=== PATIENT | female | born 1955 | race Caucasian/White ===

== ENCOUNTER → 2019-04-22 | Outpatient (CLI) | payer MEDICARE, MEDICAID, SELFPAY | PROVIDERS: Visit Provider Specialist | DX: H93.8X1 Other specified disorders of right ear (principal) | CPT/HCPCS: 36415; 93005 ==

== ENCOUNTER 2019-05-11 06:51 | Day surgery (SDC) | payer MEDICARE, MEDICAID, SELFPAY ==
[2019-05-10 17:11] VITALS: BMI 29.9
[2019-05-11 07:14] VITALS: BP 140/75; PULSE 100; RESP 18; O2SAT 97
--- NOTE | 2019-05-11 07:54 | ANES.PREANES ---
Pre-Anesthetic Assessment Pre-Anesthetic Assessment: Height/Weight: Height 1.52 m Weight 69.4 kg Pulse Resp BP Pulse Ox 100 18 140/75 97 05/11/19 07:14 05/11/19 07:14 05/11/19 07:14 05/11/19 07:14 Proposed Procedure: Operation Date: 05/11/19 08:00 Proposed Procedures p Myringotomy and Tubes(Right) - Jose L Mcgee MD s Eustachian Tube Dilation(Right) - Jose L Mcgee MD Last intake: Intake Last Liquid Date 05/10/19 Last Liquid Time 21:00 Last Solid Date 05/10/19 Last Solid Time 21:00 Social: Social History: Tobacco and No alcohol Exam: Pre-Anes Outpt Exam: alert, oriented x 3, clear to auscultation bilaterally and regular rate & rhythm Airway: Submandibular: WNL Cervical ROM: WNL MP: 2 Dentition: Full History/ROS: No significant history except as noted and No significant complaints Pulmonary: Pulmonary: COPD CV/HEM: CV/HEM: HTN GI: GI: GERD Metabolic: Metabolic: Hyperlipidemia Musc/skel: Musc/skel: OA/DJD Anesthetic Plan: ASA status: III Anesthesia: Anesthesia Evaluation and General Risk of > 500 ml blood loss (7ml/kg in children): No PFSH Anesthesia PFSH: Medical History (Updated 05/11/19 @ 07:55 by Chace Harden MD) History of COPD (Acute) Hx of gastroesophageal reflux (GERD) (Acute) Hx of hypercholesterolemia (Acute) Hx of migraines (Acute) Hx of primary hypertension (Acute) Surgical History (Updated 05/11/19 @ 07:55 by Chace Harden MD) History of ankle surgery (Acute) History of bladder surgery (Acute) History of carpal tunnel release of both wrists (Acute) History of tonsillectomy and adenoidectomy (Acute) Data Anesthesia Cardiac Studies: No Data to Display
[2019-05-11] MEDS: sodium chloride 0.9% 1,000 ML 30 ML IV (09:00)
[2019-05-11] MEDS: ciprofloxacin-dexameth Otic Susp 7.5 mL Btl 4 DROP EAR-RIGHT (09:05)
[2019-05-11] MEDS: EPINEPHrine 1 mg/mL INJ XX ×2 (09:07→09:09)
[2019-05-11] MEDS: fluorescein 1 mg Strip XX (09:10)
[2019-05-11] MEDS: lidocaine 4% PF 5 mL INJ INJECTION (09:11)
[2019-05-11] MEDS: oxymetazoline 0.05% Nasal Spray 15 mL 2 SPRAY NOSTRIL-B (09:13)
[2019-05-11 09:33] VITALS: BP 135/54; PULSE 98; RESP 20; TEMP 36.4; O2SAT 98
[2019-05-11] MEDS: ipratropium 0.5 mg/2.5 mL Neb INHALATION (09:33)
--- NOTE | 2019-05-11 09:35 | PM.OP ---
Operative Report Post-Operative Note: Date of procedure: 05/11/19 Preop Diagnosis: Chronic eustachian tube dysfunction, Right ear Post-op diagnosis: same Post-op Findings: Otitis media with effusion, Right ear Procedure Done: Right ear myringotomy with tympanostomy tube placement; Balloon dilation, right eustachian tube Implants: None Specimens removed/disposition: None Surgeon: Jose L Mcgee Termite Control Representative: Tani Dumont Anesthesia: general Estimated blood loss (mL): 10 IV fluids (mL): 700 Urine output (mL): 0 Complications: None Findings: Otitis media with effusion, right ear Condition: stable Disposition: same day Operative Report: Brief History: 63 yo wf with a h/o chronic right ear eustachian tube dysfunction with otitis media with effusion requiring multiple tympanostomy tube placements. The patient desires surgical therapy. Procedure: My BMDDESCRIPTION OF OPERATION: The patient was identified in the Preoperative Holding Area. Patient was taken to the Operating Room where [he/she] was placed on the operating table in the supine position. Anesthesia was obtained with [general mask] anesthesia. The patient's head was turned to the left exposing the right ear to the operating surgeon. An aural speculum was placed in the patient's left external auditory canal. The operating microscope with 300 millimeter lens was brought into the field and was used to make a systematic inspection of the patient's left external auditory canal and tympanic membrane with findings noted above. A radial incision was made at the anterior-inferior quadrant of the patient's left tympanic membrane. The middle ear effusion was evacuated with suction and a tympanostomy tube was placed in the myringotomy site with a pair of alligator forceps. Once this was accomplished, the ear was filled with Ciprodex otic suspension followed by a cotton ball. At this point, , the patient was prepped and draped in the usual sterile fashion and the nose was sprayed with Afrin. Pledgets soaked in Afrin and lidocaine were then placed in the right nasal cavity. 10 minutes were allowed to pass and then the pledgets were removed the right nasal cavity. At this point the 0? Mireles yahir surgical telescope with the attached video camera system was used to inspect the right nasal cavity and nasopharynx. The entellus balloon dilation system was then inserted into the eustachian tube orifice and inflated for 2 minutes. At this point the balloon was deflated and removed and the nose was observed for bleeding which of which there was none. At this point at this point, the procedure was terminated, control of the patient was returned to Anesthesia. The patient underwent an uneventful reversal of anesthesia and was taken to the Recovery Room in stable condition. Coding Level of Care Code Acute Matlab Developer for Salomon Jones
[2019-05-11 09:40] VITALS: BP 120/50; PULSE 90; RESP 15; O2SAT 100
[2019-05-11 09:45] VITALS: BP 138/56; PULSE 92; RESP 17; TEMP 36.4; O2SAT 94
--- NOTE | 2019-05-11 09:45 | SUR.PHASEI ---
0933- RECEIVED PATIENT IN PACU FROM OR VIA [facility]. RESP ARE EVEN BUT LABORED. NEBULIZER TX ORDERED PER CORETTA KAUFMAN. PT IS AWAKE AND ALERT, DROWSY. NO S/S PAIN OR NAUSEA 0945- PATIENT SITTING UP, EATING ICE CHIPS, TOLERATING WELL. SAT 93% WITH ROOM AIR
--- NOTE | 2019-05-11 09:58 | SUR.PHASEI ---
0947- TRANSFERRED PATIENT FROM PACU TO OPS VIA [facility]. RESP ARE EVEN AND NONLABORED. SAT 93% WITH ROOM AIR. SHE IS AWAKE AND ALERT. DENIES PAIN OR NAUSEA. WOULD LIKE SOME COFFEE. TRANSITION OF CARE TO [facility]
[2019-05-11 11:10] VITALS: BP 146/68; PULSE 95; RESP 18; TEMP 36.6; O2SAT 92
[2019-05-11 11:28] VITALS: BP 129/90; PULSE 90; RESP 18
--- NOTE | 2019-05-11 13:42 | ANE.PACU ---
 Inpatient post-anesthesia follow up: Airway intact: Yes Vital signs: Temperature 97.8 F Pulse Rate [Radial ] 90 Respiratory Rate 18 Blood Pressure [Ri ght Arm] 129/90 Pulse Oximetry 92 Oxygen Delivery Me thod Room Air Oxygen Flow Rate 6 Fraction of Inspir ed Oxygen Hydration adequate: Yes Nausea and vomiting: No Mental status: Baseline
== END 2019-05-11 11:15 | disposition home or self-care (01) ==
PROVIDERS: PCP Nurse Practitioner Family; Visit Provider Specialist
PROC: (CPT 69420; principal; 2019-05-11 07:50)
PROC: (CPT 69436; 2019-05-11 07:50)
DX: H66.91 Otitis media, unspecified, right ear (principal); J44.9 Chronic obstructive pulmonary disease, unspecified; I10 Essential (primary) hypertension; E78.5 Hyperlipidemia, unspecified; M19.90 Unspecified osteoarthritis, unspecified site; K21.9 Gastro-esophageal reflux disease without esophagitis; E78.00 Pure hypercholesterolemia, unspecified
CPT/HCPCS: 69436; 99221; J0171; J0330; J1100; J2001; J2405; J2704; J3010; J3490; J7030; J7611; J7644

== ENCOUNTER 2019-05-31 12:24 | Outpatient (CLI) | payer MEDICARE, MEDICAID, SELFPAY ==
[2019-05-31 13:23] LABS: Basophils % 0.4 %; Eosinophils # 0.2 10^3/uL (0.0-0.8); Eosinophils % 2.9 %; Hematocrit 35.2 % (37.0-47.0); Hemoglobin 10.4 g/dL (11.5-15.3); Mean Corpuscular HGB Conc 29.5 g/dL (30.0-36.0); Mean Corpuscular Hemoglobin 21.5 pg (28.0-34.0); Mean Corpuscular Volume 72.9 fL (81-99); Mean Platelet Volume 9.4 fL (7.4-10.4); Monocytes # 0.7 10^3/uL (0.2-0.9); Monocytes % 12.8 %; Neutrophils # 3.3 10^3/uL (1.8-7.7); Neutrophils % 64.3 %; Nucleated Red Blood Cells % 0 %; Platelet Count 368 10^3/cmm (130-400); Red Blood Count 4.83 10^6/uL (4.1-5.3); Red Cell Distribution Width 27.7 % (12.1-15.1); White Blood Count 5.2 10^3/uL (4.0-10.0)
--- NOTE | 2019-05-31 14:57 | ONC CON_ITS ---
Dr. Vasquez New Patient Note Patient: Latonia Gar Unit #: [id number]: [id number] Dicatated By: Pedro Luis Vasquez M.D.Date of Visit: May 31, 2019 Onc MED New Patient/Consult Referring Physician: Ragini Moody History of Present Illness: Mrs. Latonia Jones, Is a 63-year-old female with a lifelong history of off and on mild anemia, never required any attention until recently when on 05/12/2019 per PMD checked on labs shows white blood count 12.9 hemoglobin 8.8 hematocrit 29.8 platelets 531,000 MCV 67.6 and iron studies shows TIBC 434, iron saturation for and iron 16 which was low, she was started on oral iron one tablets twice a day, tolerating reasonably well except with off and on constipation. Patient has EGD and colonoscopy done on 09/21/2018 which showed colonoscopy exam shows no abnormality whereas EGD showed reflux esophagitis a single deep ulcer was visualized but was not actively bleeding. Duodenal exam shows no abnormality. As per Patient, she was started on acid reduction therapy. She never required blood transfusion, as taking oral iron off and on when she was young. Denies any jaundice, denies any melena or hematochezia, denies any palpitation or shortness of breath but generalized weakness and fatigue. Denies any weight loss. Denies any abdominal pain denies any hematuria. Denies any hemoptysis or hematemesis. Denies any history of gastric surgery. Denies any peripheral neuropathy. Past Medical History: Ms. Gar's medical history consists of chronic obstructive pulmonary disease, chronic sinusitis, hyperlipidemia, hypertension, and osteoarthritis. Past Surgical History: Ms. Gar's surgical/procedural history consists of bilateral carpal tunnel release, bladder tuck, left ankle fracture repair, and tonsillectomy - with adenoidectomy. Medications: Acyclovir 1 Tablet (of 400 mg) Oral 5x/d for 7 days, amLODIPine Besylate 1 Tablet (of 5 mg) Oral daily, Biotin 1 Tablet (of 1000 mcg) Oral daily, Cetirizine HCl 1 Tablet (of 10 mg) Oral daily, Cyclobenzaprine HCl 1 Tablet (of 10 mg) Oral b.i.d. PRN, Diclofenac Sodium 1 Tablet (of 75 mg) Tablet, enteric coated Oral b.i.d., Ferrous Sulfate 1 Tablet (of 325 (65 fe) mg) Oral t.i.d., hydroCHLOROthiazide 1 Tablet (of 25 mg) Oral daily, Losartan Potassium 1 Tablet (of 100 mg) Oral daily, Pantoprazole Sodium 1 Tablet (of 20 mg) Tablet, enteric coated Oral daily, ProAir HFA 1 Puff(s) (of 108 (90 base) mcg/act) Aerosol, solution Inhalation daily, Simvastatin 1 Tablet (of 40 mg) Oral daily, Sudafed 1 Tablet (of 30 mg) Oral b.i.d., Symbicort 1 Puff(s) Aerosol Inhalation b.i.d., Tessalon Perles 1 - 2 Capsule (of 100 mg) Oral q PRN, Vitamin D3 1 Capsule (of 25 mcg) Oral daily Allergies: Strawberries Social History: Ms. Gar is and she is retired. She is a daily smoker who has smoked 1.0 pack/day for 53 years. She has no history of drinking. She has indicated exposure to the following products: cigarettes. Ms. Gar reports the following support systems: lives with spouse, significant other, family, or friends, lives in own house, supportive family/friends willing to assist with needs, and adequate transportation available for expected visits. Her diet consists of regular meals. She indicates her activity level as: regular exercise. Family History: Ms. Gar's mother at age 70: myocardial infarction. Ms. Gar's father is : alcoholism. Ms. Gar has 1 brother who is : lymphoma. She has 2 sisters: 2 . Ms. Gar's first sister's lung cancer. Another sister's lung cancer. Review Of Symptoms: Constitutional - Appetite is good and weight is stable. No fever, chills, hot flashes, or night sweats. Energy level is good today, ENMT - Positive for sinus congestion/drainage. No mouth sores. No sore throat or difficulty swallowing, Hematologic/Lymphatic - No abnormal bruising or bleeding, Respiratory - Positive for shortness of breath and cough. No pleuritic pain or hemoptysis, Cardiovascular - No angina pain. No palpitations, Gastrointestinal - No nausea or vomiting. No heartburn or acid reflux. No diarrhea. Positive for constipation. No blood in the stool or black stools, Genitourinary (F) - No dysuria or hematuria. No urinary frequency. No urgency. Positive for incontinence, Musculoskeletal - Positive for joint pain, Neurologic - No headache. Positive for occasional dizziness. No numbness/paresthesias or other focal neurologic symptoms, Psychiatric - No depression. No insomnia. Positive for anxiety. Vital Signs: Performed on May 31, 2019 13:55: 0, 29.57, 1.66 sq.m, 60.00 in, 96 %, 84 /min, 24 /min, 156/91 mm(hg) (HIGH), 98.4 F, and 151.4 lbs (HIGH). Performance Status: 0 - Fully active, able to carry on all predisease activities without restrictions. (ECOG) Physical Examination: ENMT - No oral exudates, ulcers, masses, thrush or mucositis. Oropharynx clear. Tongue normal, Respiratory - Lungs are clear to auscultation without rhonchi or wheezing, Cardiovascular - Regular rate and rhythm of heart, Abdomen - Non-tender, non-distended, Good bowel sounds. No guarding or rebound tenderness. No pulsatile masses, Extremities - no edema. Lab/Imaging: Most recent lab results are not available for this patient. Impression: Microcytic microscopic anemia due to iron deficiency etiology unclear could be iron malabsorption plus minus chronic GI blood loss probably from small bowel as EGD and colonoscopy showed no obvious source of bleeding except nonbleeding peptic ulcer. Colonoscopy done on 09/21/2018 showed normal exam, EGD done on same date shows reflux esophagitis, nonbleeding a single deep ulcer. Otherwise unremarkable On oral iron, tolerating reasonably well Plan: Discussed with patient regarding her labs white blood count 5.2 hemoglobin 10.4 crit 35.2 platelets 368,000 MCV 72.9 compared to hemoglobin 8.8, hematocrit 29.8 MCV 67.6 on 05/12/2019, patient is on oral iron since then Clinically, patient doing well, tolerating oral iron well but with expected side effects e.g. constipation. Her follow-up lab done today showed improvement in her hemoglobin from 8.8 g to 10.4 g today, MCV also has improved from 67.6- to 72.9 today.Overall feeling better, more energetic. At this point , we'll continue with oral iron supplement patient was advised to take oral iron once a day in the morning with orange juice for better absorption and then she will return to clinic in one month at that time we'll check a CBC and iron studies if 4 hemoglobin/iron stores continued to improve then will continue oral iron supplement for couple of months to ensure maintenance of iron stores and hemoglobin in in normal range. On the other hand if she has persistent anemia and iron deficiency in that case we will consider parenteral iron as she may have coexistent iron malabsorption and also consider capsule endoscopy to rule out small bowel source of blood loss e.g. AVMs or other pathology. Return to clinic in one month with CBC and iron studies and B12 level Signed By: Pedro Luis Vasquez M.D. <<Signature on File>>
== END 2019-05-31 12:25 | disposition home or self-care (01) ==
LOC: ONCMED 12:33
PROVIDERS: Family Provider Nurse Practitioner Family; PCP Nurse Practitioner Family; Referring Provider Nurse Practitioner Family; Visit Provider Internal Medicine Hematology & Oncology
DX: D50.9 Iron deficiency anemia, unspecified (principal); J44.9 Chronic obstructive pulmonary disease, unspecified; J32.9 Chronic sinusitis, unspecified; E78.5 Hyperlipidemia, unspecified; I10 Essential (primary) hypertension; M19.90 Unspecified osteoarthritis, unspecified site; F17.210 Nicotine dependence, cigarettes, uncomplicated
CPT/HCPCS: 85025; 99203

== ENCOUNTER 2019-07-07 10:55 | Outpatient (CLI) | payer MEDICARE, MEDICAID, SELFPAY ==
[2019-07-07 11:33] LABS: Basophils # 0.1 10^3/uL (0.0-0.1); Basophils % 0.7 %; Eosinophils # 0.2 10^3/uL (0.0-0.8); Eosinophils % 2.1 %; Hematocrit 45.9 % (37.0-47.0); Hemoglobin 14.4 g/dL (11.5-15.3); Lymphocytes # 1.4 10^3/uL (0.8-4.8); Lymphocytes % 19.2 %; Mean Corpuscular HGB Conc 31.4 g/dL (30.0-36.0); Mean Corpuscular Hemoglobin 25.5 pg (28.0-34.0); Mean Corpuscular Volume 81.2 fL (81-99); Mean Platelet Volume 9.9 fL (7.4-10.4); Monocytes # 0.4 10^3/uL (0.2-0.9); Monocytes % 6.2 %; Neutrophils % 71.4 %; Nucleated Red Blood Cells % 0 %; Platelet Count 326 10^3/cmm (130-400); Red Blood Count 5.65 10^6/uL (4.1-5.3); White Blood Count 7.1 10^3/uL (4.0-10.0)
[2019-07-07 11:45] LABS: Ferritin 11 ng/mL (15-150); Iron 165 ug/dL (37-145); Percent Saturation 51.4 % (20-50); Total Iron Binding Capacity 321 mcg/dl; Unsaturated Iron Binding 156 ug/dL (112-347)
[2019-07-07 12:01] LABS: Vitamin B12 202 pg/mL (232-1245)
[2019-07-07 12:13] LABS: Red Cell Distribution Width 13.6 % (12.1-15.1)
== END 2019-07-07 10:56 | disposition home or self-care (01) ==
LOC: ONCMED 10:56
PROVIDERS: Family Provider Nurse Practitioner Family; PCP Nurse Practitioner Family; Visit Provider Internal Medicine Hematology & Oncology
DX: D50.9 Iron deficiency anemia, unspecified (principal)
CPT/HCPCS: 82607; 82728; 83540; 83550; 85025

== ENCOUNTER 2019-07-13 15:27 | Outpatient (CLI) | payer MEDICARE, MEDICAID, SELFPAY ==
[2019-07-13] MEDS: cyanocobalamin 1,000 mcg/mL SDV 1000 MCG SUBCUT (16:05)
--- NOTE | 2019-07-13 16:07 | ONC FU_ITS ---
Dr. Vasquez follow up note Patient: Latonia Gar Unit #: [id number]: [id number] Dicatated By: Pedro Luis Vasquez M.D.Date of Visit:Jul 13, 2019 Onc Med Follow-up/Prog Note History of Present Illness: Mrs. Latonia Jones, Is a 63-year-old female with a lifelong history of off and on mild anemia, never required any attention until recently when on 05/12/2019 per PMD checked on labs shows white blood count 12.9 hemoglobin 8.8 hematocrit 29.8 platelets 531,000 MCV 67.6 and iron studies shows TIBC 434, iron saturation for and iron 16 which was low, she was started on oral iron one tablets twice a day, tolerating reasonably well except with off and on constipation. Patient has EGD and colonoscopy done on 09/21/2018 which showed colonoscopy exam shows no abnormality whereas EGD showed reflux esophagitis a single deep ulcer was visualized but was not actively bleeding. Duodenal exam shows no abnormality. As per Patient, she was started on acid reduction therapy. She never required blood transfusion, as taking oral iron off and on when she was young. Denies any jaundice, denies any melena or hematochezia, denies any palpitation or shortness of breath but generalized weakness and fatigue. Denies any weight loss. Denies any abdominal pain denies any hematuria. Denies any hemoptysis or hematemesis. Denies any history of gastric surgery. Denies any peripheral neuropathy. Came for follow-up, denies any specific complaints, more energetic, tolerating oral iron well except constipation. Otherwise no palpitation no shortness of breath Medications: Acyclovir 1 Tablet (of 400 mg) Oral 5x/d for 7 days, amLODIPine Besylate 1 Tablet (of 5 mg) Oral daily, Biotin 1 Tablet (of 1000 mcg) Oral daily, Cetirizine HCl 1 Tablet (of 10 mg) Oral daily, Cyclobenzaprine HCl 1 Tablet (of 10 mg) Oral b.i.d. PRN, Diclofenac Sodium 1 Tablet (of 75 mg) Tablet, enteric coated Oral b.i.d., Ferrous Sulfate 1 Tablet (of 325 (65 fe) mg) Oral daily, hydroCHLOROthiazide 1 Tablet (of 25 mg) Oral daily, Losartan Potassium 1 Tablet (of 100 mg) Oral daily, Pantoprazole Sodium 1 Tablet (of 20 mg) Tablet, enteric coated Oral daily, ProAir HFA 1 Puff(s) (of 108 (90 base) mcg/act) Aerosol, solution Inhalation daily, Simvastatin 1 Tablet (of 40 mg) Oral daily, Sudafed 1 Tablet (of 30 mg) Oral b.i.d., Symbicort 1 Puff(s) Aerosol Inhalation b.i.d., Tessalon Perles 1 - 2 Capsule (of 100 mg) Oral q PRN, Vitamin D3 1 Capsule (of 25 mcg) Oral daily Allergies: Strawberries Review of Systems: Constitutional - Appetite is good and weight is stable. No fever, chills, hot flashes, or night sweats. Energy level is good today, ENMT - Positive for sinus congestion/drainage. No mouth sores. No sore throat or difficulty swallowing, Hematologic/Lymphatic - No abnormal bruising or bleeding, Respiratory - Positive for shortness of breath and cough. No pleuritic pain or hemoptysis, Cardiovascular - No angina pain. No palpitations, Gastrointestinal - No nausea or vomiting. No heartburn or acid reflux. No diarrhea. Positive for constipation. No blood in the stool or black stools, Genitourinary (F) - No dysuria or hematuria. No urinary frequency. No urgency. Positive for incontinence, Musculoskeletal - Positive for joint pain, Neurologic - No headache. Positive for occasional dizziness. No numbness/paresthesias or other focal neurologic symptoms, Psychiatric - No depression. No insomnia. Positive for anxiety. Vital Signs: Performed on Jul 13, 2019 15:40 Height - 60.00 in Weight - 147.4 lbs (LOW) BSA - 1.64 sq.m BMI - 28.79 Temperature - 98.6 F Pulse - 99 /min Respiration - 26 /min BP - 144/67 mm(hg) (HIGH) O2 Sat - 95 % (LOW) Pain - 4 Performance Status: 0 - Fully active, able to carry on all predisease activities without restrictions. (ECOG) Physical Examination: ENMT - No oral exudates, ulcers, masses, thrush or mucositis. Oropharynx clear. Tongue normal, Respiratory - Lungs are clear to auscultation without rhonchi or wheezing, Cardiovascular - Regular rate and rhythm of heart, Abdomen - Non-tender, non-distended, no masses, Good bowel sounds. No guarding or rebound tenderness. No pulsatile masses, Extremities - no edema. Lab/Imaging: Test performed on Jul 07, 2019 11:05 Ferritin 11 ng/mL Iron 165 ug/dL Vitamin B12 202 pg/mL UIBC 156 ug/dL WBC 7.1 10 3/uL RBC 5.65 10 6/uL HGB 14.4 g/dL HCT 45.9 % MCV 81.2 fL MCH 25.5 pg MCHC 31.4 g/dL RDW 13.6 % Platelet Count 326 10 3/cmm MPV 9.9 fL Neutrophils 5.0 10 3/uL Lymphocytes 1.4 10 3/uL Monocytes 0.4 10 3/uL Eosinophils 0.2 10 3/uL Basophils 0.1 10 3/uL Neutrophil % 71.4 % Lymphocyte % 19.2 % Monocyte % 6.2 % Eosinophil % 2.1 % Basophils % 0.7 % Impression: Microcytic microscopic anemia due to iron deficiency etiology unclear could be iron malabsorption plus minus chronic GI blood loss probably from small bowel as EGD and colonoscopy showed no obvious source of bleeding except nonbleeding peptic ulcer. B12 deficiency Colonoscopy done on 09/21/2018 showed normal exam, EGD done on same date shows reflux esophagitis, nonbleeding a single deep ulcer. Otherwise unremarkable On oral iron, tolerating reasonably well Plan: Discussed with patient regarding her labs white blood count 7.1 hemoglobin 14.4 crit 45.9 platelets 326,000 MCV 81.2 ferritin 11, iron 165, B12 202 Clinically, patient doing well, tolerating daily oral iron well but with expected side effects e.g. constipation, her follow-up lab showed normalization of hemoglobin now 14.4 g compared to 10.4 g on 05/31/2019 but iron studies shows persistent iron deficiency ferritin is 11 and B12 level was checked it came back low also, which could be due to malabsorption. At this point we'll consider parenteral B12 thousand micrograms IM weekly ???4 as a loading dose and then monthly as maintenance. She will continue with daily oral iron supplement and now being started on weekly B12 ???4 as a loading dose. Patient will return to clinic in one month with CBC, ferritin and B12 level Signed By: Pedro Luis Vasquez M.D. <<Signature on File>>
== END 2019-07-13 15:28 | disposition home or self-care (01) ==
PROVIDERS: Family Provider Nurse Practitioner Family; PCP Nurse Practitioner Family; Visit Provider Internal Medicine Hematology & Oncology
DX: D50.9 Iron deficiency anemia, unspecified (principal); Z79.899 Other long term (current) drug therapy; E53.8 Deficiency of other specified B group vitamins
CPT/HCPCS: 96372; G0463; J3420

== ENCOUNTER 2019-08-03 06:43 | Outpatient (RCR) | payer MEDICARE, MEDICAID, SELFPAY ==
[2019-07-20] MEDS: cyanocobalamin 1,000 mcg/mL SDV 1000 MCG SUBCUT (14:00)
[2019-07-27] MEDS: cyanocobalamin 1,000 mcg/mL SDV 1000 MCG SUBCUT (13:50)
[2019-08-03] MEDS: cyanocobalamin 1,000 mcg/mL SDV 1000 MCG SUBCUT (14:00)
== END 2019-08-03 23:59 | disposition home or self-care (01) ==
LOC: ONCMED 06:43
PROVIDERS: Family Provider Nurse Practitioner Family; PCP Nurse Practitioner Family; Visit Provider Internal Medicine Hematology & Oncology
DX: D50.9 Iron deficiency anemia, unspecified (principal)
CPT/HCPCS: 96372; J3420

== ENCOUNTER 2019-08-20 08:20 | Outpatient (RCR) | payer MEDICARE, MEDICAID, SELFPAY ==
[2019-08-19 20:22] LABS: Basophils % 0.6 %; Eosinophils # 0.2 10^3/uL (0.0-0.8); Eosinophils % 2.1 %; Hematocrit 48.6 % (37.0-47.0); Hemoglobin 15.4 g/dL (11.5-15.3); Lymphocytes # 1.7 10^3/uL (0.8-4.8); Lymphocytes % 24.4 %; Mean Corpuscular HGB Conc 31.7 g/dL (30.0-36.0); Mean Corpuscular Hemoglobin 28.1 pg (28.0-34.0); Mean Corpuscular Volume 88.5 fL (81-99); Mean Platelet Volume 9.5 fL (7.4-10.4); Monocytes # 0.6 10^3/uL (0.2-0.9); Monocytes % 8.8 %; Neutrophils # 4.5 10^3/uL (1.8-7.7); Neutrophils % 63.7 %; Nucleated Red Blood Cells % 0 %; Platelet Count 334 10^3/cmm (130-400); Red Blood Count 5.49 10^6/uL (4.1-5.3); Red Cell Distribution Width 15.7 % (12.1-15.1); White Blood Count 7.1 10^3/uL (4.0-10.0)
[2019-08-19 21:56] LABS: Ferritin 42 ng/mL (15-150)
[2019-08-19 22:11] LABS: Vitamin B12 346 pg/mL (232-1245)
--- NOTE | 2019-08-20 12:04 | ONC FU_ITS ---
Dr. Vasquez follow up note Patient: Latonia Gar Unit #: [id number]: [id number] Dicatated By: Pedro Luis Vasquez M.D.Date of Visit:Aug 20, 2019 Onc Med Follow-up/Prog Note History of Present Illness: Mrs. Latonia Jones, Is a 64-year-old female with a lifelong history of off and on mild anemia, never required any attention until recently when on 05/12/2019 per PMD checked on labs shows white blood count 12.9 hemoglobin 8.8 hematocrit 29.8 platelets 531,000 MCV 67.6 and iron studies shows TIBC 434, iron saturation for and iron 16 which was low, she was started on oral iron one tablets twice a day, tolerating reasonably well except with off and on constipation.follow-up labs done on 07/07/2019 showed B12 level 202 , she was started on loading dose of weekly parenteral B12 supplement ???4 on 07/13/2019and on 08/19/2019 she was switched to monthly B12 maintenance. Patient has EGD and colonoscopy done on 09/21/2018 which showed colonoscopy exam shows no abnormality whereas EGD showed reflux esophagitis a single deep ulcer was visualized but was not actively bleeding. Duodenal exam shows no abnormality. As per Patient, she was started on acid reduction therapy. She never required blood transfusion, as taking oral iron off and on when she was young. Denies any jaundice, denies any melena or hematochezia, denies any palpitation or shortness of breath but generalized weakness and fatigue. Denies any weight loss. Denies any abdominal pain denies any hematuria. Denies any hemoptysis or hematemesis. Denies any history of gastric surgery. Denies any peripheral neuropathy. Came for follow-up, denies any specific complaint, more energetic, no nausea or vomiting, no fever or chills, no heartburn indigestion, no diarrhea but occasionally constipation due to oral iron otherwise tolerated well. denies melena or hematochezia, denies any jaundice, Also tolerated parenteral B12 supplement. Medications: Acyclovir 1 Tablet (of 400 mg) Oral 5x/d for 7 days, amLODIPine Besylate 1 Tablet (of 5 mg) Oral daily, Biotin 1 Tablet (of 1000 mcg) Oral daily, Cetirizine HCl 1 Tablet (of 10 mg) Oral daily, Cyclobenzaprine HCl 1 Tablet (of 10 mg) Oral b.i.d. PRN, Diclofenac Sodium 1 Tablet (of 75 mg) Tablet, enteric coated Oral b.i.d., Ferrous Sulfate 1 Tablet (of 325 (65 fe) mg) Oral daily, hydroCHLOROthiazide 1 Tablet (of 25 mg) Oral daily, Losartan Potassium 1 Tablet (of 100 mg) Oral daily, Pantoprazole Sodium 1 Tablet (of 20 mg) Tablet, enteric coated Oral daily, ProAir HFA 1 Puff(s) (of 108 (90 base) mcg/act) Aerosol, solution Inhalation daily, Simvastatin 1 Tablet (of 40 mg) Oral daily, Sudafed 1 Tablet (of 30 mg) Oral b.i.d., Symbicort 1 Puff(s) Aerosol Inhalation b.i.d., Tessalon Perles 1 - 2 Capsule (of 100 mg) Oral q PRN, Vitamin D3 1 Capsule (of 25 mcg) Oral daily Allergies: Strawberries Review of Systems: Constitutional - Appetite is good and weight is stable. No fever, chills, hot flashes, or night sweats. Energy level is good, ENMT - Positive for sinus congestion/drainage. No mouth sores. No sore throat or difficulty swallowing, Hematologic/Lymphatic - No abnormal bruising or bleeding, Respiratory - Positive for shortness of breath and cough. No pleuritic pain or hemoptysis, Cardiovascular - No angina pain. No palpitations, Gastrointestinal - No nausea or vomiting. No heartburn or acid reflux. No diarrhea. Positive for constipation. No blood in the stool or black stools, Genitourinary (F) - No dysuria or hematuria. No urinary frequency. No urgency. Positive for incontinence, Musculoskeletal - Positive for joint pain, Neurologic - No headache. Positive for occasional dizziness. No numbness/paresthesias or other focal neurologic symptoms, Psychiatric - No depression. No insomnia. Positive for anxiety. Vital Signs: Performed on Aug 20, 2019 11:23 Height - 60.00 in Weight - 147.0 lbs (LOW) BSA - 1.64 sq.m BMI - 28.71 Temperature - 97.7 F (LOW) Pulse - 100 /min Respiration - 16 /min BP - 142/72 mm(hg) (HIGH) O2 Sat - 97 % Pain - 0 Performance Status: 0 - Fully active, able to carry on all predisease activities without restrictions. (ECOG) Physical Examination: ENMT - denies mouth sores or thrush, Respiratory - lungs clear, no wheezing, Cardiovascular - Regular rate and rhythm, Abdomen - no abdominal pain, no distention, Extremities - no visible edema or rash. Lab/Imaging: Test performed on Aug 19, 2019 12:15 Ferritin 42 ng/mL Vitamin B12 346 pg/mL WBC 7.1 10 3/uL RBC 5.49 10 6/uL HGB 15.4 g/dL HCT 48.6 % MCV 88.5 fL MCH 28.1 pg MCHC 31.7 g/dL RDW 15.7 % Platelet Count 334 10 3/cmm MPV 9.5 fL Neutrophils 4.5 10 3/uL Lymphocytes 1.7 10 3/uL Monocytes 0.6 10 3/uL Eosinophils 0.2 10 3/uL Basophils 0.0 10 3/uL Neutrophil % 63.7 % Lymphocyte % 24.4 % Monocyte % 8.8 % Eosinophil % 2.1 % Basophils % 0.6 % Test performed on Jul 07, 2019 11:05 Iron 165 ug/dL UIBC 156 ug/dL Impression: h/o Microcytic microscopic anemia due to iron deficiency etiology unclear could be iron malabsorption plus minus chronic GI blood loss probably from small bowel as EGD and colonoscopy showed no obvious source of bleeding except nonbleeding peptic ulcer.resolved with oral iron supplement and B12 supplement B12 deficiency status post loading dose with parenteral weekly [id number] ???4 and now on monthly maintenance since 08/19/2019 Colonoscopy done on 09/21/2018 showed normal exam, EGD done on same date shows reflux esophagitis, nonbleeding a single deep ulcer. Otherwise unremarkable On oral iron, tolerating reasonably well Plan: Discussed with patient regarding her labs white blood count 7.1 hemoglobin 15.4 crit 48.6 platelets 344,000 ferritin 42 compared to 11 on 07/07/2019 and B12 346 compared to 202 on 07/07/2019, now on oral iron and recently finished loading dose of B12 supplement Clinically, patient is doing well, no new signs symptoms, and other more energetic, follow-up lab shows resolution of anemia now hemoglobin is 15.4 g and ferritin is also improving on oral iron, now 41 and tolerated loading dose of B12 supplement and B12 level has improved to 346 today compared to 202 on 07/07/2019. Overall patient feeling well more energetic so we'll continue monitor her blood counts and iron stores and B12 level. She will return to clinic in 3 months with CBC and iron studies and B12 level in the meantime she'll continue monthly maintenance dose of B12 supplement Signed By: Pedro Luis Vasquez M.D. <<Signature on File>>
== END 2019-09-02 23:59 | disposition home or self-care (01) ==
LOC: ONCMED 08:20
PROVIDERS: Family Provider Nurse Practitioner Family; PCP Nurse Practitioner Family; Visit Provider Internal Medicine Hematology & Oncology
DX: D50.9 Iron deficiency anemia, unspecified (principal); E53.8 Deficiency of other specified B group vitamins; K22.10 Ulcer of esophagus without bleeding
CPT/HCPCS: 82607; 82728; 85025; G0463

== ENCOUNTER 2019-09-16 07:29 | Outpatient (RCR) | payer MEDICARE, MEDICAID, SELFPAY ==
[2019-09-16] MEDS: cyanocobalamin 1,000 mcg/mL SDV 1000 MCG SUBCUT (13:20)
== END 2019-10-03 23:59 | disposition home or self-care (01) ==
LOC: ONCMED 07:29
PROVIDERS: PCP Nurse Practitioner Family; Visit Provider Internal Medicine Hematology & Oncology
DX: D50.9 Iron deficiency anemia, unspecified (principal); D51.9 Vitamin B12 deficiency anemia, unspecified
CPT/HCPCS: 96372; J3420

== ENCOUNTER 2019-10-14 07:16 | Outpatient (RCR) | payer MEDICARE, MEDICAID, SELFPAY ==
[2019-10-14] MEDS: cyanocobalamin 1,000 mcg/mL SDV 1000 MCG SUBCUT (13:40)
== END 2019-11-02 23:59 | disposition home or self-care (01) ==
LOC: ONCMED 07:16
PROVIDERS: PCP Nurse Practitioner Family; Visit Provider Internal Medicine Hematology & Oncology
DX: D51.9 Vitamin B12 deficiency anemia, unspecified (principal); D50.9 Iron deficiency anemia, unspecified; J44.9 Chronic obstructive pulmonary disease, unspecified; J32.9 Chronic sinusitis, unspecified; E78.5 Hyperlipidemia, unspecified; I10 Essential (primary) hypertension; M19.90 Unspecified osteoarthritis, unspecified site
CPT/HCPCS: 96372; J3420

== ENCOUNTER 2019-10-19 10:32 | Outpatient (CLI) | payer MEDICARE, MEDICAID, SELFPAY ==
--- NOTE | 2019-10-19 10:45 | XR_ITS ---
WS: [id number] XR forearm LT 2V [id number] REASON FOR EXAM: ARM RAFFAELE, LEFT FINDINGS: At the head of the radius there is a fractures seen. The shafts of the ulna and radius are normal with no additional fractures. XR/XR forearm LT 2V [id number] IMPRESSION: Radial head fracture
--- NOTE | 2019-10-19 10:46 | XR_ITS ---
WS: [id number] XR elbow LT 2V [id number] REASON FOR EXAM: ARM PAIN, LEFT FINDINGS: The intra-articular fracture of the radial head is noted with mild separation of the fractu re parts. The capitellum was normal. There is anterior posterior fat pad signs present. XR/XR elbow LT 2V [id number] IMPRESSION: Intra-articular fracture of the radial head.
== END 2019-10-19 10:33 | disposition home or self-care (01) ==
LOC: RAD 10:42
PROVIDERS: PCP Nurse Practitioner Family; Visit Provider Nurse Practitioner Family
DX: F17.200 Nicotine dependence, unspecified, uncomplicated (principal); J32.9 Chronic sinusitis, unspecified; S52.122A Displaced fracture of head of left radius, initial encounter for closed fracture; X58.XXXA Exposure to other specified factors, initial encounter
CPT/HCPCS: 73070; 73090

== ENCOUNTER 2019-11-18 06:43 | Outpatient (RCR) | payer MEDICARE, MEDICAID, SELFPAY ==
[2019-11-17 11:38] LABS: Basophils % 0.4 %; Eosinophils # 0.1 10^3/uL (0.0-0.8); Eosinophils % 1.9 %; Hematocrit 43.3 % (37.0-47.0); Hemoglobin 14.1 g/dL (11.5-15.3); Lymphocytes # 1.4 10^3/uL (0.8-4.8); Lymphocytes % 18.6 %; Mean Corpuscular HGB Conc 32.6 g/dL (30.0-36.0); Mean Corpuscular Hemoglobin 30.2 pg (28.0-34.0); Mean Corpuscular Volume 92.7 fL (81-99); Mean Platelet Volume 9.9 fL (7.4-10.4); Monocytes # 0.5 10^3/uL (0.2-0.9); Monocytes % 6.5 %; Neutrophils # 5.22 10^3/uL (1.8-7.7); Nucleated Red Blood Cells % 0 %; Platelet Count 304 10^3/cmm (130-400); Red Blood Count 4.67 10^6/uL (4.1-5.3); White Blood Count 7.3 10^3/uL (4.0-10.0)
[2019-11-17 12:17] LABS: Folate Level 17.6 ng/mL (4.8-37.3)
[2019-11-17 12:23] LABS: Ferritin 21 ng/mL (15-150); Iron 92 ug/dL (37-145); Percent Saturation 29.3 % (20-50); Total Iron Binding Capacity 313 mcg/dl; Unsaturated Iron Binding 221 ug/dL (112-347); Vitamin B12 364 pg/mL (232-1245)
--- NOTE | 2019-11-18 15:53 | ONC FU_ITS ---
Dr. Vasquez follow up note Patient: Latonia Gar Unit #: [id number]: [id number] Dicatated By: Pedro Luis Vasquez M.D.Date of Visit:Nov 18, 2019 Onc Med Follow-up/Prog Note History of Present Illness: Mrs. Latonia Jones, Is a 64-year-old female with a lifelong history of off and on mild anemia, never required any attention until recently when on 05/12/2019 per PMD checked on labs shows white blood count 12.9 hemoglobin 8.8 hematocrit 29.8 platelets 531,000 MCV 67.6 and iron studies shows TIBC 434, iron saturation for and iron 16 which was low, she was started on oral iron one tablets twice a day, tolerating reasonably well except with off and on constipation.follow-up labs done on 07/07/2019 showed B12 level 202 , she was started on loading dose of weekly parenteral B12 supplement ???4 on 07/13/2019and on 08/19/2019 she was switched to monthly B12 maintenance. Patient has EGD and colonoscopy done on 09/21/2018 which showed colonoscopy exam shows no abnormality whereas EGD showed reflux esophagitis a single deep ulcer was visualized but was not actively bleeding. Duodenal exam shows no abnormality. As per Patient, she was started on acid reduction therapy. She never required blood transfusion, as taking oral iron off and on when she was young. Denies any jaundice, denies any melena or hematochezia, denies any palpitation or shortness of breath but generalized weakness and fatigue. Denies any weight loss. Denies any abdominal pain denies any hematuria. Denies any hemoptysis or hematemesis. Denies any history of gastric surgery. Denies any peripheral neuropathy. Came for follow-up, denies any specific complaints, no fever chills, no nausea, no diarrhea constipation, tolerating oral iron well along with parenteral B12 supplements., No melena or hematochezia, no jaundice, no peripheral neuropathy, no shortness of breath Medications: Acyclovir 1 Tablet (of 400 mg) Oral 5x/d for 7 days, amLODIPine Besylate 1 Tablet (of 5 mg) Oral daily, Biotin 1 Tablet (of 1000 mcg) Oral daily, Cetirizine HCl 1 Tablet (of 10 mg) Oral daily, Cyclobenzaprine HCl 1 Tablet (of 10 mg) Oral b.i.d. PRN, Diclofenac Sodium 1 Tablet (of 75 mg) Tablet, enteric coated Oral b.i.d., Ferrous Sulfate 1 Tablet (of 325 (65 fe) mg) Oral daily, hydroCHLOROthiazide 1 Tablet (of 25 mg) Oral daily, Losartan Potassium 1 Tablet (of 100 mg) Oral daily, Pantoprazole Sodium 1 Tablet (of 20 mg) Tablet, enteric coated Oral daily, ProAir HFA 1 Puff(s) (of 108 (90 base) mcg/act) Aerosol, solution Inhalation daily, Simvastatin 1 Tablet (of 40 mg) Oral daily, Sudafed 1 Tablet (of 30 mg) Oral b.i.d., Symbicort 1 Puff(s) Aerosol Inhalation b.i.d., Tessalon Perles 1 - 2 Capsule (of 100 mg) Oral q PRN, Vitamin D3 1 Capsule (of 25 mcg) Oral daily Allergies: Strawberries Review of Systems: Constitutional - Appetite is good and weight is stable. No fever, chills, hot flashes, or night sweats. Energy level is good, ENMT - Positive for sinus congestion/drainage. No mouth sores. No sore throat or difficulty swallowing, Hematologic/Lymphatic - No abnormal bruising or bleeding, Respiratory - Positive for shortness of breath and cough. No pleuritic pain or hemoptysis, Cardiovascular - No angina pain. No palpitations, Gastrointestinal - No nausea or vomiting. No heartburn or acid reflux. No diarrhea. Positive for constipation. No blood in the stool or black stools, Genitourinary (F) - No dysuria or hematuria. No urinary frequency. No urgency. Positive for incontinence, Musculoskeletal - Positive for joint pain, Neurologic - No headache. Positive for occasional dizziness. No numbness/paresthesias or other focal neurologic symptoms, Psychiatric - No depression. No insomnia. Positive for anxiety. Vital Signs: Performed on Nov 18, 2019 14:56 Height - 60.00 in Weight - 146.2 lbs (LOW) BSA - 1.63 sq.m BMI - 28.55 Temperature - 98.0 F (LOW) Pulse - 86 /min Respiration - 20 /min BP - 154/75 mm(hg) (HIGH) O2 Sat - 95 % (LOW) Pain - 0 Performance Status: 0 - Fully active, able to carry on all predisease activities without restrictions. (ECOG) Physical Examination: ENMT - No mouth sores no thrush no jaundice, Respiratory - Lungs are clear, Cardiovascular - Regular rate and rhythm of heart, Abdomen - Soft, bowel sounds present, Extremities - No visible edema. Lab/Imaging: Test performed on Aug 19, 2019 12:15 Ferritin 42 ng/mL Vitamin B12 346 pg/mL WBC 7.1 10 3/uL RBC 5.49 10 6/uL HGB 15.4 g/dL HCT 48.6 % MCV 88.5 fL MCH 28.1 pg MCHC 31.7 g/dL RDW 15.7 % Platelet Count 334 10 3/cmm MPV 9.5 fL Neutrophils 4.5 10 3/uL Lymphocytes 1.7 10 3/uL Monocytes 0.6 10 3/uL Eosinophils 0.2 10 3/uL Basophils 0.0 10 3/uL Neutrophil % 63.7 % Lymphocyte % 24.4 % Monocyte % 8.8 % Eosinophil % 2.1 % Basophils % 0.6 % Test performed on Jul 07, 2019 11:05 Iron 165 ug/dL UIBC 156 ug/dL Impression: h/o Microcytic microscopic anemia due to iron deficiency etiology unclear could be iron malabsorption plus minus chronic GI blood loss probably from small bowel as EGD and colonoscopy showed no obvious source of bleeding except nonbleeding peptic ulcer.resolved with oral iron supplement and B12 supplement B12 deficiency status post loading dose with parenteral weekly [id number] ???4 and now on monthly maintenance since 08/19/2019 Colonoscopy done on 09/21/2018 showed normal exam, EGD done on same date shows reflux esophagitis, nonbleeding a single deep ulcer. Otherwise unremarkable On oral iron, tolerating reasonably well Plan: Discussed with patient regarding her labs white blood count 7.3 hemoglobin 14.1 crit 43.3 platelets 304,000 iron saturation 29.3 ferritin 21, iron 92, TIBC 313, B12 364 Clinically, patient is doing well with no new signs symptom follow-up labs shows hemoglobin still within normal range but further drop in her ferritin level, patient is on oral iron and B12 supplements, her B12 levels within normal range. At this point will continue with oral iron and discontinue B12 supplement Return to clinic in 2 months with CBC iron studies and B12 level, if iron continues to go down, will consider parenteral iron Signed By: Pedro Luis Vasquez M.D. <<Signature on File>>
== END 2019-12-03 23:59 | disposition home or self-care (01) ==
LOC: ONCMED 06:43
PROVIDERS: PCP Nurse Practitioner Family; Visit Provider Internal Medicine Hematology & Oncology
DX: D50.9 Iron deficiency anemia, unspecified (principal); D51.9 Vitamin B12 deficiency anemia, unspecified
CPT/HCPCS: 36415; 82607; 82728; 82746; 83540; 83550; 85025; G0463

== ENCOUNTER 2020-01-27 11:33 | Outpatient (CLI) | payer MEDICARE, MEDICAID, SELFPAY ==
[2020-01-27 11:22] LABS: Basophils % 0.1 %; Hematocrit 45.8 % (37.0-47.0); Hemoglobin 14.9 g/dL (11.5-15.3); Lymphocytes # 1.6 10^3/uL (0.8-4.8); Lymphocytes % 13.1 %; Mean Corpuscular HGB Conc 32.5 g/dL (30.0-36.0); Mean Corpuscular Hemoglobin 30.3 pg (28.0-34.0); Mean Corpuscular Volume 93.1 fL (81-99); Mean Platelet Volume 10.2 fL (7.4-10.4); Monocytes # 1.2 10^3/uL (0.2-0.9); Monocytes % 10.2 %; Neutrophils # 9.21 10^3/uL (1.8-7.7); Neutrophils % 76.1 %; Nucleated Red Blood Cells % 0 %; Platelet Count 340 10^3/cmm (130-400); Red Blood Count 4.92 10^6/uL (4.1-5.3); Red Cell Distribution Width 12.6 % (12.1-15.1); White Blood Count 12.1 10^3/uL (4.0-10.0)
[2020-01-27 11:50] LABS: Ferritin 23 ng/mL (15-150)
[2020-01-27 13:53] LABS: Iron 106 ug/dL (37-145); Percent Saturation 30.3 % (20-50); Total Iron Binding Capacity 349 mcg/dl; Unsaturated Iron Binding 243 ug/dL (112-347); Vitamin B12 336 pg/mL (232-1245)
== END 2020-01-27 11:34 | disposition home or self-care (01) ==
LOC: ONCMED 11:33
PROVIDERS: PCP Nurse Practitioner Family; Visit Provider Internal Medicine Hematology & Oncology
DX: D51.9 Vitamin B12 deficiency anemia, unspecified (principal)
CPT/HCPCS: 82607; 82728; 83540; 83550; 85025

== ENCOUNTER 2020-01-28 10:58 | Outpatient (CLI) | payer MEDICARE, MEDICAID, SELFPAY ==
--- NOTE | 2020-01-28 11:26 | ONC FU_ITS ---
Dr. Vasquez follow up note Patient: Latonia Gar Unit #: [id number]: 1955 Dicatated By: Pedro Luis Vasquez M.D.Date of Visit:Jan 28, 2020 Onc Med Follow-up/Prog Note History of Present Illness: Mrs. Latonia Jones, Is a 64-year-old female with a lifelong history of off and on mild anemia, never required any attention until recently when on 05/12/2019 per PMD checked on labs shows white blood count 12.9 hemoglobin 8.8 hematocrit 29.8 platelets 531,000 MCV 67.6 and iron studies shows TIBC 434, iron saturation for and iron 16 which was low, she was started on oral iron one tablets twice a day, tolerating reasonably well except with off and on constipation.follow-up labs done on 07/07/2019 showed B12 level 202 , she was started on loading dose of weekly parenteral B12 supplement ???4 on 07/13/2019and on 08/19/2019 she was switched to monthly B12 maintenance. Patient has EGD and colonoscopy done on 09/21/2018 which showed colonoscopy exam shows no abnormality whereas EGD showed reflux esophagitis a single deep ulcer was visualized but was not actively bleeding. Duodenal exam shows no abnormality. As per Patient, she was started on acid reduction therapy. She never required blood transfusion, as taking oral iron off and on when she was young. Denies any jaundice, denies any melena or hematochezia, denies any palpitation or shortness of breath but generalized weakness and fatigue. Denies any weight loss. Denies any abdominal pain denies any hematuria. Denies any hemoptysis or hematemesis. Denies any history of gastric surgery. Denies any peripheral neuropathy. Came for follow-up, denies any specific complaints, no shortness of breath no chest pain no palpitation, nausea or vomiting, no generalized weakness or fatigue, tolerating oral iron and multivitamin well. Medications: Acyclovir 1 Tablet (of 400 mg) Oral 5x/d for 7 days, amLODIPine Besylate 1 Tablet (of 5 mg) Oral daily, Biotin 1 Tablet (of 1000 mcg) Oral daily, Cetirizine HCl 1 Tablet (of 10 mg) Oral daily, Chantix 1 Tablet Oral daily, Cyclobenzaprine HCl 1 Tablet (of 10 mg) Oral b.i.d. PRN, Diclofenac Sodium 1 Tablet (of 75 mg) Tablet, enteric coated Oral b.i.d., Ferrous Sulfate 1 Tablet (of 325 (65 fe) mg) Oral daily, hydroCHLOROthiazide 1 Tablet (of 25 mg) Oral daily, Losartan Potassium 1 Tablet (of 100 mg) Oral daily, Pantoprazole Sodium 1 Tablet (of 20 mg) Tablet, enteric coated Oral daily, ProAir HFA 1 Puff(s) (of 108 (90 base) mcg/act) Aerosol, solution Inhalation daily, Simvastatin 1 Tablet (of 40 mg) Oral daily, Sudafed 1 Tablet (of 30 mg) Oral b.i.d., Symbicort 1 Puff(s) Aerosol Inhalation b.i.d., Tessalon Perles 1 - 2 Capsule (of 100 mg) Oral q PRN, Vitamin D3 1 Capsule (of 25 mcg) Oral daily Allergies: Strawberries Review of Systems: Review of Systems is not available for this patient. Vital Signs: Performed on Jan 28, 2020 11:04 Height - 60.00 in Weight - 150.0 lbs (HIGH) BSA - 1.65 sq.m BMI - 29.30 Temperature - 97.3 F (LOW) Pulse - 87 /min Respiration - 20 /min BP - 146/66 mm(hg) (HIGH) O2 Sat - 96 % Pain - 0 Performance Status: 0 - Fully active, able to carry on all predisease activities without restrictions. (ECOG) Physical Examination: ENMT - No mouth sores, no thrush, no jaundice, Respiratory - Lungs are clear to auscultation, Cardiovascular - Regular rate and rhythm of heart, Abdomen - Soft, bowel sounds, Extremities - No visible edema or rash. Lab/Imaging: Test performed on Nov 17, 2019 10:20 Ferritin 21 ng/mL Iron 92 mcg/dL Vitamin B12 364 pg/mL Iron Binding Capacity (TIBC) 313 mcg/dl % Iron Saturation 29.3 % UIBC 221 mcg/dL WBC 7.3 10 3/uL RBC 4.67 10 6/uL HGB 14.1 g/dL HCT 43.3 % MCV 92.7 fL MCH 30.2 pg MCHC 32.6 g/dL RDW 13.0 % Platelet Count 304 10 3/cmm MPV 9.9 fL Neutrophils 5.22 10 3/uL Lymphocytes 1.4 10 3/uL Monocytes 0.5 10 3/uL Eosinophils 0.1 10 3/uL Basophils 0.0 10 3/uL Neutrophil % 72.0 % Lymphocyte % 18.6 % Monocyte % 6.5 % Eosinophil % 1.9 % Basophils % 0.4 % NRBC % 0 % Impression: h/o Microcytic microscopic anemia due to iron deficiency etiology unclear could be iron malabsorption plus minus chronic GI blood loss probably from small bowel as EGD and colonoscopy showed no obvious source of bleeding except nonbleeding peptic ulcer.resolved with oral iron supplement and B12 supplement B12 deficiency status post loading dose with parenteral weekly [id number] ???4 and now on monthly maintenance since 08/19/2019 Colonoscopy done on 09/21/2018 showed normal exam, EGD done on same date shows reflux esophagitis, nonbleeding a single deep ulcer. Otherwise unremarkable On oral iron, tolerating reasonably well Plan: Discussed with patient regarding her labs white blood count 12.1 hemoglobin 14.9 hematocrit 45.8 platelets 340,000 ferritin 23 iron 106 iron saturation 30.3 TIBC 243 B12 336 Clinically, patient is doing well with no new signs symptoms or follow-up labs shows hemoglobin is within normal range. Her iron studies and B12 is also within normal range but on the lower side of normal, patient is taking oral iron and multivitamin, tolerating well, no further work-up from hematology point of view, patient will follow with primary care physician and we will see her on as needed basis Signed By: Pedro Luis Vasquez M.D. <<Signature on File>>
== END 2020-01-28 10:59 | disposition home or self-care (01) ==
LOC: ONCMED 11:00
PROVIDERS: PCP Nurse Practitioner Family; Visit Provider Internal Medicine Hematology & Oncology
DX: D50.9 Iron deficiency anemia, unspecified (principal); D51.9 Vitamin B12 deficiency anemia, unspecified
CPT/HCPCS: G0463

== ENCOUNTER 2020-04-20 10:54 | Outpatient (CLI) | payer MEDICARE, MEDICAID, SELFPAY ==
--- NOTE | 2020-04-20 11:06 | US_ITS ---
WS: [id number] RIGHT UPPER QUADRANT ULTRASOUND HISTORY: ABDOMINAL PAIN/BLOATING COMPARISON: None available. Liver: 15.9 cm in length. Liver is top normal size to slightly enlarged. No mass or bile duct dilatat ion. Gallbladder: Normally distended gallbladder with no stones or wall thickening. CBD: 0.5 cm Pancreas: Poorly visualized. Obscured by bowel gas. Right kidney: 9.6 cm in length. Normal size and echogenicity. No hydronephrosis or mass. Aorta and IVC: Unremarkable abdominal aorta and IVC. No ascites. US/US gall bladder [id number] IMPRESSION: 1. Negative gallbladder. 2. Mild hepatomegaly and hepatic steatosis.
== END 2020-04-20 10:55 | disposition home or self-care (01) ==
LOC: US 10:54
PROVIDERS: PCP Nurse Practitioner Family; Visit Provider Nurse Practitioner Family
DX: R10.9 Unspecified abdominal pain (principal); R14.0 Abdominal distension (gaseous); R16.0 Hepatomegaly, not elsewhere classified; K76.0 Fatty (change of) liver, not elsewhere classified
CPT/HCPCS: 76705

== ENCOUNTER 2020-05-08 10:48 | Emergency (ER) | payer MEDICARE, MEDICAID, SELFPAY ==
[2020-05-08 10:54] VITALS: BP 194/79; PULSE 80; RESP 20; TEMP 36.7; O2SAT 82; BMI 28.3
[2020-05-08 11:07] VITALS: PULSE 80
[2020-05-08 11:10] VITALS: BP 172/71; PULSE 71; RESP 18; O2SAT 96
--- NOTE | 2020-05-08 11:27 | ED_ITS ---
HPI - Extremity Problem General: Chief complaint: Extremity Injury, Upper Stated complaint: FALL Time Seen by Provider: 05/08/20 11:07 Source: patient Mode of arrival: EMS Limitations: no limitations History of Present Illness: HPI Narrative: Patient is a 61-year-old female patient with a history of COPD, hypertension, who presents to the emergency department following a fall. She tripped over her big dog and fell and her right forearm hit a cabinet. She has a laceration to the forearm as well as a deformity. EMS placed in a sling and brought her in for evaluation. She did not hit her head and did not lose consciousness. Complaint: extremity pain Onset (ago): hour(s) (1) Pain Consistency: constant Location: right and upper extremity Severity scale (1-10): 10 Quality: sharp Radiation: none Relieving factors: nothing Exacerbating factors: range of motion and weight bearing Associated symptoms: Deny arthralgias, chest pain, fever(s), myalgias, rash or short of breath Review of Systems General: Reports: 10 or more systems reviewed and unremarkable except in HPI and below Const: Denies: fever(s) Eyes: Denies: change in vision or blurry vision ENMT: Denies: throat pain, enlarged tonsils, odynophagia, hoarseness, mouth pain or swelling of lips/tongue Card: Denies: chest pain Resp: Denies: dyspnea, productive cough or non-productive cough GI: Denies: abdominal pain, nausea or vomiting : Denies: flank pain, difficulty voiding, dysuria, urinary frequency, urinary urgency or urinary hesitancy Musc: Denies: neck pain, back pain or extremity swelling Skin/Breast: Denies: rash Neuro: Denies: headache(s), numbness in extremities or weakness in extremities Endo: Denies: polyuria, polydipsia or tired all the time [facility] ED PFSH: Medical History (Updated 05/08/20 @ 12:30 by Zuly Salmeron MD, [facility] [place]) History of COPD Hx of gastroesophageal reflux (GERD) Hx of hypercholesterolemia Hx of migraines Hx of primary hypertension Surgical History History of ankle surgery History of bladder surgery History of carpal tunnel release of both wrists History of tonsillectomy and adenoidectomy Physical Exam Const: COMMON NORMALS: no acute distress, average body habitus, patient oriented x3, no limitations, healthy appearing, alert and well nourished HENMT: COMMON NORMALS: normocephalic, atraumatic and moist oral mucous membranes HEAD & SCALP: normocephalic and atraumatic Eye: COMMON NORMALS: Equal, round and reactive pupils present, EOMs intact bilaterally, conjunctivae normal and no scleral icterus CONJUNCTIVA: Yes conjunctivae normal PUPIL: Yes Equal, round and reactive pupils present Neck/C-Spine: COMMON NORMALS: full ROM, supple, no meningeal signs, no JVD and No carotid bruits Resp: COMMON NORMALS: normal respiratory effort, No retractions, No use of accessory muscles, clear to auscultation bilaterally and percussion normal AUSCULTATION: clear to auscultation bilaterally PERCUSSION: percussion normal Cardio: COMMON NORMALS: no JVD, regular rate, regular rhythm, S1 normal heart sound present, S2 normal heart sound present, No gallops present (Cardio), No clicks present (Cardio), No murmurs present (Cardio), No rub (Cardio) and Peripheral pulses 2+ throughout RATE: regular rate RHYTHM: regular rhythm HEART SOUNDS: S1 normal heart sound present and S2 normal heart sound present PERIPHERAL PULSES: Peripheral pulses 2+ throughout GI: COMMON NORMALS: Normal to inspection, nondistended, normoactive bowel sounds present, Soft to palpation, non-tender, No hepatosplenomegaly present, no masses and no bruits PALPATION: Yes Soft to palpation and Yes No hepatosplenomegaly present : COMMON NORMALS: Yes no CVA tenderness BLADDER/KIDNEY EXAM: Yes no CVA tenderness Back/Pelvis: COMMON NORMALS: no CVA tenderness Extremity: COMMON NORMALS: normal to inspection, full ROM, capillary refill normal, no calf tenderness and no pedal edema RIGHT UPPER EXTREMITY: Yes lower arm Right lower arm: Yes inspection (4 cm skin tear on the ulnar border of mid forearm. Swelling noted ), Yes palpation and Yes neurovascular exam (intact. Brisk cap refill and intact 2 point discrimination) Neuro: COMMON NORMALS: patient oriented x3 SENSORIUM/ORIENTATION: Yes alert MENINGEAL SIGNS: Yes no meningeal signs Skin: COMMON NORMALS: no rashes or lesions noted, no wounds, turgor normal, no jaundice, no petechiae and no mottling GENERAL SKIN EXAM: no rashes or lesions noted and turgor normal Procedures Laceration Laceration 1: Site: upper extremity Side (If applicable): right Size (cm): 4 Description: flap and clean Depth: simple, single layer Local Anesthetic: lidocaine 1% Pre-repair: wound explored, irrigated extensively and deep structures intact Skin layer closed with: other (steri strips) Course Reevaluation(s): Reevaluation #1: Discussed her imaging findings with her. Negative for fracture. Explained that if she has a tiny hairline fracture it may not show up on the initial x-ray but if she still symptomatic after about 10 days she will need a repeat x-ray. She voiced understanding. Her wounds were cleaned and the skin tear was closed using Steri-Strips. She will be discharged home and wound care instructions given to her. She voiced understanding and is in agreement with the plan. She does not know the last time she had a tetanus shot so we will give her a tetanus vaccine today before discharge. Time: 12:10 Vital Signs: Vital signs: Vital Signs Temperature 98.1 F 05/08/20 10:54 Pulse Rate 85 05/08/20 13:09 Respiratory Rate 14 05/08/20 13:09 Blood Pressure 174/67 05/08/20 13:09 Pulse Oximetry 96 05/08/20 13:09 MDM - Extremity (Nontraumatic) MDM Narrative: Medical decision making narrative: 64-year-old female patient who had a fall today when she tripped over her dog and sustained a skin tear to her right elbow. Imaging done was negative for fracture. Wound was cleaned thoroughly, skin tear closed using Steri-Strips. Wound care instructions given to her and she is discharged to follow-up with her primary care provider. Imaging Data^: Xray Ortho: Attestation: I personally reviewed and interpreted this imaging study as follows: Radiologist's impression: [address] [address] XRay Report Signed Patient: Latonia Gar #: [id number] : 4Acct#:[id number] Age/Sex: 64 / FADM Date: 05/08/20 Loc: ERRoom/Bed: Attending Dr: Ordering Provider/Ordering MD: Zuly Salmeron MD, [facility] [place] Date of Service: 05/08/20 Procedure(s): XR forearm RT 2V [id number] Accession Number(s): [id number] Report Number: [id number] PROCEDURE INFORMATION: Exam: XR Right Forearm Exam date and time: 05/08/2020 11:27 AM Age: 64 years old Clinical indication: Injury or trauma; Fall; Blunt trauma (contusions or hematomas); Arm, lower; Right; Additional info: Fall, deformity TECHNIQUE: Imaging protocol: XR Right forearm. Views: 2 views. COMPARISON: No relevant prior studies available. FINDINGS: Bones/joints: No acute bony injury or malalignment in the visualized right forearm. If injury involving the wrist or elbow is of clinical concern, dedicated radiographs would be recommended. Degenerative change. Soft tissues: Soft tissue swelling. No radiopaque foreign body. XR/XR forearm RT 2V [id number] IMPRESSION: No acute bony injury or malalignment in the visualized right forearm, see comments above. Dictated By:Jamar William MD Signed By:Jamar William MDSigned Date/Time:05/08/20 1153 DD/ 1152 Discharge Plan Discharge Patient Disposition: Home Clinical Impression: Fall Qualifiers: Encounter type: initial encounter Qualified Code(s): W19.XXXA - Unspecified fall, initial encounter Skin tear of right forearm without complication Qualifiers: Encounter type: initial encounter Qualified Code(s): S51.811A - Laceration without foreign body of right forearm, initial encounter Condition: Stable Prescriptions: Continued pantoprazole 40 mg tablet,delayed release (DR/EC) 40 mg PO BID Qty: 180 RF: 2 cetirizine [Zyrtec] 10 mg tablet 10 mg PO DAILY RF: 0 simvastatin 40 mg tablet 40 mg PO DAILY RF: 0 losartan-hydrochlorothiazide 100-25 mg tablet 1 tab PO DAILY RF: 0 amlodipine 10 mg tablet 10 mg PO DAILY RF: 0 diclofenac sodium 75 mg tablet,delayed release (DR/EC) 75 mg PO DAILY RF: 0 pseudoephedrine HCl 30 mg tablet 30 mg PO DAILY RF: 0 albuterol sulfate [ProAir HFA] 90 mcg/actuation HFA aerosol inhaler 2 puff INHALATION DAILY RF: 0 cholecalciferol (vitamin D3) [Vitamin D3] 1,000 unit capsule 1,000 unit PO DAILY RF: 0 Symbicort 160-4.5 mcg/actuation HFA aerosol inhaler 1 puff INHALATION DAILY RF: 0 Discharge Orders: Discharge ED (Routine); Ordered 05/08/20 Ordered By: Zuly Salmeron Referrals: Ragini Moody NP [Primary Care Provider] - 4-7 days Discharge Diet: Usual diet Discharge Activity: Resume usual activity Patient Instructions: Skin Tear (ED), Fall Prevention (ED) Activity Restrictions/Additional Instructions: Return for any new or worsening symptoms. Follow-up with your primary care provider within 1 week. Keep the wound clean and dry. The Steri-Strips will fall on their own in a few days. 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
[2020-05-08] MEDS: tetanus-dipt-pertussis 0.5 mL SDV IM (12:47)
[2020-05-08] MEDS: lidocaine 1% INJ 20 mL INTRADERMA (12:48)
[2020-05-08 13:09] VITALS: BP 174/67; PULSE 85; RESP 14; O2SAT 96
== END 2020-05-08 13:11 | disposition home or self-care (01) ==
PROVIDERS: Emergency Provider Family Medicine; PCP Nurse Practitioner Family
DX: S51.811A Laceration without foreign body of right forearm, initial encounter (principal); Z23 Encounter for immunization; W01.0XXA Fall on same level from slipping, tripping and stumbling without subsequent striking against object, initial encounter
CPT/HCPCS: 12345; 73090; 90471; 90715; 99282; 99283

== ENCOUNTER 2020-10-05 18:33 | Observation (INO) | payer MEDICARE, MEDICAID, SELFPAY ==
[2020-10-05] VITALS (9 sets, daily range): BP systolic 129–183; BP diastolic 48–75; PULSE 75–98; RESP 16–22; TEMP 36.7; O2SAT 84–96; BMI 22.8
--- NOTE | 2020-10-05 18:38 | XRR_ITS ---
PROCEDURE INFORMATION: Exam: XR Chest Exam date and time: 10/05/2020 8:25 PM Age: 65 years old Clinical indication: Chest wall pain; Patient HX: Chest pain x 1 month, smoker; Additional info: Cp TECHNIQUE: Imaging protocol: XR of the chest. Views: 1 view. COMPARISON: CR Chest 1 [place] [id number] 06/02/2018 9:05 PM FINDINGS: Lungs: Mild atelectasis or fibrosis at the right lung base. No consolidative pulmonary infiltrates are noted. Pleural spaces: Unremarkable. No pleural effusion. No pneumothorax. Heart/Mediastinum: No cardiomegaly. Bones/joints: Unremarkable. XR/XR chest 1V portable [id number] IMPRESSION: 1. No acute cardiopulmonary disease demonstrated. 2. There is no significant change from the prior examination.
--- NOTE | 2020-10-05 20:28 | ED_ITS ---
HPI - SOB/Dyspnea General: Chief Complaint: Shortness of Breath/Dyspnea Stated Complaint: Trouble Breathing/Chest Pains Time Seen by Provider: 10/05/20 20:13 Source: patient Mode of arrival: ambulatory Limitations: no limitations History of Present Illness: HPI Narrative: 55-year-old female who is a longtime smoker states she has had increasing shortness of breath over the last week. She states she has severe shortness of breath with any exertion and is having right-sided chest pain as well. Denies any recent surgery or trips. She does use Symbicort at home. She is not on home oxygen after walking the room she is tachypneic and 90% on room air. She denies any fevers. She has had a very slight cough. Associated symptoms: Reports chest pain; Deny abdominal pain, fever(s), nausea or vomiting Review of Systems Const: Denies: fever(s), chills, body aches or change in appetite Eyes: Denies: blurry vision or eye discomfort ENMT: Denies: throat pain or dental pain Card: Reports: chest pain Resp: Reports: dyspnea GI: Denies: abdominal pain, nausea, vomiting or diarrhea : Denies: dysuria Musc: Denies: neck pain or back pain Skin/Breast: Denies: rash Neuro: Denies: headache(s) Psych: Denies: depression Aden/Lymph: Denies: easy bruising All/Imm: Denies: urticaria PFSH ED PFSH: Medical History (Updated 10/05/20 @ 22:55 by Shashi Thomas MD) History of COPD Hx of gastroesophageal reflux (GERD) Hx of hypercholesterolemia Hx of migraines Hx of primary hypertension Surgical History History of ankle surgery History of bladder surgery History of carpal tunnel release of both wrists History of tonsillectomy and adenoidectomy Physical Exam Const: COMMON NORMALS: no acute distress, patient oriented x3 and healthy appearing HENMT: COMMON NORMALS: normocephalic and atraumatic HEAD & SCALP: normocephalic and atraumatic Eye: COMMON NORMALS: Equal, round and reactive pupils present and EOMs intact bilaterally PUPIL: Yes Equal, round and reactive pupils present Neck/C-Spine: COMMON NORMALS: full ROM and supple Chest: COMMONS NORMALS: normal inspection of the chest and normal palpation of entire chest wall Resp: COMMON NORMALS: No retractions and No use of accessory muscles EFFORT & INSPECTION: Yes respiratory distress AUSCULTATION: wheezes Cardio: COMMON NORMALS: regular rate, regular rhythm and No murmurs present (Cardio) RATE: regular rate RHYTHM: regular rhythm GI: COMMON NORMALS: Normal to inspection, nondistended, normoactive bowel sounds present, Soft to palpation, non-tender and no masses PALPATION: Yes Soft to palpation Extremity: COMMON NORMALS: normal to inspection and full ROM Neuro: COMMON NORMALS: patient oriented x3, moves all extremities and no focal motor deficits Psych: COMMON NORMALS: mental status grossly normal, Normal thought process present and cooperative THOUGHT PROCESS: Normal thought process present Skin: COMMON NORMALS: no rashes or lesions noted and no wounds GENERAL SKIN EXAM: no rashes or lesions noted Course Vital Signs: Vital signs: Vital Signs Temperature 98.0 F 10/05/20 19:03 Pulse Rate 88 10/06/20 00:00 Respiratory Rate 18 10/06/20 00:00 Blood Pressure 148/75 10/06/20 00:00 Pulse Oximetry 93 10/06/20 00:00 MDM - SOB/Dyspnea MDM Narrative: Medical decision making narrative: Patient presents here with shortness of breath likely COPD. CT chest here showed no signs of pulmonary embolism she has no signs of pneumonia. She continues to get quite dyspneic and hypoxic with any ambulation. I did have RT walk her after breathing treatments and she desaturated to 82%. I spoke to hospitalist will admit. Lab Data: Labs: Lab Results 10/05/20 10/05/20 10/05/20 Range/Units 20:34 20:34 20:34 WBC 8.2 (4.0-10.0) 10^3/ uL RBC 4.00 L (4.1-5.3) 10^6/u L Hgb 8.2 L (11.5-15.3) g/dL Hct 29.4 L (37.0-47.0) % MCV 73.5 L (81-99) fL MCH 20.5 L (28.0-34.0) pg MCHC 27.9 L (30.0-36.0) g/dL RDW 16.0 H (12.1-15.1) % Plt Count 351 (130-400) 10^3/c mm MPV 10.0 (7.4-10.4) fL Neut % (Auto) 65.6 % Lymph % (Auto) 21.7 % [place] % (Auto) 8.7 % Eos % (Auto) 2.9 % Baso % (Auto) 0.7 % Neut # (Auto) 5.36 (1.8-7.7) 10^3/u L Lymph # (Auto) 1.8 (0.8-4.8) 10^3/u L [place] # (Auto) 0.7 (0.2-0.9) 10^3/u L Eos # (Auto) 0.2 (0.0-0.8) 10^3/u L Baso # (Auto) 0.1 (0.0-0.1) 10^3/u L Nucleated RBC % (a uto) 0 % Nucleated RBCs # 0.0 /100WBC PT 13.10 (12.1-14.9) SECO NDS INR 0.97 (0.8-1.2) D-Dimer 0.62 H (0-0.59) ug/mIFE U Sodium 137 (136-145) mmol/L Potassium 3.6 (3.5-5.1) mmol/L Chloride 100 (98-107) mmol/L Carbon Dioxide 25 (22-29) mmol/L Anion Gap 15.6 (5-19) BUN 16 (8-23) mg/dL Creatinine 0.9 (0.5-0.9) mg/dL GFR Calculation 62.5 L (90-130) mL/min Glucose 87 (65-115) mg/dL Calculated Osmolal ity 285 (285-295) mOsm/k g Calcium 9.1 (8.5-10.5) mg/dL Total Bilirubin 0.2 (0.15-1.2) mg/dL AST 19 (0-32) U/L ALT 21 (0-33) U/L Alkaline Phosphata se 59 (35-105) IU/L Troponin T Baselin e (0-10) ng/L Troponin T 120 Min stef (0-10) ng/L Delta Troponin T (0-10) ABS# Total Protein 6.7 (6.6-8.7) g/dL Albumin 4.8 (3.5-5.2) g/dL Globulin 1.9 (1.3-4.6) g/dL 10/05/20 10/05/20 Range/Units 20:34 22:41 WBC (4.0-10.0) 10^3/ uL RBC (4.1-5.3) 10^6/u L Hgb (11.5-15.3) g/dL Hct (37.0-47.0) % MCV (81-99) fL MCH (28.0-34.0) pg MCHC (30.0-36.0) g/dL RDW (12.1-15.1) % Plt Count (130-400) 10^3/c mm MPV (7.4-10.4) fL Neut % (Auto) % Lymph % (Auto) % [place] % (Auto) % Eos % (Auto) % Baso % (Auto) % Neut # (Auto) (1.8-7.7) 10^3/u L Lymph # (Auto) (0.8-4.8) 10^3/u L [place] # (Auto) (0.2-0.9) 10^3/u L Eos # (Auto) (0.0-0.8) 10^3/u L Baso # (Auto) (0.0-0.1) 10^3/u L Nucleated RBC % (a uto) % Nucleated RBCs # /100WBC PT (12.1-14.9) SECO NDS INR (0.8-1.2) D-Dimer (0-0.59) ug/mIFE U Sodium (136-145) mmol/L Potassium (3.5-5.1) mmol/L Chloride (98-107) mmol/L Carbon Dioxide (22-29) mmol/L Anion Gap (5-19) BUN (8-23) mg/dL Creatinine (0.5-0.9) mg/dL GFR Calculation (90-130) mL/min Glucose (65-115) mg/dL Calculated Osmolal ity (285-295) mOsm/k g Calcium (8.5-10.5) mg/dL Total Bilirubin (0.15-1.2) mg/dL AST (0-32) U/L ALT (0-33) U/L Alkaline Phosphata se (35-105) IU/L Troponin T Baselin e 11 H (0-10) ng/L Troponin T 120 Min stef 8.78 (0-10) ng/L Delta Troponin T -2.22 L (0-10) ABS# Total Protein (6.6-8.7) g/dL Albumin (3.5-5.2) g/dL Globulin (1.3-4.6) g/dL Imaging Data^: CT Chest: Attestation: I personally reviewed and interpreted this imaging study as follows: Radiologist's impression: [employer] [address] XRay Report Signed Patient: Latonia Gar Unit #: [id number] : 1955 Age/Sex: 65 / F ADM Date: 10/05/20 Loc: ER Room/Bed: Attending Dr: Ordering Provider/Ordering MD: Shashi Thomas MD Date of Service: 10/05/20 Procedure(s): XR chest 1V portable [id number] Accession Number(s): [id number] Report Number: [id number] PROCEDURE INFORMATION: Exam: XR Chest Exam date and time: 10/05/2020 8:25 PM Age: 65 years old Clinical indication: Chest wall pain; Patient HX: Chest pain x 1 month, smoker; Additional info: Cp TECHNIQUE: Imaging protocol: XR of the chest. Views: 1 view. COMPARISON: CR Chest 1 [place] [id number] 06/02/2018 9:05 PM FINDINGS: Lungs: Mild atelectasis or fibrosis at the right lung base. No consolidative pulmonary infiltrates are noted. Pleural spaces: Unremarkable. No pleural effusion. No pneumothorax. Heart/Mediastinum: No cardiomegaly. Bones/joints: Unremarkable. XR/XR chest 1V portable [id number] IMPRESSION: 1. No acute cardiopulmonary disease demonstrated. 2. There is no significant change from the prior examination. EKG Data^: EKG 1: Attestation: I personally reviewed and interpreted this EKG as follows: EKG Interpretation Date: 10/05/20 EKG interpretation time: 19:13 Interpretation: nsr hr [address] or t wave abnormalities qrs 83 qtc 415 EKG 2: Attestation: I personally reviewed and interpreted this EKG as follows: EKG Interpretation Date: 10/05/20 EKG interpretation time: 21:25 Interpretation: nsr hr [address] or t wave abnormalities qrs 83 qtc 448 Discharge Plan Discharge Patient Disposition: Admitted As Inpatient Clinical Impression: Asthma with exacerbation Qualifiers: Asthma severity: mild Asthma persistence: unspecified Qualified Code(s): J45.901 - Unspecified asthma with (acute) exacerbation Condition: Stable Discharge Diet: Advance as tolerated Discharge Activity: Resume usual activity Coding Level of Care Code ED Esthetic Dermatologist for Chg Fwd Exam Comprehensive
--- NOTE | 2020-10-05 20:39 | ECG_ITS ---
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
[2020-10-05] MEDS: ipratropium-albuterol 3 mL Neb INHALATION (20:42)
[2020-10-05 20:47] LABS: Basophils # 0.1 10^3/uL (0.0-0.1); Basophils % 0.7 %; Eosinophils # 0.2 10^3/uL (0.0-0.8); Eosinophils % 2.9 %; Hematocrit 29.4 % (37.0-47.0); Hemoglobin 8.2 g/dL (11.5-15.3); Lymphocytes # 1.8 10^3/uL (0.8-4.8); Lymphocytes % 21.7 %; Mean Corpuscular HGB Conc 27.9 g/dL (30.0-36.0); Mean Corpuscular Hemoglobin 20.5 pg (28.0-34.0); Mean Corpuscular Volume 73.5 fL (81-99); Monocytes # 0.7 10^3/uL (0.2-0.9); Monocytes % 8.7 %; Neutrophils # 5.36 10^3/uL (1.8-7.7); Neutrophils % 65.6 %; Nucleated Red Blood Cells % 0 %; Platelet Count 351 10^3/cmm (130-400); White Blood Count 8.2 10^3/uL (4.0-10.0)
[2020-10-05 21:04] LABS: Troponin(5th) Baseline 11 ng/L (0-10)
[2020-10-05 21:06] LABS: Alanine Aminotransferase 21 U/L (0-33); Albumin Level 4.8 g/dL (3.5-5.2); Alkaline Phosphatase 59 IU/L (35-105); Anion Gap 15.6 (5-19); Aspartate Amino Transferase 19 U/L (0-32); Blood Urea Nitrogen 16 mg/dL (8-23); Calcium 9.1 mg/dL (8.5-10.5); Carbon Dioxide 25 mmol/L (22-29); Chloride 100 mmol/L (98-107); Globulin 1.9 g/dL (1.3-4.6); Glomerular Filtration Rate 62.5 mL/min (90-130); Glucose 87 mg/dL (65-115); Osmolality Calculated 285 mOsm/kg (285-295); Potassium 3.6 mmol/L (3.5-5.1); Sodium 137 mmol/L (136-145); Total Bilirubin 0.2 mg/dL (0.15-1.2); Total Protein 6.7 g/dL (6.6-8.7)
[2020-10-05 21:14] LABS: INR 0.97 (0.8-1.2)
[2020-10-05 21:17] LABS: D Dimer 0.62 ug/mIFEU (0-0.59)
--- NOTE | 2020-10-05 21:44 | CTR_ITS ---
PROCEDURE INFORMATION: Exam: CTA Chest With Contrast Exam date and time: 10/05/2020 9:45 PM Age: 65 years old Clinical indication: Shortness of breath; Additional info: SOB TECHNIQUE: Imaging protocol: Computed tomographic angiography of the chest with contrast. 3D rendering (Not supervised by radiologist): MIP and/or 3D reconstructed images were created by the technologist. Radiation optimization: All CT scans at this facility use at least one of these dose optimization techniques: automated exposure control; mA and/or kV adjustment per patient size (includes targeted exams where dose is matched to clinical indication); or iterative reconstruction. Contrast material: OMNI 350; Contrast volume: 59 ml; Contrast route: INTRAVENOUS (IV); COMPARISON: CR (CHEST, ) 10/05/2020 8:16 PM RADIATION DOSE METRICS: Total DLP (mGy-cm): 530.7 FINDINGS: Pulmonary arteries: Pulmonary arteries are well opacified. Pulmonary arteries are normal in caliber. No filling defects are demonstrated. No evidence of pulmonary embolism. Aorta: Atherosclerosis of the thoracic aorta. No aneurysm or dissection. Lungs: Changes of centrilobular emphysema demonstrated. Mild dependent atelectasis in the lower lobes. Mild fibrosis in the inferior right middle lobe and inferior lingula. No consolidative pulmonary infiltrate noted. Multiple calcified pulmonary granulomas, measuring up to 8 mm. Pleural spaces: Unremarkable. No pneumothorax. No pleural effusion. Heart: No cardiomegaly. No pericardial effusion. Lymph nodes: Unremarkable. No enlarged lymph nodes. Bones/joints: Degenerative spine changes are noted. No fracture or other acute osseous abnormality. Soft tissues: Unremarkable. CT/CT angio chest PE protcl [id number] IMPRESSION: 1. Pulmonary arteries appear unremarkable. No evidence of pulmonary embolism. 2. No evidence of thoracic aortic aneurysm or dissection. 3. Mild dependent atelectasis in the lower lobes. Mild fibrosis in the inferior right middle lobe and inferior lingula. No consolidative pulmonary infiltrate noted. 4. Findings of old granulomatous disease are identified. Radiation Dose CTDIVOL = (mGy): DLP = 530.7 (mGy-cm)
[2020-10-05] MEDS: iohexol 350 mg/mL 100 mL Btl IV (22:08)
[2020-10-05 23:02] LABS: Troponin 5 2HR 8.78 ng/L (0-10)
[2020-10-05 23:07] LABS: Troponin 5 2HR Delta -2.22 ABS# (0-10)
--- NOTE | 2020-10-05 23:50 | P.HP_ITS ---
Providers/Chief Complaint Primary Care Provider: Ragini Moody NP Chief Complaint: Trouble Breathing/Chest Pains History of Present Illness Latonia Gar is a 65 year old female who is an active smoker presented today with chief complaint of chest pain and shortness of breath. Patient is stating that for last 1 month she has been experiencing shortness of breath on exertion, she is also describing seasonal allergies no recent fever, sinusitis runny nose or runny eyes. She is describing her symptoms mainly on exertion. Lately she has started noticing chest discomfort as well which she describing as burning sensation all over her precordium radiating to her right shoulder and arms bilaterally, no nausea, vomiting or diaphoresis. She is smoking 1 to 2 cigarettes a day. Does not drink alcohol. No use of oxygen. Has never been diagnosed with COPD. No recent productive cough, excessive sputum production. Denies sedentary lifestyle. Diagnosis in the ER revealed acute hypoxia requiring 3 L of oxygen on ambulation otherwise at rest she saturating well Anemia noticed, last hemoglobin 14 current hemoglobin 8.2, patient is denying hematochezia, hematemesis, dark stools. Iron studies requested IMPRESSION: 1. Pulmonary arteries appear unremarkable. No evidence of pulmonary embolism. 2. No evidence of thoracic aortic aneurysm or dissection. 3. Mild dependent atelectasis in the lower lobes. Mild fibrosis in the inferior right middle lobe and inferior lingula. No consolidative pulmonary infiltrate noted. 4. Findings of old granulomatous disease are identified. Review of Systems Eyes: Denies: change in vision ENMT: Denies: throat pain Card: Reports: chest pain and dyspnea on exertion Resp: Reports: dyspnea and pain on inspiration GI: Denies: abdominal pain : Denies: flank pain Musc: Denies: neck pain Skin/Breast: Denies: rash Neuro: Denies: headache(s) Psych: Denies: anxiety Endo: Denies: polyuria Aden/Lymph: Denies: easy bruising All/Imm: Denies: urticaria Medications/Allergies Home Medications Medication Instructions Recorded Confirmed Last Taken Type albuterol sulfate [ProAir HFA] 2 puff INHALATION DAILY 05/10/19 10/05/20 05/11/19 History budesonide-formoterol [Symbicort] 1 puff INHALATION DAILY 05/10/19 10/05/20 10/05/20 History cetirizine [Zyrtec] 10 mg PO DAILY 05/10/19 10/05/20 10/05/20 History cholecalciferol (vitamin D3) 1,000 unit PO DAILY 05/10/19 10/05/20 10/05/20 History [Vitamin D3] diclofenac sodium 75 mg PO DAILY 05/10/19 10/05/20 10/05/20 History losartan-hydrochlorothiazide 1 tab PO DAILY 05/10/19 10/05/20 10/05/20 History pseudoephedrine HCl 30 mg PO DAILY 05/10/19 10/05/20 10/05/20 History simvastatin 40 mg PO DAILY@2100 05/10/19 10/05/20 10/04/20 History pantoprazole 40 mg tablet,delayed 40 mg PO BID #180 tab 03/14/20 10/05/20 10/05/20 Rx release amlodipine 5 mg PO DAILY 10/05/20 10/05/20 10/05/20 History biotin 1 tab PO DAILY 10/05/20 10/05/20 10/05/20 History furosemide 20 mg PO DAILY 10/05/20 10/05/20 10/05/20 History hydroxyzine pamoate 25 mg PO TID PRN 10/05/20 10/05/20 10/04/20 History prednisone 50 mg PO DAILY #5 tab 10/05/20 Unknown Rx vitamin B complex [Super B Complex] 1 tab PO DAILY 10/05/20 10/05/20 10/05/20 History Allergies Allergy/AdvReac Type Severity Reaction Status Date / Time No Known Allergies Allergy Verified 09/16/19 13:42 PFSH Acute PFSH: Medical History Asthma with exacerbation History of COPD Hx of chest pain Hx of gastroesophageal reflux (GERD) Hx of hypercholesterolemia Hx of migraines Hx of primary hypertension PUD (peptic ulcer disease) Smoker Surgical History History of ankle surgery History of bladder surgery History of carpal tunnel release of both wrists History of tonsillectomy and adenoidectomy Family History (Updated 10/06/20 @ 01:57 by Vic Wayne MD) Other Family history non-contributory Social History (Updated 10/06/20 @ 01:58 by Vic Wayne MD) Smoking and tobacco status: current some day smoker Alcohol intake: never Substance/Drug Use: never Housing: House Vitals/I&O/Wt Last Vital Signs Temp 98.0 F 10/05/20 19:03 Pulse 95 10/05/20 23:22 Resp 22 H 10/05/20 23:22 BP 172/75 10/05/20 23:22 Pulse Ox 95 10/05/20 23:22 Weight last 48 hrs Weight 68.039 kg Physical Exam Narrative: EXAM NARRATIVE: Pleasant female, appears stated age, was resting comfortably when I entered the room, was saturating well on 2 L nasal cannula, no active chest pain or shortness of breath at rest, Bilateral breath sounds no active wheezing noticed S1, S2 sinus rhythm no murmur appreciated Abdomen soft nontender bowel sound present Lower extremity no edema gangrene ulcer EOMI, PERRLA No neurological deficit Appropriate mood and affect No joint swelling no cellulitis or skin color changes Data : 10/05/20 20:34 10/05/20 20:34 A&P Assessment and plan (1) Acute anemia: Status: Acute (2) Acute respiratory failure with hypoxia: Status: Acute (3) Tobacco abuse counseling: Status: Acute Additional A&P Information Acute hypoxic respiratory failure Patient most likely has undiagnosed COPD will need outpatient pulmonology follow-up, no signs of pneumonia or PE, she requires oxygen on ambulation currently saturating well on 2 L nasal cannula will request home O2 evaluation, I would avoid antibiotics for now No sign of heart failure, CTA chest rule out PE Acute microcytic anemia Patient is denying hematochezia episodes of bleeding however endorses history of peptic ulcer disease Start Protonix 40 IV twice daily Hemodynamically stable will need outpatient endoscopy, Requested iron studies and B12 Will transfuse if hemoglobin less than 7 Hypertension: Continue antihypertensive regimen for now Full code DVT prophylaxis SCDs Cardiac diet Attestations Medical Necessity Statement*: Anticipating discharge within 48 hours overnight monitoring needed because of acute hypoxic respiratory failure requires home O2 evaluation Time Spent in Patient Care: 30mins Coding Level of Care Code Acute Cpr Instructor for Salomon Jones Diagnoses Acute anemia D64.9 Acute respiratory failure with hypoxia J96.01 Tobacco abuse counseling Z71.6
[2020-10-06] VITALS (14 sets, daily range): BP systolic 120–174; BP diastolic 55–75; PULSE 68–107; RESP 16–24; TEMP 36.5–36.8; O2SAT 93–99
[2020-10-06 00:30] LABS: Ferritin 5 ng/mL (15-150); Iron 10 ug/dL (37-145); Percent Saturation 2.2 % (20-50); Total Iron Binding Capacity 448 mcg/dl; Unsaturated Iron Binding 438 ug/dL (112-347)
--- NOTE | 2020-10-06 00:39 | ECG_ITS ---
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
[2020-10-06 00:46] LABS: Vitamin B12 354 pg/mL (232-1245)
[2020-10-06] MEDS: iron sucrose 200 MG in sodium chloride 0.9% (100 ml) 100 ML 220 MG IV (03:31)
--- NOTE | 2020-10-06 03:39 | PC.NURSE ---
Patient received from ED via wheelchair. Report received from Ely SHAVER. patient is A & O. Has no C/O of pain or other needs at this time.
[2020-10-06] MEDS: ipratropium-albuterol 3 mL Neb INHALATION ×2 (03:46→09:13)
[2020-10-06 05:34] LABS: Basophils % 0.3 %; Eosinophils % 0.2 %; Hematocrit 29.5 % (37.0-47.0); Hemoglobin 8.1 g/dL (11.5-15.3); Lymphocytes # 0.4 10^3/uL (0.8-4.8); Lymphocytes % 6.9 %; Mean Corpuscular HGB Conc 27.5 g/dL (30.0-36.0); Mean Corpuscular Hemoglobin 20.5 pg (28.0-34.0); Mean Corpuscular Volume 74.5 fL (81-99); Mean Platelet Volume 10.7 fL (7.4-10.4); Monocytes % 0.7 %; Neutrophils % 91.4 %; Nucleated Red Blood Cells % 0 %; Platelet Count 355 10^3/cmm (130-400); Red Blood Count 3.96 10^6/uL (4.1-5.3); White Blood Count 5.9 10^3/uL (4.0-10.0)
[2020-10-06] MEDS: losartan 50 mg Tablet 100 MG PO (10:33)
[2020-10-06] MEDS: FUROsemide 20 mg Tablet PO (10:34)
[2020-10-06] MEDS: hydroCHLOROthiazide 25 mg Tablet PO (10:34)
[2020-10-06] MEDS: pantoprazole DR 40 mg Tablet PO (10:34)
[2020-10-06] MEDS: amlodipine 5 mg Tablet PO (10:35)
[2020-10-06] MEDS: acetaminophen 325 mg Tablet 650 MG PO (14:39)
--- NOTE | 2020-10-06 15:07 | PC.RESP ---
Smoking Cessation and Pulmonary Rehab information sent to patient.
--- NOTE | 2020-10-06 15:25 | PC.SOCIAL ---
Discharge and oxygen orders received, patient not triggered for CM. Spoke with patient and choice sheet obtained and placed in chart. Orders and precert faxed to HOME. Pre-Cert number assigned: [id number]
--- NOTE | 2020-10-06 22:29 | PM.DCS ---
Discharge Providers Date of Admission: 10/06/20 02:47 Date of Discharge: October 06, 2020 Attending Provider at Admission: Vic Wayne MD Attending Provider at Discharge: Adrianna Davis MD Primary Care Provider: Ragini Moody NP Diagnoses at Discharge Discharge Diagnosis (1) Acute respiratory failure with hypoxia: Status: Acute (2) Tobacco abuse counseling: Status: Acute (3) Anemia: Status: Acute Qualifiers: Anemia type: iron deficiency Iron deficiency anemia type: unspecified iron deficiency Qualified Code(s): D50.9 - Iron deficiency anemia, unspecified (4) COPD (chronic obstructive pulmonary disease): Status: Acute Qualifiers: COPD type: unspecified COPD Qualified Code(s): J44.9 - Chronic obstructive pulmonary disease, unspecified Reason for Visit Reason for Visit: Trouble Breathing/Chest Pains Hospital Course Hospital Course Latonia Gar is a 65 year old female who is an active smoker presented today with chief complaint of chest pain and shortness of breath for the last 2 months. Has never been diagnosed with COPD, however has had a smoker's cough for years and uses inhalers and nebulizers consistently. No recent productive cough, excessive sputum production. Diagnostics in the ER revealed acute hypoxia requiring 3 L of oxygen on ambulation, Anemia noticed, last hemoglobin 14 current hemoglobin 8.2, patient is denying hematochezia, hematemesis, dark stools. Iron studies returned consistent with iron deficiency anemia, patient states she follows with Dr. Vasquez for the same and has previously received venofer infusions and po iron supplements. CTA chest negative for PE. EKG and troponin series not concerning for MD. Symptoms and evaluation appear most consistent with COPD exacerbation. FOBT unable to be obtained as patient did not have BM. She may have a slow chronic GI bleed, She has a h/o peptic ulcer disease, She will follow up as outpatient for endoscopy, she is already established with Dr. Duran for the same. Eager to return home today. Qualified for 3lpm home 02 at discharge. Physical Exam Narrative: EXAM NARRATIVE: GEN: Awake, alert and oriented, no acute distress CVS: S1S2N RS: CTA B/L Abd: Soft, nt/nd , bs+ ESTIMATOR PAPERBOARD BOXES: no focal neuro deficits Discharge Data Data Completed and Pending: Completed Studies During Hospitalization Category Date Time Status CT angio chest PE protcl [id number] Urge nt Cat Scan 06/03/21 21:44 Completed XR chest 1V shubham ble [id number] Stat Exams 10/05/20 18:38 Completed Labs from last 24 hours 10/06/20 10/06/20 10/05/20 04:00 00:28 22:41 WBC 5.9 RBC 3.96 L Hgb 8.1 L Hct 29.5 L MCV 74.5 L MCH 20.5 L MCHC 27.5 L RDW 16.0 H Plt Count 355 MPV 10.7 H Neut % (Auto) 91.4 Lymph % (Auto) 6.9 Roberts % (Auto) 0.7 Eos % (Auto) 0.2 Baso % (Auto) 0.3 Neut # (Auto) 5.40 Lymph # (Auto) 0.4 L Roberts # (Auto) 0.0 L Eos # (Auto) 0.0 Baso # (Auto) 0.0 Nucleated RBC % (a uto) 0 Nucleated RBCs # 0.0 Iron 10 L TIBC 448 % Saturation 2.2 L Unsat Iron Binding 438 H Ferritin 5 L Troponin T 120 Min [place] Delta Troponin T Troponin T Hi Sens 6Hr 9.20 Troponin T Hi Sens 6Hr Delta -1.80 L Vitamin B12 354 10/05/20 22:41 WBC RBC Hgb Hct MCV MCH MCHC RDW Plt Count MPV Neut % (Auto) Lymph % (Auto) Roberts % (Auto) Eos % (Auto) Baso % (Auto) Neut # (Auto) Lymph # (Auto) Roberts # (Auto) Eos # (Auto) Baso # (Auto) Nucleated RBC % (a uto) Nucleated RBCs # Iron TIBC % Saturation Unsat Iron Binding Ferritin Troponin T 120 Min [place] 8.78 Delta Troponin T -2.22 L Troponin T Hi Sens 6Hr Troponin T Hi Sens 6Hr Delta Vitamin B12 Vitals: Last Vital Signs Temp 97.8 F 10/06/20 15:38 Pulse 68 10/06/20 15:38 Resp 22 H 10/06/20 15:38 BP 165/70 10/06/20 15:38 Pulse Ox 99 10/06/20 15:38 Discharge Plan Discharge Patient Disposition: Home Condition: Stable Prescriptions: New ferrous sulfate 325 mg (65 mg iron) tablet 325 mg PO DAILY Qty: 30 RF: 0 Continued pantoprazole 40 mg tablet,delayed release (DR/EC) 40 mg PO BID Qty: 180 RF: 2 cetirizine [Zyrtec] 10 mg tablet 10 mg PO DAILY RF: 0 simvastatin 40 mg tablet 40 mg PO DAILY@2100 RF: 0 losartan-hydrochlorothiazide 100-25 mg tablet 1 tab PO DAILY RF: 0 pseudoephedrine HCl 30 mg tablet 30 mg PO DAILY RF: 0 albuterol sulfate [ProAir HFA] 90 mcg/actuation HFA aerosol inhaler 2 puff INHALATION DAILY RF: 0 cholecalciferol (vitamin D3) [Vitamin D3] 1,000 unit capsule 1,000 unit PO DAILY RF: 0 budesonide-formoterol [Symbicort] 160-4.5 mcg/actuation HFA aerosol inhaler 1 puff INHALATION DAILY RF: 0 amlodipine 5 mg tablet 5 mg PO DAILY RF: 0 vitamin B complex Tablet 1 tab PO DAILY RF: 0 furosemide 20 mg tablet 20 mg PO DAILY RF: 0 hydroxyzine pamoate 25 mg capsule 25 mg PO TID PRN (Reason: Anxiety) RF: 0 biotin 1 tab PO DAILY RF: 0 Discontinued diclofenac sodium 75 mg tablet,delayed release (DR/EC) 75 mg PO DAILY RF: 0 Discharge Orders: Discharge Order (Routine); Ordered 10/06/20 Ordered By: Adrianna Davis Other Ambulatory Orders: DME: Oxygen (Order) Location: None Selected Ordered By: Adrianna Davis Referrals: Ragini Moody, FIX[employer]ING [employer]FT FLIGHT ENGINEER [Primary Care Provider] - 1-3 days (You have a follow up appointment with Fr[facility]isco on FridayOctober 09 at 130. If you have a question or need to reschedule please call [phone].) Discharge Diet: Advance as tolerated Discharge Activity: Resume usual activity Patient Instructions: Asthma (ED), Opioid Safety Discharge Attestations Time Spent in Discharge Care*: greater than 30 min Quality Metrics Clinical Quality Measures During this hospital stay, did patient experience: None Coding Level of Care Code Acute [facility] note Diagnoses Acute respiratory failure with hypoxia J96.01 Tobacco abuse counseling Z71.6 Anemia D50.9 Anemia type: iron deficiency Iron deficiency anemia type: unspecified iron deficiency COPD (chronic obstructive pulmonary disease) J44.9 COPD type: unspecified COPD
== END 2020-10-06 17:53 | disposition home or self-care (01) ==
LOC: ER 22:58 → CSU 10-06 07:09
PROVIDERS: Admitting Provider Internal Medicine; Emergency Provider Emergency Medicine; PCP Nurse Practitioner Family; Visit Provider Student in an Organized Health Care Education/Training Program
DX: J96.01 Acute respiratory failure with hypoxia (principal); Z71.6 Tobacco abuse counseling; D50.9 Iron deficiency anemia, unspecified; J44.9 Chronic obstructive pulmonary disease, unspecified; Z87.11 Personal history of peptic ulcer disease; F17.210 Nicotine dependence, cigarettes, uncomplicated; I10 Essential (primary) hypertension
CPT/HCPCS: 36415; 71045; 71275; 80053; 82607; 82728; 83540; 83550; 84484; 85025; 85378; 85610; 93005; 94640; 96365; 96375; 99285; G0378; J1756; J2930; J7611; Q9967

== ENCOUNTER 2020-12-26 07:56 | Outpatient (CLI) | payer MEDICARE, MEDICAID, SELFPAY ==
--- NOTE | 2020-12-26 08:45 | USCV_ITS ---
Latonia Gar Age: 65 Gender: F : 1955 Exam Date: 12/26/2020 08:56 Ordering Phys: Vic Cote MD ([email or web address]) Technologist: Exam Location: [facility] Indication: CP BP: 125 / 71 HR: 74 Rhythm: Sinus Technical Quality: , Adequate MEASUREMENTS (Male / Female) Normal Values 2D ECHO LV Diastolic Diameter PLAX 2.8 cm 4.2 - 5.9 / 3.9 - 5.3 cm LV Systolic Diameter PLAX 1.8 cm IVS Diastolic Thickness 0.8 cm 0.6 - 1.0 / 0.6 - 0.9 cm IVS Systolic Thickness 1.4 cm LVPW Diastolic Thickness 1.4 cm 0.6 - 1.0 / 0.6 - 0.9 cm LVPW Systolic Thickness 1.3 cm LVOT Diameter 2.0 cm LV Ejection Fraction 2D Teich 67.8 % LV Ejection Fraction MOD 2C 59.4 % LV Ejection Fraction 2C AL 61.1 % LA Diameter 3.2 cm LA Width 3.3 cm LA Height 4.1 cm RA Width 3.8 cm RA Height 4.1 cm DOPPLER AV Peak Velocity 116.7 cm/s LVOT Peak Velocity 86.0 cm/s AV Area Cont Eq vti 2.6 cm squared AV Area Cont Eq pk 2.3 cm squared MV Area PHT 5.0 cm squared Mitral E to A Ratio 0.6 MV E' Velocity 39.5 cm/s Mitral E to MV E' Ratio 9.5 Mitral E to LV E' Lateral Ratio 8.1 Mitral E to LV E' Septal Ratio 11.5 TR Peak Velocity 146.0 cm/s TR Peak Gradient 8.5 mmHg TV Peak E Velocity 114.0 cm/s Right Atrial Pressure 3.0 mmHg Pulmonary Artery Systolic Pressu 11.5 mmHg FINDINGS Left Ventricle Normal left ventricular cavity size. Normal left ventricular systolic function. No regional wall motion abnormalities. Left ventricular ejection fraction is estimated at 60 %. Grade I/IV diastolic dysfunction (abnormal relaxation filling pattern), normal to mildly elevated filling pressures. Right Ventricle The right ventricle is normal in size and function. Right Atrium The right atrium is normal in size. Left Atrium The left atrium is normal in size. Mitral Valve Mildly thickened mitral valve. No mitral valve stenosis. Trace mitral valve regurgitation. Aortic Valve Structurally normal aortic valve without significant sclerosis or stenosis. There is no aortic regurgitation. Tricuspid Valve Structurally normal tricuspid valve without significant stenosis or regurgitation. Pulmonary artery systolic pressure is normal. Pulmonic Valve Structurally normal pulmonic valve without significant stenosis. There is no pulmonic regurgitation. Pericardium Normal pericardium without effusion. Aorta Normal ascending aorta dimension. CONCLUSIONS 1-Normal left ventricular cavity size. Normal left ventricular systolic function. No regional wall motion abnormalities. Left ventricular ejection fraction is estimated at 60 %. Grade I/IV diastolic dysfunction (abnormal relaxation filling pattern), normal to mildly elevated filling pressures. 2-No significant valve abnormalities. 3-There is no pericardial effusion. 4-Pulmonary artery systolic pressure is within normal limits. 5-Right atrial pressure is around 5 mm of mercury. 6-There are no prior echocardiogram studies to compare. Vic Cote MD (Electronically Signed) Final Date: 26 December 2020 10:02 S
[2020-12-26 08:47] VITALS: BMI 29.2
--- NOTE | 2020-12-26 08:48 | ECG_ITS ---
[facility] Test Date: 2020-12-26 Pat Name: Latonia Gar Department: Room: Gender: Female Cook Night: Angelica Kati : 1955 Requested By: Aries Cote Order Number: [id number] Reading MD: ARIES COTE Interpretive Statements NAME OF STUDY: LEXISCAN SESTAMIBI STRESS TEST INDICATION: Chest Pain, NOTE: Please note that this is the electrocardiogram portion of the Lexiscan/Sestamibi stress test. The perfusion scan will be documented separately. DATA: Baseline heart rate was 89 beats per minute. Baseline blood pressure was 173/87 millimeters of mercury. Target heart rate was 153. Maximum heart rate achieved was 101. which was 66 % of the predicted target heart rate. Maximum blood pressure was 192/87 millimeters of mercury. The reason for ending the test was completion of the protocol. The patient did not experience any symptoms. ELECTROCARDIOGRAM: BASELINE: Sinus rhythm. Normal axis. Old anterior wall myocardial infarction, otherwise, no ST-T changes suggestive of ischemia noted. No arrhythmia noted. EXERCISE: After Lexiscan injection, no ST-T changes suggestive of ischemic noted. No arrhythmia noted. CONCLUSION: Please note due to baseline abnormality of the EKG specificity and sensitivity of the EKG portion of LexiScan MIBI stress test will be low 1. EKG not suggestive of ischemia 2. Lexiscan injection unremarkable. 3. Perfusion scan will be documented separately. Electronically Signed On 12-27-2020 21:18:33 CDT by ARIES COTE [id number]
--- NOTE | 2020-12-26 08:48 | NMCV_ITS ---
NM val perf SPECT r/s* [id number] Latonia Gar Age: 65 Gender: F : 1955 Exam Date: 12/26/2020 09:34 Ordering Phys: Vic Cote MD ([email or web address]) Technologist: PAN Jackson Exam Location: [facility] Indications: SHORTNESS OF BREATH STRESS TEST Please see separate stress test report in [facility] for full findings IMAGE PROTOCOL Rest/Stress 1 Lexiscan Day Radiopharmaceutical Dose (mCi) Administration Site Administered by Rest: Tc-99m 10.8 IV PAN Rojas Sestamibi Stress:Tc-99m 32.6 IV PAN Rojas Sestamibi Rest: 26-Dec-2020 60 Discovery 630 Stress: 26-Dec-2020 30 Discovery 630 0.4mg Lexiscan. Images obtained in supine and prone position. SPECT RESULTS Technical Quality: Excellent Raw Data Analysis: Normal Image Corrections: No attenuation or motion correction applied Summed Stress Score: 0 Summed Rest Score: 2 Summed Difference Score: 0 PERFUSION FINDINGS FUNCTIONAL RESULTS (calculated via Gated SPECT) Stress Image LV EF (%): 82 Stress EDV (mL):73 TID: 0.98 Stress ESV (mL):13 Rest Image LV EF (%): 82 FUNCTIONAL FINDINGS: There is normal left ventricular systolic function. IMPRESSIONS Myocardial perfusion imaging is normal and low probability for obstructive coronary artery disease. EKG segment will be documented separately. Vic Cote MD (Electronically Signed) Final Date: 26 December 2020 14:40 S
[2020-12-26 10:24] VITALS: BP 158/73; PULSE 85
[2020-12-26] MEDS: regadenoson 0.4 Mg/5 ml Syringe IVP (10:24)
== END 2020-12-26 07:57 | disposition home or self-care (01) ==
LOC: CDL 07:58
PROVIDERS: PCP Nurse Practitioner Family; Visit Provider Internal Medicine Cardiovascular Disease
DX: R07.9 Chest pain, unspecified (principal); R06.02 Shortness of breath
CPT/HCPCS: 78452; 93017; 93306; A9500; J2785

== ENCOUNTER → 2021-02-02 15:28 | Outpatient (BNVA) | payer MEDICARE, MEDICAID, SELFPAY | PROVIDERS: PCP Nurse Practitioner Family; Visit Provider Nurse Practitioner Family | DX: R21 Rash and other nonspecific skin eruption (principal); J44.1 Chronic obstructive pulmonary disease with (acute) exacerbation; R30.0 Dysuria; R39.9 Unspecified symptoms and signs involving the genitourinary system | CPT/HCPCS: 81000 ==

== ENCOUNTER 2021-04-11 05:46 | Inpatient (IN) | payer MEDICARE, MEDICAID, SELFPAY ==
[2021-04-11] VITALS (58 sets, daily range): BP systolic 81–183; BP diastolic 45–99; PULSE 70–105; RESP 13–32; TEMP 36.4–37.1; O2SAT 92–99; BMI 29.2
--- NOTE | 2021-04-11 05:51 | ECG_ITS ---
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 Measurements Intervals [place] Rate: 102 P: 66 [place]: 227 QRS: -22 QRSD: 92 T: -51 QT: 354 QTc: 462 Interpretive Statements SINUS TACHYCARDIA WITH FIRST DEGREE AV BLOCK WITH OCCASIONAL VENTRICULAR PREMATURE COMPLEXES INFERIOR MYOCARDIAL INFARCTION , PROBABLY RECENT [40+ ms Q WAVE AND/OR ST/T ABNORMALITY IN II/aVF] ACUTE NM Compared to ECG 10/06/2020 00:31:59 First degree AV block now present Myocardial infarct finding now present Sinus rhythm no longer present T-wave abnormality no longer present Electronically Signed On 04-11-2021 16:40:12 PHYSICIAN NON INVASIVE CARDIOLOGIST by Sabi Bernard M.D. [id number] f
[2021-04-11] MEDS: ondansetron 2 mg/ML SDV 2 mL 4 MG IVP (05:59)
[2021-04-11] MEDS: famotidine 20 mg/2 mL INJ 40 MG IVP (05:59)
[2021-04-11] MEDS: sodium chloride 0.9% 1,000 ML 999 ML IV (05:59)
--- NOTE | 2021-04-11 06:00 | XRR_ITS ---
PROCEDURE INFORMATION: Exam: XR Chest Exam date and time: 04/11/2021 6:00 AM Age: 65 years old Clinical indication: Chest pressure; Patient HX: Worsening chest pain over last few days. St elevation on ekg. TECHNIQUE: Imaging protocol: XR of the chest. Views: 1 view. Total images: 1 COMPARISON: CR XR chest 1V portable [id number] 10/05/2020 8:16 PM FINDINGS: Lungs: Benign granulomatous disease of the lung is noted. Trace scar noted in the right lung base. Pleural spaces: Unremarkable. No pleural effusion. No pneumothorax. Heart/Mediastinum: Unremarkable. No cardiomegaly. Vasculature: Atherosclerosis is evident. Bones/joints: Osseous structures are unchanged from the prior exam. XR/XR chest 1V portable [id number] IMPRESSION: 1. Trace scar noted in the right lung base. 2. No acute cardiopulmonary process.
--- NOTE | 2021-04-11 06:01 | W.ED.CHESTPA ---
HPI - Chest Pain General: Chief Complaint: Chest Pain Stated Complaint: abdomen pain Time Seen by Provider: 04/11/21 05:50 History of Present Illness: HPI narrative: 65-year-old female presents emergency room complaining of epigastric and chest discomfort radiating to her back associated with shortness of breath and a few episodes of diaphoresis. States is been waxing and waning for the last 5 days. This began worsening this morning while she was a rest she has been associating with reflux. She has no known coronary artery disease. She has previously an EGD was told she had an ulcer about a year ago. She denies any medic easy melena hematemesis or coffee-ground emesis she is continue to take the pantoprazole. She did take a sublingual nitro this morning with chest discomfort and had transient relief of pain, she had a similar experience yesterday. She reports she had a stress test earlier this year that was reported to her as normal reviewing the chart she had test December 26, 2020 that was read as low probability of coronary artery disease. MD complaint: chest pain Associated symptoms: Reports dyspnea; Deny abdominal pain, fever(s), nausea or vomiting Review of Systems Const: Denies: fever(s), chills, body aches, change in appetite, fatigue or malaise ENMT: Denies: throat pain, ear or mastoid pain, nasal discharge or nasal congestion Card: Reports: chest pain and dyspnea on exertion; Denies: edema or orthopnea Resp: Reports: dyspnea; Denies: productive cough or non-productive cough GI: Denies: abdominal pain, nausea, vomiting, hematemesis, coffee ground emesis, diarrhea, constipation, bloating, hematochezia or melena : Denies: flank pain, difficulty voiding, dysuria, urinary frequency or urinary urgency Skin/Breast: Denies: rash or pruritus PFSH ED PFSH: Medical History Asthma with exacerbation History of COPD Hx of chest pain Hx of gastroesophageal reflux (GERD) Hx of hypercholesterolemia Hx of migraines Hx of primary hypertension PUD (peptic ulcer disease) Smoker Surgical History History of ankle surgery History of bladder surgery History of carpal tunnel release of both wrists History of tonsillectomy and adenoidectomy Family History Sister Cancer Myocardial infarct Mother Myocardial infarct Grandmother Myocardial infarct Other Hypertension Stroke Social History Alcohol intake: never Housing: House Physical Exam Const: COMMON NORMALS: no acute distress GENERAL APPEARANCE: cooperative and comfortable ORIENTATION/CONSCIOUSNESS: Yes awake, Yes oriented to person, Yes oriented to place and Yes oriented to time HENMT: COMMON NORMALS: normocephalic, atraumatic and hearing grossly normal bilaterally HEAD & SCALP: normocephalic and atraumatic Neck/C-Spine: COMMON NORMALS: no JVD Resp: COMMON NORMALS: normal respiratory effort, No retractions, No use of accessory muscles and clear to auscultation bilaterally AUSCULTATION: clear to auscultation bilaterally Cardio: COMMON NORMALS: no JVD, regular rate, regular rhythm and No murmurs present (Cardio) RATE: regular rate RHYTHM: regular rhythm GI: COMMON NORMALS: Soft to palpation and No hepatosplenomegaly present AUSCULTATION: Yes normoactive bowel sounds PALPATION: Yes Soft to palpation, No Tenderness to palpation present (GI), No Guarding due to palpation present (GI) and Yes No hepatosplenomegaly present Extremity: COMMON NORMALS: normal to inspection, capillary refill normal, no clubbing, cyanosis or edema, no calf tenderness and no pedal edema Neuro: SENSORIUM/ORIENTATION: Yes oriented to person, Yes oriented to place and Yes oriented to time Skin: COMMON NORMALS: no rashes or lesions noted GENERAL SKIN EXAM: no rashes or lesions noted Course Vital Signs: Vital signs: Vital Signs Temperature 97.6 F 04/11/21 05:48 Pulse Rate 104 H 04/11/21 05:48 Respiratory Rate 16 04/11/21 05:48 Blood Pressure 177/99 04/11/21 05:48 Pulse Oximetry 94 04/11/21 05:48 MDM - Chest Pain MDM Narrative: Medical decision making narrative: On arrival patient planes of epigastric pain, reviewed history and her initial EKG became apparent it was more cardiac in nature. first EKG showed a lot of artifact but did have what appeared inferior ST elevation with some lateral depression did a posterior and still appears she is having an acute event compared to old EKG. Emergently sent to the cardiology on-call, they agreed we had already activated STEMI alert. By the patient's history this is been waxing and waning for several days but is actively worsening now she is actively having chest pain grasping at her chest and is having transient episodes of it diaphoresis. Discharge Plan Discharge Patient Disposition: Admitted As Inpatient Clinical Impression: ST elevation myocardial infarction (STEMI), COPD (chronic obstructive pulmonary disease), Hx of primary hypertension, PUD (peptic ulcer disease) Condition: Stable Coding Level of Care Code ED Nitro Worker for Salomon Fwd Exam Comprehensive
--- NOTE | 2021-04-11 06:12 | XACV_ITS ---
Ht: 152 cm Wt: 68 kg BSA: 1.72 m2 Gender: Female : 1955 Any Known Allergies: No known allergies Exam Priority: Routine Indication(s): - Inferior wall UT Procedure(s): Procedure Description: Diagnostic procedure Procedure Description: PCI procedure Procedure Description: Left Heart Catheterization Procedure Description: Drug Eluting Coronary Stent Procedure Description: PTCA Procedure Description: Miscellaneous Procedure Description: ACT Diagnostic Cath Status: Emergency Diagnostic Findings * INDICATION: Patient presented with ST elevation UT. On and off chest pain for 4-5 days with worsening pain today. * Left Main has no disease. * Circumflex has no disease. * Mid Left Anterior Descending: moderate 50% stenosis, CELINA: 3 flow. * Proximal Right Coronary Artery: total occlusion, CELINA: 0 flow. * Coronary angiography shows right dominance. PCI Status: Emergency PCI Indication: STEMI - Immediate PCI for STEMI Interventional Findings * Procedure detail: We engaged the RCA with a JR4 guide catheter. RCA had anterior takeoff and engaged with AL 0.75 guide catheter. 0.014 run-through guidewire was used to cross the totally occluded proximal RCA segment. We predilated the stenosis with a 2.5 x 12 mm semicompliant balloon. This was followed by placement of 3.5 x 18 mm resolute Chacha drug-eluting stent. It was postdilated with 3.75 x 6 mm NC balloon. At this time final angiogram was obtained that showed excellent stent expansion, no residual stenosis and CELINA-3 flow. Guidewire and guide catheter were removed. 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 * Proximal Right Coronary Artery: 100% stenosis treated with a AB TREK 2.50X12 RX BALLOON, MDT R CHACHA 3.5X18 LUÍS, and MDT ANDREIA EUPHORA RX 3.27Q15TY BALLOON. 0% residual stenosis, CELINA: 3 flow. Conclusions 1. Total thrombotic occlusion of 2. proximal to mid RCA 3. this post revascularization with LUÍS x1.. 4. Moderate disease of mid LAD. 5. Proximal Right Coronary Artery was treated with a Balloon, Drug Eluting Stent, and Balloon. Recommendations * Transfer to ICU. * Aspirin and Plavix for at least 1 year. * High intensity statin therapy. * Beta-jennifer therapy. * Will need outpatient stress test to rule out ischemia in LAD territory. Interventional RX Recommendation: PCI w/o planned CABG Diagnostic RX Recommendation: PCI w/o planned CABG Anticoagulation: Heparin Clinical Evaluation EBL: 5mL-10mL Procedural Details Pre-Procedure Time Out. Identified patient by full name and date of as verbalized by the patient/guarantor. Does the consent match the physician's order: Yes. Accurate & Complete Informed Consent: Yes. Inpatient/Outpatient History & Physical on Chart: Yes. If H&P is completed, is and addenduem needed: No; If yes, is the addendum complete: N/A. Visualize and Verify Site with Patient/Guarantor: N/A. Relevant Radiology Images available: N/A. The risks, benefits, and alternatives of sedation and/or procedure were discussed by physician. The patient agrees to continue. Procedure started. [facility] Clinical Fraility Score: 4: Vulnerable. Oil Well Perforator Operator Indications: Stemi. Chest Pain Symptom Assessment: Typical Angina Symptoms. Cardiovascular Instability: No. Stable. Correct patient, site and procedure confirmed by cath team. Current diagnosis: STEMI. PERRLA. Strong, equal hand controlled area checker bilaterally. Lungs clear x 5 lobes. IV Site on Arrival: 20 gauge in the right hand. IV Site on Arrival: 20 gauge in the left anticubital. IV Fluids: 0.9% NaCl at KVO. 0 mL infused prior to clinical laboratory technologist. Pre Procedural Pulses: bilateral radial was 3+. Pre Procedural Pulses: bilateral posterior tibial was 2+. Pre Procedural Pulses: bilateral dorsalis pedis was 2+. Oxygen started at 3liters/min via nasal canula. right groin was prepped with chloroprep then draped in the usual sterile fashion. right radial was prepped with chloroprep then draped in the usual sterile fashion. Baseline sample Acquired. HR: 104 BPM. Physician notified. Patient's family unavailable. Equipment: 6F - Radial. Cardiac Cath Pack. ACIST Manifold Kit Model BT 2000. Heparinized Saline (2 units/mL), 1000 mL bag. Equipment: 5F - Femoral. Equipment: 6F - Femoral. Physician arrived. Physician scrubbed in. Immediate Pre-Procedure Time Out. Correct Patient: Yes; Correct Procedure: Yes; Correct Site: Yes; Correct Patient Position: Yes; Correct Supplies: Yes; Dried Flammable Prep: Yes; Blood Products Available: N/A;. Lidocaine 1% infiltrated to the right radial. Arterial access obtained. A 5 faroese TIG catheter in over wire. Multiple views taken of left coronary artery. Catheter redirected to the RCA. Multiple views taken of right coronary artery. TIG out over the wire. PCI Indication: STEMI. 6 faroese JR 4 guide catheter was inserted over the wire. Inventory is TR 180cm Runthrough NS extra floppy 0.014 wire. Inventory is CRD 6FR JR 4 GUIDE 100cm. Critical Troponin I at 1719. Relayed to . No new orders. Unable to seat the guide. Removed over the wire. Patient on nitro gtt from ER at 10 mcg/min. Turned off at arrival to clinical laboratory technologist. Patient received 600 mg plavix PO and Aspirin 324 mg PO in ER prior to arrival. 6 faroese AL I guide catheter was inserted over the wire. Guide seated. Angiography performed. Runthrough guidewire was advanced through the guide catheter to lesion in the prox RCA. Inflation number : 1 A AB TREK 2.50X12 RX BALLOON was prepped and advanced across the Prox RCA , then inflated to 8 RONI for 0:09 seconds. Inflation number: 2 The AB TREK 2.50X12 RX BALLOON was reinflated across the Prox RCA, to 8 RONI for 0:19 seconds. Inflation number: 3 The AB TREK 2.50X12 RX BALLOON was reinflated across the Prox RCA, to 8 RONI for 0:11 seconds. Inflation number: 4 The AB TREK 2.50X12 RX BALLOON was reinflated across the Prox RCA, to 12 RONI for 0:24 seconds. Angiography performed. Balloon out. Inflation Number : 5 A MDT R CHACHA 3.5X18 LUÍS -Lot Number#[id number] was prepped and advanced across the Prox RCA. The stent was deployed at 14 RONI for 0:27 seconds. Stent balloon out over wire. Results checked. Inflation number : 6 A MDT NC EUPHORA RX [id number] BALLOON was prepped and advanced across the Prox RCA , then inflated to 14 RONI for 0:22 seconds. Inflation number: 7 The MDT NC EUPHORA RX [id number] BALLOON was reinflated across the Prox RCA, to 12 RONI for 0:13 seconds. Balloon out. Wire out. Results checked. Guide catheter out. A TR Band was successful obtaining hemostatsis at the Right Radial artery insertion site. TR band placed. Hemostasis obtained. Post Procedure: Pulses reassessed and unchanged. PERRLA. Strong, equal hand controlled area checker bilaterally. No VTE prophylaxis required. ACT drawn. Results 201 seconds. Therapeutic limits - pre-heparin administration 90-150 seconds and monitoring heparin during a vascular procedure >250 seconds. Fluoro: 9:06. Contrast type used: Visipaque 320 mgI/mL, 500 mL bottle. [id number]. PCI Indication: STEMI. Complications: none. Estimated blood loss: 5mL-10mL. Responsiveness - Normal response to verbal stimuli; alert and oriented, PERRLA. Airway - Unaffected, no intervention required; spontaneous ventilation. Circulation: W/N/L, pulses unchanged. Nausea/Vomiting: No. Procedure completed. Patient transferred by bed to ICU. Medication's Wasted: Lidocaine 1% = 18 mL. Medication's Wasted: Heparin = 1000 units. Medication's Wasted: Nitro = 49.8 mg. Medication's Wasted: Fentanyl = 50 mcg. Total IV fluids: 75 mL. Current Diagnosis : STEMI. Admit Source: Emergency department. Vital chart was stopped. Access Site Site: Right Radial artery Sheath Size: 6 Fr Hemostasis Method: TR Band Hemostasis Success: Successful Procedure Medications Start: 6:36 AM Stop: 6:36 AM Medication: Versed Amount: 1 mg Route: I.V. Start: 6:37 AM Stop: 6:37 AM Medication: Nitrogylcerin Amount: 200 mcg Route: I.A. Start: 6:38 AM Stop: 6:38 AM Medication: Heparin Amount: 5000 units Route: I.V. Start: 6:39 AM Stop: 6:39 AM Medication: Heparin Amount: 3000 units Route: I.V. Start: 6:52 AM Stop: 6:52 AM Medication: Versed Amount: 0.5 mg Route: I.V. Start: 7:00 AM Stop: 7:00 AM Medication: Nitrogylcerin Amount: 200 mcg Route: I.C. Start: 7:07 AM Stop: 7:07 AM Medication: Heparin Amount: 2000 units Route: I.V. I, the attending physician, have reviewed and verified all procedure medications. Yes, all medications given per verbal order History/Risk Factors Tobacco Use: Current/Recent(w/in 1 year) Report Signatures Finalized by Tay Torres MD on 04/25/2021 03:05 PM
[2021-04-11] MEDS: aspirin 81 mg Chew Tablet 324 MG PO (06:16)
[2021-04-11] MEDS: morphine 4 mg/mL SDV 1 mL IVP (06:16)
[2021-04-11] MEDS: nitroglycerin drip 50 MG/250 ML PREMIX (06:17)
[2021-04-11] MEDS: clopidogrel 300 mg Tablet 600 MG PO (06:17)
[2021-04-11 06:24] LABS: Basophils # 0.1 10^3/uL (0.0-0.1); Basophils % 0.3 %; Eosinophils % 0.1 %; Hematocrit 48.9 % (37.0-47.0); Hemoglobin 15.9 g/dL (11.5-15.3); Lymphocytes # 1.3 10^3/uL (0.8-4.8); Lymphocytes % 8.3 %; Mean Corpuscular HGB Conc 32.5 g/dL (30.0-36.0); Mean Corpuscular Hemoglobin 30.2 pg (28.0-34.0); Mean Platelet Volume 10.5 fL (7.4-10.4); Monocytes # 1.2 10^3/uL (0.2-0.9); Monocytes % 7.5 %; Neutrophils # 13.34 10^3/uL (1.8-7.7); Neutrophils % 83.5 %; Nucleated Red Blood Cells % 0 %; Platelet Count 277 10^3/cmm (130-400); Red Blood Count 5.26 10^6/uL (4.1-5.3); Red Cell Distribution Width 14.3 % (12.1-15.1)
[2021-04-11 06:40] LABS: Alanine Aminotransferase 54 U/L (0-33); Albumin Level 4.4 g/dL (3.5-5.2); Alkaline Phosphatase 60 IU/L (35-105); Anion Gap 19.6 (5-19); Aspartate Amino Transferase 203 U/L (0-32); Blood Urea Nitrogen 16 mg/dL (8-23); Calcium 10.9 mg/dL (8.5-10.5); Carbon Dioxide 28 mmol/L (22-29); Chloride 99 mmol/L (98-107); Globulin 2.4 g/dL (1.3-4.6); Glomerular Filtration Rate 62.5 mL/min (90-130); Glucose 120 mg/dL (65-115); Lipase 11 U/L (13-60); Osmolality Calculated 298 mOsm/kg (285-295); Potassium 3.6 mmol/L (3.5-5.1); Sodium 143 mmol/L (136-145); Total Bilirubin 0.5 mg/dL (0.15-1.2); Total Protein 6.8 g/dL (6.6-8.7); Troponin(5th) Baseline 1719 ng/L (0-10)
[2021-04-11 06:41] LABS: Lactic Sepsis W/Reflex 1.4 mmol/L (0.5-2.2)
--- NOTE | 2021-04-11 07:40 | P.HP_ITS ---
Providers/Chief Complaint Admitting Physician: Tay Torres MD Primary Care Provider: Ragini Moody NP Chief Complaint: Chest pain History of Present Illness Latonia Gar is a 65 year old female With past medical history of COPD, smoking, hypertension has presented with on and off chest pain for last 4 to 5 days. She initially thought that this was secondary to her acid reflux. However since last night it had been progressively worsening. She came to the hospital and EKG showed ST elevations in inferior leads. Her proximal to mid RCA had total thrombotic occlusion. She underwent successful revascularization with LUÍS X 1. She left the labor economist in a stable condition. She had recent stress test that did not show ischemia Review of Systems Narrative: CONSTITUTIONAL: No fever chills weight loss or gain or night sweats. CONSTITUTIONAL: No fever chills weight loss or gain or night sweats. [] HEENT: Normocephalic, atraumatic.[] RESPIRATORY: No cough, sputum, hemoptysis or wheezing.[] CARDIOVASCULAR: No shortness of breath, chest pain, PND, orthopnea, lower extrem ity edema, presyncope or syncope. [] GI: no nausea vomiting diarrhea. [] FILLER SHREDDING MACHINE LOADER: No numbness, tingling, weakness or loss of function in any part of the body. [] MUSCULOSKELETAL: No knee or joint pain or rashes. [] Medications/Allergies Home Medications Medication Instructions Recorded Confirmed Last Taken Type albuterol sulfate [ProAir HFA] 2 puff INHALATION Q4H PRN 05/10/19 04/11/21 05/11/19 History cetirizine [Zyrtec] 10 mg PO QAM 05/10/19 04/11/21 10/05/20 History simvastatin 40 mg PO DAILY@2100 05/10/19 04/11/21 10/04/20 History amlodipine 5 mg PO DAILY 10/05/20 04/11/21 10/05/20 History furosemide 20 mg PO QAM 10/05/20 04/11/21 10/05/20 History buspirone 10 mg tablet 10 mg PO TID PRN 11/13/20 04/11/21 Unknown History isosorbide mononitrate 30 mg 30 mg PO DAILY #90 tab 11/13/20 04/11/21 Unknown Rx tablet,extended release 24 hr pantoprazole 40 mg tablet,delayed 40 mg PO BID #180 tab 01/01/21 04/11/21 Unknown Rx release budesonide-formoterol HFA 160 2 puff INHALATION BID g 03/12/21 04/11/21 Unknown History mcg-4.5 mcg/actuation aerosol inhaler diclofenac sodium 75 mg 75 mg PO BID 03/12/21 04/11/21 Unknown History tablet,delayed release metoprolol succinate 25 mg 25 mg PO EVERY OTHER DAY tab 03/12/21 04/11/21 Unknown History tablet,extended release 24 hr sucralfate 1 gram tablet 1 g PO TID #20 tab 04/10/21 04/11/21 Unknown Rx Magic Mouthwash See Rx Instructions .ROUTE .COMPLEX 04/11/21 04/11/21 04/10/21 History albuterol sulfate 2.5 mg INHALATION Q6H PRN 04/11/21 04/11/21 Unknown History biotin 5,000 mcg SUBLINGUAL DAILY 04/11/21 04/11/21 Unknown History cholecalciferol (vitamin D3) 125 mcg PO QAM 04/11/21 04/11/21 Unknown History [Vitamin D3] ferrous sulfate 27 mg PO BID 04/11/21 04/11/21 Unknown History guaifenesin [Mucinex] 600 mg PO Q12H PRN 04/11/21 04/11/21 Unknown History ipratropium bromide 2 spray INTRANASAL QID PRN 04/11/21 04/11/21 Unknown History losartan See Rx Instructions .ROUTE .COMPLEX 04/11/21 04/11/21 Unknown History phenylephrine HCl 10 mg PO Q6H PRN 04/11/21 04/11/21 Unknown History vitamin B complex [Super B Complex] 1 tab PO DAILY 04/11/21 04/11/21 Unknown History Allergies Allergy/AdvReac Type Severity Reaction Status Date / Time No Known Allergies Allergy Verified 04/11/21 10:16 PFSH Acute PFSH: Medical History Asthma with exacerbation History of COPD Hx of chest pain Hx of gastroesophageal reflux (GERD) Hx of hypercholesterolemia Hx of migraines Hx of primary hypertension PUD (peptic ulcer disease) Smoker Surgical History History of ankle surgery History of bladder surgery History of carpal tunnel release of both wrists History of tonsillectomy and adenoidectomy Family History Sister Cancer Myocardial infarct Mother Myocardial infarct Grandmother Myocardial infarct Other Hypertension Stroke Social History Alcohol intake: never Housing: House Vitals/I&O/Wt Last Vital Signs Temp 98.8 F 04/11/21 07:30 Pulse 102 H 04/11/21 07:30 Resp 17 04/11/21 07:30 BP 143/69 04/11/21 07:30 Pulse Ox 95 04/11/21 07:30 Weight last 48 hrs Weight 150 lb Physical Exam Narrative: EXAM NARRATIVE: GENERAL: Patient is alert, awake and oriented x3. [] NECK: No jugular vein distension. [] HEENT: No cyanosis. No icterus. No pallor. [] HEART: Regular S1 and S2. No murmur, rub or gallop. [] LUNGS: Clear to auscultate bilaterally. [] ABDOMEN: Soft, nontender and nondistended. Positive bowel sounds. No guarding, rebound or tenderness. [] CENTRAL NERVOUS SYSTEM: Grossly nonfocal. [] EXTREMITIES: Lower extremities with 1+ edema bilaterally. Pulses palpable in the lower extremities, both dorsalis pedis and posterior tibial. [] Data : 04/11/21 06:11 04/11/21 06:11 A&P Assessment and plan (1) ST elevation myocardial infarction (STEMI): Status: Acute (2) Hx of primary hypertension: Status: Acute (3) Anemia: Status: Acute Qualifiers: Anemia type: iron deficiency Iron deficiency anemia type: unspecified iron deficiency Qualified Code(s): D50.9 - Iron deficiency anemia, unspecified (4) COPD (chronic obstructive pulmonary disease): Status: Acute (5) Smoker: Status: Acute (6) Hypertension: Status: Acute Patient has presented with acute ST elevation HI. She underwent successful revascularization of RCA with LUÍS x1. Aspirin Plavix for at least 1 year. High intensity statin therapy. Transfer to ICU Metoprolol and losartan Attestations Medical Necessity Statement*: Care expected to cross 2 midnights. 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
--- NOTE | 2021-04-11 07:47 | PC.NURSE ---
0718 Pt arrived from supervisor labor gang in . AAOx4, connected to ICU monitor. VSS. O2 sat in 80's, pt states that hse wears O2 at home. Nc applied and 3L O2 started. Denies any needs, c/o slight MAURER 07/12. TR band in place to R radial. 16ml air. IVF infusing per orders to LAC PIV. Will monitor.
--- NOTE | 2021-04-11 08:14 | ECG_ITS ---
[facility] Test Date: 2021-04-11 Pat Name: Latonia Gar Department: Room: 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 Measurements Intervals [place] Rate: 100 P: 79 ID: [id number] QRS: -37 QRSD: 91 T: -54 QT: 347 QTc: 449 Interpretive Statements SINUS TACHYCARDIA WITH FIRST DEGREE AV BLOCK INFERIOR MYOCARDIAL INFARCTION , PROBABLY RECENT ACUTE TX Compared to ECG 04/11/2021 05:53:40 Myocardial infarct finding no longer present Electronically Signed On 04-11-2021 16:43:42 COMPOSING MACHINE OPERATOR/TENDER by Sabi Bernard M.D. [email or web address], a division of Googlebatson children's hospitalPathology Holdingscincinnati [facility].[employer]/store/[id number]
[2021-04-11 08:34] LABS: H. Pylori IgG Antibody Negative (Negative)
[2021-04-11] MEDS: losartan 50 mg Tablet 150 MG PO (08:42)
[2021-04-11] MEDS: metoprolol succinate ER (24 HR) 25 mg Tablet PO (08:42)
[2021-04-11] MEDS: amlodipine 5 mg Tablet PO (08:42)
[2021-04-11] MEDS: pantoprazole DR 40 mg Tablet PO ×2 (08:42→17:16)
[2021-04-11] MEDS: sodium chloride 0.9% 1,000 ML 100 ML IV ×2 (08:42→20:36)
--- NOTE | 2021-04-11 09:00 | PC.NURSE ---
0900 2ml air removed from TR band
[2021-04-11 09:53] LABS: Troponin 5 2HR > 10000 ng/L (0-10)
--- NOTE | 2021-04-11 10:15 | PC.PHAR ---
pt states she takes care of her own medications-pt brought in most of her medication bottles-notes are made in the pharmacy comments
--- NOTE | 2021-04-11 10:39 | PC.CHAP ---
Pastoral Care Encounter/Spiritual Assessment Type of Contact [] Declined senior center manager visit [] Patient/Family/Request visit [] Outpatient visit [] Follow-up visit [] Physician referral [] Code/Alert [x] Routine visit [] Staff referral [] Actively dying [] Patient sleeping [] Family support [] [] Out of room [] Palliative care [] [x] Receiving care in room [] Pre-surgical visit [] Trauma [] Long length of stay [x] ICU visit [] Other: Relational/Emotional Strength [] Patient feels connected with others/family/visitors/staff [] Distress [] Loneliness/isolation [] Abandonment Spirituality of Patient [] Person of Raiza [] Attends Scientologist of their Raiza [] Believes in Prayer [] Reads Bible or Worship materials [] There are Spiritual issues to be addressed Claims Representative Interventions [x] Prayer [] Active listening [] Non-anxious presence [] Spiritual/emotional support [] Crisis/trauma care [] Spiritual counseling [] Bereavement support [] Provided bereavement packet [] Provided Bible/devotional materials [] Provided toy/stuffed animal, coloring book to patient or family member [] Provided Communion [] Anointing/[place] [] Salvation [x] Completed spiritual assessment [] Other: Impact on Illness or Injury [] Angry [] Fearful [] Anxious [] Often cries [] Exhaustion [] Unable to work [] Unable to attend religious [] Unable to walk/stand [] Unable to read [] Unable to drive [] Unable to eat/drink [] Unable to sleep [] Unable to be with family [] Patient intubated [] Other: Summary Time spent with patient
--- NOTE | 2021-04-11 11:04 | PC.NURSE ---
All air removed from TR band at 1045, band removed at 1100. No s/s of bleeding noted, no hematoma. Tegaderm and gauze applied to site. Pt educated to not put pressure on R wrist and to call nursing staff if any bleeding noted. Will monitor.
--- NOTE | 2021-04-11 12:14 | ECG_ITS ---
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 Measurements Intervals [place] Rate: 87 P: 48 IA: 240 QRS: -40 QRSD: 88 T: -55 QT: 392 QTc: 473 Interpretive Statements SINUS RHYTHM WITH FIRST DEGREE AV BLOCK Inferior MO, probably recent ACUTE MO Compared to ECG 04/11/2021 07:39:05 Sinus tachycardia no longer present Electronically Signed On 04-11-2021 16:42:27 SKILLED NURSING CASE MANAGER by Sabi Bernard M.D. [email or web address] general [email or web address].Ship Mate/store/OM/[id number]
[2021-04-11 13:51] LABS: Troponin 5 6HR 6676 ng/L (0-10); Troponin 5 6HR Delta 4957 ng/L (0-12)
[2021-04-11 15:12] LABS: Add Urine Microscopic? YES; Bilirubin Urine Neg (Negative); Blood Urine 2+ (Negative); Glucose Urine UA Norm (Normal); Ketones Urine Negative (Negative); Leukocyte Esterase Urine Negative (Negative); Nitrate Urine Negative (Negative); Protein Urine Trace (Negative); Urine Appearance Clear (CLEAR); Urine Color Yellow (Yellow); Urobilinogen Urine Norm (Negative); pH Urine 7 (5-7)
[2021-04-11 15:13] LABS: Add Urine Culture? No; RBC Urine 0-4 /hpf (0-2); Squamous Epithelial Cell Urine 0-4 /hpf (0-5)
--- NOTE | 2021-04-11 18:02 | PC.NURSE ---
Shift Note Frequent safety and comfort rounds continue. Orders and/or nursing care completed as indicated. Patient monitored for response to intervention and treatment(s). Education provided includes treatment plan, medications, oxygen and ambulation safety, and dc plan. Pt verbalizes understanding. VSS. Denies any needs. Will continue to monitor.
[2021-04-11] MEDS: atorvastatin 40 mg Tablet PO (20:36)
[2021-04-11] MEDS: docusate sodium 100 mg Capsule PO (20:36)
[2021-04-12] VITALS (50 sets, daily range): BP systolic 77–135; BP diastolic 38–67; PULSE 78–102; RESP 16–26; TEMP 36.7–36.9; O2SAT 86–100
[2021-04-12] MEDS: sodium chloride 0.9% 1,000 ML 100 ML IV ×2 (03:57→18:19)
--- NOTE | 2021-04-12 06:17 | USCV_ITS ---
Cong Latonia Age: 65 Gender: F : 1955 Exam Date: 04/12/2021 07:37 Ordering Phys: aTy Torres M.D ([email or web address]) Technologist: Pema Thayer Exam Location: [facility] [place] Indication: POST STEMI BP: 82 / 50 HR: 83 Rhythm: Sinus Technical Quality: MEASUREMENTS (Male / Female) Normal Values 2D ECHO LV Diastolic Diameter PLAX 3.8 cm 4.2 - 5.9 / 3.9 - 5.3 cm LV Systolic Diameter PLAX 2.7 cm IVS Diastolic Thickness 1.6 cm 0.6 - 1.0 / 0.6 - 0.9 cm IVS Systolic Thickness 2.0 cm LVPW Diastolic Thickness 2.0 cm 0.6 - 1.0 / 0.6 - 0.9 cm LVPW Systolic Thickness 2.4 cm LVOT Diameter 2.0 cm LV Ejection Fraction 2D Teich 58.0 % LV Ejection Fraction MOD 2C 56.4 % LV Ejection Fraction 2C AL 62.7 % LA Diameter 2.9 cm LA Width 2.3 cm LA Height 4.9 cm RA Width 2.7 cm RA Height 4.2 cm Aorta at Sinotubular Diameter 2.0 cm M-MODE Aortic Annulus Diameter 2.3 cm LA Ao Ratio MM 1.1 MV E Point Septal Separation 0.5 cm DOPPLER AV Peak Velocity 136.0 cm/s LVOT Peak Velocity 86.0 cm/s AV Area Cont Eq vti 2.0 cm squared AV Area Cont Eq pk 2.0 cm squared MV Area PHT 4.9 cm squared Mitral E to A Ratio 0.7 MV E' Velocity 42.0 cm/s Mitral E to MV E' Ratio 10.1 Mitral E to LV E' Lateral Ratio 8.2 Mitral E to LV E' Septal Ratio 13.2 TR Peak Velocity 217.9 cm/s TR Peak Gradient 19.0 mmHg TR Mean Velocity 182.2 cm/s TR Mean Gradient 13.7 mmHg TR Velocity Time Integral 65.3 cm TV Peak E Velocity 39.0 cm/s Right Atrial Pressure 3.0 mmHg Pulmonary Artery Systolic Pressu 22.0 mmHg PV Peak Velocity 85.0 cm/s RV Acceleration Time 0.1 s RV Ejection Time 0.3 s RV AcT/ET 0.3 FINDINGS Left Ventricle Normal left ventricular size. LV systolic function is normal with EF of 55-60%. Mild hypokinesis of the basal to mid inferolateral wall. Grade 1 diastolic dysfunction Right Ventricle The right ventricle is normal in size and function. Right Atrium The right atrium is normal in size. Left Atrium The left atrium is normal in size. Mitral Valve Structurally normal mitral valve without significant stenosis or prolapse. There is mild mitral regurgitation. Aortic Valve Grossly normal without significant stenosis. There is no aortic regurgitation. Tricuspid Valve Structurally normal tricuspid valve without significant stenosis. Mild tricuspid regurgitation. Pulmonary artery systolic pressure is normal. Pulmonic Valve Not well visualized Pericardium Normal pericardium without effusion. Aorta Normal ascending aorta dimension. CONCLUSIONS LV systolic function is normal with EF of 55-60%. Mild hypokinesis of the basal to mid inferolateral wall Grade 1 diastolic dysfunction Mild mitral regurgitation Mild tricuspid regurgitation Tay Torres MD (Electronically Signed) Final Date: 12 April 2021 17:18 S
--- NOTE | 2021-04-12 07:18 | PC.NURSE ---
Report received, assessment completed. Pt lying in bed. AAOx3. Inquired about location but was able to tell this nurse where she was. PIV's x2 pulled out accidentally overnight. 20g PIV to R hand established per this nurse, tolerated well. Pt denies any pain at this time. VSS. Able to make all needs known. Uses BSC. Will monitor.
[2021-04-12 07:43] LABS: Basophils % 0.2 %; Eosinophils % 0.2 %; Hematocrit 38.9 % (37.0-47.0); Hemoglobin 12.2 g/dL (11.5-15.3); Lymphocytes % 7.9 %; Mean Corpuscular HGB Conc 31.4 g/dL (30.0-36.0); Mean Corpuscular Hemoglobin 30.5 pg (28.0-34.0); Mean Corpuscular Volume 97.3 fl (81-99); Mean Platelet Volume 10.8 fL (7.4-10.4); Monocytes % 7.7 %; Neutrophils # 10.54 10^3/uL (1.8-7.7); Neutrophils % 83.6 %; Nucleated Red Blood Cells % 0 %; Platelet Count 191 10^3/cmm (130-400); Red Cell Distribution Width 14.8 % (12.1-15.1); White Blood Count 12.6 10^3/uL (4.0-10.0)
[2021-04-12 08:03] LABS: Anion Gap 10.6 (5-19); Blood Urea Nitrogen 22 mg/dL (8-23); Calcium 8.8 mg/dL (8.5-10.5); Carbon Dioxide 28 mmol/L (22-29); Chloride 107 mmol/L (98-107); Glomerular Filtration Rate 62.5 mL/min (90-130); Glucose 110 mg/dL (65-115); Magnesium 1.7 mg/dL (1.7-2.3); Osmolality Calculated 298 mOsm/kg (285-295); Potassium 3.6 mmol/L (3.5-5.1); Sodium 142 mmol/L (136-145)
--- NOTE | 2021-04-12 08:05 | PC.NURSE ---
Pt was a very pleasant 65 y/o female. alert and oriented. Afebrile. Denies MAURER. Pt complained of inability to have a stool at the beginning of shift, to which colace was ordered. Patient's first 3 BMs were dark, very hard and firm. BM just before change of shift was half hard, and half loose, soft, and mixed brown, red, and pink-tinged. In the beginning of shift, pt inadvertently removed IV catheter from her L AC. Approx. 06:00, pt inadvertently removed her IV in her right hand and proceeded to bleed a moderate volume of venous blood on the bedside commode, chair, bed, floor, and on herself. CBC, BMP, and magnesium ordered for routine labwork post heart cath.
[2021-04-12] MEDS: aspirin 81 mg EC Tablet PO (08:13)
[2021-04-12] MEDS: amlodipine 5 mg Tablet PO (08:13)
[2021-04-12] MEDS: losartan 50 mg Tablet 150 MG PO (08:13)
[2021-04-12] MEDS: pantoprazole DR 40 mg Tablet PO ×2 (08:15→16:57)
[2021-04-12] MEDS: clopidogrel 75 mg Tablet PO (08:15)
--- NOTE | 2021-04-12 17:32 | PC.NURSE ---
Shift Note Frequent safety and comfort rounds continue. Orders and/or nursing care completed as indicated. Patient monitored for response to intervention and treatment(s). Education provided includes treatment plan, medications and continued hospitalization. Pt verbalizes understanding. Will continue to monitor. Denies any pain or SOB. Makes all needs known. VSS. Will monitor
--- NOTE | 2021-04-12 18:59 | P.PN_ITS ---
Subjective Subjective: Interval history: Patient is doing well. No chest pain. Echo shows preserved LV systolic function. Vitals/I&O/Wt Last Vital Signs Temp 98.0 F 04/12/21 15:00 Pulse 99 04/12/21 15:00 Resp 20 H 04/12/21 07:30 BP 104/53 04/12/21 15:00 Pulse Ox 90 04/12/21 15:00 04/12/21 04/12/21 04/12/21 06:59 14:59 22:59 Intake Total 1220 / 4185.1 720 / 720 1235 / 1955 Output Total 300 / 300 200 / 500 Balance 1220 / 2985.1 420 / 420 1035 / 1455 Weight last 48 hrs Weight 150 lb Weight 150 lb Physical Exam Narrative: EXAM NARRATIVE: GENERAL: Patient is alert, awake and oriented x3. [] NECK: No jugular vein distension. [] HEENT: No cyanosis. No icterus. No pallor. [] HEART: Regular S1 and S2. No murmur, rub or gallop. [] LUNGS: Clear to auscultate bilaterally. [] ABDOMEN: Soft, nontender and nondistended. Positive bowel sounds. No guarding, rebound or tenderness. [] CENTRAL NERVOUS SYSTEM: Grossly nonfocal. [] EXTREMITIES: Lower extremities with 1+ edema bilaterally. Pulses palpable in the lower extremities, both dorsalis pedis and posterior tibial. [] Data : 04/13/21 04:42 04/13/21 04:42 A&P Assessment and plan (1) ST elevation myocardial infarction (STEMI): Status: Acute (2) Hx of primary hypertension: Status: Acute (3) Anemia: Status: Acute Qualifiers: Anemia type: iron deficiency Iron deficiency anemia type: unspecified iron deficiency Qualified Code(s): D50.9 - Iron deficiency anemia, unspecified (4) COPD (chronic obstructive pulmonary disease): Status: Acute (5) Smoker: Status: Acute (6) Hypertension: Status: Acute Patient has presented with acute ST elevation [place]. She underwent successful revascularization of RCA with LUÍS x1. Echo shows preserved LV systolic function Aspirin Plavix for at least 1 year. High intensity statin therapy. Patient stable to be transferred out ICU If patient stays stable by tomorrow, plan for discharge Attestations Medical Necessity Statement*: Care expected to cross 2 midnights. Patient had presented with acute ST elevation IN and underwent successful revascularization with LUÍS x 1. Coding Level of Care Code Acute Emissions Repair Technician for Chg Fwd Diagnoses ST elevation myocardial infarction (STEMI) I21.3 Hx of primary hypertension Z86.79 Anemia D50.9 Anemia type: iron deficiency Iron deficiency anemia type: unspecified iron deficiency COPD (chronic obstructive pulmonary disease) J44.9 Smoker F17.200 Hypertension I10
[2021-04-12] MEDS: temazepam 15 mg Capsule PO (20:40)
[2021-04-12] MEDS: atorvastatin 40 mg Tablet PO (20:40)
[2021-04-13] VITALS (33 sets, daily range): BP systolic 85–133; BP diastolic 38–88; PULSE 68–83; RESP 17–27; TEMP 37.1–37.2; O2SAT 89–98
[2021-04-13 05:24] LABS: Basophils % 0.2 %; Eosinophils # 0.1 10^3/uL (0.0-0.8); Eosinophils % 0.6 %; Hematocrit 36.4 % (37.0-47.0); Hemoglobin 11.3 g/dL (11.5-15.3); Lymphocytes # 0.9 10^3/uL (0.8-4.8); Lymphocytes % 9.4 %; Mean Corpuscular Hemoglobin 30.4 pg (28.0-34.0); Mean Corpuscular Volume 97.8 fl (81-99); Monocytes # 0.8 10^3/uL (0.2-0.9); Monocytes % 8.3 %; Neutrophils # 7.66 10^3/uL (1.8-7.7); Nucleated Red Blood Cells % 0 %; Platelet Count 164 10^3/cmm (130-400); Red Blood Count 3.72 10^6/uL (4.1-5.3); Red Cell Distribution Width 14.6 % (12.1-15.1); White Blood Count 9.5 10^3/uL (4.0-10.0)
[2021-04-13 05:48] LABS: Anion Gap 9.9 (5-19); Blood Urea Nitrogen 29 mg/dL (8-23); Calcium 8.2 mg/dL (8.5-10.5); Carbon Dioxide 24 mmol/L (22-29); Chloride 108 mmol/L (98-107); Glomerular Filtration Rate 34.6 mL/min (90-130); Glucose 100 mg/dL (65-115); Osmolality Calculated 292 mOsm/kg (285-295); Potassium 3.9 mmol/L (3.5-5.1); Sodium 138 mmol/L (136-145)
--- NOTE | 2021-04-13 07:02 | PC.NURSE ---
Bedside report given to Faith SHAVER and Sherin SHAVER
[2021-04-13] MEDS: amlodipine 5 mg Tablet PO (08:34)
[2021-04-13] MEDS: pantoprazole DR 40 mg Tablet PO ×2 (08:34→17:01)
[2021-04-13] MEDS: clopidogrel 75 mg Tablet PO (08:34)
[2021-04-13] MEDS: metoprolol succinate ER (24 HR) 25 mg Tablet PO (08:35)
[2021-04-13] MEDS: aspirin 81 mg EC Tablet PO (08:36)
[2021-04-13] MEDS: losartan 50 mg Tablet 150 MG PO (08:37)
--- NOTE | 2021-04-13 09:20 | XR_ITS ---
WS: [id number] Exam: XR chest 1V portable [id number] Date/Time of Exam: 04/13/2021 9:20 AM Reason For Exam: Cough Comparison 04/11/2021 The lungs are fully expanded. No consolidating infiltrates or pleural effusions. Normal cardiomediast inal silhouette. Regional bony elements are intact. Monitoring leads superimpose the chest. XR/XR chest 1V portable [id number] IMPRESSION: 1. No acute cardiopulmonary finding.
[2021-04-13 09:56] LABS: Anion Gap 9.1 (5-19); Blood Urea Nitrogen 27 mg/dL (8-23); Calcium 8.1 mg/dL (8.5-10.5); Carbon Dioxide 26 mmol/L (22-29); Chloride 106 mmol/L (98-107); Glomerular Filtration Rate 37.5 mL/min (90-130); Glucose 132 mg/dL (65-115); Osmolality Calculated 291 mOsm/kg (285-295); Potassium 4.1 mmol/L (3.5-5.1); Sodium 137 mmol/L (136-145)
--- NOTE | 2021-04-13 14:59 | PC.NURSE ---
Reported to Dr. Torres that patient is having increasing blood in stool, at approximately 1456.
--- NOTE | 2021-04-13 15:22 | PM.PN ---
Subjective Subjective: Interval history: Patient is feeling well. Her renal function worsened today and creatinine was 1.4 today. Also has noted streaks of blood in the stool Vitals/I&O/Wt Last Vital Signs Temp 98.8 F 04/13/21 07:00 Pulse 71 04/13/21 15:00 Resp 18 04/13/21 15:00 BP 107/49 04/13/21 15:00 Pulse Ox 98 04/13/21 15:00 04/13/21 04/13/21 04/13/21 06:59 14:59 22:59 Intake Total 1040 / 1040 Output Total 400 / 400 Balance 640 / 640 Physical Exam Narrative: EXAM NARRATIVE: GENERAL: Patient is alert, awake and oriented x3. [] NECK: No jugular vein distension. [] HEENT: No cyanosis. No icterus. No pallor. [] HEART: Regular S1 and S2. No murmur, rub or gallop. [] LUNGS: Clear to auscultate bilaterally. [] ABDOMEN: Soft, nontender and nondistended. Positive bowel sounds. No guarding, rebound or tenderness. [] CENTRAL NERVOUS SYSTEM: Grossly nonfocal. [] EXTREMITIES: Lower extremities with 1+ edema bilaterally. Pulses palpable in the lower extremities, both dorsalis pedis and posterior tibial. [] Data : 04/13/21 15:56 04/13/21 09:26 A&P Assessment and plan (1) ST elevation myocardial infarction (STEMI): Status: Acute (2) Hx of primary hypertension: Status: Acute (3) Anemia: Status: Acute Qualifiers: Anemia type: iron deficiency Iron deficiency anemia type: unspecified iron deficiency Qualified Code(s): D50.9 - Iron deficiency anemia, unspecified (4) COPD (chronic obstructive pulmonary disease): Status: Acute (5) Smoker: Status: Acute (6) Hypertension: Status: Acute (7) KATJA (acute kidney injury): Status: Acute Patient has presented with acute ST elevation SC. She underwent successful revascularization of RCA with LUÍS x1. Echo shows preserved LV systolic function Aspirin Plavix for at least 1 year. High intensity statin therapy. Patient has developed KATJA. IV fluids 100cc/hour. Order CXR. Repeat BMP in the PM Has noted blood streaks on the stools. Monitor Hgb Attestations Medical Necessity Statement*: Care expected to cross 2 midnights. Patient had presented with acute STEMI and underwent successful revascularization. Patient has now developed KATJA and blood in the stools. Coding Level of Care Code Acute Heat And Frost Insulator for Chg Fwd Diagnoses ST elevation myocardial infarction (STEMI) I21.3 Hx of primary hypertension Z86.79 Anemia D50.9 Anemia type: iron deficiency Iron deficiency anemia type: unspecified iron deficiency COPD (chronic obstructive pulmonary disease) J44.9 Smoker F17.200 Hypertension I10 KATJA (acute kidney injury) N17.9
[2021-04-13 16:06] LABS: Basophils % 0.2 %; Eosinophils # 0.1 10^3/uL (0.0-0.8); Eosinophils % 1.3 %; Hematocrit 35.9 % (37.0-47.0); Hemoglobin 11.5 g/dL (11.5-15.3); Lymphocytes # 1.1 10^3/uL (0.8-4.8); Lymphocytes % 13.1 %; Mean Corpuscular Hemoglobin 30.8 pg (28.0-34.0); Mean Corpuscular Volume 96.2 fl (81-99); Mean Platelet Volume 11.2 fL (7.4-10.4); Monocytes # 0.6 10^3/uL (0.2-0.9); Neutrophils # 6.47 10^3/uL (1.8-7.7); Neutrophils % 77.9 %; Nucleated Red Blood Cells % 0 %; Platelet Count 169 10^3/cmm (130-400); Red Blood Count 3.73 10^6/uL (4.1-5.3); Red Cell Distribution Width 14.5 % (12.1-15.1); White Blood Count 8.3 10^3/uL (4.0-10.0)
[2021-04-13] MEDS: sodium chloride 0.9% 1,000 ML 100 ML IV (17:02)
--- NOTE | 2021-04-13 18:18 | PC.NURSE ---
Shift Note Frequent safety and comfort rounds continue. Orders and/or nursing care completed as indicated. Patient monitored for response to intervention and treatment(s). Education provided includes oxygen safety, medication education upon administration, current plan of care, results of tests and any changes in providers orders throughout shift. Patient verbalizes understanding of teachings. Uneventful shift. Primary complaint is of stomach discomfort and frequent bowel movements with blood in stool, provider notified. Patient refuses PRN medications for pain at this time.
[2021-04-13] MEDS: atorvastatin 40 mg Tablet PO (20:13)
--- NOTE | 2021-04-13 20:54 | PC.NURSE ---
Hygiene Patient able to perform self bath with only minimal assistance. Patient's hair washed, dentures brushed, linens changed, gown changed, and self bath completed. All vital signs stable. Patient tolerated activity well. Patient states no further needs at this time.
[2021-04-13] MEDS: temazepam 15 mg Capsule PO (21:09)
[2021-04-14] VITALS (14 sets, daily range): BP systolic 105–168; BP diastolic 53–74; PULSE 66–97; RESP 16–24; TEMP 36.8–39.4; O2SAT 92–96
[2021-04-14] MEDS: sodium chloride 0.9% 1,000 ML 100 ML IV (03:35)
[2021-04-14 04:24] LABS: Basophils % 0.3 %; Eosinophils # 0.1 10^3/uL (0.0-0.8); Eosinophils % 1.9 %; Hematocrit 36.6 % (37.0-47.0); Hemoglobin 11.5 g/dL (11.5-15.3); Lymphocytes # 1.1 10^3/uL (0.8-4.8); Lymphocytes % 14.7 %; Mean Corpuscular HGB Conc 31.4 g/dL (30.0-36.0); Mean Corpuscular Hemoglobin 30.8 pg (28.0-34.0); Mean Corpuscular Volume 98.1 fl (81-99); Mean Platelet Volume 11.6 fL (7.4-10.4); Monocytes # 0.6 10^3/uL (0.2-0.9); Monocytes % 8.1 %; Neutrophils # 5.53 10^3/uL (1.8-7.7); Neutrophils % 74.5 %; Nucleated Red Blood Cells % 0 %; Platelet Count 177 10^3/cmm (130-400); Red Blood Count 3.73 10^6/uL (4.1-5.3); Red Cell Distribution Width 14.6 % (12.1-15.1); White Blood Count 7.4 10^3/uL (4.0-10.0)
[2021-04-14 04:51] LABS: Anion Gap 11.1 (5-19); Blood Urea Nitrogen 24 mg/dL (8-23); Carbon Dioxide 25 mmol/L (22-29); Chloride 108 mmol/L (98-107); Glomerular Filtration Rate 40.9 mL/min (90-130); Glucose 106 mg/dL (65-115); Osmolality Calculated 294 mOsm/kg (285-295); Potassium 4.1 mmol/L (3.5-5.1); Sodium 140 mmol/L (136-145)
--- NOTE | 2021-04-14 05:08 | PC.NURSE ---
Transfer Patient report given to CHHAYA Dominguez in the unit. Patient transferred to [facility] room 105 with all patient belongings, including her phone, dentures, purses, and clothing. Patient states there were no other belongings to take with her.
--- NOTE | 2021-04-14 06:38 | PC.NURSE ---
Patient received as transfer from ICU. Patient will possibly be discharged today.
[2021-04-14] MEDS: amlodipine 5 mg Tablet PO (09:23)
[2021-04-14] MEDS: aspirin 81 mg EC Tablet PO (09:24)
[2021-04-14] MEDS: losartan 50 mg Tablet 150 MG PO (09:24)
[2021-04-14] MEDS: pantoprazole DR 40 mg Tablet PO ×2 (09:26→17:59)
[2021-04-14] MEDS: clopidogrel 75 mg Tablet PO (09:26)
--- NOTE | 2021-04-14 10:42 | PC.SOCIAL ---
IMM Update Discussed Medicare rights with patient, verbalized understanding. Provided patient with a copy and placed initialed, timed, dated copy in patient's chart.
[2021-04-14] MEDS: ipratropium 0.5 mg/2.5 mL Neb INHALATION (11:03)
--- NOTE | 2021-04-14 12:23 | P.DS_ITS ---
Discharge Providers Date of Admission: 04/11/21 07:29 Date of Discharge: April 14, 2021 Attending Provider at Admission: Tay Torres M.D Attending Provider at Discharge: Tay Torres M.D Primary Care Provider: Ragini Moody NP Diagnoses at Discharge Discharge Diagnosis (1) ST elevation myocardial infarction (STEMI): Status: Acute Permanent problem details: This patient presents with the features of ST elevation myocardial infarction. 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 She underwent PCI of this lesion. Currently she seems to be stable. Qualifiers: Involved coronary artery: right coronary artery Qualified Code(s): I21.11 - ST elevation (STEMI) myocardial infarction involving right coronary artery (2) Hx of primary hypertension: Status: Acute Permanent problem details: Only the blood pressure is in the normal range. We'll continue on the current medications. (3) Anemia: Status: Acute Qualifiers: Anemia type: iron deficiency Iron deficiency anemia type: unspecified iron deficiency Qualified Code(s): D50.9 - Iron deficiency anemia, unspecified (4) COPD (chronic obstructive pulmonary disease): Status: Acute Permanent problem details: Is Keli has some normal expiratory wheezing. Nebulizer treatment today. Qualifiers: COPD type: unspecified COPD Qualified Code(s): J44.9 - Chronic obstructive pulmonary disease, unspecified (5) Smoker: Status: Acute Permanent problem details: Patient is strongly advised to quit smoking. (6) KATJA (acute kidney injury): Status: Acute Permanent problem details: Patient's initial creatinine was 0.9. It went up to 1.4 following the coronary angiogram. After hydration, the latest creatinine was found to be 1.3. Patient seems to be doing okay with no specific symptoms. Other Information Additional DC diagnoses/information: The other problems are as outlined before. Reason for Visit Reason for Visit: Chest pain Physical Exam Narrative: EXAM NARRATIVE: GENERAL: The patient is alert and oriented times three. Not in any acute distress. HEENT: No significant pallor, icterus or lymphadenopathy.Oral cavity: There are no mucous membrane lesions. NECK: Trachea appears to be central. No masses noted. No JVD or thyromegaly appreciated. RESPIRATORY: Chest is symmetrical. No intercostals muscle retraction or any accessory muscle activation. There is no chest wall tenderness. Breath sounds are heard bilaterally. No rales or rhonchi heard. No evidence of any consolidation. BREASTS: Deferred. HEART: The heart sounds are normal. No S3 or S4. No significant murmurs. No pericardial rub ABDOMEN: No vessel pulsations or distention. No tenderness. No organomegaly appreciated. Bowel sounds are normally heard. : Deferred. RECTAL: Deferred. LYMPHATIC: No lymphadenopathy noted in the neck or groin. EXTREMITIES: No edema or cyanosis. No clubbing. Right radial pulse is palpable with good volume and amplitude MUSCULOSKELETAL: No acute joint deformities or swelling SKIN: There are no significant rashes or ecchymosis NEUROPSYCHIATRIC: The patient is alert and oriented x3. Appears to be in a good mood. No tremors or rigidity noted. Discharge Data Data Completed and Pending: Completed Studies During Hospitalization Category Date Time Status XR chest 1V shubham ble [id number] Routine Exams 04/13/21 09:20 Completed XR chest 1V shubham ble [id number] Stat Exams 04/11/21 06:00 Completed CV. 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0 0.0 Sodium 140 Potassium 4.1 Chloride 108 H Carbon Dioxide 25 Anion Gap 11.1 BUN 24 H Creatinine 1.3 H GFR Calculation 40.9 L Glucose 106 Calculated Osmolal ity 294 Calcium 8.0 L Vitals: Last Vital Signs Temp 98.3 F 04/14/21 04:00 Pulse 66 04/14/21 11:06 Resp 16 04/14/21 11:06 BP 125/58 04/14/21 09:24 Pulse Ox 94 04/14/21 11:06 Discharge Plan Discharge Patient Disposition: Home Condition: Stable Prescriptions: New clopidogrel 75 mg Tablet 75 mg PO DAILY 30 Days Qty: 30 RF: 5 Continued buspirone 10 mg tablet 10 mg PO TID PRN (Reason: Anxiety) RF: 0 isosorbide mononitrate 30 mg tablet extended release 24 hr 30 mg PO DAILY Qty: 90 RF: 3 diclofenac sodium 75 mg tablet,delayed release (DR/EC) 75 mg PO BID RF: 0 pantoprazole 40 mg tablet,delayed release (DR/EC) 40 mg PO BID Qty: 180 RF: 3 sucralfate [Carafate] 1 gram tablet 1 g PO TID Qty: 20 RF: 0 metoprolol succinate 25 mg tablet extended release 24 hr 25 mg PO EVERY OTHER DAY RF: 0 cetirizine [Zyrtec] 10 mg tablet 10 mg PO QAM RF: 0 simvastatin 40 mg tablet 40 mg PO DAILY@2100 RF: 0 albuterol sulfate [ProAir HFA] 90 mcg/actuation HFA aerosol inhaler 2 puff INHALATION Q4H PRN (Reason: Shortness Of Breath) RF: 0 budesonide-formoterol [Symbicort] 160-4.5 mcg/actuation HFA aerosol inhaler 2 puff INHALATION BID RF: 0 amlodipine 5 mg tablet 5 mg PO DAILY RF: 0 furosemide 20 mg tablet 20 mg PO QAM RF: 0 albuterol sulfate 2.5 mg /3 mL (0.083 %) solution for nebulization 2.5 mg inhalation Q6H PRN (Reason: Wheezing) RF: 0 Super B Complex Tablet 1 tab PO DAILY RF: 0 ipratropium bromide 42 mcg (0.06 %) spray,non-aerosol 2 spray INTRANASAL QID PRN (Reason: unknown) RF: 0 losartan 100 mg tablet See Rx Instructions .ROUTE .COMPLEX RF: 0 phenylephrine HCl 10 mg Tablet 10 mg PO Q6H PRN (Reason: Congestion) RF: 0 ferrous sulfate 27 mg iron Tablet 27 mg PO BID RF: 0 Vitamin D3 125 mcg (5,000 unit) Tablet 125 mcg PO QAM RF: 0 Mucinex 600 mg tablet extended release 12hr 600 mg PO Q12H PRN (Reason: Congestion) RF: 0 biotin 5,000 mcg Tablet, Sublingual 5,000 mcg SUBLINGUAL DAILY RF: 0 Magic Mouthwash See Rx Instructions .ROUTE .COMPLEX RF: 0 Discharge Orders: Discharge Order (Routine); Ordered 04/14/21 Ordered By: Bari Cruz Referrals: Ragini Moody NP [Primary Care Provider] - Discharge Diet: Advance as tolerated Discharge Activity: Resume usual activity Patient Instructions: Opioid Safety Activity Restrictions/Additional Instructions: Appointment at the [facility] to be seen by nurse practitioner next week. Repeat BMP in the office next week. Appointment with Dr. Torres in a month. Patient is advised to continue the medications as mentioned above. The importance of compliance to diet, medications and exercise were discussed. In the event of the patient developing chest pain ,unusual palpitations or any new symptoms, is advised to contact me or come to the hospital. Discharge Attestations Time Spent in Discharge Care*: greater than 30 min (35) Specific Discharge Activities: Other discharge activites (optional): Avoid any weight lifting with the right hand for more than 5 pounds for the next 2 days Status at Discharge: Cognitive status at discharge: cognitively intact , Behavioral status at discharge: cooperative , Functional status at discharge: independent ambulation Overall status at discharge: patient is back to baseline Quality Metrics Clinical Quality Measures During this hospital stay, did patient experience: AMI Clinical Trial Participant: No Contraindication to aspirin (AMI): Aspirin given Contraindication to statin: Statin prescribed Coding Level of Care Code Acute [facility] note Diagnoses ST elevation myocardial infarction (STEMI) I21.11 Involved coronary artery: right coronary artery Hx of primary hypertension Z86.79 Anemia D50.9 Anemia type: iron deficiency Iron deficiency anemia type: unspecified iron deficiency COPD (chronic obstructive pulmonary disease) J44.9 COPD type: unspecified COPD Smoker F17.200 KATJA (acute kidney injury) N17.9
--- NOTE | 2021-04-14 12:51 | ECG_ITS ---
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 Measurements Intervals [place] Rate: 68 P: 40 AL: 211 QRS: -20 QRSD: 86 T: -58 QT: 376 QTc: 401 Interpretive Statements SINUS RHYTHM WITH FIRST DEGREE AV BLOCK LOW QRS VOLTAGE IN PRECORDIAL LEADS [QRS DEFLECTION < 1.0 mV IN CHEST LEADS] INFERIOR MYOCARDIAL INFARCTION , OF INDETERMINATE AGE [40+ ms Q WAVE AND/OR ST/T ABNORMALITY IN II/aVF] Nonspecific ST-T changes. Compared to ECG 04/11/2021 12:43:15 Low QRS voltage now present Myocardial infarct finding still present Electronically Signed On 04-14-2021 16:44:12 MATERIALS MANAGEMENT CLERK by Bari Cruz M.D. [id number]
[2021-04-14] MEDS: alum-mag-hydroxide-sime 30 mL UDC PO (13:03)
[2021-04-14] MEDS: nitroglycerin 0.4 mg sublingual Tablet SUBLINGUAL (15:34)
--- NOTE | 2021-04-14 15:47 | CTR_ITS ---
PROCEDURE INFORMATION: Exam: CT Chest With Contrast; Diagnostic Exam date and time: 04/14/2021 3:47 PM Age: 65 years old Clinical indication: Abdominal pain; Generalized; Other: SOB; Additional info: Abd pain, per Dr broussard TECHNIQUE: Imaging protocol: Diagnostic computed tomography of the chest with contrast. Radiation optimization: All CT scans at this facility use at least one of these dose optimization techniques: automated exposure control; mA and/or kV adjustment per patient size (includes targeted exams where dose is matched to clinical indication); or iterative reconstruction. Contrast material: VISI 320; Contrast volume: 95 ml; Contrast route: INTRAVENOUS (IV); COMPARISON: CT angio chest PE protcl [id number] 10/05/2020 10:04 PM RADIATION DOSE METRICS: Total DLP (mGy-cm): 1415.97 FINDINGS: Lungs: There are centrilobular emphysematous changes in the bilateral lungs. Streaky densities at the lung bases are most consistent with scarring and/or atelectasis. There are pulmonary parenchymal calcifications consistent with remote granulomatous organism exposure. Pleural spaces: Unremarkable. No pneumothorax. No pleural effusion. Heart: Multivessel atherosclerotic disease which involves the coronary arteries. Pulmonary arteries: No visualized pulmonary embolus. Aorta: Unremarkable. No aortic aneurysm. Lymph nodes: Unremarkable. No enlarged lymph nodes. Bones/joints: Unremarkable. No acute fracture. Soft tissues: Unremarkable. PROCEDURE INFORMATION: Exam: CT Abdomen And Pelvis With Contrast Exam date and time: 04/14/2021 3:47 PM Age: 65 years old Clinical indication: Abdominal pain; Generalized; Other: SOB; Additional info: Abd pain, per Dr broussard TECHNIQUE: Imaging protocol: Computed tomography of the abdomen and pelvis with contrast. Radiation optimization: All CT scans at this facility use at least one of these dose optimization techniques: automated exposure control; mA and/or kV adjustment per patient size (includes targeted exams where dose is matched to clinical indication); or iterative reconstruction. Contrast material: VISI 320; Contrast volume: 95 ml; Contrast route: INTRAVENOUS (IV); COMPARISON: CT angio chest PE protcl [id number] 10/05/2020 10:04 PM RADIATION DOSE METRICS: Total DLP (mGy-cm): 1415.97 FINDINGS: Liver: Regional decreased attenuation of the left hepatic lobe at the ligamentum teres suggestive of focal fatty infiltration. Gallbladder and bile ducts: Gallbladder wall is thickened and edematous. There is pericholecystic edema. No calcified gallstones are seen. Pancreas: Normal. No ductal dilation. Spleen: Normal. No splenomegaly. Adrenal glands: Normal. No mass. Kidneys and ureters: Normal. No hydronephrosis. Stomach and bowel: Unremarkable. No obstruction. No mucosal thickening. Appendix: No evidence of appendicitis. Intraperitoneal space: There is a small amount of free intraperitoneal fluid in the abdomen and pelvis. Vasculature: Unremarkable. No abdominal aortic aneurysm. Lymph nodes: Unremarkable. No enlarged lymph nodes. Urinary bladder: Unremarkable as visualized. Reproductive: Unremarkable as visualized. Bones/joints: Unremarkable. No acute fracture. Soft tissues: There is edema in the soft tissues surrounding the lower abdomen and pelvis. CT/CT chest abd pel w con* IMPRESSION: 1. There are centrilobular emphysematous changes in the bilateral lungs. 2. Multivessel atherosclerotic disease which involves the coronary arteries. IMPRESSION: Findings as stated above are consistent with acute cholecystitis. No calcified gallstones are seen.
--- NOTE | 2021-04-14 16:19 | ECG_ITS ---
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 Measurements Intervals [place] Rate: 96 P: 45 NM: 187 QRS: -22 QRSD: 86 T: -29 QT: 318 QTc: 402 Interpretive Statements SINUS RHYTHM INFERIOR MYOCARDIAL INFARCTION , PROBABLY RECENT [40+ ms Q WAVE AND/OR ST/T ABNORMALITY IN II/aVF] ACUTE AL INTERPRETATION BASED ON A DEFAULT AGE OF 40 YEARS Compared to ECG 04/14/2021 12:55:01 First degree AV block no longer present Myocardial infarct finding still present Electronically Signed On 04-14-2021 16:52:22 [employer]ES by Bari Cruz M.D. [id number]
[2021-04-14] MEDS: morphine 4 mg/mL SDV 1 mL 2 MG IVP (16:31)
[2021-04-14] MEDS: iodixanol 320 mg/mL 100mL Btl IV (16:43)
--- NOTE | 2021-04-14 17:19 | P.CONIM_ITS ---
Providers/Reason For Consult Consulting Physician/Specialty*: Richard Gamboa MD Reason for Consult*: Acute cholecystitis Requesting Physician: Dr. Cruz Attending Physician: Tay Torres M.D Primary Care Provider: Ragini Moody NP History of Present Illness History of Present Illness Chief Complaint: My belly hurts History of present illness: Ms Latonia Gar is a pleaent 65 year old female recently diagnosed with ST elevation AL and undergone a PCI of thrombotic occlusion of the right coronary artery.she was supposed to be discharged home today, yet she started to experience acute onset of epigastric abdominal pain nothing seems to make it better or worse except for the morphine IV but the GI cocktail did not seem to help much. Subsequently patient undergone a CT scan of the abdomen and pelvis CT scan of the abdomen pelvis; FINDINGS: Liver: Regional decreased attenuation of the left hepatic lobe at the ligamentum teres suggestive of focal fatty infiltration. Gallbladder and bile ducts: Gallbladder wall is thickened and edematous. There is pericholecystic edema. No calcified gallstones are seen. Pancreas: Normal. No ductal dilation. Spleen: Normal. No splenomegaly. Adrenal glands: Normal. No mass. Kidneys and ureters: Normal. No hydronephrosis. Stomach and bowel: Unremarkable. No obstruction. No mucosal thickening. Appendix: No evidence of appendicitis. Intraperitoneal space: There is a small amount of free intraperitoneal fluid in the abdomen and pelvis. Vasculature: Unremarkable. No abdominal aortic aneurysm. Lymph nodes: Unremarkable. No enlarged lymph nodes. Urinary bladder: Unremarkable as visualized. Reproductive: Unremarkable as visualized. Bones/joints: Unremarkable. No acute fracture. Soft tissues: There is edema in the soft tissues surrounding the lower abdomen and pelvis. IMPRESSION: 1. There are centrilobular emphysematous changes in the bilateral lungs. 2. Multivessel atherosclerotic disease which involves the coronary arteries. Patient reports that she tries to avoid greasy food when possible as it cause her to have discomfort. Currently she is in bed and she is hurting so not much history is obtained from her. General surgery was consulted for further evaluation and management. Review of Systems General: Reports: 10 or more systems reviewed and unremarkable except in HPI and below Meds/Allergies Home Medications and Allergies Home Medications Medication Instructions Recorded Confirmed Last Taken Type albuterol sulfate [ProAir HFA] 2 puff INHALATION Q4H PRN 05/10/19 04/11/21 05/11/19 History cetirizine [Zyrtec] 10 mg PO QAM 05/10/19 04/11/21 10/05/20 History simvastatin 40 mg PO DAILY@2100 05/10/19 04/11/21 10/04/20 History amlodipine 5 mg PO DAILY 10/05/20 04/11/21 10/05/20 History furosemide 20 mg PO QAM 10/05/20 04/11/21 10/05/20 History buspirone 10 mg tablet 10 mg PO TID PRN 11/13/20 04/11/21 Unknown History isosorbide mononitrate 30 mg 30 mg PO DAILY #90 tab 11/13/20 04/11/21 Unknown Rx tablet,extended release 24 hr pantoprazole 40 mg tablet,delayed 40 mg PO BID #180 tab 01/01/21 04/11/21 Unknown Rx release budesonide-formoterol HFA 160 2 puff INHALATION BID g 03/12/21 04/11/21 Unknown History mcg-4.5 mcg/actuation aerosol inhaler diclofenac sodium 75 mg 75 mg PO BID 03/12/21 04/11/21 Unknown History tablet,delayed release metoprolol succinate 25 mg 25 mg PO EVERY OTHER DAY tab 03/12/21 04/11/21 Unknown History tablet,extended release 24 hr sucralfate 1 gram tablet 1 g PO TID #20 tab 04/10/21 04/11/21 Unknown Rx Magic Mouthwash See Rx Instructions .ROUTE .COMPLEX 04/11/21 04/11/21 04/10/21 History albuterol sulfate 2.5 mg INHALATION Q6H PRN 04/11/21 04/11/21 Unknown History biotin 5,000 mcg SUBLINGUAL DAILY 04/11/21 04/11/21 Unknown History cholecalciferol (vitamin D3) 125 mcg PO QAM 04/11/21 04/11/21 Unknown History [Vitamin D3] ferrous sulfate 27 mg PO BID 04/11/21 04/11/21 Unknown History guaifenesin [Mucinex] 600 mg PO Q12H PRN 04/11/21 04/11/21 Unknown History ipratropium bromide 2 spray INTRANASAL QID PRN 04/11/21 04/11/21 Unknown History losartan See Rx Instructions .ROUTE .COMPLEX 04/11/21 04/11/21 Unknown History phenylephrine HCl 10 mg PO Q6H PRN 04/11/21 04/11/21 Unknown History vitamin B complex [Super B Complex] 1 tab PO DAILY 04/11/21 04/11/21 Unknown History Allergies Allergy/AdvReac Type Severity Reaction Status Date / Time No Known Allergies Allergy Verified 04/14/21 17:30 Current Medications Current Medications Generic Name Dose Route Start Last Admin Trade Name Ryanq PRN Reason Stop Dose Admin Al Hydrox/Mg Hydrox/Simethicone 30 ml 04/11/21 07:54 04/14/21 13:03 Hgyh-[id number]-Zjpvuxksd-Yahir 30 Ml Udc PO 30 ml Q15M PRN Administration INDIGESTION Amlodipine Besylate 5 mg 04/11/21 09:00 04/14/21 09:23 Amlodipine 5 Mg Tablet PO 5 mg DAILY GOYO Administration Aspirin 81 mg 04/12/21 09:00 04/14/21 09:24 Aspirin 81 Mg Ec Tablet PO 81 mg DAILY GOYO Administration Atorvastatin Calcium 40 mg 04/11/21 21:00 04/13/21 20:13 Atorvastatin 40 Mg Tablet PO 40 mg BEDTIME GOYO Administration Clopidogrel Bisulfate 75 mg 04/12/21 09:00 04/14/21 09:26 Clopidogrel 75 Mg Tablet PO 75 mg DAILY GOYO Administration Docusate Sodium 100 mg 04/11/21 19:51 04/11/21 20:36 Docusate Sodium 100 Mg Capsule PO 100 mg DAILY PRN Administration CONSTIPATION Sodium Chloride 1,000 mls @ 100 mls/hr 04/11/21 08:00 04/14/21 03:35 Sodium Chloride 0.9% IV 100 mls/hr .Q10H GOYO Administration Losartan Potassium 150 mg 04/11/21 09:00 04/14/21 09:24 Losartan 50 Mg Tablet PO 150 mg DAILY GOYO Administration Metoprolol Succinate 25 mg 04/11/21 09:00 04/13/21 08:35 Metoprolol Succinate Er (24 Hr) 25 Mg Tablet PO 25 mg EVERY OTHER DAY GOYO Administration Morphine Sulfate 2 mg 04/14/21 16:24 04/14/21 16:31 Morphine 4 Mg/Ml Sdv 1 Ml IVP 2 mg Q4H PRN Administration SEVERE PAIN Nitroglycerin 0.4 mg 04/11/21 07:54 04/14/21 15:34 Nitroglycerin 0.4 Mg Sublingual Tablet SUBLINGUAL 0.4 mg Q5M PRN Administration CHEST PAIN Pantoprazole Sodium 40 mg 04/11/21 09:00 04/14/21 09:[address] 40 Mg Tablet PO 40 mg BID GOYO Administration Temazepam 15 mg 04/11/21 07:54 04/13/21 21:09 Temazepam 15 Mg Capsule PO 15 mg BEDTIME PRN Administration INSOMNIA PFSH Acute PFSH: Medical History Asthma with exacerbation History of COPD Hx of chest pain Hx of gastroesophageal reflux (GERD) Hx of hypercholesterolemia Hx of migraines Hx of primary hypertension Only the blood pressure is in the normal range. We'll continue on the current medications. PUD (peptic ulcer disease) Smoker Patient is strongly advised to quit smoking. Surgical History History of ankle surgery History of bladder surgery History of carpal tunnel release of both wrists History of tonsillectomy and adenoidectomy Family History Sister Cancer Myocardial infarct Mother Myocardial infarct Grandmother Myocardial infarct Other Hypertension Stroke Social History Alcohol intake: never Housing: House Vitals/I&O/Wt Last Vital Signs Temp 98.3 F 04/14/21 04:00 Pulse 66 04/14/21 11:06 Resp 20 H 04/14/21 16:31 BP 125/58 04/14/21 09:24 Pulse Ox 95 04/14/21 16:31 04/14/21 04/14/21 04/14/21 06:59 14:59 22:59 Intake Total 1000 / 2520 Output Total 600 / 1200 Balance 400 / 1320 Weight last 48 hrs Weight 150 lb Physical Exam Const: COMMON NORMALS: no acute distress and patient oriented x3 GENERAL APPEARANCE: cooperative ORIENTATION/CONSCIOUSNESS: Yes awake, Yes oriented to person, Yes oriented to place and Yes oriented to time HENMT: COMMON NORMALS: normocephalic HEAD & SCALP: normocephalic Eye: COMMON NORMALS: Equal, round and reactive pupils present and no scleral icterus PUPIL: Yes Equal, round and reactive pupils present Lymph: LYMPHATIC: no lymphadenopathy noted Chest: COMMONS NORMALS: normal inspection of the chest Resp: COMMON NORMALS: normal respiratory effort and clear to auscultation bilaterally AUSCULTATION: clear to auscultation bilaterally Cardio: COMMON NORMALS: S1 normal heart sound present and S2 normal heart sound present; negative for No murmurs present (Cardio) HEART SOUNDS: S1 normal heart sound present and S2 normal heart sound present GI: COMMON NORMALS: Soft to palpation; negative for No hepatosplenomegaly present INSPECTION: Yes normal to inspection PALPATION: Yes Soft to palpation, No Firmness to palpation present (GI), No Tenderness to palpation present (GI), No Guarding due to palpation present (GI), No Rigid due to palpation and No No hepatosplenomegaly present PERCUSSION: Other (Negative Campos sign) Neuro: COMMON NORMALS: patient oriented x3 SENSORIUM/ORIENTATION: Yes oriented to person, Yes oriented to place and Yes oriented to time Psych: COMMON NORMALS: mental status grossly normal Skin: COMMON NORMALS: no rashes or lesions noted GENERAL SKIN EXAM: no rashes or lesions noted A&P Assessment and plan (1) Epigastric pain: After history taking physical examination and reviewing the chart and images of the CT scan of the abdomen and pelvis with my personal interpretation, certainly there is pericholecystic fluid and thickness of the gallbladder that could be well coinciding with acute cholecystitis, there is some shadowing which is hardly appreciated on the CT scan and subsequently a dedicated ultrasound of the liver and gallbladder would be very much helpful. Given the fact that the patient had recent AL and undergone PCI and currently on Plavix therapy, she would not be an appropriate candidate for laparoscopic cholecystectomy. I would highly recommend to place the patient on broad- spectrum antimicrobial therapy and Zosyn every 8 hours(consult pharmacy for renal dose adjustment) and will follow on her clinical progress as well as the ultrasound of the gallbladder. labs in the morning including CBC and CMP Ice chips for now If patient continues to show symptoms and not responding to conservative management likely a cholecystostomy tube under image guided would be helpful for her. Thank you for consulting general surgery to participate taking care Ms. Gar Status: Acute Consult Attestations Medical Necessity Statement: Per admitting service Time Spent in Patient Care: (>than 50% of time spent in counselling and/or direct pt care on unit) . 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
[2021-04-14] MEDS: piperacillin-tazobactam 3.375 GM in sodium chloride 0.9% (plus) 50 ML IV (17:59)
[2021-04-14 18:29] LABS: Alanine Aminotransferase 207 U/L (0-33); Albumin Level 3.5 g/dL (3.5-5.2); Alkaline Phosphatase 254 IU/L (35-105); Amylase 22 U/L (28-100); Blood Urea Nitrogen 20 mg/dL (8-23); Calcium 8.9 mg/dL (8.5-10.5); Carbon Dioxide 23 mmol/L (22-29); Chloride 107 mmol/L (98-107); Cholesterol 145 mg/dL (0-200); Globulin 3.2 g/dL (1.3-4.6); Glomerular Filtration Rate 44.8 mL/min (90-130); Glucose 113 mg/dL (65-115); HDL Cholesterol 50 mg/dL (60-100); LDL Cholesterol Calculated 70 mg/dL (50-129); Lipase 14 U/L (13-60); Osmolality Calculated 295 mOsm/kg (285-295); Sodium 141 mmol/L (136-145); Total Bilirubin 0.5 mg/dL (0.15-1.2); Total Protein 6.7 g/dL (6.6-8.7); Triglycerides 124 mg/dL (0-150)
--- NOTE | 2021-04-14 18:38 | PC.NURSE ---
pt was ready for discharge this afternoon ..and began c/o of indigestion ... epigastric area.ekg obtained.maalox given and discomfort relieved.pt walked in mena and tolerated that well.just prior to discharge,pt began c/o severe epigastric discomfort.ekg obtained.dr broussard notified..and he ordered a gi cocktail.this did not relieve discomfort.pt rating pain 10/10.pt then stated that pain was referred to bilat jaw areas.morphine ordered and given iv..and pt taken to ct scan for chest and abd ct with contrast.
[2021-04-14 18:46] LABS: Anion Gap 15.5 (5-19); Aspartate Amino Transferase 132 U/L (0-32); Potassium 4.5 mmol/L (3.5-5.1)
[2021-04-14] MEDS: acetaminophen 325 mg Tablet 650 MG PO (19:43)
--- NOTE | 2021-04-14 19:43 | PC.NURSE ---
had dialysis today.tolerated well.pt is not eating meals.discussed with pt's .he does not think pt will drink nepro type beverages.
[2021-04-15] VITALS (14 sets, daily range): BP systolic 110–141; BP diastolic 44–83; PULSE 67–86; RESP 16–25; TEMP 36.3–37.3; O2SAT 92–97
[2021-04-15] MEDS: atorvastatin 40 mg Tablet PO ×2 (02:16→21:49)
[2021-04-15] MEDS: piperacillin-tazobactam 3.375 GM in sodium chloride 0.9% (plus) 50 ML IV ×3 (03:20→17:28)
--- NOTE | 2021-04-15 06:00 | USR_ITS ---
PROCEDURE INFORMATION: Exam: US Abdomen, Limited; Right Upper Quadrant Exam date and time: 04/15/2021 6:00 AM Age: 65 years old Clinical indication: Abdominal pain; Epigastric; Additional info: Cbd assesment and acute cholecystitis TECHNIQUE: Imaging protocol: US abdomen. Real time ultrasound with image documentation. Limited exam focused on the right upper quadrant. Total images: 70 COMPARISON: US gall bladder [id number] 04/20/2020 11:19 AM FINDINGS: Liver: 15.1 cm Liver length. The liver is normal in echogenicity and configuration. No masses are detected. There is no intrahepatic biliary dilatation. Gallbladder: The gallbladder has a normal appearance with normal wall thickness and no pericholecystic fluid nor inflammatory changes. No gallstones are seen. No sludge is detected. Common bile duct: Common bile duct diameter is 6 mm. Pancreas: The pancreas is poorly-visualized due to overlying bowel gas. Right kidney: 10.5 cm length of right kidney. Right kidney with normal echogenicity and no hydronephrosis, calculi, solid masses, nor perinephric fluid collection. Portal venous: Spectral sonography demonstrates patent portal vein with hepatopedal blood flow. Normal respiratory phasicity on spectral waveform, indicating preserved compliance of the liver. No portal venous abnormality identified. Intraperitoneal space: Minimal free fluid noted adjacent to the liver edge and in pelvis. Other findings: Study limited due to bowel gas. US/US abdomen limited [id number] IMPRESSION: 1. Minimal free fluid noted adjacent to the liver edge and in pelvis. 2. No acute process identified.
[2021-04-15] MEDS: sodium chloride 0.9% 1,000 ML 100 ML IV ×2 (06:10→17:27)
[2021-04-15 06:11] LABS: Basophils % 0.2 %; Eosinophils % 0.2 %; Hematocrit 33.7 % (37.0-47.0); Hemoglobin 10.5 g/dL (11.5-15.3); Lymphocytes % 10.3 %; Mean Corpuscular HGB Conc 31.2 g/dL (30.0-36.0); Mean Corpuscular Hemoglobin 29.9 pg (28.0-34.0); Mean Platelet Volume 11.9 fL (7.4-10.4); Monocytes % 10.4 %; Neutrophils # 7.36 10^3/uL (1.8-7.7); Neutrophils % 78.5 %; Nucleated Red Blood Cells % 0 %; Platelet Count 208 10^3/cmm (130-400); Red Blood Count 3.51 10^6/uL (4.1-5.3); Red Cell Distribution Width 14.6 % (12.1-15.1); White Blood Count 9.4 10^3/uL (4.0-10.0)
[2021-04-15 06:32] LABS: Alanine Aminotransferase 145 U/L (0-33); Albumin Level 3.2 g/dL (3.5-5.2); Alkaline Phosphatase 192 IU/L (35-105); Anion Gap 13.1 (5-19); Aspartate Amino Transferase 66 U/L (0-32); Blood Urea Nitrogen 18 mg/dL (8-23); Calcium 8.4 mg/dL (8.5-10.5); Carbon Dioxide 24 mmol/L (22-29); Chloride 109 mmol/L (98-107); Globulin 2.7 g/dL (1.3-4.6); Glomerular Filtration Rate 55.3 mL/min (90-130); Glucose 102 mg/dL (65-115); Osmolality Calculated 296 mOsm/kg (285-295); Potassium 4.1 mmol/L (3.5-5.1); Sodium 142 mmol/L (136-145); Total Bilirubin 0.6 mg/dL (0.15-1.2); Total Protein 5.9 g/dL (6.6-8.7)
--- NOTE | 2021-04-15 07:05 | P.CONIM_ITS ---
Providers/Reason For Consult Consulting Physician/Specialty*: Dr. Cruz, cardiology Reason for Consult*: Epigastric discomfort Attending Physician: Tay Torres M.D Primary Care Provider: Ragini Moody NP History of Present Illness History of Present Illness female recently diagnosed with ST elevation ND and undergone a PCI of thrombotic occlusion of the right coronary artery.she was supposed to be discharged home today, yet she started to experience acute onset of epigastric abdominal pain radiating to neck , responding to morphine. She denied any nausea vomiting, diarrhea. Patient underwent CTA chest abdomen and pelvis: As there was significant blood pressure difference between both arms, and she described the pain as tearing chest, epigastric, pain. CTA chest abdomen and pelvis: Failed to show any PE or dissection. Gallbladder and bile ducts: Gallbladder wall is thickened and edematous. There is pericholecystic edema. No calcified gallstones are seen. Liver function test: AST 132 ALT 207, alk phos 254, total bilirubin 0.5. Amylase 22 lipase 40. Review of Systems Const: Denies: body aches, change in appetite or diaphoresis Card: Denies: palpitations, edema, swelling of feet/ankles, dyspnea on exertion, orthopnea or leg pain with exertion Resp: Denies: dyspnea, productive cough, wheezing or pain on inspiration : Denies: flank pain Musc: Denies: back pain, extremity pain or extremity swelling Neuro: Denies: headache(s), difficulty walking or confusion Meds/Allergies Home Medications and Allergies Home Medications Medication Instructions Recorded Confirmed Last Taken Type albuterol sulfate [ProAir HFA] 2 puff INHALATION Q4H PRN 05/10/19 04/11/21 05/11/19 History cetirizine [Zyrtec] 10 mg PO QAM 05/10/19 04/11/21 10/05/20 History simvastatin 40 mg PO DAILY@2100 05/10/19 04/11/21 10/04/20 History amlodipine 5 mg PO DAILY 10/05/20 04/11/21 10/05/20 History furosemide 20 mg PO QAM 10/05/20 04/11/21 10/05/20 History buspirone 10 mg tablet 10 mg PO TID PRN 11/13/20 04/11/21 Unknown History isosorbide mononitrate 30 mg 30 mg PO DAILY #90 tab 11/13/20 04/11/21 Unknown Rx tablet,extended release 24 hr pantoprazole 40 mg tablet,delayed 40 mg PO BID #180 tab 01/01/21 04/11/21 Unknown Rx release budesonide-formoterol HFA 160 2 puff INHALATION BID g 03/12/21 04/11/21 Unknown History mcg-4.5 mcg/actuation aerosol inhaler diclofenac sodium 75 mg 75 mg PO BID 03/12/21 04/11/21 Unknown History tablet,delayed release metoprolol succinate 25 mg 25 mg PO EVERY OTHER DAY tab 03/12/21 04/11/21 Unknown History tablet,extended release 24 hr sucralfate 1 gram tablet 1 g PO TID #20 tab 04/10/21 04/11/21 Unknown Rx Magic Mouthwash See Rx Instructions .ROUTE .COMPLEX 04/11/21 04/11/21 04/10/21 History albuterol sulfate 2.5 mg INHALATION Q6H PRN 04/11/21 04/11/21 Unknown History biotin 5,000 mcg SUBLINGUAL DAILY 04/11/21 04/11/21 Unknown History cholecalciferol (vitamin D3) 125 mcg PO QAM 04/11/21 04/11/21 Unknown History [Vitamin D3] ferrous sulfate 27 mg PO BID 04/11/21 04/11/21 Unknown History guaifenesin [Mucinex] 600 mg PO Q12H PRN 04/11/21 04/11/21 Unknown History ipratropium bromide 2 spray INTRANASAL QID PRN 04/11/21 04/11/21 Unknown History losartan See Rx Instructions .ROUTE .COMPLEX 04/11/21 04/11/21 Unknown History phenylephrine HCl 10 mg PO Q6H PRN 04/11/21 04/11/21 Unknown History vitamin B complex [Super B Complex] 1 tab PO DAILY 04/11/21 04/11/21 Unknown History Allergies Allergy/AdvReac Type Severity Reaction Status Date / Time No Known Allergies Allergy Verified 04/14/21 17:30 Current Medications Current Medications Generic Name Dose Route Start Last Admin Trade Name Freq PRN Reason Stop Dose Admin Acetaminophen 650 mg 04/11/21 07:54 04/14/21 19:43 Acetaminophen 325 Mg Tablet PO 650 mg Q6H PRN Administration MILD PAIN Al Hydrox/Mg Hydrox/Simethicone 30 ml 04/11/21 07:54 04/14/21 13:03 [id number]-Fbx-Dvbanxipu-Yahir 30 Ml Udc PO 30 ml Q15M PRN Administration INDIGESTION Amlodipine Besylate 5 mg 04/11/21 09:00 04/14/21 09:23 Amlodipine 5 Mg Tablet PO 5 mg DAILY GOYO Administration Aspirin 81 mg 04/12/21 09:00 04/14/21 09:24 Aspirin 81 Mg Ec Tablet PO 81 mg DAILY GOYO Administration Atorvastatin Calcium 40 mg 04/11/21 21:00 04/15/21 02:16 Atorvastatin 40 Mg Tablet PO 40 mg BEDTIME GOYO Administration Clopidogrel Bisulfate 75 mg 04/12/21 09:00 04/14/21 09:26 Clopidogrel 75 Mg Tablet PO 75 mg DAILY GOYO Administration Docusate Sodium 100 mg 04/11/21 19:51 04/11/21 20:36 Docusate Sodium 100 Mg Capsule PO 100 mg DAILY PRN Administration CONSTIPATION Sodium Chloride 1,000 mls @ 100 mls/hr 04/11/21 08:00 04/15/21 05:20 Sodium Chloride 0.9% IV Not Given .Q10H GOYO Piperacillin Sod/Tazobactam 50 mls @ 12.5 mls/hr 04/14/21 17:30 04/15/21 03:20 Sod 3.375 gm/ Sodium Chloride IV 12.5 mls/hr Q8H GOYO Administration Protocol Sodium Chloride 1,000 mls @ 100 mls/hr 04/14/21 17:30 04/15/21 06:10 Sodium Chloride 0.9% IV 100 mls/hr .Q10H GOYO Administration Losartan Potassium 150 mg 04/11/21 09:00 04/14/21 09:24 Losartan 50 Mg Tablet PO 150 mg DAILY GOYO Administration Metoprolol Succinate 25 mg 04/11/21 09:00 04/13/21 08:35 Metoprolol Succinate Er (24 Hr) 25 Mg Tablet PO 25 mg EVERY OTHER DAY GOYO Administration Morphine Sulfate 2 mg 04/14/21 16:24 04/14/21 16:31 Morphine 4 Mg/Ml Sdv 1 Ml IVP 2 mg Q4H PRN Administration SEVERE PAIN Nitroglycerin 0.4 mg 04/11/21 07:54 04/14/21 15:34 Nitroglycerin 0.4 Mg Sublingual Tablet SUBLINGUAL 0.4 mg Q5M PRN Administration CHEST PAIN Pantoprazole Sodium 40 mg 04/11/21 09:00 04/14/21 17:[address] 40 Mg Tablet PO 40 mg BID GOYO Administration Temazepam 15 mg 04/11/21 07:54 04/13/21 21:09 Temazepam 15 Mg Capsule PO 15 mg BEDTIME PRN Administration INSOMNIA PFSH Acute PFSH: Medical History Asthma with exacerbation History of COPD Hx of chest pain Hx of gastroesophageal reflux (GERD) Hx of hypercholesterolemia Hx of migraines Hx of primary hypertension Only the blood pressure is in the normal range. We'll continue on the current medications. PUD (peptic ulcer disease) Smoker Patient is strongly advised to quit smoking. Surgical History History of ankle surgery History of bladder surgery History of carpal tunnel release of both wrists History of tonsillectomy and adenoidectomy Family History Sister Cancer Myocardial infarct Mother Myocardial infarct Grandmother Myocardial infarct Other Hypertension Stroke Social History Alcohol intake: never Housing: House Vitals/I&O/Wt Last Vital Signs Temp 99.1 F 04/15/21 03:29 Pulse 72 04/15/21 04:48 Resp 16 04/15/21 03:29 BP 121/53 04/15/21 03:29 Pulse Ox 94 04/15/21 03:29 04/14/21 04/15/21 04/15/21 22:59 06:59 14:59 Intake Total 1050 / 1050 Balance 1050 / 1050 Weight last 48 hrs Weight 83.007 kg Weight 68.039 kg Physical Exam Const: COMMON NORMALS: patient oriented x3 HENMT: COMMON NORMALS: normocephalic and atraumatic HEAD & SCALP: normocephalic and atraumatic Resp: COMMON NORMALS: clear to auscultation bilaterally EFFORT & INSPECTION: Yes symmetric chest movement AUSCULTATION: clear to auscultation bilaterally Cardio: COMMON NORMALS: regular rate, regular rhythm, S1 normal heart sound present, S2 normal heart sound present, No gallops present (Cardio), No murmurs present (Cardio), No rub (Cardio) and Peripheral pulses 2+ throughout RATE: regular rate RHYTHM: regular rhythm HEART SOUNDS: S1 normal heart sound present and S2 normal heart sound present PERIPHERAL PULSES: Peripheral pulses 2+ throughout GI: AUSCULTATION: Yes normoactive bowel sounds RECTAL EXAM: deferred OTHER: Epigastric abdominal tenderness, moreau sign negative, no rebound tenderness, Extremity: COMMON NORMALS: no clubbing, cyanosis or edema and no pedal edema Neuro: COMMON NORMALS: patient oriented x3 A&P Assessment and plan (1) Epigastric pain: Epigastric abdominal pain: Possible acute cholecystitis, Ultrasound abdomen Monitor LFT NPO Follow blood culture Empirically on Zosyn Given her recent ND S/P PCI and currently on Plavix therapy, she would not be an appropriate candidate for laparoscopic cholecystectomy. 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
[2021-04-15] MEDS: losartan 50 mg Tablet 150 MG PO (10:46)
[2021-04-15] MEDS: clopidogrel 75 mg Tablet PO (10:49)
[2021-04-15] MEDS: pantoprazole DR 40 mg Tablet PO ×2 (10:49→17:27)
[2021-04-15] MEDS: aspirin 81 mg EC Tablet PO (10:49)
[2021-04-15] MEDS: metoprolol succinate ER (24 HR) 25 mg Tablet PO (10:49)
[2021-04-15] MEDS: amlodipine 5 mg Tablet PO (10:49)
--- NOTE | 2021-04-15 13:14 | PC.CHAP ---
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 [] Patient/Family/Request visit [] Outpatient visit [XX] Follow-up visit [] Physician referral [] Code/Alert [] Routine visit [] Staff referral [] Actively dying [XX] Patient sleeping [] Family support [] [] Out of room [] Palliative care [] [] Receiving care in room [] Pre-surgical visit [] Trauma [] Long length of stay [] ICU visit [] Other: Relational/Emotional Strength [] Patient feels connected with others/family/visitors/staff [] Distress [] Loneliness/isolation [] Abandonment Spirituality of Patient [] Person of Raiza [] Attends Jew of their Raiza [] Believes in Prayer [] Reads Bible or Baptism materials [] There are Spiritual issues to be addressed Drug Counselor Interventions [] Prayer [] Active listening [] Non-anxious presence [] Spiritual/emotional support [] Crisis/trauma care [] Spiritual counseling [] Bereavement support [] Provided bereavement packet [] Provided Bible/devotional materials [] Provided toy/stuffed animal, coloring book to patient or family member [] Provided Communion [] Anointing/[place] [] Salvation [] Completed spiritual assessment [] Other: Impact on Illness or Injury [] Angry [] Fearful [] Anxious [] Often cries [] Exhaustion [] Unable to work [] Unable to attend orthodoxy [] Unable to walk/stand [] Unable to read [] Unable to drive [] Unable to eat/drink [] Unable to sleep [] Unable to be with family [] Patient intubated [] Other: Summary Time spent with patient
--- NOTE | 2021-04-15 17:01 | PM.PN ---
Subjective Subjective: Interval history: Patient is feeling better today, overnight T-max:103. Denies any nausea ,vomiting, epigastric pain has improved Medications: Reviewed: Yes Vitals/I&O/Wt Last Vital Signs Temp 97.4 F L 04/15/21 07:48 Pulse 71 04/15/21 13:44 Resp 16 04/15/21 13:44 BP 110/57 04/15/21 13:44 Pulse Ox 94 04/15/21 13:44 04/15/21 04/15/21 04/15/21 06:59 14:59 22:59 Intake Total 650 / 650 Balance 650 / 650 Weight last 48 hrs Weight 83.007 kg Weight 68.039 kg Physical Exam Const: COMMON NORMALS: patient oriented x3 HENMT: COMMON NORMALS: normocephalic and atraumatic HEAD & SCALP: normocephalic and atraumatic Resp: COMMON NORMALS: No retractions and clear to auscultation bilaterally EFFORT & INSPECTION: Yes symmetric chest movement AUSCULTATION: clear to auscultation bilaterally Cardio: COMMON NORMALS: regular rate, regular rhythm, S1 normal heart sound present, S2 normal heart sound present, No gallops present (Cardio), No murmurs present (Cardio), No rub (Cardio) and Peripheral pulses 2+ throughout RATE: regular rate RHYTHM: regular rhythm HEART SOUNDS: S1 normal heart sound present and S2 normal heart sound present PERIPHERAL PULSES: Peripheral pulses 2+ throughout GI: COMMON NORMALS: Normal to inspection, nondistended, normoactive bowel sounds present, Soft to palpation, non-tender, No hepatosplenomegaly present and no masses AUSCULTATION: Yes normoactive bowel sounds PALPATION: Yes Soft to palpation and Yes No hepatosplenomegaly present RECTAL EXAM: deferred Extremity: COMMON NORMALS: no clubbing, cyanosis or edema and no pedal edema Neuro: COMMON NORMALS: patient oriented x3 Data : 04/15/21 05:30 04/15/21 05:30 Micro: Microbiology 04/15/21 11:06 Blood Culture - Preliminary Blood SPECIMEN COLLECTED 04/15/21 11:02 Blood Culture - Preliminary Blood SPECIMEN COLLECTED A&P Assessment and plan (1) Epigastric pain: Epigastric abdominal pain: Possible acute cholecystitis, Ultrasound abdomen: The gallbladder has a normal appearance with normal wall thickness and no pericholecystic fluid nor inflammatory changes. No gallstones are seen. No sludge is detected.Common bile duct diameter is 6 mm. Minimal free fluid noted adjacent to the liver edge and in pelvis Continue to monitor LFT Initially NPO: Currently on clear liquid diet Follow blood culture Empirically on Zosyn Given her recent MA S/P PCI and currently on Plavix therapy, she would not be an appropriate candidate for laparoscopic cholecystectomy. 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
--- NOTE | 2021-04-15 17:49 | P.PN_ITS ---
Subjective Subjective: Interval history: Patient overall feels a bit better but still have epigastric discomfort. Ultrasound was done today and showed; 1. Minimal free fluid noted adjacent to the liver edge and in pelvis. 2. No acute process identified. Medications: Reviewed: Yes Vitals/I&O/Wt Last Vital Signs Temp 97.4 F L 04/15/21 07:48 Pulse 71 04/15/21 13:44 Resp 16 04/15/21 13:44 BP 110/57 04/15/21 13:44 Pulse Ox 94 04/15/21 13:44 04/15/21 04/15/21 04/15/21 06:59 14:59 22:59 Intake Total 700 / 700 1000 / 1700 Balance 700 / 700 1000 / 1700 Weight last 48 hrs Weight 183 lb Weight 150 lb Physical Exam Narrative: EXAM NARRATIVE: Patient is conscious alert oriented X3 BMI 36 Head and neck examination PERRLA no masses no cervical lymphadenopathy no jau ndice Abdomen not much tenderness nondistended soft no organomegaly guarding or rigidity/no signs of peritonitis Data : 04/15/21 05:30 04/15/21 05:30 Micro: Microbiology 04/15/21 11:06 Blood Culture - Preliminary Blood SPECIMEN COLLECTED 04/15/21 11:02 Blood Culture - Preliminary Blood SPECIMEN COLLECTED A&P Assessment and plan (1) Epigastric pain: In the light of the negative ultrasound in the light of the negative ultrasound findings of the gallbladder and if the patient continues to have symptoms I would recommend to obtain a HIDA scan Can have clear liquid Thank you for consulting general surgery to participate taking care Ms. Gar Status: Acute Attestations Medical Necessity Statement*: Per Admitting service Time Spent in Patient Care: (>than 50% of time spent in counselling and/or direct pt care on unit) . 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
[2021-04-15] MEDS: FUROsemide 10 mg/mL SDV 2mL 20 MG IVP (18:13)
--- NOTE | 2021-04-15 19:43 | PC.NURSE ---
no c/o severe epigastric pain today...though did have some tenderness in mid epigastric area with palpation.advanced to clear liquid diet and tolerated well.toward end of shift..pt c/o johnson while walking to bathroom..o2 sat dropped to mid to high 80's and expiratory wheezes noted through-out. dr broussard notified..and 20 mg lasix given iv push as ordered.report given to oncoming shift.
--- NOTE | 2021-04-15 21:01 | PM.PN ---
Subjective Subjective: Interval history: We will plan to discharge her home yesterday. Then she developed a severe epigastric/lower substernal chest pain yesterday. Subsequently she had a CT of the chest and abdomen which revealed features of acute cholecystitis. No evidence of dissection or PE hospital service and general surgery was consulted. She is currently on IV antibiotics. She had a T-max of 103 yesterday. The temperature is coming down. Her epigastric pain is improving. Medications: Reviewed: Yes Medication Review Details: Current Medications Acetaminophen (Acetaminophen 325 Mg Tablet) 650 mg PO Q6H PRN PRN Reason: MILD PAIN Last Admin: 04/14/21 19:43 Dose: 650 mg Documented by: Al Hydrox/Mg Hydrox/Simethicone (Gfwr-Kyy-Rsujribuf-Yahir 30 Ml Udc) 30 ml PO Q15M PRN PRN Reason: INDIGESTION Last Admin: 04/14/21 13:03 Dose: 30 ml Documented by: Albuterol Sulfate (Albuterol 8 Gm Mdi) 2 puff INHALATION Q6H.RESPIRATORY PRN PRN Reason: SOB/WHEEZING Amlodipine Besylate (Amlodipine 5 Mg Tablet) 5 mg PO DAILY [facility] Last Admin: 04/15/21 10:49 Dose: 5 mg Documented by: Aspirin (Aspirin 81 Mg Ec Tablet) 81 mg PO DAILY [facility] Last Admin: 04/15/21 10:49 Dose: 81 mg Documented by: Atorvastatin Calcium (Atorvastatin 40 Mg Tablet) 40 mg PO BEDTIME [facility] Last Admin: 04/15/21 02:16 Dose: 40 mg Documented by: Atropine Sulfate (Atropine 1 Mg/Ml Sdv 1 Ml) 0.5 mg IVP PRN PRN PRN Reason: Symptomatic bradycardia Bisacodyl (Bisacodyl 5 Mg Tablet) 5 mg PO DAILY PRN PRN Reason: CONSTIPATION Clopidogrel Bisulfate (Clopidogrel 75 Mg Tablet) 75 mg PO DAILY [facility] Last Admin: 04/15/21 10:49 Dose: 75 mg Documented by: Docusate Sodium (Docusate Sodium 100 Mg Capsule) 100 mg PO DAILY PRN PRN Reason: CONSTIPATION Last Admin: 04/11/21 20:36 Dose: 100 mg Documented by: Sodium Chloride (Sodium Chloride 0.9%) 1,000 mls @ 100 mls/hr IV .Q10H [facility] Last Admin: 04/15/21 18:12 Dose: Not Given Documented by: Piperacillin Sod/Tazobactam (Sod 3.375 gm/ Sodium Chloride) 50 mls @ 12.5 mls/hr IV Q8H [facility]; Protocol Last Admin: 04/15/21 17:28 Dose: 12.5 mls/hr Documented by: Sodium Chloride (Sodium Chloride 0.9%) 1,000 mls @ 50 mls/hr IV .Q20H [facility] Last Admin: 04/15/21 17:27 Dose: 100 mls/hr Documented by: Losartan Potassium (Losartan 50 Mg Tablet) 150 mg PO DAILY [facility] Last Admin: 04/15/21 10:46 Dose: 150 mg Documented by: Magnesium Hydroxide (Magnesium Hydroxide 30 Ml Udc) 30 ml PO DAILY PRN PRN Reason: CONSTIPATION Metoprolol Succinate (Metoprolol Succinate Er (24 Hr) 25 Mg Tablet) 25 mg PO EVERY OTHER DAY [facility] Last Admin: 04/15/21 10:49 Dose: 25 mg Documented by: Morphine Sulfate (Morphine 4 Mg/Ml Sdv 1 Ml) 2 mg IVP Q4H PRN PRN Reason: SEVERE PAIN Last Admin: 04/14/21 16:31 Dose: 2 mg Documented by: Naloxone HCl (Naloxone 0.4 Mg/Ml Sdv) 0.1 mg IVP Q2M PRN PRN Reason: RESPIRATORY RATE < 8/MIN Nitroglycerin (Nitroglycerin 0.4 Mg Sublingual Tablet) 0.4 mg SUBLINGUAL Q5M PRN PRN Reason: CHEST PAIN Last Admin: 04/14/21 15:34 Dose: 0.4 mg Documented by: Pantoprazole Sodium (Pantoprazole Dr 40 Mg Tablet) 40 mg PO BID [facility] Last Admin: 04/15/21 17:27 Dose: 40 mg Documented by: Fluticasone/Salmeterol (Fluticasone-Salmeterol 250-50 Diskus) 1 puff INHALATION BID.RESPIRATORY PRN PRN Reason: COPD/ASTHMA Vitals/I&O/Wt Last Vital Signs Temp 98.0 F 04/15/21 19:47 Pulse 72 04/15/21 19:47 Resp 20 H 04/15/21 19:47 BP 127/83 04/15/21 19:47 Pulse Ox 97 04/15/21 19:47 04/15/21 04/15/21 04/15/21 06:59 14:59 22:59 Intake Total 700 / 700 1360 / 2060 Balance 700 / 700 1360 / 2060 Weight last 48 hrs Weight 183 lb Weight 150 lb Physical Exam Narrative: EXAM NARRATIVE: GENERAL: The patient is alert and oriented times three. Not in any acute distress. HEENT: No significant pallor, icterus or lymphadenopathy.Oral cavity: There are no mucous membrane lesions. NECK: Trachea appears to be central. No masses noted. No JVD or thyromegaly appreciated. RESPIRATORY: Chest is symmetrical. No intercostals muscle retraction or any accessory muscle activation. There is no chest wall tenderness. Breath sounds are heard bilaterally. No rales or rhonchi heard. No evidence of any consolidation. BREASTS: Deferred. HEART: The heart sounds are normal. No S3 or S4. No significant murmurs. No pericardial rub ABDOMEN: Minimal epigastric tenderness. No organomegaly appreciated. Bowel sounds are normally heard. : Deferred. RECTAL: Deferred. LYMPHATIC: No lymphadenopathy noted in the neck or groin. EXTREMITIES: No edema or cyanosis. No clubbing. Right radial pulse is palpable with good volume and amplitude MUSCULOSKELETAL: No acute joint deformities or swelling SKIN: There are no significant rashes or ecchymosis NEUROPSYCHIATRIC: The patient is alert and oriented x3. Appears to be in a good mood. No tremors or rigidity noted. Data : 04/15/21 05:30 04/15/21 05:30 Other Labs: Laboratory Last Values WBC 9.4 10^3/uL (4.0-10.0) 04/15/21 05:30 RBC 3.51 10^6/uL (4.1-5.3) L 04/15/21 05:30 Hgb 10.5 g/dL (11.5-15.3) L 04/15/21 05:30 Hct 33.7 % (37.0-47.0) L 04/15/21 05:30 MCV 96.0 fl (81-99) 04/15/21 05:30 MCH 29.9 pg (28.0-34.0) 04/15/21 05:30 MCHC 31.2 g/dL (30.0-36.0) 04/15/21 05:30 RDW 14.6 % (12.1-15.1) 04/15/21 05:30 Plt Count 208 10^3/cmm (130-400) 04/15/21 05:30 MPV 11.9 fL (7.4-10.4) H 04/15/21 05:30 Neut % (Auto) 78.5 % 04/15/21 05:30 Lymph % (Auto) 10.3 % 04/15/21 05:30 [place] % (Auto) 10.4 % 04/15/21 05:30 Eos % (Auto) 0.2 % 04/15/21 05:30 Baso % (Auto) 0.2 % 04/15/21 05:30 Neut # (Auto) 7.36 10^3/uL (1.8-7.7) 04/15/21 05:30 Lymph # (Auto) 1.0 10^3/uL (0.8-4.8) 04/15/21 05:30 [place] # (Auto) 1.0 10^3/uL (0.2-0.9) H 04/15/21 05:30 Eos # (Auto) 0.0 10^3/uL (0.0-0.8) 04/15/21 05:30 Baso # (Auto) 0.0 10^3/uL (0.0-0.1) 04/15/21 05:30 Nucleated RBC % (auto) 0 % 04/15/21 05:30 Nucleated RBCs # 0.0 /100WBC 04/15/21 05:30 Sodium 142 mmol/L (136-145) 04/15/21 05:30 Potassium 4.1 mmol/L (3.5-5.1) 04/15/21 05:30 Chloride 109 mmol/L (98-107) H 04/15/21 05:30 Carbon Dioxide 24 mmol/L (22-29) 04/15/21 05:30 Anion Gap 13.1 (5-19) 04/15/21 05:30 BUN 18 mg/dL (8-23) 04/15/21 05:30 Creatinine 1.0 mg/dL (0.5-0.9) H 04/15/21 05:30 GFR Calculation 55.3 mL/min (90-130) L 04/15/21 05:30 Glucose 102 mg/dL (65-115) 04/15/21 05:30 Calculated Osmolality 296 mOsm/kg (285-295) H 04/15/21 05:30 Lactic Acid 1.4 mmol/L (0.5-2.2) 04/11/21 06:11 Calcium 8.4 mg/dL (8.5-10.5) L 04/15/21 05:30 Magnesium 1.7 mg/dL (1.7-2.3) 04/12/21 07:27 Total Bilirubin 0.6 mg/dL (0.15-1.2) 04/15/21 05:30 AST 66 U/L (0-32) H 04/15/21 05:30 ALT 145 U/L (0-33) H 04/15/21 05:30 Alkaline Phosphatase 192 IU/L (35-105) H 04/15/21 05:30 Troponin T Baseline 1719 ng/L (0-10) H* 04/11/21 06:11 Troponin T 120 Minute > 49383 ng/L (0-10) H 04/11/21 08:48 Delta Troponin T [id number] ABS# (0-10) H* 04/11/21 08:48 Troponin T Hi Sens 6Hr 6676 ng/L (0-10) H 04/11/21 13:17 Troponin T Hi Sens 6Hr Delta 4957 ng/L (0-12) H* 04/11/21 13:17 Total Protein 5.9 g/dL (6.6-8.7) L 04/15/21 05:30 Albumin 3.2 g/dL (3.5-5.2) L 04/15/21 05:30 Globulin 2.7 g/dL (1.3-4.6) 04/15/21 05:30 Triglycerides 124 mg/dL (0-150) 04/14/21 18:02 Cholesterol 145 mg/dL (0-200) 04/14/21 18:02 LDL Cholesterol, Calc 70 mg/dL (50-129) 04/14/21 18:02 HDL Cholesterol 50 mg/dL (60-100) L 04/14/21 18:02 LDL/HDL Ratio 1.40 RATIO (0.00-3.22) 04/14/21 18:02 Cholesterol/HDL Ratio 2.90 mg/dL (0.0-4.40) 04/14/21 18:02 Amylase 22 U/L (28-100) L 04/14/21 18:02 Lipase 14 U/L (13-60) 04/14/21 18:02 Urine Color Yellow (Yellow) 04/11/21 14:38 Urine Appearance Clear (CLEAR) 04/11/21 14:38 Urine pH 7 (5-7) 04/11/21 14:38 Ur Specific [place] 1.000 (1.005-1.030) L 04/11/21 14:38 Urine Protein Trace (Negative) 04/11/21 14:38 Urine Glucose (UA) Norm (Normal) 04/11/21 14:38 Urine Ketones Negative (Negative) 04/11/21 14:38 Urine Blood 2+ (Negative) H 04/11/21 14:38 Urine Nitrate Negative (Negative) 04/11/21 14:38 Urine Bilirubin Neg (Negative) 04/11/21 14:38 Urine Urobilinogen Norm mg/dL (Negative) 04/11/21 14:38 Ur Leukocyte Esterase Negative (Negative) 04/11/21 14:38 Urine RBC 0-4 /hpf (0-2) H 04/11/21 14:38 Urine WBC None /hpf (0-5) 04/11/21 14:38 Ur Squamous Epith Cells 0-4 /hpf (0-5) H 04/11/21 14:38 Amorphous Sediment Not Reportable 04/11/21 14:38 Urine Bacteria None /hpf (NONE) 04/11/21 14:38 H. pylori IgG Antibody Negative (Negative) 04/11/21 06:11 Micro: Microbiology 04/15/21 11:06 Blood Culture - Preliminary Blood SPECIMEN COLLECTED 04/15/21 11:02 Blood Culture - Preliminary Blood SPECIMEN COLLECTED A&P Assessment and plan (1) Acute cholecystitis: Status: Acute (2) ST elevation myocardial infarction (STEMI): Status: Acute Qualifiers: Involved coronary artery: right coronary artery Qualified Code(s): I21.11 - ST elevation (STEMI) myocardial infarction involving right coronary artery (3) Hx of primary hypertension: Status: Acute (4) Anemia: Status: Acute Qualifiers: Anemia type: iron deficiency Iron deficiency anemia type: unspecified iron deficiency Qualified Code(s): D50.9 - Iron deficiency anemia, unspecified (5) COPD (chronic obstructive pulmonary disease): Status: Acute Qualifiers: COPD type: unspecified COPD Qualified Code(s): J44.9 - Chronic obstructive pulmonary disease, unspecified (6) Smoker: Status: Acute (7) KATJA (acute kidney injury): Status: Acute Patient has presented with acute ST elevation [place]. She underwent successful revascularization of RCA with LUÍS x1. Echo shows preserved LV systolic function Aspirin Plavix for at least 1 year. High intensity statin therapy. Patient has developed KATJA. IV fluids 100cc/hour. Order CXR. Repeat BMP in the PM Has noted blood streaks on the stools. Monitor Hgb Additional A&P Information Patient requires continued hospital stay for close monitoring and further management. Will discuss with the surgery and the hospitalist service regarding her disposition Attestations Medical Necessity Statement*: Patient requires continued hospital stay for close monitoring and further management Coding Level of Care Code Acute Domestic Technician for g Fwd Diagnoses Acute cholecystitis K81.0 ST elevation myocardial infarction (STEMI) I21.11 Involved coronary artery: right coronary artery Hx of primary hypertension Z86.79 Anemia D50.9 Anemia type: iron deficiency Iron deficiency anemia type: unspecified iron deficiency COPD (chronic obstructive pulmonary disease) J44.9 COPD type: unspecified COPD Smoker F17.200 KATJA (acute kidney injury) N17.9
[2021-04-15] MEDS: sodium chloride 0.9% 1,000 ML 50 ML IV (21:50)
[2021-04-16] VITALS (10 sets, daily range): BP systolic 125–159; BP diastolic 50–71; PULSE 66–130; RESP 18–24; TEMP 36.8–37.1; O2SAT 89–98
[2021-04-16] MEDS: piperacillin-tazobactam 3.375 GM in sodium chloride 0.9% (plus) 50 ML IV ×3 (01:25→18:26)
[2021-04-16 03:40] LABS: Alanine Aminotransferase 109 U/L (0-33); Alkaline Phosphatase 166 IU/L (35-105); Anion Gap 10.8 (5-19); Aspartate Amino Transferase 35 U/L (0-32); Blood Urea Nitrogen 14 mg/dL (8-23); Calcium 8.6 mg/dL (8.5-10.5); Carbon Dioxide 27 mmol/L (22-29); Chloride 108 mmol/L (98-107); Creatinine Clr Calc Pharmacy 57.9352; Globulin 2.9 g/dL (1.3-4.6); Glomerular Filtration Rate 62.5 mL/min (90-130); Glucose 114 mg/dL (65-115); Osmolality Calculated 295 mOsm/kg (285-295); Potassium 3.8 mmol/L (3.5-5.1); Sodium 142 mmol/L (136-145); Total Bilirubin 0.3 mg/dL (0.15-1.2); Total Protein 5.9 g/dL (6.6-8.7)
--- NOTE | 2021-04-16 06:13 | PC.NURSE ---
Frequent safety and comfort rounds continue. Orders and/or nursing care completed as indicated. Patient monitored for response to intervention and treatment(s). Education provided includes oxygen safety. Patient and/or surgical sales representative verbalized understanding. Will continue to monitor.
[2021-04-16] MEDS: clopidogrel 75 mg Tablet PO (08:53)
[2021-04-16] MEDS: losartan 50 mg Tablet 150 MG PO (08:53)
[2021-04-16] MEDS: aspirin 81 mg EC Tablet PO (08:53)
[2021-04-16] MEDS: pantoprazole DR 40 mg Tablet PO ×2 (08:54→18:26)
[2021-04-16] MEDS: amlodipine 5 mg Tablet PO (08:54)
--- NOTE | 2021-04-16 09:31 | PM.PN ---
Subjective Subjective: Interval history: The patient is feeling okay. Her epigastric discomfort is getting better. She has not had any fever since last night. Vital signs are stable Medications: Reviewed: Yes Medication Review Details: Current Medications Acetaminophen (Acetaminophen 325 Mg Tablet) 650 mg PO Q6H PRN PRN Reason: MILD PAIN Last Admin: 04/14/21 19:43 Dose: 650 mg Documented by: Al Hydrox/Mg Hydrox/Simethicone (Meqx-Oum-Yqboleoqd-Yahir 30 Ml Udc) 30 ml PO Q15M PRN PRN Reason: INDIGESTION Last Admin: 04/14/21 13:03 Dose: 30 ml Documented by: Albuterol Sulfate (Albuterol 8 Gm Mdi) 2 puff INHALATION Q6H.RESPIRATORY PRN PRN Reason: SOB/WHEEZING Amlodipine Besylate (Amlodipine 5 Mg Tablet) 5 mg PO DAILY REPLACED BY [facility] Last Admin: 04/16/21 08:54 Dose: 5 mg Documented by: Aspirin (Aspirin 81 Mg Ec Tablet) 81 mg PO DAILY REPLACED BY [facility] Last Admin: 04/16/21 08:53 Dose: 81 mg Documented by: Atorvastatin Calcium (Atorvastatin 40 Mg Tablet) 40 mg PO BEDTIME REPLACED BY [facility] Last Admin: 04/15/21 21:49 Dose: 40 mg Documented by: Atropine Sulfate (Atropine 1 Mg/Ml Sdv 1 Ml) 0.5 mg IVP PRN PRN PRN Reason: Symptomatic bradycardia Bisacodyl (Bisacodyl 5 Mg Tablet) 5 mg PO DAILY PRN PRN Reason: CONSTIPATION Clopidogrel Bisulfate (Clopidogrel 75 Mg Tablet) 75 mg PO DAILY [facility]PL[facility] BY [facility] Last Admin: 04/16/21 08:53 Dose: 75 mg Documented by: Docusate Sodium (Docusate Sodium 100 Mg Capsule) 100 mg PO DAILY PRN PRN Reason: CONSTIPATION Last Admin: 04/11/21 20:36 Dose: 100 mg Documented by: Sodium Chloride (Sodium Chloride 0.9%) 1,000 mls @ 100 mls/hr IV .Q10H [facility] Last Admin: 04/15/21 21:50 Dose: 50 mls/hr Documented by: Piperacillin Sod/Tazobactam (Sod 3.375 gm/ Sodium Chloride) 50 mls @ 12.5 mls/hr IV Q8H REPLACED BY [facility]; Protocol Last Admin: 04/16/21 08:54 Dose: 12.5 mls/hr Documented by: Sodium Chloride (Sodium Chloride 0.9%) 1,000 mls @ 50 mls/hr IV .Q20H REPLACED BY [facility] Last Admin: 04/16/21 09:14 Dose: Not Given Documented by: Losartan Potassium (Losartan 50 Mg Tablet) 150 mg PO DAILY [facility]PLACED BY [facility] Last Admin: 04/16/21 08:53 Dose: 150 mg Documented by: Magnesium Hydroxide (Magnesium Hydroxide 30 Ml Udc) 30 ml PO DAILY PRN PRN Reason: CONSTIPATION Metoprolol Succinate (Metoprolol Succinate Er (24 Hr) 25 Mg Tablet) 25 mg PO EVERY OTHER DAY REPLACED BY [facility] Last Admin: 04/15/21 10:49 Dose: 25 mg Documented by: Morphine Sulfate (Morphine 4 Mg/Ml Sdv 1 Ml) 2 mg IVP Q4H PRN PRN Reason: SEVERE PAIN Last Admin: 04/14/21 16:31 Dose: 2 mg Documented by: Naloxone HCl (Naloxone 0.4 Mg/Ml Sdv) 0.1 mg IVP Q2M PRN PRN Reason: RESPIRATORY RATE < 8/MIN Nitroglycerin (Nitroglycerin 0.4 Mg Sublingual Tablet) 0.4 mg SUBLINGUAL Q5M PRN PRN Reason: CHEST PAIN Last Admin: 04/14/21 15:34 Dose: 0.4 mg Documented by: Pantoprazole Sodium (Pantoprazole Dr 40 Mg Tablet) 40 mg PO BID REPLACED BY [facility] Last Admin: 04/16/21 08:54 Dose: 40 mg Documented by: Fluticasone/Salmeterol (Fluticasone-Salmeterol 250-50 Diskus) 1 puff INHALATION BID.RESPIRATORY PRN PRN Reason: COPD/ASTHMA Vitals/I&O/Wt Last Vital Signs Temp 98.0 F 04/15/21 19:47 Pulse 130 H 04/16/21 09:01 Resp 18 04/16/21 09:01 BP 138/61 04/16/21 08:53 Pulse Ox 94 04/16/21 09:01 04/15/21 04/16/21 04/16/21 22:59 06:59 14:59 Intake Total 1480 / 2180 1100 / 3280 Output Total 400 / 400 400 / 800 Balance 1080 / 1780 700 / 2480 Weight last 48 hrs Weight 182 lb 5 oz Weight 183 lb Physical Exam Narrative: EXAM NARRATIVE: GENERAL: The patient is alert and oriented times three. Not in any acute distress. HEENT: No significant pallor, icterus or lymphadenopathy.Oral cavity: There are no mucous membrane lesions. NECK: Trachea appears to be central. No masses noted. No JVD or thyromegaly appreciated. RESPIRATORY: Chest is symmetrical. No intercostals muscle retraction or any accessory muscle activation. There is no chest wall tenderness. Breath sounds are heard bilaterally. No rales or rhonchi heard. No evidence of any consolidation. BREASTS: Deferred. HEART: The heart sounds are normal. No S3 or S4. No significant murmurs. No pericardial rub ABDOMEN: Minimal epigastric tenderness. No organomegaly appreciated. Bowel sounds are normally heard. : Deferred. RECTAL: Deferred. LYMPHATIC: No lymphadenopathy noted in the neck or groin. EXTREMITIES: No edema or cyanosis. No clubbing. Right radial pulse is palpable with good volume and amplitude MUSCULOSKELETAL: No acute joint deformities or swelling SKIN: There are no significant rashes or ecchymosis NEUROPSYCHIATRIC: The patient is alert and oriented x3. Appears to be in a good mood. No tremors or rigidity noted. Data : 04/15/21 05:30 04/16/21 02:28 Other Labs: Laboratory Last Values WBC 9.4 10^3/uL (4.0-10.0) 04/15/21 05:30 RBC 3.51 10^6/uL (4.1-5.3) L 04/15/21 05:30 Hgb 10.5 g/dL (11.5-15.3) L 04/15/21 05:30 Hct 33.7 % (37.0-47.0) L 04/15/21 05:30 MCV 96.0 fl (81-99) 04/15/21 05:30 MCH 29.9 pg (28.0-34.0) 04/15/21 05:30 MCHC 31.2 g/dL (30.0-36.0) 04/15/21 05:30 RDW 14.6 % (12.1-15.1) 04/15/21 05:30 Plt Count 208 10^3/cmm (130-400) 04/15/21 05:30 MPV 11.9 fL (7.4-10.4) H 04/15/21 05:30 Neut % (Auto) 78.5 % 04/15/21 05:30 Lymph % (Auto) 10.3 % 04/15/21 05:30 [place] % (Auto) 10.4 % 04/15/21 05:30 Eos % (Auto) 0.2 % 04/15/21 05:30 Baso % (Auto) 0.2 % 04/15/21 05:30 Neut # (Auto) 7.36 10^3/uL (1.8-7.7) 04/15/21 05:30 Lymph # (Auto) 1.0 10^3/uL (0.8-4.8) 04/15/21 05:30 [place] # (Auto) 1.0 10^3/uL (0.2-0.9) H 04/15/21 05:30 Eos # (Auto) 0.0 10^3/uL (0.0-0.8) 04/15/21 05:30 Baso # (Auto) 0.0 10^3/uL (0.0-0.1) 04/15/21 05:30 Nucleated RBC % (auto) 0 % 04/15/21 05:30 Nucleated RBCs # 0.0 /100WBC 04/15/21 05:30 Sodium 142 mmol/L (136-145) 04/16/21 02:28 Potassium 3.8 mmol/L (3.5-5.1) 04/16/21 02:28 Chloride 108 mmol/L (98-107) H 04/16/21 02:28 Carbon Dioxide 27 mmol/L (22-29) 04/16/21 02:28 Anion Gap 10.8 (5-19) 04/16/21 02:28 BUN 14 mg/dL (8-23) 04/16/21 02:28 Creatinine 0.9 mg/dL (0.5-0.9) 04/16/21 02:28 GFR Calculation 62.5 mL/min (90-130) L 04/16/21 02:28 Glucose 114 mg/dL (65-115) 04/16/21 02:28 Calculated Osmolality 295 mOsm/kg (285-295) 04/16/21 02:28 Lactic Acid 1.4 mmol/L (0.5-2.2) 04/11/21 06:11 Calcium 8.6 mg/dL (8.5-10.5) 04/16/21 02:28 Magnesium 1.7 mg/dL (1.7-2.3) 04/12/21 07:27 Total Bilirubin 0.3 mg/dL (0.15-1.2) 04/16/21 02:28 AST 35 U/L (0-32) H 04/16/21 02:28 ALT 109 U/L (0-33) H 04/16/21 02:28 Alkaline Phosphatase 166 IU/L (35-105) H 04/16/21 02:28 Troponin T Baseline 1719 ng/L (0-10) H* 04/11/21 06:11 Troponin T 120 Minute > 24618 ng/L (0-10) H 04/11/21 08:48 Delta Troponin T [id number] ABS# (0-10) H* 04/11/21 08:48 Troponin T Hi Sens 6Hr 6676 ng/L (0-10) H 04/11/21 13:17 Troponin T Hi Sens 6Hr Delta 4957 ng/L (0-12) H* 04/11/21 13:17 Total Protein 5.9 g/dL (6.6-8.7) L 04/16/21 02:28 Albumin 3.0 g/dL (3.5-5.2) L 04/16/21 02:28 Globulin 2.9 g/dL (1.3-4.6) 04/16/21 02:28 Triglycerides 124 mg/dL (0-150) 04/14/21 18:02 Cholesterol 145 mg/dL (0-200) 04/14/21 18:02 LDL Cholesterol, Calc 70 mg/dL (50-129) 04/14/21 18:02 HDL Cholesterol 50 mg/dL (60-100) L 04/14/21 18:02 LDL/HDL Ratio 1.40 RATIO (0.00-3.22) 04/14/21 18:02 Cholesterol/HDL Ratio 2.90 mg/dL (0.0-4.40) 04/14/21 18:02 Amylase 22 U/L (28-100) L 04/14/21 18:02 Lipase 14 U/L (13-60) 04/14/21 18:02 Urine Color Yellow (Yellow) 04/11/21 14:38 Urine Appearance Clear (CLEAR) 04/11/21 14:38 Urine pH 7 (5-7) 04/11/21 14:38 Ur Specific [place] 1.000 (1.005-1.030) L 04/11/21 14:38 Urine Protein Trace (Negative) 04/11/21 14:38 Urine Glucose (UA) Norm (Normal) 04/11/21 14:38 Urine Ketones Negative (Negative) 04/11/21 14:38 Urine Blood 2+ (Negative) H 04/11/21 14:38 Urine Nitrate Negative (Negative) 04/11/21 14:38 Urine Bilirubin Neg (Negative) 04/11/21 14:38 Urine Urobilinogen Norm mg/dL (Negative) 04/11/21 14:38 Ur Leukocyte Esterase Negative (Negative) 04/11/21 14:38 Urine RBC 0-4 /hpf (0-2) H 04/11/21 14:38 Urine WBC None /hpf (0-5) 04/11/21 14:38 Ur Squamous Epith Cells 0-4 /hpf (0-5) H 04/11/21 14:38 Amorphous Sediment Not Reportable 04/11/21 14:38 Urine Bacteria None /hpf (NONE) 04/11/21 14:38 H. pylori IgG Antibody Negative (Negative) 04/11/21 06:11 Micro: Microbiology 04/15/21 11:06 Blood Culture - Preliminary Blood SPECIMEN COLLECTED 04/15/21 11:02 Blood Culture - Preliminary Blood SPECIMEN COLLECTED A&P Assessment and plan (1) Acute cholecystitis: Status: Acute (2) ST elevation myocardial infarction (STEMI): Status: Acute Qualifiers: Involved coronary artery: right coronary artery Qualified Code(s): I21.11 - ST elevation (STEMI) myocardial infarction involving right coronary artery (3) Hx of primary hypertension: Status: Acute (4) Anemia: Status: Acute Qualifiers: Anemia type: iron deficiency Iron deficiency anemia type: unspecified iron deficiency Qualified Code(s): D50.9 - Iron deficiency anemia, unspecified (5) COPD (chronic obstructive pulmonary disease): Status: Acute Qualifiers: COPD type: unspecified COPD Qualified Code(s): J44.9 - Chronic obstructive pulmonary disease, unspecified (6) Smoker: Status: Acute (7) KATJA (acute kidney injury): Status: Acute Patient has presented with acute ST elevation [place]. She underwent successful revascularization of RCA with LUÍS x1. Echo shows preserved LV systolic function Aspirin Plavix for at least 1 year. High intensity statin therapy. Patient has developed KATJA. IV fluids 100cc/hour. Order CXR. Repeat BMP in the PM Has noted blood streaks on the stools. Monitor Hgb Additional A&P Information . After the HIDA scan tomorrow we will decide on the disposition Attestations Medical Necessity Statement*: Patient requires continued hospital stay for close monitoring and further management Coding Level of Care Code Acute Copy Reader for [facility] Fwd Diagnoses Acute cholecystitis K81.0 ST elevation myocardial infarction (STEMI) I21.11 Involved coronary artery: right coronary artery Hx of primary hypertension Z86.79 Anemia D50.9 Anemia type: iron deficiency Iron deficiency anemia type: unspecified iron deficiency COPD (chronic obstructive pulmonary disease) J44.9 COPD type: unspecified COPD Smoker F17.200 KATJA (acute kidney injury) N17.9
--- NOTE | 2021-04-16 10:20 | PC.CHAP ---
Pastoral Care Encounter/Spiritual Assessment Type of Contact [] Declined casting technician visit [] Patient/Family/Request visit [] Outpatient visit [] Follow-up visit [] Physician referral [] Code/Alert [x] Routine visit [] Staff referral [] Actively dying [x] Patient sleeping [] Family support [] [] Out of room [] Palliative care [] [] Receiving care in room [] Pre-surgical visit [] Trauma [] Long length of stay [] ICU visit [] Other: Relational/Emotional Strength [] Patient feels connected with others/family/visitors/staff [] Distress [] Loneliness/isolation [] Abandonment Spirituality of Patient [] Person of Raiza [] Attends Jew of their Raiza [] Believes in Prayer [] Reads Bible or Faith materials [] There are Spiritual issues to be addressed Airline Stewardess Interventions [x] Prayer [] Active listening [] Non-anxious presence [] Spiritual/emotional support [] Crisis/trauma care [] Spiritual counseling [] Bereavement support [] Provided bereavement packet [] Provided Bible/devotional materials [] Provided toy/stuffed animal, coloring book to patient or family member [] Provided Communion [] Anointing/[place] [] Salvation [x] Completed spiritual assessment [] Other: Impact on Illness or Injury [] Angry [] Fearful [] Anxious [] Often cries [] Exhaustion [] Unable to work [] Unable to attend islam [] Unable to walk/stand [] Unable to read [] Unable to drive [] Unable to eat/drink [] Unable to sleep [] Unable to be with family [] Patient intubated [] Other: Summary Time spent with patient
--- NOTE | 2021-04-16 15:16 | P.PN_ITS ---
Subjective Subjective: Interval history: Patient was seen this morning, she tells me that she continues to have some right upper quadrant epigastric pain, but significantly improved, no lightheadedness, no dizziness, she has not had a bowel movement, no fevers overnight Vitals/I&O/Wt Last Vital Signs Temp 98.7 F 04/16/21 10:28 Pulse 68 04/16/21 10:28 Resp 20 H 04/16/21 10:28 BP 138/61 04/16/21 10:28 Pulse Ox 89 L 04/16/21 10:28 04/16/21 04/16/21 04/16/21 06:59 14:59 22:59 Intake Total 1100 / 3280 286 / 286 Output Total 400 / 800 Balance 700 / 2480 286 / 286 Weight last 48 hrs Weight 82.696 kg Weight 83.007 kg Physical Exam Const: COMMON NORMALS: no acute distress and patient oriented x3 Resp: COMMON NORMALS: normal respiratory effort, No retractions, No use of accessory muscles and clear to auscultation bilaterally AUSCULTATION: clear to auscultation bilaterally Cardio: COMMON NORMALS: regular rate, regular rhythm, S1 normal heart sound present and S2 normal heart sound present RATE: regular rate RHYTHM: regular rhythm HEART SOUNDS: S1 normal heart sound present and S2 normal heart sound present GI: COMMON NORMALS: Normal to inspection, nondistended, normoactive bowel sounds present and non-tender PALPATION: Yes Tenderness to palpation present (GI) Details: RUQ Extremity: COMMON NORMALS: no pedal edema Neuro: COMMON NORMALS: patient oriented x3 Psych: COMMON NORMALS: mental status grossly normal Data : 04/15/21 05:30 04/16/21 02:28 Micro: Microbiology 04/15/21 11:06 Blood Culture - Preliminary Blood NEGATIVE TO DATE 04/15/21 11:02 Blood Culture - Preliminary Blood NEGATIVE TO DATE A&P Assessment and plan (1) Epigastric pain: Epigastric abdominal pain: Possible acute cholecystitis, Ultrasound abdomen: The gallbladder has a normal appearance with normal wall thickness and no pericholecystic fluid nor inflammatory changes. No gallstones are seen. No sludge is detected.Common bile duct diameter is 6 mm. Minimal free fluid noted adjacent to the liver edge and in pelvis Continue to monitor LFT Initially NPO: Currently on clear liquid diet Follow blood culture Empirically on Zosyn Given her recent TN S/P PCI and currently on Plavix therapy, she would not be an appropriate candidate for laparoscopic cholecystectomy. As she continues to have complaints of abdominal pain, although LFTs are trending downwards, alk phos trending downwards, will proceed with HIDA scan tomorrow morning Surgery on board Status: Acute (2) KATJA (acute kidney injury): Status: Acute (3) Anemia: Status: Acute Qualifiers: Anemia type: iron deficiency Iron deficiency anemia type: unspecified iron deficiency Qualified Code(s): D50.9 - Iron deficiency anemia, unspecified (4) COPD (chronic obstructive pulmonary disease): Status: Acute Qualifiers: COPD type: unspecified COPD Qualified Code(s): J44.9 - Chronic ob structive pulmonary disease, unspecified (5) Hypertension: Status: Acute Attestations Medical Necessity Statement*: Patient requires hospitalization, for concerns for acute cholecystitis Coding Level of Care Code Acute Maintenance Service Technician for [facility] Diagnoses Epigastric pain R10.13 KATJA (acute kidney injury) N17.9 Anemia D50.9 Anemia type: iron deficiency Iron deficiency anemia type: unspecified iron deficiency COPD (chronic obstructive pulmonary disease) J44.9 COPD type: unspecified COPD Hypertension I10
--- NOTE | 2021-04-16 17:13 | PC.SOCIAL ---
IMM UPDATED IMM dated and initialed and copy given to patient
[2021-04-16] MEDS: acetaminophen 325 mg Tablet 650 MG PO (21:21)
[2021-04-16] MEDS: atorvastatin 40 mg Tablet PO (21:22)
[2021-04-16] MEDS: albuterol 8 gm MDI 2 PUFF INHALATION (21:51)
[2021-04-17] VITALS (10 sets, daily range): BP systolic 128–160; BP diastolic 63–78; PULSE 67–88; RESP 18–26; TEMP 36.8–37.1; O2SAT 90–98
[2021-04-17] MEDS: piperacillin-tazobactam 3.375 GM in sodium chloride 0.9% (plus) 50 ML IV ×2 (00:57→09:40)
--- NOTE | 2021-04-17 01:34 | PC.NURSE ---
Patient sleeping on rounding. Bed low, locked. Callbell in reach. Respirations equal. Will monitor.
[2021-04-17] MEDS: albuterol 8 gm MDI 2 PUFF INHALATION ×3 (03:29→14:39)
[2021-04-17 03:46] LABS: Basophils % 0.4 %; Eosinophils # 0.2 10^3/uL (0.0-0.8); Hematocrit 33.6 % (37.0-47.0); Hemoglobin 10.7 g/dL (11.5-15.3); Lymphocytes # 1.1 10^3/uL (0.8-4.8); Lymphocytes % 21.3 %; Mean Corpuscular HGB Conc 31.8 g/dL (30.0-36.0); Mean Corpuscular Volume 97.4 fl (81-99); Mean Platelet Volume 11.4 fL (7.4-10.4); Monocytes # 0.4 10^3/uL (0.2-0.9); Monocytes % 8.5 %; Neutrophils # 3.35 10^3/uL (1.8-7.7); Neutrophils % 66.6 %; Nucleated Red Blood Cells % 0 %; Platelet Count 213 10^3/cmm (130-400); Red Blood Count 3.45 10^6/uL (4.1-5.3); Red Cell Distribution Width 14.2 % (12.1-15.1)
[2021-04-17 04:13] LABS: C Reactive Protein 54.2 mg/L (0.0-4.9); Magnesium 1.6 mg/dL (1.7-2.3)
[2021-04-17 04:17] LABS: Alanine Aminotransferase 79 U/L (0-33); Albumin Level 3.1 g/dL (3.5-5.2); Alkaline Phosphatase 136 IU/L (35-105); Anion Gap 14.3 (5-19); Aspartate Amino Transferase 22 U/L (0-32); Blood Urea Nitrogen 7 mg/dL (8-23); Calcium 8.7 mg/dL (8.5-10.5); Carbon Dioxide 25 mmol/L (22-29); Chloride 109 mmol/L (98-107); Creatinine Clr Calc Pharmacy 65.0431; Globulin 2.6 g/dL (1.3-4.6); Glomerular Filtration Rate 83.5 mL/min (90-130); Glucose 91 mg/dL (65-115); Osmolality Calculated 298 mOsm/kg (285-295); Potassium 3.3 mmol/L (3.5-5.1); Sodium 145 mmol/L (136-145); Total Bilirubin 0.3 mg/dL (0.15-1.2); Total Protein 5.7 g/dL (6.6-8.7)
[2021-04-17] MEDS: potassium chloride ER 20 mEq Tablet 40 MEQ PO (08:44)
[2021-04-17] MEDS: losartan 50 mg Tablet 150 MG PO (08:44)
[2021-04-17] MEDS: magnesium sulfate premix 2 GM/50 ML PIGGYBACK IV (08:44)
[2021-04-17] MEDS: metoprolol succinate ER (24 HR) 25 mg Tablet PO (08:46)
[2021-04-17] MEDS: clopidogrel 75 mg Tablet PO (08:46)
[2021-04-17] MEDS: aspirin 81 mg EC Tablet PO (08:46)
[2021-04-17] MEDS: pantoprazole DR 40 mg Tablet PO (08:46)
[2021-04-17] MEDS: amlodipine 5 mg Tablet PO (08:47)
--- NOTE | 2021-04-17 09:57 | NM_ITS ---
WS: [id number] NUCLEAR MEDICINE HIDA SCAN CLINICAL INFORMATION: abdominal pain TECHNIQUE: Following intravenous administration of 8.2 mCi of technetium 99m mebrofenin, images of th e abdomen were obtained over the course of 60 minutes. Next, gallbladder ejection fraction was determ ined by obtaining preprandial and one-hour postprandial images of the gallbladder following oral ramone stion of Ensure. COMPARISON: Ultrasound April 15, 2021 FINDINGS: Normal hepatic uptake at 5 minutes. Hepatomegaly. Gallbladder is visualized by 15 minutes. No evidenc e of acute cholecystitis. Normal common bile duct and small bowel activity. Gallbladder ejection fraction 49% within normal limits. No evidence of chronic cholecystitis. NM/NM hepatobiliary w phar* [id number] IMPRESSION: 1. No evidence of acute or chronic cholecystitis. 2. Gallbladder ejection fraction 49% within normal limits.
--- NOTE | 2021-04-17 10:43 | PM.DCS ---
Discharge Providers Date of Admission: 04/11/21 07:29 Date of Discharge: April 17, 2021 Attending Provider at Admission: Tay Torres M.D Attending Provider at Discharge: Tay Torres M.D Primary Care Provider: Ragini Moody NP Diagnoses at Discharge Discharge Diagnosis (1) Acute cholecystitis: Status: Acute Permanent problem details: Patient had features of acute cholecystitis based on chest/abdominal CT. However the echocardiogram was unremarkable. It was recommended for a HIDA scan. This will be done in the morning (2) ST elevation myocardial infarction (STEMI): Status: Acute Permanent problem details: This patient presents with the features of ST elevation myocardial infarction. 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 She underwent PCI of this lesion. Currently she seems to be stable. Qualifiers: Involved coronary artery: right coronary artery Qualified Code(s): I21.11 - ST elevation (STEMI) myocardial infarction involving right coronary artery (3) Hx of primary hypertension: Status: Acute Permanent problem details: Only the blood pressure is in the normal range. We'll continue on the current medications. (4) Anemia: Status: Acute Permanent problem details: Chronic and stable Qualifiers: Anemia type: iron deficiency Iron deficiency anemia type: unspecified iron deficiency Qualified Code(s): D50.9 - Iron deficiency anemia, unspecified (5) COPD (chronic obstructive pulmonary disease): Status: Acute Permanent problem details: Still has occasional wheezing, seems to be stable Qualifiers: COPD type: unspecified COPD Qualified Code(s): J44.9 - Chronic obstructive pulmonary disease, unspecified (6) Smoker: Status: Acute Permanent problem details: Patient is strongly advised to quit smoking. (7) KATJA (acute kidney injury): Status: Acute Permanent problem details: The creatinine is back to normal Reason for Visit Reason for Visit: Chest pain Hospital Course Hospital Course This is a 65-year-old female recently diagnosed with a ST elevation CA undergone a PCI of thrombotic occlusion of right coronary artery, who was supposed to be discharged home after procedure, when she started to develop abdominal pain. Hospitalist team was consulted due to epigastric abdominal pain, concerns for possible acute cholecystitis Ultrasound abdomen: The gallbladder has a normal appearance with normal wall thickness and no pericholecystic fluid nor inflammatory changes. No gallstones are seen. No sludge is detected.Common bile duct diameter is 6 mm. Minimal free fluid noted adjacent to the liver edge and in pelvis CT abdomen and pelvis Liver: Regional decreased attenuation of the left hepatic lobe at the ligamentum teres suggestive of focal fatty infiltration. Gallbladder and bile ducts: Gallbladder wall is thickened and edematous. There is pericholecystic edema. No calcified gallstones are seen. Pancreas: Normal. No ductal dilation. Patient was noted to have elevated LFTs and alk phos General surgery was consulted Initially NPO, then transition to clear liquid diet Empirically on Zosyn She continued to have complaints of abdominal pain, HIDA scan performed showed no evidence of acute or chronic cholecystitis Patient's abdominal pain resolved, tolerating GI soft diet, discharge with Cipro and Flagyl for 7 remaining days, follow-up with general surgery as outpatient, avoid fatty foods and GI soft diet Physical Exam Const: COMMON NORMALS: no acute distress and patient oriented x3 Resp: COMMON NORMALS: normal respiratory effort, No retractions, No use of accessory muscles and clear to auscultation bilaterally AUSCULTATION: clear to auscultation bilaterally Cardio: COMMON NORMALS: regular rate, regular rhythm, S1 normal heart sound present and S2 normal heart sound present RATE: regular rate RHYTHM: regular rhythm HEART SOUNDS: S1 normal heart sound present and S2 normal heart sound present GI: COMMON NORMALS: Normal to inspection, nondistended, normoactive bowel sounds present, Soft to palpation and non-tender PALPATION: Yes Soft to palpation Extremity: COMMON NORMALS: no pedal edema Neuro: COMMON NORMALS: patient oriented x3 Psych: COMMON NORMALS: mental status grossly normal Discharge Data Data Completed and Pending: Completed Studies During Hospitalization Category Date Time Status CT chest abd pel w con* Routine Cat Scan 04/14/21 15:47 Completed XR chest 1V shubham ble [id number] Routine Exams 04/13/21 09:20 Completed XR chest 1V shubham ble [id number] Stat Exams 04/11/21 06:00 Completed NM hepatobiliary w phar* [id number] Rout ine Nuc Med 04/17/21 09:57 Completed CV. 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 Stat Exams 04/11/21 06:12 Taken Blood Culture Sta t Lab 04/15/21 11:06 Results C Reactive Protei n AM LABS Lab 04/18/21 04:00 Ordered C Reactive Protei n AM LABS Lab 04/19/21 04:00 Ordered Complete Blood Co unt w/Auto AM LABS Lab 04/18/21 04:00 Ordered Complete Blood Co unt w/Auto AM LABS Lab 04/19/21 04:00 Ordered Magnesium AM LABS Lab 04/18/21 04:00 Ordered Magnesium AM LABS Lab 04/19/21 04:00 Ordered Labs from last 24 hours 04/17/21 04/17/21 04/17/21 03:03 03:03 03:03 WBC 5.0 RBC 3.45 L Hgb 10.7 L Hct 33.6 L MCV 97.4 MCH 31.0 MCHC 31.8 RDW 14.2 Plt Count 213 MPV 11.4 H Neut % (Auto) 66.6 Lymph % (Auto) 21.3 [place] % (Auto) 8.5 Eos % (Auto) 3.0 Baso % (Auto) 0.4 Neut # (Auto) 3.35 Lymph # (Auto) 1.1 [place] # (Auto) 0.4 Eos # (Auto) 0.2 Baso # (Auto) 0.0 Nucleated RBC % (a uto) 0 Nucleated RBCs # 0.0 Sodium 145 Potassium 3.3 L Chloride 109 H Carbon Dioxide 25 Anion Gap 14.3 BUN 7 L Creatinine 0.7 GFR Calculation 83.5 L Glucose 91 Calculated Osmolal ity 298 H Calcium 8.7 Magnesium 1.6 L Total Bilirubin 0.3 AST 22 ALT 79 H Alkaline Phosphata se 136 H C-Reactive Protein 54.2 H Total Protein 5.7 L Albumin 3.1 L Globulin 2.6 Vitals: Last Vital Signs Temp 98.2 F 04/17/21 05:17 Pulse 71 04/17/21 05:17 Resp 18 04/17/21 05:17 BP 159/63 04/17/21 08:44 Pulse Ox 98 04/17/21 05:17 Discharge Plan Discharge Patient Disposition: Home Condition: Stable Prescriptions: New losartan 50 mg Tablet 150 mg PO DAILY 30 Days Qty: 30 RF: 0 clopidogrel 75 mg Tablet 75 mg PO DAILY 30 Days Qty: 30 RF: 5 ciprofloxacin HCl [Cipro] 500 mg tablet 500 mg PO BID 7 Days Qty: 14 RF: 0 atorvastatin 40 mg Tablet 40 mg PO BEDTIME 30 Days Qty: 30 RF: 0 nitroglycerin 0.4 mg Tablet, Sublingual 0.4 mg sublingual Q5M PRN (Reason: Chest Pain) 30 Days Qty: 30 RF: 0 aspirin 81 mg Tablet,Delayed Release (Dr/Ec) 81 mg PO DAILY 30 Days Qty: 30 RF: 0 metronidazole 500 mg tablet 500 mg PO Q8H 7 Days Qty: 21 RF: 0 Continued buspirone 10 mg tablet 10 mg PO TID PRN (Reason: Anxiety) RF: 0 isosorbide mononitrate 30 mg tablet extended release 24 hr 30 mg PO DAILY Qty: 90 RF: 3 pantoprazole 40 mg tablet,delayed release (DR/EC) 40 mg PO BID Qty: 180 RF: 3 sucralfate [Carafate] 1 gram tablet 1 g PO TID Qty: 20 RF: 0 metoprolol succinate 25 mg tablet extended release 24 hr 25 mg PO EVERY OTHER DAY RF: 0 cetirizine [Zyrtec] 10 mg tablet 10 mg PO QAM RF: 0 albuterol sulfate [ProAir HFA] 90 mcg/actuation HFA aerosol inhaler 2 puff INHALATION Q4H PRN (Reason: Shortness Of Breath) RF: 0 budesonide-formoterol [Symbicort] 160-4.5 mcg/actuation HFA aerosol inhaler 2 puff INHALATION BID RF: 0 amlodipine 5 mg tablet 5 mg PO DAILY RF: 0 furosemide 20 mg tablet 20 mg PO QAM RF: 0 albuterol sulfate 2.5 mg /3 mL (0.083 %) solution for nebulization 2.5 mg inhalation Q6H PRN (Reason: Wheezing) RF: 0 Super B Complex Tablet 1 tab PO DAILY RF: 0 ipratropium bromide 42 mcg (0.06 %) spray,non-aerosol 2 spray INTRANASAL QID PRN (Reason: unknown) RF: 0 phenylephrine HCl 10 mg Tablet 10 mg PO Q6H PRN (Reason: Congestion) RF: 0 ferrous sulfate 27 mg iron Tablet 27 mg PO BID RF: 0 Vitamin D3 125 mcg (5,000 unit) Tablet 125 mcg PO QAM RF: 0 Mucinex 600 mg tablet extended release 12hr 600 mg PO Q12H PRN (Reason: Congestion) RF: 0 biotin 5,000 mcg Tablet, Sublingual 5,000 mcg SUBLINGUAL DAILY RF: 0 Magic Mouthwash See Rx Instructions .ROUTE .COMPLEX RF: 0 Discontinued diclofenac sodium 75 mg tablet,delayed release (DR/EC) 75 mg PO BID RF: 0 simvastatin 40 mg tablet 40 mg PO DAILY@2100 RF: 0 losartan 100 mg tablet See Rx Instructions .ROUTE .COMPLEX RF: 0 Discharge Orders: Discharge Order (Routine); Ordered 04/14/21 Ordered By: Bari Cruz Referrals: Ragini Moody NP [Primary Care Provider] - ([facility] will contact you to schedule an follow-up appointment in 4 to 7 days. If you haven't heard from them by Friday. Please call ) Rihcard Gamboa MD [Physician] - 1 month Tay Torres M.D [Physician] - ([facility] will contact you to schedule an follow-up appointment in 1 month. If you haven't heard from them by Friday. Please call ) Monik Andrews FNP [Nurse Practitioner] - ([facility] will contact you to schedule an follow-up appointment in 1 week. If you haven't heard from them by Friday. Please call ) Discharge Diet: Advance as tolerated Discharge Activity: Resume usual activity Patient Instructions: Clopidogrel (By mouth) (Plavix), Coronary Angioplasty (DC), Hypertension (DC), Opioid Safety, Post Angiogram Home Care Instructions Activity Restrictions/Additional Instructions: Appointment at the [facility] to be seen by nurse practitioner next week. Repeat BMP in the office next week. Appointment with Dr. Torres in a month. Patient is advised to continue the medications as mentioned above. The importance of compliance to diet, medications and exercise were discussed. In the event of the patient developing chest pain ,unusual palpitations or any new symptoms, is advised to contact me or come to the hospital. -Take antibiotics as prescribed -Please take aspirin, statin, Plavix as prescribed -Follow-up with primary care provider in 1 week -Follow-up with cardiology in 1 week -Continue on GI soft diet, avoid fatty foods Discharge Attestations Time Spent in Discharge Care*: less than 30 min Status at Discharge: Cognitive status at discharge: cognitively intact, Behavioral status at discharge: cooperative, Functional status at discharge: independent ambulation Overall status at discharge: patient is back to baseline Quality Metrics Clinical Quality Measures During this hospital stay, did patient experience: None Coding Level of Care Code Acute Chg FW DC note Diagnoses Acute cholecystitis K81.0 ST elevation myocardial infarction (STEMI) I21.11 Involved coronary artery: right coronary artery Hx of primary hypertension Z86.79 Anemia D50.9 Anemia type: iron deficiency Iron deficiency anemia type: unspecified iron deficiency COPD (chronic obstructive pulmonary disease) J44.9 COPD type: unspecified COPD Smoker F17.200 KATJA (acute kidney injury) N17.9
--- NOTE | 2021-04-17 11:04 | PC.CHAP ---
Pastoral Care Encounter/Spiritual Assessment Type of Contact [] Declined neon sign installer visit [] Patient/Family/Request visit [] Outpatient visit [] Follow-up visit [] Physician referral [] Code/Alert [x] Routine visit [] Staff referral [] Actively dying [] Patient sleeping [] Family support [] [] Out of room [] Palliative care [] [] Receiving care in room [] Pre-surgical visit [] Trauma [] Long length of stay [] ICU visit [] Other: Relational/Emotional Strength [] Patient feels connected with others/family/visitors/staff [] Distress [] Loneliness/isolation [] Abandonment Spirituality of Patient [x] Person of Raiza [x] Attends Advent of their [place]iza [x] Believes in Prayer [x] Reads Bible or Sikhism materials [] There are Spiritual issues to be addressed Irrigation Flume Layer Interventions [x] Prayer [x] Active listening [x] Non-anxious presence [x] Spiritual/emotional support [] Crisis/trauma care [] Spiritual counseling [] Bereavement support [] Provided bereavement packet [] Provided Bible/devotional materials [] Provided toy/stuffed animal, coloring book to patient or family member [] Provided Communion [] Anointing/[place] [] Salvation [x] Completed spiritual assessment [] Other: Impact on Illness or Injury [] Angry [] Fearful [] Anxious [] Often cries [] Exhaustion [] Unable to work [] Unable to attend yarsani [] Unable to walk/stand [] Unable to read [] Unable to drive [] Unable to eat/drink [] Unable to sleep [] Unable to be with family [] Patient intubated [] Other: Summary Pt very joyful and pleasant. When introduced self she was very happy to see a neon sign installer. She explained prior to this incident she was a believer but uncertain whether she was truly ready to go. She explained now she has no doubt and explained the feeling of peace that came over her. She lives with her son, who is a non Jain and she prays he will get right before he passes. She described some of her family members who had previously and their relationship with the Lord. Many came to know Him just before their deaths. Time spent with patient 15m
--- NOTE | 2021-04-17 16:57 | PC.NURSE ---
discharge education provided, no questions or concerns. VS stable upon departure.
--- NOTE | 2021-04-17 22:47 | P.PN_ITS ---
Subjective Subjective: Interval history: Patient is feeling okay. No chest pain or chest tightness. Remains afebrile. No shortness of breath. Medications: Reviewed: Yes Medication Review Details: Current Medications Acetaminophen (Acetaminophen 325 Mg Tablet) 650 mg PO Q6H PRN PRN Reason: MILD PAIN Last Admin: 04/14/21 19:43 Dose: 650 mg Documented by: Al Hydrox/Mg Hydrox/Simethicone (Rjvr-Aau-Xasnizgql-Yahir 30 Ml Udc) 30 ml PO Q15M PRN PRN Reason: INDIGESTION Last Admin: 04/14/21 13:03 Dose: 30 ml Documented by: Albuterol Sulfate (Albuterol 8 Gm Mdi) 2 puff INHALATION Q6H.RESPIRATORY PRN PRN Reason: SOB/WHEEZING Amlodipine Besylate (Amlodipine 5 Mg Tablet) 5 mg PO DAILY [facility] Last Admin: 04/16/21 08:54 Dose: 5 mg Documented by: Aspirin (Aspirin 81 Mg Ec Tablet) 81 mg PO DAILY [facility] Last Admin: 04/16/21 08:53 Dose: 81 mg Documented by: Atorvastatin Calcium (Atorvastatin 40 Mg Tablet) 40 mg PO BEDTIME [facility] Last Admin: 04/15/21 21:49 Dose: 40 mg Documented by: Atropine Sulfate (Atropine 1 Mg/Ml Sdv 1 Ml) 0.5 mg IVP PRN PRN PRN Reason: Symptomatic bradycardia Bisacodyl (Bisacodyl 5 Mg Tablet) 5 mg PO DAILY PRN PRN Reason: CONSTIPATION Clopidogrel Bisulfate (Clopidogrel 75 Mg Tablet) 75 mg PO DAILY [facility] Last Admin: 04/16/21 08:53 Dose: 75 mg Documented by: Docusate Sodium (Docusate Sodium 100 Mg Capsule) 100 mg PO DAILY PRN PRN Reason: CONSTIPATION Last Admin: 04/11/21 20:36 Dose: 100 mg Documented by: Sodium Chloride (Sodium Chloride 0.9%) 1,000 mls @ 100 mls/hr IV .Q10H [facility] Last Admin: 04/15/21 21:50 Dose: 50 mls/hr Documented by: Piperacillin Sod/Tazobactam (Sod 3.375 gm/ Sodium Chloride) 50 mls @ 12.5 mls/hr IV Q8H [facility]; Protocol Last Admin: 04/16/21 08:54 Dose: 12.5 mls/hr Documented by: Sodium Chloride (Sodium Chloride 0.9%) 1,000 mls @ 50 mls/hr IV .Q20H [facility] Last Admin: 04/16/21 09:14 Dose: Not Given Documented by: Losartan Potassium (Losartan 50 Mg Tablet) 150 mg PO DAILY [facility] Last Admin: 04/16/21 08:53 Dose: 150 mg Documented by: Magnesium Hydroxide (Magnesium Hydroxide 30 Ml Udc) 30 ml PO DAILY PRN PRN Reason: CONSTIPATION Metoprolol Succinate (Metoprolol Succinate Er (24 Hr) 25 Mg Tablet) 25 mg PO EVERY OTHER DAY [facility] Last Admin: 04/15/21 10:49 Dose: 25 mg Documented by: Morphine Sulfate (Morphine 4 Mg/Ml Sdv 1 Ml) 2 mg IVP Q4H PRN PRN Reason: SEVERE PAIN Last Admin: 04/14/21 16:31 Dose: 2 mg Documented by: Naloxone HCl (Naloxone 0.4 Mg/Ml Sdv) 0.1 mg IVP Q2M PRN PRN Reason: RESPIRATORY RATE < 8/MIN Nitroglycerin (Nitroglycerin 0.4 Mg Sublingual Tablet) 0.4 mg SUBLINGUAL Q5M PRN PRN Reason: CHEST PAIN Last Admin: 04/14/21 15:34 Dose: 0.4 mg Documented by: Pantoprazole Sodium (Pantoprazole Dr 40 Mg Tablet) 40 mg PO BID [facility] Last Admin: 04/16/21 08:54 Dose: 40 mg Documented by: Fluticasone/Salmeterol (Fluticasone-Salmeterol 250-50 Diskus) 1 puff INHALATION BID.RESPIRATORY PRN PRN Reason: COPD/ASTHMA Vitals/I&O/Wt Last Vital Signs Temp 98.7 F 04/17/21 11:30 Pulse 88 04/17/21 14:42 Resp 21 H 04/17/21 14:42 BP 160/70 04/17/21 14:30 Pulse Ox 95 04/17/21 14:42 04/17/21 04/17/21 04/17/21 06:59 14:59 22:59 Intake Total 1100 / 1918 100 / 100 Output Total 400 / 800 Balance 700 / 1118 100 / 100 Weight last 48 hrs Weight 182 lb 1 oz Weight 182 lb 5 oz Physical Exam Narrative: EXAM NARRATIVE: GENERAL: The patient is alert and oriented times three. Not in any acute distress. HEENT: No significant pallor, icterus or lymphadenopathy.Oral cavity: There are no mucous membrane lesions. NECK: Trachea appears to be central. No masses noted. No JVD or thyromegaly appreciated. RESPIRATORY: Chest is symmetrical. No intercostals muscle retraction or any accessory muscle activation. There is no chest wall tenderness. Breath sounds are heard bilaterally. No rales or rhonchi heard. No evidence of any consolidation. BREASTS: Deferred. HEART: The heart sounds are normal. No S3 or S4. No significant murmurs. No pericardial rub ABDOMEN: Minimal epigastric tenderness. No organomegaly appreciated. Bowel sounds are normally heard. : Deferred. RECTAL: Deferred. LYMPHATIC: No lymphadenopathy noted in the neck or groin. EXTREMITIES: No edema or cyanosis. No clubbing. Right radial pulse is palpable with good volume and amplitude MUSCULOSKELETAL: No acute joint deformities or swelling SKIN: There are no significant rashes or ecchymosis NEUROPSYCHIATRIC: The patient is alert and oriented x3. Appears to be in a good mood. No tremors or rigidity noted. Data : 04/17/21 03:03 04/17/21 03:03 A&P Assessment and plan (1) Acute cholecystitis: Status: Acute (2) ST elevation myocardial infarction (STEMI): Status: Acute Qualifiers: Involved coronary artery: right coronary artery Qualified Code(s): I21.11 - ST elevation (STEMI) myocardial infarction involving right coronary artery (3) Hx of primary hypertension: Status: Acute (4) Anemia: Status: Acute Qualifiers: Anemia type: iron deficiency Iron deficiency anemia type: unspecified iron deficiency Qualified Code(s): D50.9 - Iron deficiency anemia, unspecified (5) COPD (chronic obstructive pulmonary disease): Status: Acute Qualifiers: COPD type: unspecified COPD Qualified Code(s): J44.9 - Chronic obstructive pulmonary disease, unspecified (6) Smoker: Status: Acute (7) KATJA (acute kidney injury): Status: Acute Other problems are mild hypokalemia-potassium supplement Anemia Additional A&P Information If the patient continues remain stable, she may be discharged home from a cardiac standpoint. Appointment the [facility] with the nurse practitioner in [address] Torres in 1 month Attestations Medical Necessity Statement*: Possible discharge home today Coding Level of Care Code Acute Behavioral Assistant for Chg Fwd History Expanded Problem Focused Exam Detailed Medical Decision Making Moderate Complexity Diagnoses Acute cholecystitis K81.0 ST elevation myocardial infarction (STEMI) I21.11 Involved coronary artery: right coronary artery Hx of primary hypertension Z86.79 Anemia D50.9 Anemia type: iron deficiency Iron deficiency anemia type: unspecified iron deficiency COPD (chronic obstructive pulmonary disease) J44.9 COPD type: unspecified COPD Smoker F17.200 KATJA (acute kidney injury) N17.9
== END 2021-04-17 16:57 | disposition home or self-care (01) | DRG 247 ==
LOC: ER 06:17 → CCL 06:22 → ICU 07:30 → CSU 04-14 04:57
PROVIDERS: Family Medicine; Internal Medicine; Admitting Provider Internal Medicine; Emergency Provider Family Medicine; PCP Nurse Practitioner Family; Visit Provider Internal Medicine
PROC: 027034Z Dilation of Coronary Artery, One Artery with Drug-eluting Intraluminal Device, Percutaneous Approach (ICD-10-PCS; principal; 2021-04-11 06:15)
PROC: 027034Z Dilation of Coronary Artery, One Artery with Drug-eluting Intraluminal Device, Percutaneous Approach (ICD-10-PCS; 2021-04-11 06:15)
DX: I21.11 ST elevation (STEMI) myocardial infarction involving right coronary artery (principal); N17.9 Acute kidney failure, unspecified; K92.1 Melena; K81.0 Acute cholecystitis; F17.210 Nicotine dependence, cigarettes, uncomplicated; I10 Essential (primary) hypertension; J43.2 Centrilobular emphysema; Z87.11 Personal history of peptic ulcer disease; Z82.49 Family history of ischemic heart disease and other diseases of the circulatory system; D50.9 Iron deficiency anemia, unspecified; Z79.51 Long term (current) use of inhaled steroids; E87.6 Hypokalemia; I25.10 Atherosclerotic heart disease of native coronary artery without angina pectoris
CPT/HCPCS: 36415; 71045; 71260; 74177; 76705; 78227; 80048; 80053; 80061; 81001; 82150; 83605; 83690; 83735; 84484; 85025; 85347; 86140; 86677; 87040; 90471; 90686; 93005; 93306; 93454; 94640; 96361; 96374; 96375; 99285; A9537; C1725; C1769; C1874; C1887; C1894; C9600; J0461; J1644; J1940; J2250; J2270; J2405; J2543; J3010; J3475; J3490; J3535; J7030; J7644; Q9967

== ENCOUNTER 2021-05-03 11:47 | Outpatient (CLI) | payer MEDICARE, MEDICAID, SELFPAY ==
--- NOTE | 2021-05-03 12:45 | USCV_ITS ---
Latonia Gar Age: 65 Gender: F : 1955 Exam Date: 05/03/2021 11:52 Ordering Phys: Vic Cote MD ([email or web address]) Technologist: Exam Location: [facility] – [place] Indication: PERIPHERAL VASCULAR DISEASE RIGHT LEFT Brachial 153.00 mmHg Brachial 144.00 mmHg Pressure (mmHg) Waveform Pressure (mmHg) Waveform 151.00 High Thigh 153.00 154.00 Below Knee 166.00 163.00 DRY COLOR MIXER 167.00 166.00 DPA 167.00 1.08 Ankle/Brachial Index 1.09 152.00 Pre-Exercise Toe Pressure 122.00 Pre-Exercise Toe/Brachial Index 0.80 0.99 FINDINGS Normal resting ABIs bilaterally Normal resting TBIs bilaterally Normal PVR waveforms CONCLUSIONS No evidence of any significant arterial obstruction, based on the above findings. Dr Bari Cruz MD [facility] (Electronically Signed) Final Date: 03 May 2021 20:00 S
== END 2021-05-03 11:48 | disposition home or self-care (01) ==
LOC: RAD 11:49
PROVIDERS: PCP Nurse Practitioner Family; Visit Provider Internal Medicine Cardiovascular Disease
DX: I73.9 Peripheral vascular disease, unspecified (principal)
CPT/HCPCS: 93923

== ENCOUNTER → 2021-07-12 13:10 | Outpatient (BNVA) | payer MEDICARE, MEDICAID, SELFPAY | PROVIDERS: PCP Nurse Practitioner Family; Visit Provider Podiatrist Foot & Ankle Surgery | DX: M79.671 Pain in right foot (principal); M79.672 Pain in left foot; M21.612 Bunion of left foot; M21.611 Bunion of right foot | CPT/HCPCS: 73630 ==

== ENCOUNTER → 2021-08-13 09:51 | Outpatient (BNVA) | payer MEDICARE, MEDICAID, SELFPAY | PROVIDERS: PCP Nurse Practitioner Family; Visit Provider Podiatrist Foot & Ankle Surgery | DX: M79.2 Neuralgia and neuritis, unspecified (principal); L60.3 Nail dystrophy; F17.210 Nicotine dependence, cigarettes, uncomplicated | CPT/HCPCS: 99214 ==

== ENCOUNTER → 2021-09-06 09:55 | Outpatient (BNVA) | payer MEDICARE, MEDICAID, SELFPAY | PROVIDERS: PCP Nurse Practitioner Family; Visit Provider Internal Medicine Pulmonary Disease | DX: J44.9 Chronic obstructive pulmonary disease, unspecified (principal); R06.02 Shortness of breath; F17.210 Nicotine dependence, cigarettes, uncomplicated; I25.10 Atherosclerotic heart disease of native coronary artery without angina pectoris; Z99.81 Dependence on supplemental oxygen | CPT/HCPCS: 82785; 85025; 86003; 99214 ==

== ENCOUNTER → 2021-09-11 12:54 | Outpatient (BNVA) | payer MEDICARE, MEDICAID, SELFPAY | PROVIDERS: PCP Nurse Practitioner Family; Visit Provider Podiatrist Foot & Ankle Surgery | DX: M79.2 Neuralgia and neuritis, unspecified (principal); L60.3 Nail dystrophy; F17.210 Nicotine dependence, cigarettes, uncomplicated | CPT/HCPCS: 99214 ==

== ENCOUNTER 2021-09-18 09:56 | Outpatient (CLI) | payer MEDICARE, MEDICAID, SELFPAY ==
--- NOTE | 2021-09-18 13:14 | PFTS_ITS ---
Date of Study:09/18/21 Date of Dictation: MECHANICS: Forced vital capacity (FVC) is reduced. Forced expiratory volume in one second (FEV1) is reduced. FEV1/FVC is reduced. FLOW VOLUME LOOP: Reduced flow at all lung volumes with significant scooping. LUNG VOLUMES: Total lung capacity (TLC) is normal. Residual volume (RV) is increased. DIFFUSING CAPACITY FOR CARBON MONOXIDE: Moderately reduced. INTERPRETATION: The postbronchodilator spirometry is consistent with moderate airflow obstruction. There is a significant postbronchodilator response. Lung volumes are consistent with air trapping. Gas exchange (DLCO) is moderately reduced. MTDD
== END 2021-09-18 09:57 | disposition home or self-care (01) ==
PROVIDERS: PCP Nurse Practitioner Family; Visit Provider Internal Medicine Pulmonary Disease
DX: J44.9 Chronic obstructive pulmonary disease, unspecified (principal)
CPT/HCPCS: 94060; 94618; 94726; 94729

== ENCOUNTER → 2021-11-21 13:37 | Outpatient (BNVA) | payer MEDICARE, MEDICAID, SELFPAY | PROVIDERS: PCP Nurse Practitioner Family; Visit Provider Internal Medicine | DX: I73.9 Peripheral vascular disease, unspecified (principal); I10 Essential (primary) hypertension; I25.119 Atherosclerotic heart disease of native coronary artery with unspecified angina pectoris; F17.210 Nicotine dependence, cigarettes, uncomplicated | CPT/HCPCS: 99214 ==

== ENCOUNTER → 2021-12-06 10:16 | Outpatient (BNVA) | payer MEDICARE, MEDICAID, SELFPAY | PROVIDERS: PCP Nurse Practitioner Family; Visit Provider Internal Medicine Pulmonary Disease | DX: R06.02 Shortness of breath (principal); J44.9 Chronic obstructive pulmonary disease, unspecified; I25.119 Atherosclerotic heart disease of native coronary artery with unspecified angina pectoris; Z12.2 Encounter for screening for malignant neoplasm of respiratory organs; F17.210 Nicotine dependence, cigarettes, uncomplicated | CPT/HCPCS: 99214 ==

== ENCOUNTER → 2021-12-11 10:45 | Outpatient (BNVA) | payer MEDICARE, MEDICAID, SELFPAY | PROVIDERS: PCP Nurse Practitioner Family; Visit Provider Surgery | DX: R10.11 Right upper quadrant pain (principal); R14.0 Abdominal distension (gaseous) | CPT/HCPCS: 99213 ==

== ENCOUNTER → 2021-12-12 12:16 | Outpatient (BNVA) | payer MEDICARE, MEDICAID, SELFPAY | PROVIDERS: PCP Nurse Practitioner Family; Visit Provider Podiatrist Foot & Ankle Surgery | DX: M79.2 Neuralgia and neuritis, unspecified (principal); L60.3 Nail dystrophy | CPT/HCPCS: 99213; 99214 ==

== ENCOUNTER 2022-01-04 07:15 | Outpatient (CLI) | payer MEDICARE, MEDICAID, SELFPAY ==
--- NOTE | 2022-01-04 08:00 | NM_ITS ---
WS: [id number] NUCLEAR MEDICINE HIDA SCAN WITH GALLBLADDER EJECTION FRACTION HISTORY: Bloating and GERD. COMPARISON: 04/17/2021 HIDA scan. Prior ultrasound 04/15/2021 TECHNIQUE: The patient was intravenously injected with 8.3 mCi of TC99m Mebrofenin. Immediate imaging over the right upper quadrant was followed by 5 minute image and additional images for a total of 60 minutes. Mildly lobular contour of the liver. Very mild heterogeneous uptake is probably related to hepatocell ular disease. Activity identified in the gallbladder at 15 minutes and well distended by 60 minutes. Activity in the proximal small bowel was seen by 30 minutes. Good washout of the radiotracer from the liver by 60 minutes. The patient then drank 8 ounces of Ensure Plus. Ejection fraction at 60 minutes was 89%. Normal GB ej ection fraction is 35-75%. Post fatty meal symptoms: None. NM/NM hepatobiliary w phar* [id number] IMPRESSION: 1. Normal HIDA scan. 2. Normal gallbladder ejection fraction.
== END 2022-01-04 07:16 | disposition home or self-care (01) ==
LOC: RAD 07:18
PROVIDERS: PCP Nurse Practitioner Family; Visit Provider Surgery
DX: R14.0 Abdominal distension (gaseous) (principal); K21.9 Gastro-esophageal reflux disease without esophagitis
CPT/HCPCS: 78227; A9537

== ENCOUNTER → 2022-01-17 16:25 | Outpatient (BNVA) | payer MEDICARE, MEDICAID, SELFPAY | PROVIDERS: PCP Nurse Practitioner Family; Visit Provider Surgery | DX: Z09 Encounter for follow-up examination after completed treatment for conditions other than malignant neoplasm (principal); R10.11 Right upper quadrant pain | CPT/HCPCS: 99212 ==

== ENCOUNTER → 2022-02-07 09:38 | Outpatient (BNVA) | payer MEDICARE, MEDICAID, SELFPAY | PROVIDERS: PCP Nurse Practitioner Family; Visit Provider Internal Medicine Pulmonary Disease | DX: R05.8 Other specified cough; R06.02 Shortness of breath; J44.9 Chronic obstructive pulmonary disease, unspecified; I25.119 Atherosclerotic heart disease of native coronary artery with unspecified angina pectoris; Z12.2 Encounter for screening for malignant neoplasm of respiratory organs; F17.210 Nicotine dependence, cigarettes, uncomplicated | CPT/HCPCS: 71046; 87635; 99214 ==

== ENCOUNTER 2022-03-13 06:00 | Outpatient (RCR) | payer MEDICARE, MEDICAID, SELFPAY | END 2022-04-03 23:59 | disposition home or self-care (01) | LOC: MPT 06:00 | PROVIDERS: PCP Nurse Practitioner Family; Visit Provider Internal Medicine Pulmonary Disease | DX: R53.1 Weakness (principal); J44.9 Chronic obstructive pulmonary disease, unspecified | CPT/HCPCS: 97110; 97161 ==

== ENCOUNTER 2022-04-04 06:00 | Outpatient (RCR) | payer MEDICARE, MEDICAID, SELFPAY | END 2022-05-04 23:59 | disposition home or self-care (01) | LOC: MPT 06:00 | PROVIDERS: PCP Nurse Practitioner Family; Visit Provider Internal Medicine Pulmonary Disease | DX: R53.1 Weakness (principal); J44.9 Chronic obstructive pulmonary disease, unspecified | CPT/HCPCS: 97110 ==

== ENCOUNTER → 2022-04-11 12:52 | Outpatient (BNVA) | payer MEDICARE, MEDICAID, SELFPAY | PROVIDERS: PCP Nurse Practitioner Family; Visit Provider Surgery | DX: R10.11 Right upper quadrant pain (principal) | CPT/HCPCS: 99213 ==

== ENCOUNTER 2022-04-25 07:13 | Day surgery (SDC) | payer MEDICARE, MEDICAID, SELFPAY ==
[2022-04-24 12:00] VITALS: BMI 29.2
[2022-04-25] VITALS (17 sets, daily range): BP systolic 131–172; BP diastolic 56–68; PULSE 70–84; RESP 16–20; TEMP 36.2–36.7; O2SAT 86–98
--- NOTE | 2022-04-25 08:01 | ECG_ITS ---
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 [email or web address]
[2022-04-25 08:38] LABS: Anion Gap 12.3 (5-19); Blood Urea Nitrogen 11 mg/dL (8-23); Carbon Dioxide 31 mmol/L (22-29); Chloride 104 mmol/L (98-107); Creatinine Clr Calc Pharmacy 57.9228; Glomerular Filtration Rate 83.2 mL/min (90-130); Glucose 96 mg/dL (65-115); Osmolality Calculated 297 mOsm/kg (285-295); Potassium 3.3 mmol/L (3.5-5.1); Sodium 144 mmol/L (136-145)
[2022-04-25] MEDS: sodium chloride 0.9% 1,000 ML 30 ML IV (08:42)
[2022-04-25] MEDS: acetaminophen 1,000 MG/100 ML PIGGYBACK 400 MG IV (08:43)
[2022-04-25] MEDS: heparin 5,000 unit/mL INJ 1 mL 3000 UNIT SUBCUT (08:45)
--- NOTE | 2022-04-25 08:50 | W.PM.OPSUD ---
Surgery/Procedure H&P Update DATE OF PROCEDURE: April 25, 2022 DATE H&P PERFORMED: 04/11/22 H&P UPDATE INFORMATION: I have reviewed H&P completed within last 30 days, I have examined patient prior to procedure and Changes to prior documentation as noted here (Patient was cleared by cardiology to proceed with the gallbladder surgery) PREOP DIAGNOSIS: Biliary colic PRIMARY INDICATION FOR PROCEDURE: The same PLANNED PROCEDURE: Operation Date: 04/25/22 08:45 Proposed Procedures p Laparoscopic Cholecystectomy 23654, R10.11(Not Applicable) - Richard Gamboa MD
--- NOTE | 2022-04-25 09:34 | ANES.PREANE2 ---
Pre-Anesthetic Assessment Height/Weight: Height 1.52 m Weight 68.039 kg Temp Pulse Resp BP Pulse Ox O2 Del Method 98.1 F 79 18 131/63 94 04/25/22 07:40 04/25/22 07:40 04/25/22 07:40 04/25/22 07:40 04/25/22 07:40 04/25/22 08:46 Preop Diagnosis: Biliary colic Operation Date: 04/25/22 08:45 Proposed Procedures p Laparoscopic Cholecystectomy 56275, R10.11(Not Applicable) - Richard Gamboa MD Familial anesthetic complications: none Was Beta Joyce taken within 24 hours: Yes Was Clonidine taken within 24 hours: N/A Last intake: Intake Last Liquid Date 04/24/22 Last Liquid Time 23:55 Last Solid Date 04/24/22 Last Solid Time 23:55 Social Tobacco and No alcohol Exam alert, oriented x 3 and regular rate & rhythm rhonchi Airway Submandibular: within normal limits Cervical ROM: within normal limits Mallampati: Class II Dentition: false Pulmonary Chronic Obstructive Pulmonary Disease CV/HEM Anemia, Coronary Artery Disease, Hypertension and Peripheral Vascular Disease GI Gastroesophageal Reflux Disease Metabolic Hyperlipidemia Anesthetic Plan ASA status: 3 Anesthesia: General Medications/Allergies Home Medications Medication Instructions Recorded Confirmed Last Taken Type cetirizine 10 mg tablet (Zyrtec) 10 mg PO QAM 05/10/19 04/24/22 04/25/22 06:00 History amlodipine 5 mg tablet 5 mg PO DAILY 10/05/20 04/24/22 04/25/22 06:00 History furosemide 20 mg tablet 20 mg PO QAM 10/05/20 04/24/22 04/24/22 History buspirone 10 mg tablet 10 mg PO TID PRN Anxiety 11/13/20 04/25/22 Unknown History sucralfate 1 gram tablet (Carafate) 1 g PO TID #20 tabs 04/10/21 04/24/22 04/24/22 Rx biotin 5,000 mcg sublingual tablet 5,000 mcg sublingual DAILY 04/11/21 04/24/22 04/24/22 History cholecalciferol (vitamin D3) 125 125 mcg PO QAM 04/11/21 04/24/22 04/24/22 History mcg (5,000 unit) tablet (Vitamin D3) ferrous sulfate 27 mg iron tablet 27 mg PO BID pt states sometimes 04/11/21 04/24/22 04/24/22 History she will take tid guaifenesin 600 mg tablet, 600 mg PO Q12H PRN Congestion 04/11/21 04/24/22 04/04/22 History extended release 12 hr (Mucinex) ipratropium bromide 42 mcg (0.06 2 spray intranasal QID PRN unknown 04/11/21 04/24/22 04/17/22 History %) nasal spray phenylephrine HCl 10 mg tablet 10 mg PO Q6H PRN Congestion 04/11/21 04/24/22 04/10/22 History vitamin B complex 1 tab PO DAILY 04/11/21 04/24/22 04/24/22 History clopidogrel 75 mg tablet 75 mg PO DAILY #90 tabs 08/09/21 04/24/22 04/22/22 Rx gabapentin 100 mg capsule 100 mg PO TID Heal pain #90 caps 08/13/21 04/24/22 04/17/22 Rx albuterol sulfate 2.5 mg/3 mL 2.5 mg (3 mL) inhalation Q6H PRN 09/06/21 04/24/22 04/24/22 Rx (0.083 %) solution for nebulization Wheezing #90 mL ipratropium 0.5 mg-albuterol 3 mg 3 ml inhalation Q4H PRN wheezing 09/06/21 04/24/22 04/24/22 Rx (2.5 mg base)/3 mL nebulization #90 mL soln metoprolol succinate 25 mg 12.5 mg PO DAILY #45 tabs 11/07/21 04/24/22 04/25/22 06:00 Rx tablet,extended release 24 hr isosorbide mononitrate 30 mg 30 mg PO DAILY #90 tabs 11/23/21 04/24/22 04/25/22 06:00 Rx tablet,extended release 24 hr mupirocin 2 % topical ointment 1 applic topical BID #22 grams 12/12/21 04/24/22 04/11/22 Rx pantoprazole 40 mg tablet,delayed 40 mg PO BID #180 tabs 01/23/22 04/24/22 04/25/22 Rx release atorvastatin 40 mg tablet 40 mg PO BEDTIME #100 tabs 10/07/2404/24/22 04/24/22 Rx budesonide 160 mcg-glycopyr 9 2 inh inhalation BID #10.7 grams 03/25/22 04/24/22 04/25/22 06:00 Rx mcg-formot 4.8 mcg/actuation HFA inhaler (Breztri Aerosphere) aspirin 81 mg chewable tablet 81 mg PO DAILY 04/11/22 04/24/22 04/22/22 History Allergies Allergy/AdvReac Type Severity Reaction Status Date / Time No Known Allergies Allergy Verified 04/24/22 11:53 Current Medications Generic Name Dose Route Start Last Admin Trade Name Freq PRN Reason Stop Dose Admin Sodium Chloride 1,000 mls @ 30 mls/hr 04/25/22 07:30 04/25/22 08:42 Sodium Chloride 0.9% IV 04/26/22 07:29 30 mls/hr .Q24H GOYO Administration PFSH Anesthesia Medical History Asthma with exacerbation Atherosclerosis of coronary artery History of COPD Hx of chest pain Hx of gastroesophageal reflux (GERD) Hx of hypercholesterolemia Hx of migraines Hx of primary hypertension Only the blood pressure is in the normal range. We'll continue on the current medications. PUD (peptic ulcer disease) Smoker Patient is strongly advised to quit smoking. ST elevation myocardial infarction (STEMI) This patient presents with the features of ST elevation myocardial infarction. 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 She underwent PCI of this lesion. Currently she seems to be stable. Surgical History History of ankle surgery History of bladder surgery History of carpal tunnel release of both wrists History of tonsillectomy and adenoidectomy Family History Sister Cancer Myocardial infarct Mother Myocardial infarct Grandmother Myocardial infarct Other Hypertension Stroke Social History Smoking and tobacco status: current every day smoker cigarettes Packs smoked per day: 1 Years cigarettes smoked: 50 Alcohol intake: never Housing: House Data Anesthesia 04/25/22 08:10 BMP 04/25/22 08:10 Sodium 144 Potassium 3.3 L Chloride 104 Carbon Dioxide 31 H BUN 11 Creatinine 0.7 Glucose 96 Calcium 10.0 Cardiac Studies: Echocardiogram 04/12/21 Sestamibi Stress Test (Cardiology) 12/26/20
--- NOTE | 2022-04-25 10:32 | P.OP_ITS ---
Operative Report Date of procedure: April 25, 2022 Pre-op diagnosis: Preop Diagnosis Biliary colic Procedure done: Laparoscopic cholecystectomy Specimens removed/disposition: Gallbladder and contents Surgeon: Richard Gamboa MD Boiler Operator Helper: Surgical savannah Mcintyre and Song Circulating nurse Nicole Anesthesia: General (level glass forming machine operator David Douglas) Estimated blood loss (mL): 10 IV fluids (mL): 700 Procedure: Patient was identified in the holding area and taken back to the operative suite, placed in supine position intubated by anesthesia . Time-out was done verifying the patient's name/date of /planned procedure and destination after the procedure, all were in agreement. SCDs confirmed to be functioning, preoperative antibiotics administered per protocol, and beta jennifer protocol was confirmed. Patient was appropriately secured to the table, footboard was applied to the OR table, before prep and drape anesthesia was asked to tilt the table back and forth to make sure that the patient is appropriately secured and she was. Prep and drape of the abdomen was done under the usual sterile technique, followed by that supraumbilical skin incision,skin incision was done by a 15 blade knife, and stay sutures were applied to the fascia and Allison trocar technique was used to enter the abdominal without injuring any abdominal viscera, started by low flow gas insufflation followed by a high flow, started with a 10 mm laparoscope and under direct vision there was no evidence of any injuries, the scope then switched to a 30? ,10 millimeter scope and under direct visualization 5 millimeter trocar was inserted in the epigastric region followed by two 5 mm trocars were inserted in the right upper quadrant that was done after injection of local lidocaine 2% at all incision sites. Gallbladder showed chronic cholecystitis and Fatty Liver, noticed omental adhesions surrounding the gallbladder attaching it to the first and second part of the duodenum. Patient was then positioned in the head up and tilted to the left. Ratcheted forceps were introduced into the lateral most 5mm port and was applied unto the fundus of the gallbladder cephalad and using Bullet forceps the infundibulum of the gallbladder was retracted laterally. Using [place] forceps then L-hook cautery to take down adhesions of the omentum and to dissect the peritoneum overlying the Calot's triangle which was then opened medially and laterally until the cystic duct and the cystic artery were skeletonized. Dissection was carried along the body of the gallbladder and after ensuring critical view of safety was identfied. Using hook cautery to take adhesions down I noticed that was an indirect, inadvertent superficial thermal injury onto the anterior surface of the second part of the duodenum ., I elected to put a [id number] Lembert suture onto that spot using 2-0 silk suture under direct visualization followed by omental patch. Was anchored to the anterior wall of the stomach using 2-0 silk suture. Suction irrigation was used immersing the segment and there were no bubbles. Or leak. That spot was superficial and did not violate the integrity of the duodenum about 3 x 4 mm. Further dissection showed cystic duct and cystic artery where seen connected to the gallbladder. Clips were applied on the cystic duct towards the common bile duct 1 towards the gallbladder then divided is in sharp scissors, 2 clips were then applied onto the cystic artery and 1 towards the gallbladder and divided by sharp scissors. Dissection was then carried along of the gallbladder from the gallbladder fossa using cautery as well as sharp dissection with heat energy. The gallbladder then was dissected out from the gallbladder fossa totally , cholecystectomy was then achieved and was placed in an Endo Catch bag and then retrieved from the Allison trocar site under direct visualization using a 5 mm 30? scope through the epigastric trocar, specimen was then passed to the circulating nurse to go for permanent pathology,irrigation and hemostasis was done to the gallbladder fossa after hemostasis was secured, final survey laparoscopy was done that showed no injuries. Suction irrigation was obtained The supraumbilical fascial defect was then closed using interrupted number one PDS sutures using a fascial closure device ;Padilla Dumont under direct visualization following that Gas was allowed to deflate,Trocars were then taken out under direct vision there was no evidence of bleeding. Specimen was passed to the circulating nurse for permanent pathology. No drains were placed and the supraumbilical incision as well as all trocar sites were closed by 3/0 Vicryl followed by 4-0 Monocryl to approximate the skin edges of the incisions , dressing was applied in the form of surical glue and the patient patient got extubated and was taken to recovery area in a stable condition. Count of sponges,needles and instruments were completed at the end of the procedure I was present for the whole entire procedure.
[2022-04-25] MEDS: HYDROcodone-acetaminophen 5-325 mg Tablet 1 TAB PO (11:30)
--- NOTE | 2022-04-25 11:50 | SUR.PHASEII ---
Low O2 saturation Patient O2 85-91% on RA. She reports she wear oxygen at home at night only 3L. However, she did not bring oxygen with her. Deep breathing exercises demonstrated to patient. Dr. Wright notified and ordered breathing treatment. Treatment being given now. Instructed patient to use pulse oximeter when she gets home and utilize oxygen or PRN treatments if O2 <90%.
[2022-04-25] MEDS: albuterol 2.5 mg/3 mL Neb INHALATION (11:58)
--- NOTE | 2022-04-25 12:02 | SUR.PREOP ---
O2 sats Following treatment, patient's sats staying 97-98% on RA. Patient reports she feels much better after treatment. She verbalized understanding of instructions.
--- NOTE | 2022-04-25 12:11 | ANE.PACU2 ---
Inpatient post-anesthesia follow up: Airway intact: Yes Vital signs: Temperature 97.7 F Pulse Rate 77 Respiratory Rate 16 Blood Pressure 155/65 Pulse Oximetry 98 Oxygen Delivery Me thod Room Air Oxygen Flow Rate 3 Fraction of Inspir ed Oxygen Hydration adequate: Yes Nausea and vomiting: No Pain level: 3 Mental status: Baseline
== END 2022-04-25 12:05 | disposition home or self-care (01) ==
PROVIDERS: Anesthesiology; PCP Nurse Practitioner Family; Visit Provider Surgery
PROC: 0FT44ZZ Resection of Gallbladder, Percutaneous Endoscopic Approach (ICD-10-PCS; CPT 47562; principal; 2022-04-25 08:45)
DX: K81.1 Chronic cholecystitis (principal); J44.9 Chronic obstructive pulmonary disease, unspecified; I25.10 Atherosclerotic heart disease of native coronary artery without angina pectoris; I10 Essential (primary) hypertension; K21.9 Gastro-esophageal reflux disease without esophagitis; E78.5 Hyperlipidemia, unspecified; F17.210 Nicotine dependence, cigarettes, uncomplicated
CPT/HCPCS: 47562; 36415; 80048; 88304; 93005; 94640; J0131; J1100; J1170; J1644; J2405; J2704; J2710; J3010; J3490; J7030; J7613

== ENCOUNTER → 2022-04-30 11:09 | Outpatient (BNVA) | payer MEDICARE, MEDICAID, SELFPAY | PROVIDERS: PCP Nurse Practitioner Family; Visit Provider Surgery | DX: Z98.890 Other specified postprocedural states (principal) | CPT/HCPCS: 99024 ==

== ENCOUNTER 2022-05-05 06:00 | Outpatient (RCR) | payer MEDICARE, MEDICAID, SELFPAY | END 2022-06-04 23:59 | disposition home or self-care (01) | LOC: MPT 06:00 | PROVIDERS: PCP Nurse Practitioner Family; Visit Provider Internal Medicine Pulmonary Disease | DX: R53.1 Weakness (principal); J44.9 Chronic obstructive pulmonary disease, unspecified | CPT/HCPCS: 97110 ==

== ENCOUNTER → 2022-05-15 10:34 | Outpatient (BNVA) | payer MEDICARE, MEDICAID, SELFPAY | PROVIDERS: PCP Nurse Practitioner Family; Visit Provider Internal Medicine Pulmonary Disease | DX: J44.9 Chronic obstructive pulmonary disease, unspecified (principal); F17.210 Nicotine dependence, cigarettes, uncomplicated; R06.02 Shortness of breath; I25.119 Atherosclerotic heart disease of native coronary artery with unspecified angina pectoris | CPT/HCPCS: 99214 ==

== ENCOUNTER → 2022-05-23 14:56 | Outpatient (BNVA) | payer MEDICARE, MEDICAID, SELFPAY | PROVIDERS: PCP Nurse Practitioner Family; Visit Provider Internal Medicine | DX: I73.9 Peripheral vascular disease, unspecified (principal); I10 Essential (primary) hypertension; I25.119 Atherosclerotic heart disease of native coronary artery with unspecified angina pectoris; F17.210 Nicotine dependence, cigarettes, uncomplicated | CPT/HCPCS: 99214 ==

== ENCOUNTER 2022-06-05 06:00 | Outpatient (RCR) | payer MEDICARE, MEDICAID, SELFPAY | END 2022-07-02 23:59 | disposition home or self-care (01) | LOC: MPT 06:00 | PROVIDERS: PCP Nurse Practitioner Family; Visit Provider Internal Medicine Pulmonary Disease | DX: R53.1 Weakness (principal); J44.9 Chronic obstructive pulmonary disease, unspecified | CPT/HCPCS: 97110 ==

== ENCOUNTER 2022-06-11 09:47 | Outpatient (CLI) | payer MEDICARE, MEDICAID, SELFPAY ==
--- NOTE | 2022-06-11 10:00 | CT_ITS ---
WS: [id number] LDCT LUNG CANCER SCREENING TECHNIQUE: Noncontrast CT of the chest with coronal and sagittal reformatted images. CLINICAL INFORMATION: lung screeni COMPARISON: CT April 14, 2021 DLP: 77.67 mGy.cm DIvol: Mean CTDIvol: 1.60 (mGy) All CT scans at [facility] use at least one of these dose optimization techniques: automat ed exposure control; mA and/or kV adjustment per patient size (includes targeted exams where dose is matched to clinical indication); or iterative reconstruction. FINDINGS: Moderate chronic emphysematous changes. No acute pulmonary infiltrates. No focal pneumonia or pleural fluid. Moderate aortic calcification. Coronary calcification. Normal caliber descending thoracic aor ta. No pericardial effusion. Adrenal glands are normal. Small esophageal hiatal hernia. No axillary lymph adenopathy. Mild hypertrophic changes thoracic spine. Calcified granuloma RIGHT lower lobe. Hazy subpleural opacity RIGHT upper lobe posteriorly measuring 5 mm. Hazy atelectasis in RIGHT lower lobe. Subsegmental atelectasis in the lingula. Tiny noncalcifie d nodule LEFT lower lobe medially. Slight subpleural nodularity in both lower lobes CT/CT lung screening 11371 IMPRESSION: LUNG-RADS: 2-Benign Appearance or Behavior FOLLOW UP: 12 Month: Continue annual screening with LDCT
== END 2022-06-11 09:48 | disposition home or self-care (01) ==
LOC: RAD 09:48
PROVIDERS: PCP Nurse Practitioner Family; Visit Provider Internal Medicine Pulmonary Disease
DX: Z12.2 Encounter for screening for malignant neoplasm of respiratory organs (principal); F17.210 Nicotine dependence, cigarettes, uncomplicated; J44.9 Chronic obstructive pulmonary disease, unspecified; L60.8 Other nail disorders; M79.2 Neuralgia and neuritis, unspecified; L60.3 Nail dystrophy
CPT/HCPCS: 71271; 99213

== ENCOUNTER 2022-06-18 06:00 | Outpatient (RCR) | payer MEDICARE, MEDICAID, SELFPAY | END 2022-07-02 23:59 | disposition home or self-care (01) | LOC: MPT 06:00 | PROVIDERS: PCP Nurse Practitioner Family; Visit Provider Podiatrist Foot & Ankle Surgery | DX: M72.2 Plantar fascial fibromatosis (principal) | CPT/HCPCS: 97110; 97140; 97161 ==

== ENCOUNTER 2022-07-03 06:00 | Outpatient (RCR) | payer MEDICARE, MEDICAID, SELFPAY | END 2022-07-17 23:59 | disposition home or self-care (01) | LOC: MPT 06:00 | PROVIDERS: PCP Nurse Practitioner Family; Visit Provider Podiatrist Foot & Ankle Surgery | DX: M72.2 Plantar fascial fibromatosis (principal) | CPT/HCPCS: 97110; 97140 ==

== ENCOUNTER → 2022-09-10 12:09 | Outpatient (BNVA) | payer MEDICARE, MEDICAID, SELFPAY | PROVIDERS: PCP Nurse Practitioner Family; Visit Provider Podiatrist Foot & Ankle Surgery | DX: I73.9 Peripheral vascular disease, unspecified (principal); L60.8 Other nail disorders; M79.2 Neuralgia and neuritis, unspecified; L60.3 Nail dystrophy | CPT/HCPCS: 11721 ==

== ENCOUNTER 2022-09-11 15:07 | Observation (INO) | payer MEDICARE, MEDICAID, SELFPAY ==
--- NOTE | 2022-09-09 10:32 | ECG_ITS ---
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 Measurements Intervals [place] Rate: 75 P: 111 SD: 170 QRS: 14 QRSD: 88 T: -7 QT: 387 QTc: 432 Interpretive Statements SINUS RHYTHM NONSPECIFIC ST & T-WAVE ABNORMALITY Compared to ECG 04/25/2022 08:26:47 T-wave abnormality now present Myocardial infarct finding no longer present Electronically Signed On 09-09-2022 17:13:23 CDT by Juan Will M.D. [id number]
[2022-09-09 10:47] VITALS: BMI 25.2
[2022-09-09 11:12] LABS: Add Urine Microscopic? NO; Charge for UA Resulting for Rev
[2022-09-09 11:18] LABS: Basophils % 0.6 %; Eosinophils # 0.1 10^3/uL (0.0-0.8); Eosinophils % 1.9 %; Hematocrit 39.8 % (37.0-47.0); Hemoglobin 11.9 g/dL (11.5-15.3); Lymphocytes # 0.9 10^3/uL (0.8-4.8); Mean Corpuscular HGB Conc 29.9 g/dL (30.0-36.0); Mean Corpuscular Hemoglobin 30.4 pg (28.0-34.0); Mean Corpuscular Volume 101.5 fl (81-99); Mean Platelet Volume 10.4 fL (7.4-10.4); Monocytes # 0.5 10^3/uL (0.2-0.9); Neutrophils # 4.88 10^3/uL (1.8-7.7); Neutrophils % 76.2 %; Nucleated Red Blood Cells % 0 %; Platelet Count 305 10^3/cmm (130-400); Red Blood Count 3.92 10^6/uL (4.1-5.3); Red Cell Distribution Width 12.5 % (12.1-15.1); White Blood Count 6.4 10^3/uL (4.0-10.0)
[2022-09-09 11:37] LABS: Alanine Aminotransferase 11 U/L (0-33); Albumin Level 4.3 g/dL (3.5-5.2); Alkaline Phosphatase 57 U/L (35-105); Anion Gap 12.5 (5-19); Aspartate Amino Transferase 12 U/L (0-32); Bilirubin Urine Neg (Negative); Blood Urea Nitrogen 9 mg/dL (8-23); Blood Urine Neg (Negative); Calcium 9.9 mg/dL (8.5-10.5); Carbon Dioxide 30 mmol/L (22-29); Chloride 101 mmol/L (98-107); Globulin 2.4 g/dL (1.3-4.6); Glucose 90 mg/dL (65-115); Glucose Urine UA Norm (Normal); Ketones Urine Negative (Negative); Leukocyte Esterase Urine Negative (Negative); Nitrate Urine Negative (Negative); Osmolality Calculated 288 mOsm/kg (285-295); Potassium 3.5 mmol/L (3.5-5.1); Protein Urine Neg (Negative); Sodium 140 mmol/L (136-145); Total Bilirubin 0.2 mg/dL (0.15-1.2); Total Protein 6.7 g/dL (6.6-8.7); Urine Appearance Clear (CLEAR); Urine Color Dark Yellow (Yellow); Urobilinogen Urine Norm (Negative); pH Urine 7 (5-7)
--- NOTE | 2022-09-09 15:56 | P.ANESASSM_ITS ---
Pre-Anesthetic Assessment Height/Weight: Height 1.52 m Weight 58.513 kg Operation Date: 09/11/22 10:15 Proposed Procedures p Single incision sling 24021,N39.3(Not Applicable) - Yang Munoz MD Familial anesthetic complications: none Was Beta Joyce taken within 24 hours: Yes Was Clonidine taken within 24 hours: N/A Social Tobacco and No alcohol Exam alert, oriented x 3, clear to auscultation bilaterally and regular rate & rhythm Airway Submandibular: within normal limits Cervical ROM: within normal limits Mallampati: Class II Dentition: false Pulmonary Chronic Obstructive Pulmonary Disease CV/HEM Anemia, Coronary Artery Disease (stent) and Hypertension GI Gastroesophageal Reflux Disease Anesthetic Plan ASA status: 3 Anesthesia: General Medications/Allergies Home Medications Medication Instructions Recorded Confirmed Last Taken Type cetirizine 10 mg tablet (Zyrtec) 10 mg PO QAM 05/10/19 09/09/22 09/09/22 History furosemide 20 mg tablet 20 mg PO QAM 10/05/20 09/09/22 09/09/22 History biotin 5,000 mcg sublingual tablet 5,000 mcg sublingual DAILY 04/11/21 09/09/22 09/09/22 History cholecalciferol (vitamin D3) 125 125 mcg PO QAM 04/11/21 09/09/22 09/09/22 History mcg (5,000 unit) tablet (Vitamin D3) ferrous sulfate 27 mg iron tablet 27 mg PO BID pt states sometimes 04/11/21 09/09/22 09/09/22 History she will take tid guaifenesin 600 mg tablet, 600 mg PO Q12H PRN Congestion 04/11/21 09/09/22 04/04/22 History extended release 12 hr (Mucinex) ipratropium bromide 42 mcg (0.06 2 spray intranasal QID PRN unknown 04/11/21 09/09/22 04/17/22 History %) nasal spray vitamin B complex 1 tab PO DAILY 04/11/21 09/09/22 09/09/22 History ipratropium 0.5 mg-albuterol 3 mg 3 ml inhalation Q4H PRN wheezing 09/06/21 09/09/22 09/07/22 Rx (2.5 mg base)/3 mL nebulization #90 mL soln metoprolol succinate 25 mg 12.5 mg PO DAILY #45 tabs 11/07/21 09/09/22 09/09/22 Rx tablet,extended release 24 hr isosorbide mononitrate 30 mg 30 mg PO DAILY #90 tabs 11/23/21 09/09/22 09/09/22 Rx tablet,extended release 24 hr pantoprazole 40 mg tablet,delayed 40 mg PO BID #180 tabs 01/23/22 09/09/22 09/09/22 Rx release budesonide 160 mcg-glycopyr 9 2 inh inhalation BID #10.7 grams 03/25/22 09/09/22 09/09/22 Rx mcg-formot 4.8 mcg/actuation HFA inhaler (Breztri Aerosphere) aspirin 81 mg chewable tablet 81 mg PO DAILY 04/11/22 09/09/22 09/09/22 History amlodipine 10 mg tablet 10 mg PO DAILY #90 tabs 05/23/22 09/09/22 09/09/22 Rx clopidogrel 75 mg tablet 75 mg PO DAILY #90 tabs 08/20/22 09/09/22 09/06/22 Rx albuterol sulfate 2.5 mg/3 mL 2.5 mg (3 mL) inhalation Q6H PRN 09/09/22 Unknown Rx (0.083 %) solution for nebulization Wheezing #90 mL gabapentin 100 mg capsule 100 mg PO QPM Heal pain 09/09/22 09/09/22 09/09/22 History semaglutide 1 mg/dose (4 mg/3 mL) 1 mg SUBCUT .WEEK 09/09/22 09/09/22 09/03/22 History subcutaneous pen injector (Ozempic) Allergies Allergy/AdvReac Type Severity Reaction Status Date / Time strawberry Allergy ADR-Itching Verified 09/09/22 10:33 [facility] Anesthesia Medical History Asthma with exacerbation Atherosclerosis of coronary artery History of COPD Hx of chest pain Hx of gastroesophageal reflux (GERD) Hx of hypercholesterolemia Hx of migraines Hx of primary hypertension Only the blood pressure is in the normal range. We'll continue on the current medications. PUD (peptic ulcer disease) Right upper quadrant pain Smoker Patient is strongly advised to quit smoking. ST elevation myocardial infarction (STEMI) This patient presents with the features of ST elevation myocardial infarction. 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 She underwent PCI of this lesion. Currently she seems to be stable. Surgical History History of ankle surgery History of bladder surgery History of carpal tunnel release of both wrists History of tonsillectomy and adenoidectomy Family History Sister Cancer Myocardial infarct Heart disease Mother Myocardial infarct Heart disease Grandmother Myocardial infarct Heart disease maternal Other Hypertension Stroke Denies family history of Colon cancer Ovarian cancer Diabetes Breast cancer Uterine cancer Social History Substance/Drug Use: never Data Anesthesia 09/09/22 10:56 09/09/22 10:56 Short CBC 09/09/22 Range/Units 10:56 WBC 6.4 (4.0-10.0) 10^3/uL Hgb 11.9 (11.5-15.3) g/dL Hct 39.8 (37.0-47.0) % MCV 101.5 H (81-99) fl Plt Count 305 (130-400) 10^3/cmm Neut % (Auto) 76.2 % Neut # (Auto) 4.88 (1.8-7.7) 10^3/uL BMP 09/09/22 10:56 Sodium 140 Potassium 3.5 Chloride 101 Carbon Dioxide 30 H BUN 9 Creatinine 1.0 H Glucose 90 Calcium 9.9 Liver Function 09/09/22 Range/Units 10:56 Total Bilirubin 0.2 (0.15-1.2) mg/dL AST 12 (0-32) U/L ALT 11 (0-33) U/L Alkaline Phosphatase 57 (35-105) U/L Albumin 4.3 (3.5-5.2) g/dL Urine 09/09/22 Range/Units 10:56 Urine Color Dark yellow (Yellow) Urine Appearance Clear (CLEAR) Urine pH 7 (5-7) Ur Specific [place] 1.010 (1.005-1.030) Urine Protein Neg (Negative) Urine Glucose (UA) Norm (Normal) Urine Ketones Negative (Negative) Urine Nitrate Negative (Negative) Urine Bilirubin Neg (Negative) Ur Leukocyte Esterase Negative (Negative) Blood Bank 05/08/23 10:56 Blood Type O Positive Rho(D) Type Positive Antibody Screen Negative Cardiac Studies: Echocardiogram 04/12/21 Sestamibi Stress Test (Cardiology) 12/26
[2022-09-11] VITALS (12 sets, daily range): BP systolic 123–181; BP diastolic 51–76; PULSE 68–84; RESP 15–18; TEMP 36.1–36.4; O2SAT 90–95
[2022-09-11] MEDS: enoxaparin 40 mg/0.4 mL Syringe SUBCUT (11:46)
[2022-09-11] MEDS: sodium chloride 0.9% 1,000 ML 30 ML IV (11:46)
--- NOTE | 2022-09-11 12:35 | W.PM.OPSUD ---
Surgery/Procedure H&P Update DATE OF PROCEDURE: September 11, 2022 DATE H&P PERFORMED: 09/09/22 H&P UPDATE INFORMATION: I have reviewed H&P completed within last 30 days, I have examined patient prior to procedure and No changes to prior documentation PREOP DIAGNOSIS: Stress urinary incontinence PLANNED PROCEDURE: Operation Date: 09/11/22 13:10 Proposed Procedures p Single incision sling 27850,N39.3(Not Applicable) - Yang Munoz MD
[2022-09-11] MEDS: ceFAZolin 2,000 MG in sodium chloride 0.9% (plus) 50 ML 100 MG IV (13:46)
[2022-09-11] MEDS: lidocaine-epi 2% 20 mL INJ 10 ML INJECTION (14:30)
--- NOTE | 2022-09-11 14:40 | ANES.PAUD2 ---
Pre-Anesthetic Update Pre-Anesthetic Assessment: Date of Surgery/Procedure: 09/11/22 Preop Diagnosis: Stress urinary incontinence Proposed Procedure: Operation Date: 09/11/22 13:10 Proposed Procedures p Single incision sling 03861,N39.3(Not Applicable) - Yang Munoz MD Any changes to Pre-Anesthetic Assessment?: No Last Intake: Intake Last Liquid Date 09/10/22 Last Liquid Time 22:30 Last Solid Date 09/10/22 Last Solid Time 22:30 Vitals: Temperature 97.4 F L 09/11/22 11:32 Temperature Source Temporal Artery S can 09/11/22 11:32 Pulse Rate 75 09/11/22 11:32 Respiratory Rate 18 09/11/22 11:32 Blood Pressure 181/69 09/11/22 11:32 Blood Pressure Tara n 106 09/11/22 11:32 Pulse Oximetry 94 09/11/22 11:32 Oxygen Delivery Me thod Room Air 09/11/22 11:33 Exam: Pre-Anes Outpt Exam: alert, oriented x 3, clear to auscultation bilaterally and regular rate & rhythm Cardiac Studies: Echocardiogram 04/12/21 Sestamibi Stress Test (Cardiology) 12/26/20
--- NOTE | 2022-09-11 14:43 | PM.OP ---
Operative Report Date of procedure: September 11, 2022 Pre-op diagnosis: Preop Diagnosis Stress urinary incontinence Post-op diagnosis: Same as above Procedure done: Single incision mid urethral sling Specimens removed/disposition: None Surgeon: Yang Munoz MD Estimated blood loss (mL): 10 IV fluids (mL): 700 Urine output (mL): 300 Procedure: After obtaining informed consent, the patient was taken to the operating room and placed in the supine position, given general anesthesia, and prepped and draped in sterile fashion. The abdomen, vulva and vagina were prepped and draped in a sterile manner. A time out procedure was performed. The anterior vaginal mucosa beneath the midurethra was infiltrated with 2% lidocaine with epinephrine. A vertical midline incision was made beneath the midurethra, nearly 1.5 cm length. Careful submucosal dissection was performed bilaterally up to the interior portion of the inferior pubic ramus. The insertion of adductor longus tendon on the patient?s pubic ramus was identified as reference land jesus alberto. Palpated the notch along the internal edge of ischiopubic ramus where the adductor longus tendon and the inferior pubic ramus meet. The Altis single incision sling (SIS) was selected. Then the needle of the SIS inserted aiming at the location of this notch. One of the integrated self-fixating tips place onto the needle by sliding it over the end of the needle. The needle/sling assembly was inserted toward the location of identified reference notch making sure that the flat of the handle is perpendicular to the desired path. The needle was tracked along the posterior surface of the ischiopubic ramus until the midline jesus alberto on the mesh is approximately at the midline position under the urethra. The needle was removed and the same was repeated on the contralateral side until the appropriate sling tension under the urethra was achieved ensuring that the mesh lays flat. The needle was removed and vaginal incision was closed in a running interlocking fashion with 2-0 Vicryl. Then the Booth catheter was removed and cystoscope was inserted. The bladder was filled with sterile water. Complete evaluation of the bladder mucosa was performed noting no lacerations, dimpling, tears, bleeding of the mucosa or muscular layers. Both ureteral orifices were identified. Prompt excretion of urine from both ureteral orifices was noted. Cystoscope was withdrawn. The Booth catheter was replaced. Excellent hemostasis was obtained. A vaginal pack is placed overnight as postoperative support for the vaginal tissues after graft placement and closure of vaginal incisions. Sponge, lap, needle, and instrument counts were correct times three. The patient was taken to the recovery room, awake and in stable condition.
--- NOTE | 2022-09-11 15:33 | ANE.PACU2 ---
Inpatient post-anesthesia follow up: Airway intact: Yes Vital signs: Temperature 97 F Pulse Rate 78 Respiratory Rate 16 Blood Pressure 143/67 Pulse Oximetry 92 Oxygen Delivery Me thod Room Air Oxygen Flow Rate Fraction of Inspir ed Oxygen Hydration adequate: Yes Nausea and vomiting: No Pain level: 2 Mental status: Baseline
[2022-09-11] MEDS: docusate sodium 100 mg Capsule PO (17:45)
[2022-09-11] MEDS: pantoprazole DR 40 mg Tablet PO (17:45)
[2022-09-11] MEDS: ketorolac 30 mg/mL INJ IVP ×2 (17:47→22:30)
[2022-09-11] MEDS: dextrose 5%-lactated ringers 1,000 ML 125 ML IV (17:47)
[2022-09-11] MEDS: simethicone 80 mg Chew PO (20:44)
[2022-09-12] MEDS: HYDROcodone-acetaminophen 5-325 mg Tablet PO ×2 (00:46→08:25)
--- NOTE | 2022-09-12 03:52 | P.DS_ITS ---
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 Jones 67-year-old female with a history of stress urinary incontinence, admitted for planned single incision mid urethral sling. The procedure was performed on palpation. Overnight observation was uneventful. Tolerating that well. Dilated with difficulty. She is after likely medically stable postoperative day 1. She was counseled regarding pelvic rest for 6 weeks (no sex, no tampons, no vaginal douches). Return to the emergency room if any fever, increased bleeding or pain. Physical Exam Narrative: GA: Alert and oriented ?3. HEENT: WNL. Heart: Regular rate and rhythm. Lungs: Clear to auscultation bilaterally. Abdomen: Bowel sounds present, nontender. 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 Extremities: No edema, no cyanosis, no calves pain. Urinary Catheter Management: Booth: Cath Placed During This Visit: yes Reason for Continuing Indwelling Catheter: Perioperative Use in Selected Surgeries Urinary Catheter Date of Insertion: 09/11/22 Urinary Catheter Time of Insertion: 14:15 History History History 1 Term 1 0 Miscarriages/Ectopic 0 Living Children 1 Discharge Data Studies Completed and Pending Pending at discharge Category Date Time Status Hemagram Timed Lab 09/12/22 05:00 Uncollected Laboratory Results WBC 6.4 10^3/uL (4.0-10.0) 09/09/22 10:56 RBC 3.92 10^6/uL (4.1-5.3) L 09/09/22 10:56 Hgb 11.9 g/dL (11.5-15.3) 09/09/22 10:56 Hct 39.8 % (37.0-47.0) 09/09/22 10:56 MCV 101.5 fl (81-99) H 09/09/22 10:56 MCH 30.4 pg (28.0-34.0) 09/09/22 10:56 MCHC 29.9 g/dL (30.0-36.0) L 09/09/22 10:56 RDW 12.5 % (12.1-15.1) 09/09/22 10:56 Plt Count 305 10^3/cmm (130-400) 09/09/22 10:56 MPV 10.4 fL (7.4-10.4) 09/09/22 10:56 Neut % (Auto) 76.2 % 09/09/22 10:56 Lymph % (Auto) 14.0 % 09/09/22 10:56 [place] % (Auto) 7.0 % 09/09/22 10:56 Eos % (Auto) 1.9 % 09/09/22 10:56 Baso % (Auto) 0.6 % 09/09/22 10:56 Neut # (Auto) 4.88 10^3/uL (1.8-7.7) 09/09/22 10:56 Lymph # (Auto) 0.9 10^3/uL (0.8-4.8) 09/09/22 10:56 [place] # (Auto) 0.5 10^3/uL (0.2-0.9) 09/09/22 10:56 Eos # (Auto) 0.1 10^3/uL (0.0-0.8) 09/09/22 10:56 Baso # (Auto) 0.0 10^3/uL (0.0-0.1) 09/09/22 10:56 Nucleated RBC % (auto) 0 % 09/09/22 10:56 Nucleated RBCs # 0.0 /100WBC 09/09/22 10:56 Sodium 140 mmol/L (136-145) 09/09/22 10:56 Potassium 3.5 mmol/L (3.5-5.1) 09/09/22 10:56 Chloride 101 mmol/L (98-107) 09/09/22 10:56 Carbon Dioxide 30 mmol/L (22-29) H 09/09/22 10:56 Anion Gap 12.5 (5-19) 09/09/22 10:56 BUN 9 mg/dL (8-23) 09/09/22 10:56 Creatinine 1.0 mg/dL (0.5-0.9) H 09/09/22 10:56 GFR Calculation 55.0 mL/min (90-130) L 09/09/22 10:56 Glucose 90 mg/dL (65-115) 09/09/22 10:56 Calculated Osmolality 288 mOsm/kg (285-295) 09/09/22 10:56 Calcium 9.9 mg/dL (8.5-10.5) 09/09/22 10:56 Total Bilirubin 0.2 mg/dL (0.15-1.2) 09/09/22 10:56 AST 12 U/L (0-32) 09/09/22 10:56 ALT 11 U/L (0-33) 09/09/22 10:56 Alkaline Phosphatase 57 U/L (35-105) 09/09/22 10:56 Total Protein 6.7 g/dL (6.6-8.7) 09/09/22 10:56 Albumin 4.3 g/dL (3.5-5.2) 09/09/22 10:56 Globulin 2.4 g/dL (1.3-4.6) 09/09/22 10:56 Urine Color Dark yellow (Yellow) 09/09/22 10:56 Urine Appearance Clear (CLEAR) 09/09/22 10:56 Urine pH 7 (5-7) 09/09/22 10:56 Ur Specific [place] 1.010 (1.005-1.030) 09/09/22 10:56 Urine Protein Neg (Negative) 09/09/22 10:56 Urine Glucose (UA) Norm (Normal) 09/09/22 10:56 Urine Ketones Negative (Negative) 09/09/22 10:56 Urine Blood Neg (Negative) 09/09/22 10:56 Urine Nitrate Negative (Negative) 09/09/22 10:56 Urine Bilirubin Neg (Negative) 09/09/22 10:56 Urine Urobilinogen Norm mg/dL (Negative) 09/09/22 10:56 Ur Leukocyte Esterase Negative (Negative) 09/09/22 10:56 Blood Type O Positive 09/09/22 10:56 Rho(D) Type Positive 09/09/22 10:56 Antibody Screen Negative 09/09/22 10:56 Vitals Last Vital Signs Temp 97.6 F 09/11/22 20:47 Pulse 70 09/11/22 20:47 Resp 18 09/11/22 20:47 BP 153/66 09/11/22 20:47 Pulse Ox 90 09/11/22 20:47 O2 Del Method Room Air 09/11/22 20:47 Discharge Plan Discharge Patient Disposition: Home Condition: Stable Prescriptions: New nitrofurantoin macrocrystal 100 mg capsule 100 mg PO BID 3 Days Qty: 6 0RF Rx Instructions: must administer with a meal/food acetaminophen 325 mg capsule 325 mg PO Q4H PRN (Reason: fever or pain) Qty: 60 0RF Continued ipratropium-albuterol 0.5 mg-3 mg(2.5 mg base)/3 mL solution for nebulization 3 ml inhalation Q4H PRN (Reason: wheezing) Qty: 90 3RF aspirin 81 mg tablet,chewable 81 mg PO DAILY Hold Instructions: Resume on 04/29/22. amlodipine 10 mg tablet 10 mg PO DAILY Qty: 90 3RF pantoprazole 40 mg tablet,delayed release (DR/EC) 40 mg PO BID Qty: 180 3RF Breztri Aerosphere 160-9-4.8 mcg/actuation HFA aerosol inhaler 2 inh inhalation BID Qty: 10.7 5RF clopidogrel 75 mg tablet 75 mg PO DAILY Qty: 90 3RF Hold Instructions: Resume on 04/30/22. albuterol sulfate 2.5 mg /3 mL (0.083 %) solution for nebulization 2.5 mg inhalation Q6H PRN (Reason: Wheezing) Qty: 90 3RF metoprolol succinate 25 mg tablet extended release 24 hr 12.5 mg PO DAILY Qty: 45 3RF isosorbide mononitrate 30 mg tablet extended release 24 hr 30 mg PO DAILY Qty: 90 3RF Hold Instructions: Resume on 05/01/21. until seen in clinic cetirizine [Zyrtec] 10 mg tablet 10 mg PO QAM furosemide 20 mg tablet 20 mg PO QAM vitamin B complex Tablet 1 tab PO DAILY ipratropium bromide 42 mcg (0.06 %) spray,non-aerosol 2 spray INTRANASAL QID PRN (Reason: unknown) ferrous sulfate 27 mg iron Tablet 27 mg PO BID cholecalciferol (vitamin D3) [Vitamin D3] 125 mcg (5,000 unit) Tablet 125 mcg PO QAM guaifenesin [Mucinex] 600 mg tablet extended release 12hr 600 mg PO Q12H PRN (Reason: Congestion) biotin 5,000 mcg Tablet, Sublingual 5,000 mcg SUBLINGUAL DAILY Ozempic 1 mg/dose (4 mg/3 mL) pen injector 1 mg SUBCUT .WEEK gabapentin 100 mg capsule 100 mg PO QPM Discharge Orders: Discharge Order (Routine); Ordered 09/12/22 Ordered By: Yang Munoz Referrals: Yang Munoz MD [Physician] - 2 weeks Discharge Diet: Usual diet Discharge Activity: Limit activity as instructed Patient Instructions: Opioid Safety (DC), OB Discharge Report, OB Food/Drug Interaction Guide, Opioid Safety, Bladder Sling for Women (GEN) Activity Restrictions/Additional Instructions: 1. Please call [facility] on next working day to make your post-operative appointment in 2 weeks. 2. Please stay home until you come back to the clinic on first post- hospatilization check up. 3. Please follow instructions on your medications CAREFULLY. 4. If you have abdominal incision, do not cover it unless dressing is necessary because of drainage. OK to shower, but avoid bath. Leave steri-strips until they fall off. If they are still on one week after surgery, you may remove them. 5. If you had vaginal surgery or vaginal repair, Dr. Munoz may instruct you to take SITZ bath. 6. Yellow, blood tinged odorous vaginal discharge is usually normal after hysterectomy or vaginal surgeries. 7. No SEXUAL INTERCOURSE, tampons, or douches until you are completely released from the post-operative care. 8. Avoid constipation by eating right and maybe using some Metamucil or Milk of Magnesia. 9. All prescription refills are given during the working hours. Please do no wait till it runs out. Call the clinic at [phone] before your medication runs out. The clinic will get in touch with your doctor to prescribe medications if necessary. 10. Please remain within 40 mile radius from our hospital because emergencies do happen now and then during the post-operative period. 11. If you have stairs at home, take one step at a time slowly and minimize the number of trips. It helps to stay in one floor for the next few days. No lifting except what you can lift by one hand until you are released from the post-operative care. 12. Driving is discouraged until you are well healed. It may be 3-4 weeks before you feel strong enough to drive. You should be able to turn and look through the rear window without pain and you should be able to push the brake pedal very hard without pain before you drive. No fast rules, but SAFETY should be your primary concern. DO NOT drive if you are on sedating medications such as narcotics. 13. Call the clinic (during working hours) to make urgent appointment or go to the Emergency room, if any of the following occurs: i. Vaginal bleeding becomes heavy, more than a period. ii. Incision becomes red and sore, or drains pus. iii. Your TEMPERATURE is over 100.4F or you have chill. iv. IV site becomes red and swollen (a little ``knot?? is usually OK) v. Persistent nausea and vomiting vi. Persistent constipation or diarrhea vii. Rash or allergic reaction to medications. Discharge Attestations REFRIGERATOR CABINETMAKER Time Spent in Discharge Care*: greater than 30 min Status at Discharge: Cognitive status at discharge: cognitively intact , Behavioral status at discharge: cooperative , Coding Level of Care Code Acute Code for Chg Fwd Diagnoses
[2022-09-12] MEDS: ketorolac 30 mg/mL INJ IVP (05:06)
[2022-09-12] MEDS: FUROsemide 20 mg Tablet PO (05:07)
[2022-09-12] MEDS: cholecalciferol (vitamin D3) 5,000 unit Tablet 5000 UNIT PO (05:07)
[2022-09-12] MEDS: cetirizine 10 mg Tablet PO (05:07)
[2022-09-12] MEDS: simethicone 80 mg Chew PO (05:07)
[2022-09-12 05:10] VITALS: BP 190/64; PULSE 66; RESP 16; TEMP 36.4; O2SAT 96
[2022-09-12 05:25] VITALS: BP 189/64
[2022-09-12 05:28] LABS: Hematocrit 36.3 % (37.0-47.0); Mean Corpuscular HGB Conc 30.3 g/dL (30.0-36.0); Mean Corpuscular Hemoglobin 30.4 pg (28.0-34.0); Mean Corpuscular Volume 100.3 fl (81-99); Mean Platelet Volume 10.6 fL (7.4-10.4); Platelet Count 258 10^3/cmm (130-400); Red Blood Count 3.62 10^6/uL (4.1-5.3); Red Cell Distribution Width 12.1 % (12.1-15.1); White Blood Count 9.8 10^3/uL (4.0-10.0)
[2022-09-12 05:40] VITALS: BP 187/67
[2022-09-12] MEDS: metoprolol succinate ER (24 HR) 25 mg Tablet 12.5 MG PO ×2 (05:49→05:51)
[2022-09-12] MEDS: amlodipine 10 mg Tablet PO (05:49)
--- NOTE | 2022-09-12 06:35 | PC.NURSE ---
Post residual void scanned 130 mL after voiding 500 mL at 0630
[2022-09-12 06:50] VITALS: BP 157/65
[2022-09-12] MEDS: docusate sodium 100 mg Capsule PO (08:11)
[2022-09-12] MEDS: isosorbide mononitrate ER 30 mg Tablet PO (08:11)
[2022-09-12] MEDS: clopidogrel 75 mg Tablet PO (08:11)
[2022-09-12] MEDS: aspirin 81 mg Chew Tablet PO (08:12)
[2022-09-12] MEDS: pantoprazole DR 40 mg Tablet PO (09:32)
[2022-09-12 11:52] VITALS: BP 157/65; PULSE 67; RESP 14; TEMP 36.7; O2SAT 92
--- NOTE | 2022-09-12 12:06 | PC.NURSE ---
Patient provided with written education as well as verbal education regarding follow up appointments, restrictions a after procedure, prescriptions, and S/S to call provider or call 911. Patient given phone number to reach provider and information about the portal. Patient did not have any questions at the time of discharge. Patient was taken via wheelchair to visit family currently in ICU. 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 All belongings with patient at time of discharge.
== END 2022-09-12 12:09 | disposition home or self-care (01) ==
LOC: OR 16:28 → OBGYN 16:28
PROVIDERS: Admitting Provider Obstetrics & Gynecology; PCP Nurse Practitioner Family; Visit Provider Obstetrics & Gynecology
PROC: (CPT 57288; principal; 2022-09-11 13:00)
DX: N39.3 Stress incontinence (female) (male) (principal); R94.39 Abnormal result of other cardiovascular function study; Z79.02 Long term (current) use of antithrombotics/antiplatelets; Z79.82 Long term (current) use of aspirin; J45.909 Unspecified asthma, uncomplicated; F17.200 Nicotine dependence, unspecified, uncomplicated; K21.9 Gastro-esophageal reflux disease without esophagitis; I25.10 Atherosclerotic heart disease of native coronary artery without angina pectoris; I10 Essential (primary) hypertension; Z95.5 Presence of coronary angioplasty implant and graft
CPT/HCPCS: 57288; 36415; 80053; 81003; 85025; 85027; 86850; 86900; 93005; C1713; G0378; J0690; J1100; J1650; J1885; J2405; J2704; J3010; J7030; J7121

== ENCOUNTER → 2022-11-12 11:45 | Outpatient (BNVA) | payer MEDICARE, MEDICAID, SELFPAY | PROVIDERS: PCP Nurse Practitioner Family; Visit Provider Internal Medicine Cardiovascular Disease | DX: I25.119 Atherosclerotic heart disease of native coronary artery with unspecified angina pectoris (principal); I10 Essential (primary) hypertension; F17.200 Nicotine dependence, unspecified, uncomplicated; R07.2 Precordial pain; J44.9 Chronic obstructive pulmonary disease, unspecified | CPT/HCPCS: 99213 ==

== ENCOUNTER → 2022-11-13 12:55 | Outpatient (BNVA) | payer MEDICARE, MEDICAID, SELFPAY | PROVIDERS: PCP Nurse Practitioner Family; Visit Provider Internal Medicine Pulmonary Disease | DX: J44.9 Chronic obstructive pulmonary disease, unspecified (principal); F17.200 Nicotine dependence, unspecified, uncomplicated; I25.119 Atherosclerotic heart disease of native coronary artery with unspecified angina pectoris; Z95.5 Presence of coronary angioplasty implant and graft; L60.3 Nail dystrophy; I73.9 Peripheral vascular disease, unspecified; M79.671 Pain in right foot | CPT/HCPCS: 11721; 99214 ==

== ENCOUNTER → 2023-01-15 14:50 | Outpatient (BNVA) | payer MEDICARE, MEDICAID, SELFPAY | PROVIDERS: PCP Nurse Practitioner Family; Visit Provider Podiatrist Foot & Ankle Surgery | DX: L60.8 Other nail disorders (principal); M79.2 Neuralgia and neuritis, unspecified; L60.3 Nail dystrophy; I73.9 Peripheral vascular disease, unspecified | CPT/HCPCS: 11721 ==

== ENCOUNTER → 2023-03-19 14:34 | Outpatient (BNVA) | payer MEDICARE, MEDICAID, SELFPAY | PROVIDERS: PCP Nurse Practitioner Family; Visit Provider Podiatrist Foot & Ankle Surgery | DX: L60.8 Other nail disorders (principal); L60.3 Nail dystrophy; I73.9 Peripheral vascular disease, unspecified | CPT/HCPCS: 11721 ==

== ENCOUNTER 2023-04-22 13:04 | Outpatient (CLI) | payer MEDICARE, MEDICAID, SELFPAY ==
--- NOTE | 2023-04-22 13:15 | CT_ITS ---
WS: [id number] CT NECK TECHNIQUE: Contrast-enhanced CT of the neck with coronal and sagittal reformatted images. CLINICAL INFORMATION: CERVICALGIA/LOCALIZED SWELLING,MASS LUMP, NECK COMPARISON: None. DLP: 121.[address] scans at [facility] use at least one of these dose optimization techniques: automated e xposure control; mA and/or kV adjustment per patient size (includes targeted exams where dose is matc hed to clinical indication); or iterative reconstruction. FINDINGS: Fluid in the LEFT maxillary sinus compatible with maxillary sinusitis. Mastoid air cells are well aer ated. Normal posterior nasopharynx. Normal parapharyngeal fat. Parotid glands are normal. Normal subm andibular glands. No evidence of supraglottic or glottic mass. Normal subglottic airway. Thyroid gland appears normal. No cervical lymphadenopathy. Straightening of the normal cervical lordosis with mild spondylitic changes. Carotid bulb calcification. IMPRESSION: 1. No evidence of supraglottic or glottic mass. 2. No cervical lymphadenopathy. 3. LEFT maxillary sinusitis. Mastoid air cells are well aerated. 4. Normal salivary glands. 5. No other suspicious findings.
[2023-04-22 14:27] LABS: Blood Urea Nitrogen 12 mg/dL (8-23); Glomerular Filtration Rate 71.1 mL/min (90-130)
[2023-04-22] MEDS: iohexol 350 mg/mL 500 mL Btl (per mL) IV (14:37)
== END 2023-04-22 13:05 | disposition home or self-care (01) ==
LOC: RAD 13:04
PROVIDERS: PCP Nurse Practitioner Family; Visit Provider Specialist
DX: M54.2 Cervicalgia (principal); R22.1 Localized swelling, mass and lump, neck; J32.0 Chronic maxillary sinusitis
CPT/HCPCS: 70491; 82565; 84520; Q9967

== ENCOUNTER → 2023-05-13 12:47 | Outpatient (BNVA) | payer MEDICARE, MEDICAID, SELFPAY | PROVIDERS: PCP Nurse Practitioner Family; Visit Provider Internal Medicine | DX: I73.9 Peripheral vascular disease, unspecified (principal); I10 Essential (primary) hypertension; I25.119 Atherosclerotic heart disease of native coronary artery with unspecified angina pectoris; R07.2 Precordial pain; J44.9 Chronic obstructive pulmonary disease, unspecified; F17.210 Nicotine dependence, cigarettes, uncomplicated | CPT/HCPCS: 99214 ==

== ENCOUNTER 2023-05-28 10:08 | Outpatient (CLI) | payer MEDICARE, MEDICAID, SELFPAY ==
[2023-05-28 10:43] VITALS: BMI 22.4
--- NOTE | 2023-05-28 10:43 | ECG_ITS ---
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 Interpretive Statements NAME OF STUDY: LEXISCAN SESTAMIBI STRESS TEST INDICATION: [Chest Pain; Shortness of Breath, ] Procedure: At the baseline, the blood pressure was 176/53 mmHg with a heart rate of 70 bpm. The electrocardiogram showed normal sinus rhythm, normal axis with nonspecific ST-T wave changes. The Lexiscan was infused over a period of 20 seconds. A total of 0.4 mg of Lexiscan was infused. The stress phase was continued for a total of 5 minutes. Heart rate was at the end of stress phase was 93 bpm and a blood pressure of 144/59 mmHg. The EKG at the peak infusion revealed normal sinus rhythm with no significant ST-T wave changes. Sestamibi was injected 20 seconds after the Lexiscan infusion. Blood pressure at the end of recovery phase was 133/46 mmHg with a heart rate of 87bpm. Conclusion: 1. Normal EKG response to Lexiscan infusion 2. No Lexiscan induced chest pain or cardiac arrhythmia. 3. Normal blood pressure and heart rate response. 4. Sestamibi/sestamibi perfusion scan pending; see separate report. Electronically Signed On 06-08-2023 11:50:20 MINER PLACER by Tay Torres M.D. [id number]
--- NOTE | 2023-05-28 10:43 | NMCV_ITS ---
NM val perf SPECT r/s* [id number] Latonia Gar Age: 67 Gender: F : 1955 Exam Date: 05/28/2023 11:27 Ordering Phys: Tay Torres M.D ([email or web address]) Technologist: PAN Jackson Exam Location: [facility] Indications: CHEST PAIN STRESS TEST [facility] IMAGE PROTOCOL Rest/Stress 1 Radiopharmaceutical Dose (mCi) Administration Site Administered by Rest: Tc-99m 10.6 IV PAN Rojas Sestamibi Stress:Tc-99m 32.8 IV PAN Rojas Sestamibi Rest: 28-May-2023 60 Discovery 630 Stress: 28-May-2023 30 Discovery 630 Images obtained in supine and prone position. Images obtained in supine and prone position. SPECT RESULTS Technical Quality: Excellent Raw Data Analysis: Normal Image Corrections: No attenuation or motion correction applied Summed Stress Score: 4 Summed Rest Score: 4 Summed Difference Score: 1 PERFUSION FINDINGS Small sized area of fixed perfusion defect is seen in the inferior wall. This is consistent with small area of prior infarct with no significant guy-infarct ischemia noted in the RCA territory. FUNCTIONAL RESULTS (calculated via Gated SPECT) Stress Image LV EF (%): 44 Stress EDV (mL):110 TID: 1.04 Stress ESV (mL):62 FUNCTIONAL FINDINGS: LV systolic function is mildly reduced with EF of 44% IMPRESSIONS 1. Small area of prior infarct with no significant guy-infarct ischemia is seen in the RCA territory 2. LV systolic function is mildly reduced with EF of 44% Tay Torres MD (Electronically Signed) Final Date: 29 May 2023 12:42 S
[2023-05-28] MEDS: regadenoson 0.4 Mg/5 ml Syringe IVP (11:58)
[2023-05-28 13:30] VITALS: BP 133/46; PULSE 85
== END 2023-05-28 10:09 | disposition home or self-care (01) ==
PROVIDERS: PCP Nurse Practitioner Family; Visit Provider Internal Medicine
DX: R07.9 Chest pain, unspecified (principal); R06.02 Shortness of breath; I25.2 Old myocardial infarction; I51.89 Other ill-defined heart diseases
CPT/HCPCS: 36415; 78452; 93017; 96374; A9500; J2785

== ENCOUNTER 2023-06-11 13:59 | Outpatient (CLI) | payer MEDICARE, MEDICAID, SELFPAY ==
--- NOTE | 2023-06-11 14:45 | CT_ITS ---
WS: [id number] LDCT LUNG CANCER SCREENING TECHNIQUE: Noncontrast CT of the chest with coronal and sagittal reformatted images. CLINICAL INFORMATION: Cancer Screen COMPARISON: 06/11/2022 DLP: 45.41 mGy.cm DIvol: Mean CTDIvol: 0.80 (mGy) All CT scans at [facility] use at least one of these dose optimization techniques: automat ed exposure control; mA and/or kV adjustment per patient size (includes targeted exams where dose is matched to clinical indication); or iterative reconstruction. FINDINGS: Hazy subpleural opacity RIGHT upper lobe posteriorly measuring 7.5 mm compared to 5 mm previous. Benjamin mmend 6-month follow-up. Subsegmental atelectasis in the lung bases. Slight subpleural nodularity in both lower lobes. A few scattered calcified granulomas. Moderate chronic emphysematous changes similar to previous. No acute pulmonary infiltrates. No focal pneumonia or pleural fluid. No new suspicious pulmonary parenchymal opacities. Aortic calcification. Coronary calcification. Normal caliber descending thoracic aorta. Adrenal gland s are normal. Small esophageal hiatal hernia. No mediastinal or hilar lymphadenopathy. No axillary ly mphadenopathy. Mild hypertrophic changes thoracic spine. IMPRESSION:Hazy subpleural opacity RIGHT upper lobe posteriorly measuring 7.5 mm compared to 5 mm pre vious. Recommend 6-month follow-up. CT/CT lung screening [id number] LUNG-RADS: 3-Probably Benign FOLLOW UP: 6 Month LDCT
== END 2023-06-11 14:00 | disposition home or self-care (01) ==
PROVIDERS: PCP Nurse Practitioner Family; Visit Provider Internal Medicine Pulmonary Disease
DX: Z12.2 Encounter for screening for malignant neoplasm of respiratory organs (principal); F17.210 Nicotine dependence, cigarettes, uncomplicated; R91.8 Other nonspecific abnormal finding of lung field; J98.11 Atelectasis; J84.10 Pulmonary fibrosis, unspecified; J43.9 Emphysema, unspecified
CPT/HCPCS: 71271

== ENCOUNTER → 2023-06-25 15:00 | Outpatient (BNVA) | payer MEDICARE, MEDICAID, SELFPAY | PROVIDERS: PCP Nurse Practitioner Family; Visit Provider Podiatrist Foot & Ankle Surgery | DX: I73.9 Peripheral vascular disease, unspecified; L60.3 Nail dystrophy; S93.401A Sprain of unspecified ligament of right ankle, initial encounter; X58.XXXA Exposure to other specified factors, initial encounter | CPT/HCPCS: 11721; 73610; 99213 ==

== ENCOUNTER → 2023-10-02 14:55 | Outpatient (BNVA) | payer MEDICARE, MEDICAID, SELFPAY | PROVIDERS: PCP Nurse Practitioner Family; Visit Provider Podiatrist Foot & Ankle Surgery | DX: L60.3 Nail dystrophy (principal); I73.9 Peripheral vascular disease, unspecified | CPT/HCPCS: 11721 ==

== ENCOUNTER 2023-10-09 09:59 | Outpatient (CLI) | payer MEDICARE, MEDICAID, SELFPAY ==
--- NOTE | 2023-10-09 10:03 | FL_ITS ---
WS: [id number] FL barium swallow [id number] REASON FOR EXAM: DYSPHAGIA FLUOROSCOPY TIME: 2min 1.094008pmw # OF SPOT FILMS: 7 FINDINGS: Patient was examined in the upright AP and lateral, prone HERNANDEZ, and supine positions. Multiple swallows of barium were monitored fluoroscopically and multiple rapid sequence spot films ob tained. Normal motility of the cervical esophagus. No extrinsic impingement. No penetration or aspiration. Thoracic esophagus demonstrated minimal loss of the primary peristaltic wave with minimal tertiary co ntractions. There is a minimal hiatal hernia with no Schatzki ring and no esophageal stricture. When the patient was turned from the prone HERNANDEZ position to the supine position no reflux from the bar ium-filled stomach was identified. Barium ingested in the supine position flowed readily into the sto mach and did not produce reflux. FL/FL barium swallow [id number] IMPRESSION: No significant abnormality of the esophagus for age. It was noted during the fluoroscopic monitoring if the patient had calcified pl aque in the right carotid artery. Clinical significance unknown.
== END 2023-10-09 10:00 | disposition home or self-care (01) ==
LOC: RAD 09:59
PROVIDERS: PCP Nurse Practitioner Family; Visit Provider Specialist
DX: R13.10 Dysphagia, unspecified (principal)
CPT/HCPCS: 74220

== ENCOUNTER → 2023-11-11 14:16 | Outpatient (BNVA) | payer MEDICARE, MEDICAID, SELFPAY | PROVIDERS: PCP Nurse Practitioner Family; Visit Provider Internal Medicine | DX: I73.9 Peripheral vascular disease, unspecified (principal); I10 Essential (primary) hypertension; I25.119 Atherosclerotic heart disease of native coronary artery with unspecified angina pectoris; R07.2 Precordial pain; Z72.0 Tobacco use | CPT/HCPCS: 99214 ==

== ENCOUNTER 2023-11-26 14:51 | Outpatient (CLI) | payer MEDICARE, MEDICAID, SELFPAY ==
--- NOTE | 2023-11-26 14:55 | CT_ITS ---
WS: [id number] CT chest wo con [id number] HISTORY: PULMONARY NODULE/TOBACCO USER TECHNIQUE: Axial imaging performed through the thorax. Coronal and sagittal reformats are submitted. All CT scans at [facility] use at least one of these dose optimization techniques: automated exposure control; mA and/or kV adjustment per patient size (includes targeted exams where dose is mat ched to clinical indication); or iterative reconstruction. CONTRAST: None DLP: 205.53 mGy.cm COMPARISON: 06/11/2023, 06/11/2022 Lungs and central airway: Previously described hazy subpleural opacification in the posterior RIGHT u pper lobe is reidentified and appears slightly less consolidated and more groundglass in appearance. Subpleural nodule measures 6.2 mm. Scattered granulomata. Moderate centrilobular emphysema. Pleura: Normal. No pleural effusion. Heart and pericardium: Mild cardiomegaly. Mediastinum and keisha: Calcified subcarinal and RIGHT hilar lymph nodes. There are a few additional ly mph nodes which are not calcified. Lack of IV contrast limits evaluation for enlarging or suspicious lymph nodes. Vessels: Moderate atherosclerotic plaque thoracic aorta. No aneurysm. Normal size pulmonary artery. Chest wall and lower neck: No soft tissue masses. Upper abdomen: Suprarenal aortic calcifications. Small esophageal hiatal hernia. Focal fatty sparing along the falciform ligament. Osseous structures: Increase in thoracic kyphosis with thoracic spondylosis. CT/CT chest wo con [id number] IMPRESSION: 1. Subpleural nodule in the posterior RIGHT upper lobe measures 6.2 mm without increase in size since 06/11/2022. Suggest 12-month noncontrast chest CT follow- up to document continued long-term stability. 2. Moderate centrilobular emphysema. 3. Prior granulomatous disease. 4. Moderate atherosclerosis thoracic and suprarenal aorta.
== END 2023-11-26 14:52 | disposition home or self-care (01) ==
LOC: RAD 14:51
PROVIDERS: PCP Nurse Practitioner Family; Visit Provider Nurse Practitioner Family
DX: R91.1 Solitary pulmonary nodule (principal); Z72.0 Tobacco use; Z12.2 Encounter for screening for malignant neoplasm of respiratory organs; J43.2 Centrilobular emphysema; I51.7 Cardiomegaly; I89.8 Other specified noninfective disorders of lymphatic vessels and lymph nodes; K44.9 Diaphragmatic hernia without obstruction or gangrene; M40.204 Unspecified kyphosis, thoracic region; M47.814 Spondylosis without myelopathy or radiculopathy, thoracic region
CPT/HCPCS: 71250

== ENCOUNTER → 2023-12-30 11:21 | Outpatient (BNVA) | payer MEDICARE, MEDICAID, SELFPAY | PROVIDERS: PCP Nurse Practitioner Family; Visit Provider Podiatrist Foot & Ankle Surgery | DX: L60.8 Other nail disorders (principal); L60.3 Nail dystrophy; I73.9 Peripheral vascular disease, unspecified | CPT/HCPCS: 11721 ==

== ENCOUNTER 2024-02-12 16:59 | Emergency (ER) | payer MEDICARE, MEDICAID, SELFPAY ==
[2024-02-12 17:09] VITALS: BP 154/62; PULSE 83; RESP 19; TEMP 36.9; O2SAT 98; BMI 23.0
--- NOTE | 2024-02-12 17:36 | XRR_ITS ---
PROCEDURE INFORMATION: Exam: XR Chest Exam date and time: 02/12/2024 5:52 PM Age: 68 years old Clinical indication: Cough and shortness of breath; Additional info: Cough sputum production TECHNIQUE: Imaging protocol: Radiologic exam of the chest. Views: 1 view. COMPARISON: CT chest con [id number] 11/26/2023 3:33 PM FINDINGS: Lungs: No focal consolidation. Bilateral calcified granulomas. Left lower lobe scarring/atelectasis. Pleural spaces: No sizable pleural effusion. No pneumothorax. Heart/Mediastinum: Unremarkable cardiomediastinal silhouette. Bones/joints: The spine demonstrates mild degenerative changes at multiple levels. XR/XR chest 1V portable [id number] IMPRESSION: No acute findings.
[2024-02-12 17:55] VITALS: BP 173/47; PULSE 83; O2SAT 95
[2024-02-12 18:20] LABS: Basophils % 0.5 %; Eosinophils # 0.1 10^3/uL (0.0-0.8); Eosinophils % 2.2 %; Hematocrit 27.6 % (36-47); Mean Corpuscular HGB Conc 28.6 g/dL (30-55); Mean Corpuscular Hemoglobin 29.3 pg (27-33); Mean Corpuscular Volume 102.2 fl (85-98); Mean Platelet Volume 9.9 fL (7.4-10.4); Monocytes # 0.5 10^3/uL (0.2-0.9); Monocytes % 8.4 %; Neutrophils # 4.55 10^3/uL (1.8-7.7); Neutrophils % 71.8 %; Nucleated Red Blood Cells # 0.1 /100WBC; Nucleated Red Blood Cells % 0.9 %; Platelet Count 346 10^3/cmm (157-399); Red Cell Distribution Width 14.3 % (12.1-15.1); White Blood Count 6.33 10^3/uL (3.29-11.43)
--- NOTE | 2024-02-12 18:24 | ECG_ITS ---
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 Measurements Intervals Dragoon Rate: 79 P: 72 IL: 162 QRS: 58 QRSD: 89 T: 63 QT: 353 QTc: 405 Interpretive Statements SINUS RHYTHM NONSPECIFIC T-WAVE ABNORMALITY Compared to ECG 09/09/2022 11:17:01 No significant changes Electronically Signed On 02-13-2024 07:41:43 CDT by Tay Torres M.D. [email or web address]
[2024-02-12 18:32] LABS: Anion Gap 11.4 (5-19); Aspartate Amino Transferase 9 U/L (0-32); Blood Urea Nitrogen 10 mg/dL (8-23); Calcium 9.4 mg/dL (8.5-10.5); Carbon Dioxide 30 mmol/L (22-29); Chloride 107 mmol/L (98-107); Creatinine Clr Calc Pharmacy 44.7256; Glomerular Filtration Rate 61.9 mL/min (90-130); Glucose 80 mg/dL (65-115); Osmolality Calculated 298 mOsm/kg (285-295); Potassium 3.4 mmol/L (3.5-5.1); Sodium 145 mmol/L (136-145); Total Bilirubin 0.2 mg/dL (0.15-1.2); Total Protein 5.8 g/dL (6.6-8.7)
[2024-02-12] MEDS: methylPREDNISolone sod succ 125 mg/2 mL INJ IVP (18:37)
--- NOTE | 2024-02-12 18:37 | ED_ITS ---
HPI - SOB/Dyspnea 2 General: Chief Complaint: Shortness of Breath/Dyspnea Stated Complaint: sick,cough Time Seen by Provider: 02/12/24 17:37 History of Present Illness: HPI Narrative: Patient presents to the ER with complaints of shortness of breath, this worsens with exertion, she does have a productive cough and headache. Patient has a history of COPD she wears 2 to 3 L of oxygen at night but does not have to wear it throughout the daytime. She just recently got diagnosed with COVID about 3 weeks ago however she has been better since then. Patient denies any nausea vomiting diarrhea abdominal pain dysuria fever chills. Related Data Home Medications Medication Instructions Recorded Confirmed cetirizine 10 mg tablet (Zyrtec) 10 mg PO QAM 05/10/19 12/30/23 furosemide 20 mg tablet 20 mg PO QAM 10/05/20 12/30/23 biotin 5,000 mcg sublingual tablet 5,000 mcg sublingual DAILY 04/11/21 12/30/23 cholecalciferol (vitamin D3) 125 125 mcg PO QAM 04/11/21 12/30/23 mcg (5,000 unit) tablet (Vitamin D3) ferrous sulfate 27 mg iron tablet 27 mg PO BID pt states sometimes 04/11/21 12/30/23 she will take tid guaifenesin 600 mg tablet, 600 mg PO Q12H PRN Congestion 04/11/21 12/30/23 extended release 12 hr (Mucinex) ipratropium bromide 42 mcg (0.06 2 spray intranasal QID PRN unknown 04/11/21 12/30/23 %) nasal spray vitamin B complex 1 tab PO DAILY 04/11/21 12/30/23 aspirin 81 mg chewable tablet 81 mg PO DAILY 04/11/22 12/30/23 gabapentin 100 mg capsule 100 mg PO QPM Heal pain 09/09/22 12/30/23 semaglutide 1 mg/dose (4 mg/3 mL) 1 mg SUBCUT .QO week 11/12/22 12/30/23 subcutaneous pen injector (Ozempic) Previous Rx's Medication Instructions Recorded ipratropium 0.5 mg-albuterol 3 mg 3 ml inhalation Q4H PRN wheezing 09/06/21 (2.5 mg base)/3 mL nebulization #90 mL soln pantoprazole 40 mg tablet,delayed 40 mg PO BID #180 tabs 01/23/22 release budesonide 160 mcg-glycopyr 9 2 inh inhalation BID #10.7 grams 03/25/22 mcg-formot 4.8 mcg/actuation HFA inhaler (Breztri Aerosphere) amlodipine 10 mg tablet 10 mg PO DAILY #90 tabs 05/23/22 acetaminophen 325 mg capsule 325 mg PO Q4H PRN fever or pain 09/12/22 #60 caps albuterol sulfate 2.5 mg/3 mL 2.5 mg (3 mL) inhalation Q6H PRN 09/17/22 (0.083 %) solution for nebulization Wheezing #90 mL clopidogrel 75 mg tablet See Rx Instructions .Route 07/30/23 .COMPLEX #90 tabs isosorbide mononitrate 30 mg See Rx Instructions .Route 11/10/23 tablet,extended release 24 hr .COMPLEX #90 tabs losartan 100 mg tablet 100 mg PO DAILY #90 tabs 11/11/23 nitroglycerin 0.4 mg sublingual 0.4 mg sublingual Q5M PRN chest 11/11/23 tablet pain #25 tabs metoprolol succinate 25 mg 25 mg .Route .COMPLEX #90 tabs 11/26/23 tablet,extended release 24 hr Allergies Allergy/AdvReac Type Severity Reaction Status Date / Time strawberry Allergy ADR-Itching Verified 12/30/23 11:25 Review of Systems 2 General: Reports: 10 or more systems reviewed and unremarkable except in HPI and below PFSH ED 2 PFSH: Medical History Right upper quadrant pain Atherosclerosis of coronary artery ST elevation myocardial infarction (STEMI) This patient presents with the features of ST elevation myocardial infarction. 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 She underwent PCI of this lesion. Currently she seems to be stable. Hx of chest pain Smoker Patient is strongly advised to quit smoking. Asthma with exacerbation PUD (peptic ulcer disease) Hx of migraines History of COPD Hx of gastroesophageal reflux (GERD) Hx of primary hypertension Hx of hypercholesterolemia Surgical History History of tonsillectomy and adenoidectomy History of ankle surgery History of bladder surgery History of carpal tunnel release of both wrists Family History Sister Cancer Myocardial infarct Heart disease Mother Myocardial infarct Heart disease Grandmother Myocardial infarct Heart disease maternal Other Hypertension Stroke Denies family history of Colon cancer Ovarian cancer Diabetes Breast cancer Uterine cancer Social History Smoking and tobacco/nicotine status: current every day tobacco/nicotine user cigarettes Packs smoked per day: 1 Years cigarettes smoked: 57 [ Other cigarette details: Started smoking at 11] Substance/Drug Use: never Physical Exam 2 Const: COMMON NORMALS: no acute distress, average body habitus, patient oriented x3, no limitations, healthy appearing, alert and well nourished HENMT: COMMON NORMALS: normocephalic, atraumatic, hearing grossly normal bilaterally, external ears normal, Normal external nose present and moist oral mucous membranes HEAD & SCALP: normocephalic and atraumatic NOSE: Normal external nose present EXTERNAL EAR: Yes external ears normal Neck/C-Spine: COMMON NORMALS: full ROM, no lymphadenopathy, supple, no meningeal signs, no JVD and Thyroid normal THYROID: Thyroid normal Chest: COMMONS NORMALS: normal inspection of the chest and normal palpation of entire chest wall Resp: COMMON NORMALS: normal respiratory effort, No retractions and No use of accessory muscles; negative for clear to auscultation bilaterally (Occasional wheeze bilaterally) AUSCULTATION: not clear to auscultation bilaterally (Occasional wheeze bilaterally) Cardio: COMMON NORMALS: no JVD, regular rate, regular rhythm, S1 normal heart sound present, S2 normal heart sound present, No gallops present (Cardio), No clicks present (Cardio), No murmurs present (Cardio) and No rub (Cardio) R ATE: regular rate RHYTHM: regular rhythm HEART SOUNDS: S1 normal heart sound present and S2 normal heart sound present GI: COMMON NORMALS: Normal to inspection, nondistended, normoactive bowel sounds present, Soft to palpation, non-tender, No hepatosplenomegaly present and no masses PALPATION: Yes Soft to palpation and Yes No hepatosplenomegaly present Neuro: COMMON NORMALS: patient oriented x3 SENSORIUM/ORIENTATION: Yes alert MENINGEAL SIGNS: Yes no meningeal signs Course 2 Vital Signs: Vital signs: Vital Signs Temperature 98.4 F 02/12/24 17:09 Pulse Rate 83 02/12/24 17:55 Respiratory Rate 19 H 02/12/24 17:09 Blood Pressure 173/47 02/12/24 17:55 Pulse Oximetry 95 02/12/24 17:55 Oxygen Delivery Me thod Nasal Cannula 02/12/24 17:09 Fraction of Inspir ed Oxygen 3 02/12/24 17:09 MDM - SOB/Dyspnea Medical Decision Making Patient was given 125 mg Solu-Medrol lab work was obtained as well as chest x- ray, while we were waiting for her nebulizer to be performed a code stroke, code STEMI, and overdose, walked through the door. Nebulizer treatment was delayed. During this time patient decided she was ready to go due to the time frame and patient left AMA. Differential Diagnosis Likely acute exacerbation of chronic obstructive airways disease Medical Records I reviewed the patient's medical records. Lab Data I reviewed the patient's lab results. 02/12/24 18:00 02/12/24 18:00 Labs/Radiology: Radiology Impressions Chest X-Ray 02/12/24 17:36 IMPRESSION: No acute findings. Laboratory Results WBC 6.33 10^3/uL (3.29-11.43) 02/12/24 18:00 RBC 2.70 10^6/uL (3.85-5.65) L 02/12/24 18:00 Hgb 7.90 g/dL (11.27-16.99) L 02/12/24 18:00 Hct 27.6 % (36-47) L 02/12/24 18:00 MCV 102.2 fl (85-98) H 02/12/24 18:00 MCH 29.3 pg (27-33) 02/12/24 18:00 MCHC 28.6 g/dL (30-55) L 02/12/24 18:00 RDW 14.3 % (12.1-15.1) 02/12/24 18:00 Plt Count 346 10^3/cmm (157-399) 02/12/24 18:00 MPV 9.9 fL (7.4-10.4) 02/12/24 18:00 Neut % (Auto) 71.8 % 02/12/24 18:00 Lymph % (Auto) 16.0 % 02/12/24 18:00 Daniels % (Auto) 8.4 % 02/12/24 18:00 Eos % (Auto) 2.2 % 02/12/24 18:00 Baso % (Auto) 0.5 % 02/12/24 18:00 Neut # (Auto) 4.55 10^3/uL (1.8-7.7) 02/12/24 18:00 Lymph # (Auto) 1.0 10^3/uL (0.8-4.8) 02/12/24 18:00 Daniels # (Auto) 0.5 10^3/uL (0.2-0.9) 02/12/24 18:00 Eos # (Auto) 0.1 10^3/uL (0.0-0.8) 02/12/24 18:00 Baso # (Auto) 0.0 10^3/uL (0.0-0.1) 02/12/24 18:00 Nucleated RBC % (auto) 0.9 % 02/12/24 18:00 Nucleated RBCs # 0.1 /100WBC 02/12/24 18:00 Sodium 145 mmol/L (136-145) 02/12/24 18:00 Potassium 3.4 mmol/L (3.5-5.1) L 02/12/24 18:00 Chloride 107 mmol/L (98-107) 02/12/24 18:00 Carbon Dioxide 30 mmol/L (22-29) H 02/12/24 18:00 Anion Gap 11.4 (5-19) 02/12/24 18:00 BUN 10 mg/dL (8-23) 02/12/24 18:00 Creatinine 0.9 mg/dL (0.5-0.9) 02/12/24 18:00 GFR Calculation 61.9 mL/min (90-130) L 02/12/24 18:00 Glucose 80 mg/dL (65-115) 02/12/24 18:00 Calculated Osmolality 298 mOsm/kg (285-295) H 02/12/24 18:00 Calcium 9.4 mg/dL (8.5-10.5) 02/12/24 18:00 Total Bilirubin 0.2 mg/dL (0.15-1.2) 02/12/24 18:00 AST 9 U/L (0-32) 02/12/24 18:00 ALT 11 U/L (0-33) 02/12/24 18:00 Alkaline Phosphatase 72 U/L (35-105) 02/12/24 18:00 NT-Pro-B Natriuret Pep 851 pg/mL (0-125) H 02/12/24 18:00 Total Protein 5.8 g/dL (6.6-8.7) L 02/12/24 18:00 Albumin 3.5 g/dL (3.5-5.2) 02/12/24 18:00 Globulin 2.3 g/dL (1.3-4.6) 02/12/24 18:00 All radiology interpretation(s) finalized by discharge Discharge Plan Discharge Patient Disposition: Left Against Medical Advice Clinical Impression: Left against medical advice Condition: Stable Prescriptions: No Action ipratropium-albuterol 0.5 mg-3 mg(2.5 mg base)/3 mL solution for nebulization 3 ml inhalation Q4H PRN (Reason: wheezing) Qty: 90 3RF aspirin 81 mg tablet,chewable 81 mg PO DAILY Hold Instructions: Resume on 04/29/22. nitroglycerin 0.4 mg tablet, sublingual 0.4 mg sublingual Q5M PRN (Reason: chest pain) Qty: 25 3RF Rx Instructions: do not exceed 3 doses per episode losartan 100 mg tablet 100 mg PO DAILY Qty: 90 3RF amlodipine 10 mg tablet 10 mg PO DAILY Qty: 90 3RF pantoprazole 40 mg tablet,delayed release (DR/EC) 40 mg PO BID Qty: 180 3RF Breztri Aerosphere 160-9-4.8 mcg/actuation HFA aerosol inhaler 2 inh inhalation BID Qty: 10.7 5RF albuterol sulfate 2.5 mg /3 mL (0.083 %) solution for nebulization 2.5 mg inhalation Q6H PRN (Reason: Wheezing) Qty: 90 3RF clopidogrel 75 mg tablet See Rx Instructions .ROUTE .COMPLEX Qty: 90 3RF Hold Instructions: Resume on 04/30/22. Dose Instruction: Take 1 tablet by mouth once daily Rx Instructions: Take 1 tablet by mouth once daily isosorbide mononitrate 30 mg tablet extended release 24 hr See Rx Instructions .ROUTE .COMPLEX Qty: 90 3RF Hold Instructions: Resume on 05/01/21. until seen in clinic Dose Instruction: Take 1 tablet by mouth once daily Rx Instructions: Take 1 tablet by mouth once daily metoprolol succinate 25 mg tablet extended release 24 hr 25 mg .ROUTE .COMPLEX Qty: 90 3RF Rx Instructions: 25 mg; cetirizine [Zyrtec] 10 mg tablet 10 mg PO QAM furosemide 20 mg tablet 20 mg PO QAM vitamin B complex Tablet 1 tab PO DAILY ipratropium bromide 42 mcg (0.06 %) spray,non-aerosol 2 spray INTRANASAL QID PRN (Reason: unknown) ferrous sulfate 27 mg iron Tablet 27 mg PO BID cholecalciferol (vitamin D3) [Vitamin D3] 125 mcg (5,000 unit) Tablet 125 mcg PO QAM guaifenesin [Mucinex] 600 mg tablet extended release 12hr 600 mg PO Q12H PRN (Reason: Congestion) biotin 5,000 mcg Tablet, Sublingual 5,000 mcg SUBLINGUAL DAILY gabapentin 100 mg capsule 100 mg PO QPM acetaminophen 325 mg capsule 325 mg PO Q4H PRN (Reason: fever or pain) Qty: 60 0RF Ozempic 1 mg/dose (4 mg/3 mL) pen injector 1 mg SUBCUT .QO week Referrals: FRIENDTRE [Primary Care Provider] - 1 week Patient Instructions: Against Medical Advice (ED) Coding Level of Care Code ED Organisation And Methods Analyst for Salomon Jones
[2024-02-12 19:05] LABS: Alanine Aminotransferase 11 U/L (0-33); Albumin Level 3.5 g/dL (3.5-5.2); Alkaline Phosphatase 72 U/L (35-105); Globulin 2.3 g/dL (1.3-4.6)
[2024-02-12 19:12] LABS: NT Pro B Type Natriuretic Pept 851 pg/mL (0-125)
[2024-02-12 21:00] VITALS: BP 149/64; PULSE 85; RESP 18; O2SAT 95
== END 2024-02-12 20:41 | disposition left against medical advice (07) ==
PROVIDERS: Emergency Provider Emergency Medicine; PCP Nurse Practitioner Family
DX: R06.02 Shortness of breath (principal); Z53.29 Procedure and treatment not carried out because of patient's decision for other reasons; Z79.02 Long term (current) use of antithrombotics/antiplatelets; Z79.82 Long term (current) use of aspirin; Z79.85 Long-term (current) use of injectable non-insulin antidiabetic drugs; F17.210 Nicotine dependence, cigarettes, uncomplicated; I25.2 Old myocardial infarction; I25.10 Atherosclerotic heart disease of native coronary artery without angina pectoris; J44.9 Chronic obstructive pulmonary disease, unspecified; I10 Essential (primary) hypertension
CPT/HCPCS: 71045; 80053; 83880; 85025; 93005; 96374; 99285; J2919

== ENCOUNTER 2024-02-27 14:28 | Outpatient (CLI) | payer MEDICARE, MEDICAID, SELFPAY ==
--- NOTE | 2024-02-27 14:45 | USCV_ITS ---
Latonia Gar Age: 68 Gender: F : 1955 Exam Date: 02/27/2024 15:05 Ordering Phys: TRE OSEGUERA Technologist: Raul Harden Exam Location: [facility] [place] Indication: ELEVATED BNP BP: 181 / 64 HR: 78 Rhythm: Sinus Technical Quality: Adequate MEASUREMENTS (Male / Female) Normal Values 2D ECHO LV Diastolic Diameter PLAX 4.2 cm 4.2 - 5.9 / 3.9 - 5.3 cm IVS Diastolic Thickness 1.4 cm 0.6 - 1.0 / 0.6 - 0.9 cm IVS Systolic Thickness 1.9 cm LVPW Diastolic Thickness 2.3 cm 0.6 - 1.0 / 0.6 - 0.9 cm LVPW Systolic Thickness 2.4 cm LVOT Diameter 2.0 cm LV Ejection Fraction 2D Teich 58.9 % LV Ejection Fraction MOD 4C 59.8 % LV Ejection Fraction MOD 2C 67.5 % LV Ejection Fraction 2C AL 68.5 % LA Diameter 3.0 cm RA Systolic Volume 4C AL 36.8 ml RA Systolic Volume 4C MOD 36.7 ml LA Sys Volume AL 48.6 cm cubed LA Sys Volume Index AL 32.9 cm cubed/m squared Aorta at Sinotubular Diameter 1.7 cm IVC Diameter 1.6 cm M-MODE LA Ao Ratio MM 1.1 AV Cusp Separation MM 1.6 cm DOPPLER AV Peak Velocity 174.0 cm/s LVOT Peak Velocity 95.0 cm/s AV Area Cont Eq vti 1.9 cm squared AV Area Cont Eq pk 1.8 cm squared MV Peak Velocity 107.0 cm/s MV Area PHT 3.7 cm squared Mitral E to A Ratio 0.9 TV Peak Velocity 293.3 cm/s TR Peak Velocity 379.0 cm/s TR Peak Gradient 57.5 mmHg TR Mean Velocity 258.0 cm/s TR Mean Gradient 30.9 mmHg TR Velocity Time Integral 114.5 cm PV Peak Velocity 118.0 cm/s RV Ejection Time 0.3 s FINDINGS Left Ventricle Mild to moderate concentric left-ventricular hypertrophy. LV ejection fraction of 68%. Moderate hypokinesia of the basal inferior wall segment.Grade I/IV diastolic dysfunction (abnormal relaxation filling pattern), normal to mildly elevated filling pressures. Right Ventricle The right ventricle is normal in size and function. Right Atrium The right atrium is normal in size. Left Atrium The left atrium is normal in size. Mitral Valve Thickened mitral valve. Trace to mild mitral valve regurgitation. Aortic Valve No gross abnormalities noted Tricuspid Valve Trace tricuspid valve regurgitation. Pulmonic Valve No gross abnormalities noted Pericardium Normal pericardium without effusion. Aorta Normal ascending aorta dimension. IVC Normal inferior vena cava. CONCLUSIONS Mild to moderate concentric left-ventricular hypertrophy. LV ejection fraction of 68%. Moderate hypokinesia of the basal inferior wall segment.Grade I/IV diastolic dysfunction (abnormal relaxation filling pattern), normal to mildly elevated filling pressures. Thickened mitral valve. Trace to mild mitral valve regurgitation. Trace tricuspid valve regurgitation. Estimated pulmonary artery peak systolic pressure 34 mmHg There is no pericardial effusion. There are no intracardiac masses. Compared to the study from 04/12/2021, there may not be a significant change Dr Bari Cruz MD FACC (Electronically Signed) Final Date: 28 February 2024 10:49 S
== END 2024-02-27 14:29 | disposition home or self-care (01) ==
LOC: RAD 14:28
PROVIDERS: PCP Nurse Practitioner Family; Visit Provider Nurse Practitioner Family
DX: I50.30 Unspecified diastolic (congestive) heart failure (principal); I51.7 Cardiomegaly; I34.81 Nonrheumatic mitral (valve) annulus calcification; R79.89 Other specified abnormal findings of blood chemistry; R60.9 Edema, unspecified; R09.89 Other specified symptoms and signs involving the circulatory and respiratory systems
CPT/HCPCS: 93306

== ENCOUNTER 2024-03-04 09:19 | Outpatient (CLI) | payer MEDICARE, MEDICAID, SELFPAY ==
--- NOTE | 2024-03-04 09:25 | CTR_ITS ---
PROCEDURE INFORMATION: Exam: CT Chest With Contrast; Diagnostic Exam date and time: 03/04/2024 9:33 AM Age: 68 years old Clinical indication: Abnormal findings; Abnormal radiologic exam of lung or chest; Prior surgery; Surgery date: 6+ months; Surgery type: Stent; Patient HX: Mediastinal lymphadenopathy, bilar/ground glass opacity. PT states she has had a cough; Additional info: Mediastinal lymphadenopathy, bilar/ground glass opacity TECHNIQUE: Imaging protocol: Diagnostic computed tomography of the chest with contrast. Radiation optimization: All CT scans at this facility use at least one of these dose optimization techniques: automated exposure control; mA and/or kV adjustment per patient size (includes targeted exams where dose is matched to clinical indication); or iterative reconstruction. Contrast material: OMNI 350; Contrast volume: 100 ml; Contrast route: INTRAVENOUS (IV); COMPARISON: CT chest wo con [id number] 11/26/2023 3:33 PM RADIATION DOSE METRICS: Total DLP (mGy-cm): 247.61 FINDINGS: Lungs: Calcified granuloma in the right lower lobe. Stable 6 mm semi-solid subpleural nodule in the right upper lobe (4-17). Mild centrilobular emphysema. Pleural spaces: Unremarkable. No pneumothorax. No pleural effusion. Heart: Unremarkable. No cardiomegaly. No pericardial effusion. Coronary arteries: Coronary artery calcifications. Lymph nodes: Calcified left hilar lymph nodes. Visible central lymph nodes are not pathologically enlarged. Vasculature: Unremarkable. No aortic aneurysm. Gallbladder and biliary ducts: Cholecystectomy. Bones/joints: Unremarkable. No acute fracture. Soft tissues: Unremarkable. CT/CT chest w con* [id number] IMPRESSION: 1. No acute findings. 2. Stable right upper lobe nodule. COMMENTS: The presence of pulmonary emphysema on CT is an independent risk factor for lung cancer. In the absence of a history or active diagnosis of lung cancer, it is recommended that this patient with emphysema be evaluated for enrollment in a low dose CT lung cancer screening program.
[2024-03-04] MEDS: iohexol 350 mg/mL 500 mL Btl (per mL) IV (09:38)
== END 2024-03-04 09:20 | disposition home or self-care (01) ==
LOC: RAD 09:22
PROVIDERS: PCP Nurse Practitioner Family; Visit Provider Nurse Practitioner Family
DX: R91.1 Solitary pulmonary nodule (principal); J84.10 Pulmonary fibrosis, unspecified; R79.89 Other specified abnormal findings of blood chemistry; R09.89 Other specified symptoms and signs involving the circulatory and respiratory systems; I70.0 Atherosclerosis of aorta; I25.84 Coronary atherosclerosis due to calcified coronary lesion; Z90.49 Acquired absence of other specified parts of digestive tract
CPT/HCPCS: 71260

== ENCOUNTER → 2024-04-07 14:59 | Outpatient (BNVA) | payer MEDICARE, MEDICAID, SELFPAY | PROVIDERS: PCP Nurse Practitioner Family; Visit Provider Podiatrist Foot & Ankle Surgery | DX: L60.3 Nail dystrophy (principal); I73.9 Peripheral vascular disease, unspecified | CPT/HCPCS: 11721 ==

== ENCOUNTER → 2024-05-13 14:48 | Outpatient (BNVA) | payer MEDICARE, MEDICAID, SELFPAY | PROVIDERS: PCP Nurse Practitioner Family; Visit Provider Internal Medicine | DX: I73.9 Peripheral vascular disease, unspecified (principal); I10 Essential (primary) hypertension; I25.119 Atherosclerotic heart disease of native coronary artery with unspecified angina pectoris; R07.2 Precordial pain; F17.210 Nicotine dependence, cigarettes, uncomplicated | CPT/HCPCS: 99214 ==

== ENCOUNTER 2024-07-18 13:40 | Inpatient (IN) | payer MEDICARE, MEDICAID, SELFPAY ==
[2024-07-18] VITALS (9 sets, daily range): BP systolic 118–166; BP diastolic 46–98; PULSE 56–91; RESP 16–19; TEMP 36.4–38.1; O2SAT 89–94; BMI 22.2; BMI 19.5
--- NOTE | 2024-07-18 13:41 | XRR_ITS ---
PROCEDURE INFORMATION: Exam: XR Chest Exam date and time: 07/18/2024 2:02 PM Age: 69 years old Clinical indication: Shortness of breath; SOB; Copd; Hypoxia TECHNIQUE: Imaging protocol: Radiologic exam of the chest. Views: 1 view. COMPARISON: CT chest w con* [id number] 03/04/2024 9:33 AM FINDINGS: Lungs: Bibasilar atelectasis. There is no evidence of focal pulmonary consolidation. Bilateral calcified granulomas. Pleural spaces: Unremarkable. No pleural effusion. No pneumothorax. Heart/Mediastinum: Unremarkable. No cardiomegaly. Bones/joints: Unremarkable. XR/XR chest 1V portable [id number] IMPRESSION: No acute cardiopulmonary process.
--- NOTE | 2024-07-18 13:47 | ED_ITS ---
HPI - SOB/Dyspnea 2 General: Chief Complaint: Shortness of Breath/Dyspnea Stated Complaint: sob Time Seen by Provider: 07/18/24 13:40 Source: patient and EMS Mode of arrival: EMS Limitations: no limitations History of Present Illness: HPI Narrative: 69-year-old female with history COPD deborah dykes with CHF states that she wears oxygen at night not typically during the day last 2 to 3 days has been having increasing cough and dyspnea. States she had the flu last week is febrile here. EMS states that she was in the 60s on room air placed on 4 L. Patient is given Solu-Medrol breathing treatment route states she does have some improvement does still feel short of breath denies any pain. Associated symptoms: Deny abdominal pain, chest pain, fever(s), nausea or vomiting Related Data Home Medications ?Medication ?Instructions ?Recorded ?Confirmed cetirizine 10 mg tablet (Zyrtec) 10 mg PO QAM 05/10/19 05/13/24 furosemide 20 mg tablet 20 mg PO QAM 10/05/20 biotin 5,000 mcg sublingual tablet 5,000 mcg sublingua l DAILY 04/11/21 05/13/24 cholecalciferol (vitamin D3) 125 125 mcg PO QAM 05/13/24 mcg (5,000 unit) tablet (Vitamin D3) ferrous sulfate 27 mg iron tablet 27 mg PO BID pt stat es sometimes 04/11/21 05/13/24 she will take tid guaifenesin 600 mg tablet, 600 mg PO Q12H PRN [place] on 04/11/21 05/13/24 extended release 12 hr (Mucinex) ipratropium bromide 42 mcg (0.06 2 spray intranasal QI D PRN unknown 04/11/21 05/13/24 %) nasal spray vitamin B complex 1 tab PO DAILY 04/11/2101/27 aspirin 81 mg chewable tablet 81 mg PO DAILY 04/11/22 05/13/24 semaglutide 1 mg/dose (4 mg/3 mL) 1 mg SUBCUT .QO week 11/12/22 05/13/24 subcutaneous pen injector (Ozempic) albuterol sulfate 90 mcg/actuation 2 puff inhalation Q 6H PRN 05/13/24 05/13/24 aerosol inhaler oxygen-air delivery systems 05/13/24 05/13/24 Previous Rx's ?Medication ?Instructions ?Recorded ipratropium 0.5 mg-albuterol 3 mg 3 ml inhalation Q4H PRN wheezing 09/06/21 (2.5 mg base)/3 mL nebulization #90 mL soln pantoprazole 40 mg tablet,delayed 40 mg PO BID #180 ta bs 01/23/22 release budesonide 160 mcg-glycopyr 9 2 inh inhalation BID #10 .7 grams 03/25/22 mcg-formot 4.8 mcg/actuation HFA inhaler (Breztri Aerosphere) amlodipine 10 mg tablet 10 mg PO DAILY #90 tabs 05/05 01/25 acetaminophen 325 mg capsule 325 mg PO Q4H PRN fever o r pain 09/12/22 #60 caps albuterol sulfate 2.5 mg/3 mL 2.5 mg (3 mL) inhalation Q6H PRN 09/17/22 (0.083 %) solution for nebulization Wheezing #90 mL isosorbide mononitrate 30 mg See Rx Instructions .Rout e 11/10/23 tablet,extended release 24 hr .COMPLEX #90 tabs losartan 100 mg tablet 100 mg PO DAILY #90 tabs 01/26 nitroglycerin 0.4 mg sublingual 0.4 mg sublingual Q5M PRN chest 11/11/23 tablet pain #25 tabs metoprolol succinate 50 mg 50 mg PO DAILY #90 tabs 01/27 tablet,extended release 24 hr clopidogrel 75 mg tablet See Rx Instructions .Route 0 07/16/24 .COMPLEX #90 tabs Allergies Allergy/AdvReac Type Severity Reaction Status Date / Time strawberry Allergy ADR-Itching Verified 05/13/24 15:13 Review of Systems 2 Const: Denies: fever(s), chills, body aches or change in appetite ENMT: Denies: throat pain or dental pain Card: Denies: chest pain Resp: Reports: dyspnea and non-productive cough GI: Denies: abdominal pain, nausea, vomiting or diarrhea Musc: Denies: neck pain or back pain Skin/Breast: Denies: rash Neuro: Denies: headache(s) PFSH ED 2 PFSH: Medical History Right upper quadrant pain Atherosclerosis of coronary artery ST elevation myocardial infarction (STEMI) This patient presents with the features of ST elevation myocardial infarction. 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 She underwent PCI of this lesion. Currently she seems to be stable. Hx of chest pain Smoker Patient is strongly advised to quit smoking. Asthma with exacerbation PUD (peptic ulcer disease) Hx of migraines History of COPD Hx of gastroesophageal reflux (GERD) Hx of primary hypertension Hx of hypercholesterolemia Surgical History History of tonsillectomy and adenoidectomy History of ankle surgery History of bladder surgery History of carpal tunnel release of both wrists Family History Sister Cancer Myocardial infarct Heart disease Mother Myocardial infarct Heart disease Grandmother Myocardial infarct Heart disease maternal Other Hypertension Stroke Denies family history of Colon cancer Ovarian cancer Diabetes Breast cancer Uterine cancer Social History Smoking and tobacco/nicotine status: current every day tobacco/nicotine user cigarettes Packs smoked per day: 1 Years cigarettes smoked: 57 [ Other cigarette details: Started smoking at 11] Substance/Drug Use: never Physical Exam 2 Const: COMMON NORMALS: patient oriented x3 HENMT: COMMON NORMALS: normocephalic and atraumatic HEAD & SCALP: n ormocephalic and atraumatic Eye: COMMON NORMALS: Equal, round and reactive pupils present and EOMs intact bilaterally PUPIL: Yes Equal, round and reactive pupils present Neck/C-Spine: COMMON NORMALS: full ROM and supple Chest: COMMONS NORMALS: normal inspection of the chest Resp: COMMON NORMALS: No retractions and No use of accessory muscles A USCULTATION: wheezes Cardio: COMMON NORMALS: regular rate, regular rhythm and No murmurs present (Cardio) RATE: regular rate RHYTHM: regular rhythm GI: COMMON NORMALS: Normal to inspection, nondistended, normoactive bowel sounds present, Soft to palpation, non-tender and no masses PALPATION: Yes Soft to palpation Extremity: COMMON NORMALS: normal to inspection and full ROM Neuro: COMMON NORMALS: patient oriented x3, moves all extremities and no focal motor deficits Psych: COMMON NORMALS: mental status grossly normal, Normal thought process present and cooperative THOUGHT PROCESS: Normal thought process present Skin: COMMON NORMALS: no rashes or lesions noted and no wounds GENERAL SKIN EXAM: no rashes or lesions noted Course 2 Vital Signs: Vital signs: Vital Signs Temperature 100.5 F H 07/18/24 13:41 Pulse Rate 80 07/18/24 13:51 Respiratory Rate 18 07/18/24 13:51 Blood Pressure 118/98 07/18/24 13:41 Pulse Oximetry 92 07/18/24 13:51 Oxygen Delivery Me thod Nasal Cannula 07/18/24 13:51 Oxygen Flow Rate 4 07/18/24 13:51 MDM - SOB/Dyspnea Medical Decision Making Patient presents here with cough fever increased shortness of breath patient is requiring 4 L oxygen here she did test positive for influenza likely causing her hypoxia spoke to hospitalist will admit at this time Medical Records I reviewed the patient's medical records. Lab Data I reviewed the patient's lab results. 07/18/24 14:07 07/18/24 14:07 Labs/Radiology: Laboratory Results WBC 4.74 10^3/uL (3.29-11.43) 07/18/24 14:07 RBC 3.67 10^6/uL (3.85-5.65) L 07/18/24 14:07 Hgb 10.90 g/dL (11.27-16.99) L 07/18/24 14:07 Hct 35.8 % (36-47) L 07/18/24 14:07 MCV 97.5 fl (85-98) 07/18/24 14:07 MCH 29.7 pg (27-33) 07/18/24 14:07 MCHC 30.4 g/dL (30-55) 07/18/24 14:07 RDW 14.4 % (12.1-15.1) 07/18/24 14:07 Plt Count 281 10^3/cmm (157-399) 07/18/24 14:07 MPV 10.1 fL (7.4-10.4) 07/18/24 14:07 Neut % (Auto) 80.2 % 07/18/24 14:07 Lymph % (Auto) 12.4 % 07/18/24 14:07 Wilson % (Auto) 6.8 % 07/18/24 14:07 Eos % (Auto) 0.0 % 07/18/24 14:07 Baso % (Auto) 0.2 % 07/18/24 14:07 Neut # (Auto) 3.80 10^3/uL (1.8-7.7) 07/18/24 14:07 Lymph # (Auto) 0.6 10^3/uL (0.8-4.8) L 07/18/24 14:07 Wilson # (Auto) 0.3 10^3/uL (0.2-0.9) 07/18/24 14:07 Eos # (Auto) 0.0 10^3/uL (0.0-0.8) 07/18/24 14:07 Baso # (Auto) 0.0 10^3/uL (0.0-0.1) 07/18/24 14:07 Nucleated RBC % (auto) 0 % 07/18/24 14:07 Nucleated RBCs # 0.0 /100WBC 07/18/24 14:07 Specimen Type Arterial 07/18/24 13:47 Sample Site Radial, left 07/18/24 13:47 ABG pH 7.42 (7.35-7.45) 07/18/24 13:47 ABG pCO2 48.5 mmHg (35-45) H 07/18/24 13:47 ABG pO2 58.6 mmHg (80.0-100.0) L 07/18/24 13:47 ABG HCO3 31.1 mmol/L (22-26) H 07/18/24 13:47 ABG Base Excess 5.6 mmol/L (-2.0-2.0) H 07/18/24 13:47 Nikhil Test Pos 07/18/24 13:47 Hematocrit 34.8 % (37-47) L 07/18/24 13:47 O2 Delivery Device Nc 07/18/24 13:47 O2 Liters/Min 4.0 % 07/18/24 13:47 [place] Tanner ID [place] 07/18/24 13:47 Sodium 138 mmol/L (136-145) 07/18/24 14:07 Potassium 3.6 mmol/L (3.5-5.1) 07/18/24 14:07 Chloride 100 mmol/L (98-107) 07/18/24 14:07 Carbon Dioxide 28 mmol/L (22-29) 07/18/24 14:07 Anion Gap 13.6 (5-19) 07/18/24 14:07 BUN 12 mg/dL (8-23) 07/18/24 14:07 Creatinine 0.8 mg/dL (0.5-0.9) 07/18/24 14:07 GFR Calculation Not Reportable 07/18/24 14:07 Glucose 111 mg/dL (65-115) 07/18/24 14:07 Calculated Osmolality 286 mOsm/kg (285-295) 07/18/24 14:07 Lactic Acid 1.1 mmol/L (0.5-2.2) 07/18/24 14:07 Calcium 8.8 mg/dL (8.5-10.5) 07/18/24 14:07 Total Bilirubin 0.2 mg/dL (0.15-1.2) 07/18/24 14:07 AST 15 U/L (0-32) 07/18/24 14:07 ALT 16 U/L (0-33) 07/18/24 14:07 Alkaline Phosphatase 58 U/L (35-105) 07/18/24 14:07 NT-Pro-B Natriuret Pep 2879 pg/mL (0-125) H 07/18/24 14:07 Total Protein 6.0 g/dL (6.6-8.7) L 07/18/24 14:07 Albumin 3.4 g/dL (3.5-5.2) L 07/18/24 14:07 Globulin 2.6 g/dL (1.3-4.6) 07/18/24 14:07 Amorphous Sediment Not Reportable 07/18/24 14:50 Influenza A (PCR) Positive (Negative) 07/18/24 13:55 Influenza Type B (PCR) Negative (Negative) 07/18/24 13:55 RSV (PCR) Negative (Negative) 07/18/24 13:55 SARS-CoV-2 (PCR) Negative (Negative) 07/18/24 13:55 All radiology interpretation(s) finalized by discharge EKG Data EKG 1: I personally reviewed and interpreted this EKG as follows: EKG Interpretation Date: 07/18/24 EKG interpretation time: 13:50 Interpretation: nsr hr [address] elevation qrs 92 qtc 428 Discharge Plan Discharge Patient Disposition: Admitted As Inpatient Clinical Impression: Influenza, Acute respiratory failure with hypoxia Condition: Stable Prescriptions: No Action ipratropium-albuterol 0.5 mg-3 mg(2.5 mg base)/3 mL solution for nebulization 3 ml inhalation Q4H PRN (Reason: wheezing) Qty: 90 3RF aspirin 81 mg tablet,chewable 81 mg PO DAILY nitroglycerin 0.4 mg tablet, sublingual 0.4 mg sublingual Q5M PRN (Reason: chest pain) Qty: 25 3RF Rx Instructions: do not exceed 3 doses per episode losartan 100 mg tablet 100 mg PO DAILY Qty: 90 3RF amlodipine 10 mg tablet 10 mg PO DAILY Qty: 90 3RF albuterol sulfate 90 mcg/actuation HFA aerosol inhaler 2 puff inhalation Q6H PRN (DME) oxygen-air delivery systems Device See Rx Instructions .ROUTE Rx Instructions: As directed metoprolol succinate 50 mg tablet extended release 24 hr 50 mg PO DAILY Qty: 90 3RF pantoprazole 40 mg tablet,delayed release (DR/EC) 40 mg PO BID Qty: 180 3RF Breztri Aerosphere 160-9-4.8 mcg/actuation HFA aerosol inhaler 2 inh inhalation BID Qty: 10.7 5RF albuterol sulfate 2.5 mg /3 mL (0.083 %) solution for nebulization 2.5 mg inhalation Q6H PRN (Reason: Wheezing) Qty: 90 3RF isosorbide mononitrate 30 mg tablet extended release 24 hr See Rx Instructions .ROUTE .COMPLEX Qty: 90 3RF Dose Instruction: Take 1 tablet by mouth once daily Rx Instructions: Take 1 tablet by mouth once daily clopidogrel 75 mg tablet See Rx Instructions .ROUTE .COMPLEX Qty: 90 3RF Dose Instruction: Take 1 tablet by mouth once daily Rx Instructions: Take 1 tablet by mouth once daily cetirizine [Zyrtec] 10 mg tablet 10 mg PO QAM furosemide 20 mg tablet 20 mg PO QAM vitamin B complex Tablet 1 tab PO DAILY ipratropium bromide 42 mcg (0.06 %) spray,non-aerosol 2 spray INTRANASAL QID PRN (Reason: unknown) ferrous sulfate 27 mg iron Tablet 27 mg PO BID cholecalciferol (vitamin D3) [Vitamin D3] 125 mcg (5,000 unit) Tablet 125 mcg PO QAM guaifenesin [Mucinex] 600 mg tablet extended release 12hr 600 mg PO Q12H PRN (Reason: Congestion) biotin 5,000 mcg Tablet, Sublingual 5,000 mcg SUBLINGUAL DAILY acetaminophen 325 mg capsule 325 mg PO Q4H PRN (Reason: fever or pain) Qty: 60 0RF Ozempic 1 mg/dose (4 mg/3 mL) pen injector 1 mg SUBCUT .QO week Referrals: FRIEND,TRE Bustos [Primary Care Provider] - Print Language: Welsh Coding Level of Care Code 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
--- NOTE | 2024-07-18 13:50 | ECG_ITS ---
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: : [id number] Requested By: Shashi Thomas Order Number: [id number] Reading MD: ARIES CYR Measurements Intervals [place] Rate: 78 P: 56 TX: 161 QRS: -3 QRSD: 92 T: -2 QT: 394 QTc: 451 Interpretive Statements SINUS RHYTHM WITH OCCASIONAL SUPRAVENTRICULAR PREMATURE COMPLEXES INFERIOR MYOCARDIAL INFARCTION , PROBABLY OLD [40+ ms Q WAVE AND/OR ST/T ABNORMALITY IN II/aVF] Compared to ECG 02/12/2024 17:10:48 Myocardial infarct finding now present T-wave abnormality no longer present Electronically Signed On 07-19-2024 18:08:31 CDT by ARIES CYR [email or web address]
[2024-07-18] MEDS: acetaminophen 325 mg Tablet 650 MG PO (13:52)
[2024-07-18 13:58] LABS: ABG PCO2 48.5 mmHg (35-45); ABG PH Result 7.42 (7.35-7.45); Arterial Blood Gas Hematocrit 34.8 % (37-47); Base Excess ABG 5.6 mmol/L (-2.0-2.0); Blood Gas Allen Test Pos; Blood Gas Operator Identificat WALCI; Blood Gas Sample Site Radial, left; Blood Gas Sample Type Arterial; HCO3 ABG 31.1 mmol/L (22-26); Oxygen Device NC; PO2 ABG 58.6 mmHg (80.0-100.0)
[2024-07-18] MEDS: albuterol 2.5 mg/3 mL Neb 5 MG INHALATION (14:01)
[2024-07-18 14:15] LABS: Basophils % 0.2 %; Hematocrit 35.8 % (36-47); Lymphocytes # 0.6 10^3/uL (0.8-4.8); Lymphocytes % 12.4 %; Mean Corpuscular HGB Conc 30.4 g/dL (30-55); Mean Corpuscular Hemoglobin 29.7 pg (27-33); Mean Corpuscular Volume 97.5 fl (85-98); Mean Platelet Volume 10.1 fL (7.4-10.4); Monocytes # 0.3 10^3/uL (0.2-0.9); Monocytes % 6.8 %; Neutrophils % 80.2 %; Nucleated Red Blood Cells % 0 %; Platelet Count 281 10^3/cmm (157-399); Red Blood Count 3.67 10^6/uL (3.85-5.65); Red Cell Distribution Width 14.4 % (12.1-15.1); White Blood Count 4.74 10^3/uL (3.29-11.43)
[2024-07-18] MEDS: cefTRIAXone 1,000 mg SDV 1000 MG IVP (14:34)
[2024-07-18] MEDS: AZITHROMYCIN ADD-Vantage 500 MG in 0.9% NaCl ADD-Vantage 250 ML 250 MG IV (14:37)
[2024-07-18 14:38] LABS: Lactic Sepsis W/Reflex 1.1 mmol/L (0.5-2.2)
[2024-07-18 14:41] LABS: Influenza A POSITIVE (Negative); Influenza B NEGATIVE (Negative); Respiratory Syncytial Virus Ce NEGATIVE (Negative); SARS-CoV-2 PCR NEGATIVE (Negative)
[2024-07-18 14:46] LABS: Alanine Aminotransferase 16 U/L (0-33); Albumin Level 3.4 g/dL (3.5-5.2); Alkaline Phosphatase 58 U/L (35-105); Anion Gap 13.6 (5-19); Aspartate Amino Transferase 15 U/L (0-32); Blood Urea Nitrogen 12 mg/dL (8-23); Calcium 8.8 mg/dL (8.5-10.5); Carbon Dioxide 28 mmol/L (22-29); Chloride 100 mmol/L (98-107); Creatinine Clr Calc Pharmacy 48.8587; Globulin 2.6 g/dL (1.3-4.6); Glucose 111 mg/dL (65-115); NT Pro B Type Natriuretic Pept 2879 pg/mL (0-125); Osmolality Calculated 286 mOsm/kg (285-295); Potassium 3.6 mmol/L (3.5-5.1); Sodium 138 mmol/L (136-145); Total Bilirubin 0.2 mg/dL (0.15-1.2)
--- NOTE | 2024-07-18 14:58 | P.HP_ITS ---
Providers/Chief Complaint 2 Primary Care Provider: TRE Bustos FRIEND Chief Complaint: sob History of Present Illness Latonia Gar is a 69 year old female with a past medical history significant for COPD with nocturnal hypoxia on 2 L oxygen, pulmonary nodules, emphysema, coronary artery disease, congestive heart failure with preserved ejection fraction, asthma, peptic ulcer disease, migraines, GERD, and multiple other comorbidities who presents with shortness of breath. She reports symptom onset about 2 days ago. Exertion significantly worsens symptoms. Rest improves. She endorses associated generalized malaise, fatigue, cough, and dyspnea on exertion. Describes cough is mostly nonproductive. In the emergency department, she was found to be febrile to 100.5. She was requiring 4 L nasal cannula. EMS had reported SpO2 in the 60s upon their evaluation. She was found to have acute influenza A infection. She does report obtaining flu vaccine this season. She had already received Solu-Medrol from EMS. She was treated with breathing treatment and antibiotics. Review of Systems 2 Narrative: A complete review of systems was obtained and is negative except as stated in HPI. Medications/Allergies Home Medications ?Medication ?Instructions ?Recorded ?Confirmed ?Last Taken ?Type cetirizine 10 mg tablet (Zyrtec) 10 mg PO QAM 05/10/19 05/13/24 09/10/22 History furosemide 20 mg tablet 20 mg PO QAM 10/05/2009/10/22 History biotin 5,000 mcg sublingual tablet 5,000 mcg sublingua l DAILY 04/11/21 05/13/24 09/10/22 History cholecalciferol (vitamin D3) 125 125 mcg PO QAM 05/13/24 09/10/22 History mcg (5,000 unit) tablet (Vitamin D3) ferrous sulfate 27 mg iron tablet 27 mg PO BID pt stat es sometimes 04/11/21 05/13/24 09/10/22 History she will take tid guaifenesin 600 mg tablet, 600 mg PO Q12H PRN [place] on 04/11/21 05/13/24 09/10/22 History extended release 12 hr (Mucinex) ipratropium bromide 42 mcg (0.06 2 spray intranasal QI D PRN unknown 04/11/21 05/13/24 04/17/22 History %) nasal spray vitamin B complex 1 tab PO DAILY 04/11/21 01/0 01/2709/10/22 History ipratropium 0.5 mg-albuterol 3 mg 3 ml inhalation Q4H PRN wheezing 09/06/21 05/13/24 09/07/22 Rx (2.5 mg base)/3 mL nebulization #90 mL soln pantoprazole 40 mg tablet,delayed 40 mg PO BID #180 ta bs 01/23/22 05/13/24 09/10/22 Rx release budesonide 160 mcg-glycopyr 9 2 inh inhalation BID #10 .7 grams 03/25/22 05/13/24 09/11/22 08:00 Rx mcg-formot 4.8 mcg/actuation HFA inhaler (GlycosanzHedgeye Risk Managementphere) aspirin 81 mg chewable tablet 81 mg PO DAILY 04/11/22 05/13/24 09/09/22 History amlodipine 10 mg tablet 10 mg PO DAILY #90 tabs 05/0505/13/24 09/11/22 08:00 Rx acetaminophen 325 mg capsule 325 mg PO Q4H PRN fever o r pain 09/12/22 05/13/24 Unknown Rx #60 caps albuterol sulfate 2.5 mg/3 mL 2.5 mg (3 mL) inhalation Q6H PRN 09/17/22 05/13/24 Unknown Rx (0.083 %) solution for nebulization Wheezing #90 mL semaglutide 1 mg/dose (4 mg/3 mL) 1 mg SUBCUT .QO week 11/12/22 05/13/24 Unknown History subcutaneous pen injector (Ozempic) isosorbide mononitrate 30 mg See Rx Instructions .Rout e 11/10/23 05/13/24 Unknown Rx tablet,extended release 24 hr .COMPLEX #90 tabs losartan 100 mg tablet 100 mg PO DAILY #90 tabs 01/2605/13/24 Unknown Rx nitroglycerin 0.4 mg sublingual 0.4 mg sublingual Q5M PRN chest 11/11/23 05/13/24 Unknown Rx tablet pain #25 tabs albuterol sulfate 90 mcg/actuation 2 puff inhalation Q 6H PRN 05/13/24 05/13/24 Unknown History aerosol inhaler metoprolol succinate 50 mg 50 mg PO DAILY #90 tabs 01/2705/13/24 Unknown Rx tablet,extended release 24 hr oxygen-air delivery systems 05/13/24 05/13/24 Unknown History clopidogrel 75 mg tablet See Rx Instructions .Route 0 07/16/24 Unknown Rx .COMPLEX #90 tabs Allergies Allergy/AdvReac Type Severity Reaction Status Date / Time strawberry Allergy ADR-Itching Verified 05/13/24 15:13 PFSH Acute 2 PFSH: Medical History Nocturnal hypoxemia Onychodystrophy Centrilobular emphysema Productive cough Multiple lung nodules on CT Shortness of breath Encounter for screening for lung cancer DICKSON (dyspnea on exertion) Bilateral foot pain Anemia Chronic and stable Encounter for surgical aftercare following surgery of genitourinary system Chest pain Right upper quadrant pain Atherosclerosis of coronary artery ST elevation myocardial infarction (STEMI) This patient presents with the features of ST elevation myocardial infarction. 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 She underwent PCI of this lesion. Currently she seems to be stable. Hx of chest pain Smoker Asthma with exacerbation PUD (peptic ulcer disease) Hx of migraines History of COPD Hx of gastroesophageal reflux (GERD) Hx of primary hypertension Hx of hypercholesterolemia Surgical History History of tonsillectomy and adenoidectomy History of ankle surgery History of bladder surgery History of carpal tunnel release of both wrists Family History Sister Cancer Myocardial infarct Heart disease Mother Myocardial infarct Heart disease Grandmother Myocardial infarct Heart disease maternal Other Hypertension Stroke Denies family history of Colon cancer Ovarian cancer Diabetes Breast cancer Uterine cancer Social History Smoking and tobacco/nicotine status: current every day tobacco/nicotine user cigarettes Packs smoked per day: 1 Years cigarettes smoked: 57 [ Other cigarette details: Started smoking at 11] Substance/Drug Use: never Vitals/I&O/Wt Last Vital Signs Temp 100.5 F H 07/18/24 13:41 Pulse 80 07/18/24 13:51 Resp 18 07/18/24 13:51 BP 118/98 07/18/24 13:41 Pulse Ox 92 07/18/24 13:51 O2 Del Method Nasal Cannula 07/18/24 13:51 O2 Flow Rate 4 07/18/24 13:51 07/17/24 07/18/24 07/18/24 22:59 06:59 14:59 Intake Total 1004.167 / 1004.167 Balance 1004.167 / 1004.167 Weight last 48 hrs Weight 51.71 kg Physical Exam 2 Narrative: General: Patient is awake. Appears fatigued but very pleasant. Conversational. Head: Normocephalic. Atraumatic. EOM intact. Dry mucous membranes. Neck: No JVD. Cardiovascular: RRR. No gallops. No murmurs. No peripheral edema. Lungs: Diffuse wheezing throughout bilateral lung hooper. Wheezing throughout both phases of respiratory cycle. Occasional pursed lip breathing. Use of accessory muscles. Conversational dyspnea. Skin: No jaundice. No rashes. Abdomen: Normal bowel sounds, abdomen soft and nontender. Genito Urinary: Genital exam not performed since complaints not related. Rectal: Rectal exam not performed since no symptoms indicated blood loss. Extremities: No cyanosis or clubbing. Musculoskeletal: No swollen or erythematous joints. Neurological: Moves all 4 extremities. No myoclonus. Data 07/18/24 14:07 07/18/24 14:07 Micro: Microbiology 07/18/24 14:09 Blood Culture - Preliminary Blood SPECIMEN COLLECTED 07/18/24 14:07 Blood Culture - Preliminary Blood SPECIMEN COLLECTED A&P Assessment and plan (1) COPD (chronic obstructive pulmonary disease): Acute COPD exacerbation with acute on chronic hypoxic respiratory failure Baseline oxygen is room air while awake, 2L while asleep Patient currently requiring 4L NC Trigger is influenza A infection Chest x-ray is negative for infiltrates Will check procalcitonin and CRP Status post ceftriaxone and azithromycin in ED, defer ongoing antibiotic needs to oncoming attending Start systemic IV steroids Pulmicort nebs DuoNebs scheduled Encourage pulmonary toilet Supportive care Qualifiers: COPD type: unspecified COPD Qualified Code(s): J44.9 - Chronic obstructive pulmonary disease, unspecified (2) Influenza: Reports influenza vaccine this seasons Start Tamiflu Droplet precautions Symptomatic support (3) CHF (congestive heart failure): Chronic HFpEF without exacerbation NT-proBNP elevated, suspected related to influenza/COPD rather than acute CHF Strict I&Os Daily weights Continue home Lasix Qualifiers: Heart failure chronicity: chronic Heart failure type: diastolic Q ualified Code(s): I50.32 - Chronic diastolic (congestive) heart failure (4) Hypertension: Blood pressure currently normal Continue home losartan and metoprolol Will hold home Norvasc and monitor hemodynamics Qualifiers: Hypertension type: primary hypertension Qualified Code(s): I10 - Essential (primary) hypertension (5) Peripheral arterial disease: Continue aspirin and Plavix Plan DVT prophylaxis: Heparin PDMP PDMP Reviewed: Not Reviewed Attestations 2 Medical Necessity Statement*: Patient presents with shortness of breath, found to have acute on chronic hypoxic respiratory failure complicated by acute COPD exacerbation with influenza A infection with expected hospitalization not to cross 2 midnights for IV steroids, breathing treatments and supportive care. Coding Level [facility] Care Code [facility] Chronic obstructive pulmonary disease, unspecified COPD type J44.9 COPD type: unspecified COPD Influenza J11.1 Chronic diastolic congestive heart failure I50.32 Heart failure chronicity: chronic Heart failure type: diastolic Primary hypertension I10 Hypertension type: primary hypertension Peripheral arterial disease I73.9
[2024-07-18 15:02] LABS: Bilirubin Urine Negative (Negative); Blood Urine Negative (Negative); Glucose Urine UA Negative (Normal); Ketones Urine Negative (Negative); Leukocyte Esterase Urine Negative (Negative); Nitrate Urine Negative (Negative); Protein Urine 1+ (Negative); Specific Gravity, Urine 1.015 (1.005-1.030); Urine Appearance Clear (CLEAR); Urine Color Yellow (Yellow)
[2024-07-18 15:05] LABS: Add Urine Microscopic? YES; Bacteria Urine Trace /hpf; RBC Urine 0-2 /hpf (0-2); Squamous Epithelial Cell Urine 0-5 /hpf (0-5); WBC Urine 0-5 /hpf (0-5)
[2024-07-18] MEDS: methylPREDNISolone sod succ 40 mg/mL INJ IVP ×2 (16:49→23:01)
[2024-07-18] MEDS: heparin 5,000 unit/mL INJ 1 mL 5000 UNIT SUBCUT (16:51)
[2024-07-18] MEDS: oseltamivir phosphate 75 mg Capsule PO (16:51)
[2024-07-18 17:02] LABS: Procalcitonin 0.05 ng/mL (0-0.5)
[2024-07-18] MEDS: pantoprazole DR 40 mg Tablet PO (20:03)
[2024-07-18] MEDS: ipratropium-albuterol 3 mL Neb INHALATION (20:32)
[2024-07-18] MEDS: budesonide 0.5 mg/2 mL Neb INHALATION (20:32)
[2024-07-19] VITALS (16 sets, daily range): BP systolic 157–170; BP diastolic 64–73; PULSE 55–91; RESP 16–22; TEMP 36.3–36.7; O2SAT 85–97
[2024-07-19] MEDS: ipratropium-albuterol 3 mL Neb INHALATION ×6 (00:03→20:18)
[2024-07-19 03:52] LABS: Basophils % 0.6 %; Hematocrit 39.5 % (36-47); Lymphocytes # 0.3 10^3/uL (0.8-4.8); Lymphocytes % 16.2 %; Mean Corpuscular HGB Conc 29.4 g/dL (30-55); Mean Corpuscular Hemoglobin 29.4 pg (27-33); Mean Platelet Volume 10.5 fL (7.4-10.4); Monocytes # 0.1 10^3/uL (0.2-0.9); Neutrophils # 1.26 10^3/uL (1.8-7.7); Neutrophils % 75.4 %; Nucleated Red Blood Cells % 0 %; Platelet Count 269 10^3/cmm (157-399); Red Blood Count 3.95 10^6/uL (3.85-5.65); Red Cell Distribution Width 14.2 % (12.1-15.1); White Blood Count 1.67 10^3/uL (3.29-11.43)
[2024-07-19 04:08] LABS: C Reactive Protein 38.8 mg/L (0.0-4.9)
[2024-07-19] MEDS: acetaminophen 325 mg Tablet 650 MG PO (04:08)
[2024-07-19 04:15] LABS: Anion Gap 14.4 (5-19); Blood Urea Nitrogen 15 mg/dL (8-23); Calcium 9.5 mg/dL (8.5-10.5); Carbon Dioxide 28 mmol/L (22-29); Chloride 105 mmol/L (98-107); Creatinine Clr Calc Pharmacy 54.4793; Glucose 147 mg/dL (65-115); Magnesium 2.2 mg/dL (1.7-2.3); Osmolality Calculated 300 mOsm/kg (285-295); Phosphorus 3.3 mg/dL (2.5-4.5); Potassium 4.4 mmol/L (3.5-5.1); Sodium 143 mmol/L (136-145)
[2024-07-19 04:18] LABS: Slide Review Slide Review Perform
[2024-07-19] MEDS: FUROsemide 20 mg Tablet PO (05:05)
[2024-07-19] MEDS: methylPREDNISolone sod succ 40 mg/mL INJ IVP ×3 (05:05→17:51)
[2024-07-19] MEDS: cetirizine 10 mg Tablet PO (05:05)
[2024-07-19] MEDS: heparin 5,000 unit/mL INJ 1 mL 5000 UNIT SUBCUT ×2 (05:05→17:51)
[2024-07-19] MEDS: losartan 50 mg Tablet 100 MG PO (09:19)
[2024-07-19] MEDS: oseltamivir phosphate 75 mg Capsule PO ×2 (09:19→17:51)
[2024-07-19] MEDS: metoprolol succinate ER (24 HR) 25 mg Tablet PO (09:19)
[2024-07-19] MEDS: clopidogrel 75 mg Tablet PO (09:19)
[2024-07-19] MEDS: pantoprazole DR 40 mg Tablet PO ×2 (09:19→17:51)
[2024-07-19] MEDS: duloxetine 30 mg Capsule PO (09:19)
[2024-07-19] MEDS: aspirin 81 mg Chew Tablet PO (09:19)
[2024-07-19] MEDS: isosorbide mononitrate ER 30 mg Tablet PO (09:19)
[2024-07-19] MEDS: budesonide 0.5 mg/2 mL Neb INHALATION ×2 (09:22→20:18)
--- NOTE | 2024-07-19 09:49 | PC.CHAP ---
Pastoral Care Encounter/Spiritual Assessment Type of Contact [] Declined label designer visit [] Patient/Family/Request visit [] Outpatient visit [] Follow-up visit [] Physician referral [] Code/Alert [x] Routine visit [] Staff referral [] Actively dying [] Patient sleeping [] Family support [] [] Out of room [] Palliative care [] [] Receiving care in room [] Pre-surgical visit [] Trauma [] Long length of stay [] ICU visit [] Other: Relational/Emotional Strength [] Patient feels connected with others/family/visitors/staff [] Distress [] Loneliness/isolation [] Abandonment Spirituality of Patient [] Person of Raiza [] Attends Taoist of their Raiza [] Believes in Prayer [] Reads Bible or Mosque materials [] There are Spiritual issues to be addressed 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 Interventions [x] Prayer [] Active listening [] Non-anxious presence [] Spiritual/emotional support [] Crisis/trauma care [] Spiritual counseling [] Bereavement support [] Provided bereavement packet [] Provided Bible/devotional materials [] Provided toy/stuffed animal, coloring book to patient or family member [] Provided Communion [] Anointing/[place] [] Salvation [] Completed spiritual assessment [] Other: Impact on Illness or Injury [] Angry [] Fearful [] Anxious [] Often cries [] Exhaustion [] Unable to work [] Unable to attend druze [] Unable to walk/stand [] Unable to read [] Unable to drive [] Unable to eat/drink [] Unable to sleep [] Unable to be with family [] Patient intubated [] Other: Summary precaution Time spent with patient
--- NOTE | 2024-07-19 13:48 | PM.PN ---
Subjective Subjective: seen this am pt resting comfortably in bed no acute events overnight continues to cough and is requiring 4.5L NC at this time is on 2L at night at home normally Vitals/I&O/Wt Last Vital Signs Temp 98.0 F 07/19/24 11:21 Pulse 70 07/19/24 12:00 Resp 20 H 07/19/24 12:00 BP 169/68 07/19/24 11:21 Pulse Ox 96 07/19/24 12:00 O2 Del Method Nasal Cannula 07/19/24 12:00 O2 Flow Rate 3 07/19/24 12:00 07/18/24 07/19/24 07/19/24 22:59 06:59 14:59 Intake Total 365.833 / 1370.000 960 / 960 Output Total 480 / 480 Balance 365.833 / 1370.000 -480 / 890.000 960 / 960 Weight last 48 hrs Weight 55.157 kg Weight 51.71 kg Weight 51.71 kg Physical Exam Narrative: General: Patient is awake. Appears ill, on 4.5L NC Head: Normocephalic. Atraumatic. EOM intact. Dry mucous membranes. Cardiovascular: RRR. No gallops. No murmurs. No peripheral edema. Lungs: Diffuse wheezing throughout bilateral lung hooper. Wheezing throughout both phases of respiratory cycle. Occasional pursed lip breathing. Use of accessory muscles. Abdomen: Normal bowel sounds, abdomen soft and nontender. Extremities: No cyanosis or clubbing. Musculoskeletal: No swollen or erythematous joints. Neurological: Moves all 4 extremities. No myoclonus. Data 07/19/24 02:47 07/19/24 02:47 Micro: Microbiology 07/18/24 14:09 Blood Culture - Preliminary Blood SPECIMEN COLLECTED 07/18/24 14:07 Blood Culture - Preliminary Blood SPECIMEN COLLECTED A&P Assessment and plan (1) COPD (chronic obstructive pulmonary disease): Acute COPD exacerbation with acute on chronic hypoxic respiratory failure Baseline oxygen is room air while awake, 2L while asleep Patient currently requiring 4L NC Trigger is influenza A infection Chest x-ray is negative for infiltrates Will check procalcitonin and CRP Status post ceftriaxone and azithromycin in ED, defer ongoing antibiotic needs to oncoming attending Start systemic IV steroids Pulmicort nebs DuCatrachito scheduled Encourage pulmonary toilet Supportive care Qualifiers: COPD type: unspecified COPD Qualified Code(s): J44.9 - Chronic obstructive pulmonary disease, unspecified (2) Influenza: Reports influenza vaccine this seasons Start Tamiflu Droplet precautions Symptomatic support (3) CHF (congestive heart failure): Chronic HFpEF without exacerbation NT-proBNP elevated, suspected related to influenza/COPD rather than acute CHF Strict I&Os Daily weights Continue home Lasix Qualifiers: Heart failure type: diastolic Heart failure chronicity: chronic Qualified Code(s): I50.32 - Chronic diastolic (congestive) heart failure (4) Hypertension: Blood pressure currently normal Continue home losartan and metoprolol Will hold home Norvasc and monitor hemodynamics Qualifiers: Hypertension type: primary hypertension Qualified Code(s): I10 - Essential (primary) hypertension (5) Peripheral arterial disease: Continue aspirin and Plavix Plan DVT prophylaxis: Heparin 07/19/2024 continue to hospitalize at this time needs continued IV abx, steroids will need home o2 eval at dc leukopenia 2/2 to viral infection continue to monitor PDMP PDMP Reviewed: Not Reviewed Attestations Medical Necessity Statement*: continued hospitalization 2/2 to high O2 requirements Coding Level of Care Code Acute Code for [facility] Fwd Diagnoses Chronic obstructive pulmonary disease, unspecified COPD type J44.9 COPD type: unspecified COPD Influenza J11.1 Chronic diastolic congestive heart failure I50.32 Heart failure type: diastolic Heart failure chronicity: chronic Primary hypertension I10 Hypertension type: primary hypertension Peripheral arterial disease I73.9
--- NOTE | 2024-07-19 13:55 | XRR_ITS ---
PROCEDURE INFORMATION: Exam: XR Chest Exam date and time: 07/19/2024 3:09 PM Age: 69 years old Clinical indication: Shortness of breath; Additional info: Follow up TECHNIQUE: Imaging protocol: Radiologic exam of the chest. Views: 1 view. COMPARISON: CR (CHEST, ) 07/18/2024 2:02 PM FINDINGS: Lungs: Unremarkable. No consolidation. Pleural spaces: Unremarkable. No pleural effusion. No pneumothorax. Heart/Mediastinum: Unremarkable. No cardiomegaly. Bones/joints: Unremarkable. XR/XR chest 1V portable [id number] IMPRESSION: No acute findings.
[2024-07-19] MEDS: AZITHROMYCIN ADD-Vantage 500 MG in 0.9% NaCl ADD-Vantage 250 ML 250 MG IV (16:42)
[2024-07-19] MEDS: cefTRIAXone 1,000 mg SDV 1000 MG IVP (16:42)
[2024-07-20] VITALS (12 sets, daily range): BP systolic 122–184; BP diastolic 69–80; PULSE 61–74; RESP 16–18; TEMP 36.4–36.7; O2SAT 84–96
[2024-07-20] MEDS: methylPREDNISolone sod succ 40 mg/mL INJ IVP ×2 (00:06→05:41)
[2024-07-20] MEDS: ipratropium-albuterol 3 mL Neb INHALATION ×3 (00:52→08:44)
[2024-07-20] MEDS: cetirizine 10 mg Tablet PO (05:41)
[2024-07-20] MEDS: heparin 5,000 unit/mL INJ 1 mL 5000 UNIT SUBCUT (05:41)
[2024-07-20] MEDS: FUROsemide 20 mg Tablet PO (05:41)
[2024-07-20 06:14] LABS: Basophils % 0.1 %; Hematocrit 33.4 % (36-47); Lymphocytes # 0.4 10^3/uL (0.8-4.8); Lymphocytes % 3.8 %; Mean Corpuscular HGB Conc 30.8 g/dL (30-55); Mean Corpuscular Hemoglobin 30.1 pg (27-33); Mean Corpuscular Volume 97.7 fl (85-98); Mean Platelet Volume 10.3 fL (7.4-10.4); Monocytes # 0.3 10^3/uL (0.2-0.9); Monocytes % 3.1 %; Neutrophils # 8.41 10^3/uL (1.8-7.7); Neutrophils % 92.5 %; Nucleated Red Blood Cells % 0 %; Platelet Count 281 10^3/cmm (157-399); Red Blood Count 3.42 10^6/uL (3.85-5.65); Red Cell Distribution Width 14.5 % (12.1-15.1)
[2024-07-20 06:36] LABS: Anion Gap 11.4 (5-19); Blood Urea Nitrogen 15 mg/dL (8-23); Calcium 9.3 mg/dL (8.5-10.5); Carbon Dioxide 29 mmol/L (22-29); Chloride 102 mmol/L (98-107); Creatinine Clr Calc Pharmacy 55.7725; Glucose 210 mg/dL (65-115); Osmolality Calculated 293 mOsm/kg (285-295); Potassium 4.4 mmol/L (3.5-5.1); Sodium 138 mmol/L (136-145)
[2024-07-20] MEDS: budesonide 0.5 mg/2 mL Neb INHALATION (08:44)
[2024-07-20] MEDS: metoprolol succinate ER (24 HR) 25 mg Tablet PO (08:51)
[2024-07-20] MEDS: pantoprazole DR 40 mg Tablet PO (08:51)
[2024-07-20] MEDS: isosorbide mononitrate ER 30 mg Tablet PO (08:51)
[2024-07-20] MEDS: clopidogrel 75 mg Tablet PO (08:52)
[2024-07-20] MEDS: aspirin 81 mg Chew Tablet PO (08:52)
[2024-07-20] MEDS: losartan 50 mg Tablet 100 MG PO (08:52)
[2024-07-20] MEDS: duloxetine 30 mg Capsule PO (08:52)
[2024-07-20] MEDS: oseltamivir phosphate 75 mg Capsule PO (08:52)
--- NOTE | 2024-07-20 10:06 | PC.CHAP ---
Pastoral Care Encounter/Spiritual Assessment Type of Contact [] Declined manager business visit [] Patient/Family/Request visit [] Outpatient visit [] Follow-up visit [] Physician referral [] Code/Alert [] Routine visit [] Staff referral [] Actively dying [] Patient sleeping [] Family support [] [] Out of room [] Palliative care [] [] Receiving care in room [] Pre-surgical visit [] Trauma [] Long length of stay [] ICU visit [x] Other:Contact precautions. No visit. Relational/Emotional Strength [] Patient feels connected with others/family/visitors/staff [] Distress [] Loneliness/isolation [] Abandonment Spirituality of Patient [] Person of Raiza [] Attends Advent of their Raiza [] Believes in Prayer [] Reads Bible or Shinto materials [] There are Spiritual issues to be addressed Bi Data Architect Interventions [] Prayer [] Active listening [] Non-anxious presence [] Spiritual/emotional support [] Crisis/trauma care [] Spiritual counseling [] Bereavement support [] Provided bereavement packet [] Provided Bible/devotional materials [] Provided toy/stuffed animal, coloring book to patient or family member [] Provided Communion [] Anointing/[place] [] Salvation [] Completed spiritual assessment [] Other: Impact on Illness or Injury [] Angry [] Fearful [] Anxious [] Often cries [] Exhaustion [] Unable to work [] Unable to attend mandaen [] Unable to walk/stand [] Unable to read [] Unable to drive [] Unable to eat/drink [] Unable to sleep [] Unable to be with family [] Patient intubated [] Other: Summary Time spent with patient
--- NOTE | 2024-07-20 12:07 | PM.DCS ---
Discharge Providers Date of Admission: 07/19/24 10:44 Date of Discharge: July 20, 2024 Attending Provider at Admission: Jai Reyes MD Attending Provider at Discharge: Shanda Pulido MD Primary Care Provider: TRE OSEGUERA Diagnoses at Discharge Discharge Diagnosis (1) COPD (chronic obstructive pulmonary disease): Status: Acute Qualifiers: COPD type: unspecified COPD Qualified Code(s): J44.9 - Chronic obstructive pulmonary disease, unspecified (2) Influenza: Status: Acute (3) CHF (congestive heart failure): Status: Acute Qualifiers: Heart failure chronicity: chronic Heart failure type: diastolic Qualified Code(s): I50.32 - Chronic diastolic (congestive) heart failure (4) Hypertension: Status: Acute Qualifiers: Hypertension type: primary hypertension Qualified Code(s): I10 - Essential (primary) hypertension (5) Peripheral arterial disease: Status: Acute Reason for Visit Reason for Visit: sob Hospital Course Hospital Course Patient was admitted for COPD exacerbation requiring 4 L nasal cannula on admission. She was also positive for influenza A. She was treated with steroids DuoNebs and was discharged home in stable condition. Oxygenation was back to baseline at time of discharge. She will follow-up with primary care doctor. Physical Exam Narrative: General: Patient is awake. Appears ill, on 3L NC Head: Normocephalic. Atraumatic. EOM intact. Dry mucous membranes. Cardiovascular: RRR. No gallops. No murmurs. No peripheral edema. Lungs: Minimal wheezing throughout bilateral lung hooper. No conversational dyspnea no use of accessory muscle. Appears comfortable at this time. Abdomen: Normal bowel sounds, abdomen soft and nontender. Extremities: No cyanosis or clubbing. Musculoskeletal: No swollen or erythematous joints. Neurological: Moves all 4 extremities. No myoclonus. Discharge Data Studies Completed and Pending Completed Studies During Hospitalization Category Date Time Status XR chest 1V portable [id number] Routine Exams 07/19/24 13:55 Completed XR chest 1V portable [id number] Stat Exams 07/18/24 13:41 Completed Pending at discharge Category Date Time Status Blood Culture Stat Lab 07/18/24 14:09 Results Radiology Impressions Chest X-Ray 07/19/24 13:55 IMPRESSION: No acute findings. Laboratory Results WBC 9.10 10^3/uL (3.29-11.43) 07/20/24 06:01 RBC 3.42 10^6/uL (3.85-5.65) L 07/20/24 06:01 Hgb 10.30 g/dL (11.27-16.99) L 07/20/24 06:01 Hct 33.4 % (36-47) L 07/20/24 06:01 MCV 97.7 fl (85-98) 07/20/24 06:01 MCH 30.1 pg (27-33) 07/20/24 06:01 MCHC 30.8 g/dL (30-55) 07/20/24 06:01 RDW 14.5 % (12.1-15.1) 07/20/24 06:01 Plt Count 281 10^3/cmm (157-399) 07/20/24 06:01 MPV 10.3 fL (7.4-10.4) 07/20/24 06:01 Neut % (Auto) 92.5 % 07/20/24 06:01 Lymph % (Auto) 3.8 % 07/20/24 06:01 [place] % (Auto) 3.1 % 07/20/24 06:01 Eos % (Auto) 0.0 % 07/20/24 06:01 Baso % (Auto) 0.1 % 07/20/24 06:01 Neut # (Auto) 8.41 10^3/uL (1.8-7.7) H 07/20/24 06:01 Lymph # (Auto) 0.4 10^3/uL (0.8-4.8) L 07/20/24 06:01 [place] # (Auto) 0.3 10^3/uL (0.2-0.9) 07/20/24 06:01 Eos # (Auto) 0.0 10^3/uL (0.0-0.8) 07/20/24 06:01 Baso # (Auto) 0.0 10^3/uL (0.0-0.1) 07/20/24 06:01 Nucleated RBC % (auto) 0 % 07/20/24 06:01 Nucleated RBCs # 0.0 /100WBC 07/20/24 06:01 Specimen Type Arterial 07/18/24 13:47 Sample Site Radial, left 07/18/24 13:47 ABG pH 7.42 (7.35-7.45) 07/18/24 13:47 ABG pCO2 48.5 mmHg (35-45) H 07/18/24 13:47 ABG pO2 58.6 mmHg (80.0-100.0) L 07/18/24 13:47 ABG HCO3 31.1 mmol/L (22-26) H 07/18/24 13:47 ABG Base Excess 5.6 mmol/L (-2.0-2.0) H 07/18/24 13:47 Nikhil Test Pos 07/18/24 13:47 Hematocrit 34.8 % (37-47) L 07/18/24 13:47 O2 Delivery Device Nc 07/18/24 13:47 O2 Liters/Min 4.0 % 07/18/24 13:47 Typewriter Operator Automatic ID [place] 07/18/24 13:47 Sodium 138 mmol/L (136-145) 07/20/24 06:01 Potassium 4.4 mmol/L (3.5-5.1) 07/20/24 06:01 Chloride 102 mmol/L (98-107) 07/20/24 06:01 Carbon Dioxide 29 mmol/L (22-29) 07/20/24 06:01 Anion Gap 11.4 (5-19) 07/20/24 06:01 BUN 15 mg/dL (8-23) 07/20/24 06:01 Creatinine 0.6 mg/dL (0.5-0.9) 07/20/24 06:01 GFR Calculation Not Reportable 07/20/24 06:01 Glucose 210 mg/dL (65-115) H 07/20/24 06:01 Calculated Osmolality 293 mOsm/kg (285-295) 07/20/24 06:01 Lactic Acid 1.1 mmol/L (0.5-2.2) 07/18/24 14:07 Calcium 9.3 mg/dL (8.5-10.5) 07/20/24 06:01 Phosphorus 3.3 mg/dL (2.5-4.5) 07/19/24 02:47 Magnesium 2.0 mg/dL (1.7-2.3) 07/20/24 06:01 Total Bilirubin 0.2 mg/dL (0.15-1.2) 07/18/24 14:07 AST 15 U/L (0-32) 07/18/24 14:07 ALT 16 U/L (0-33) 07/18/24 14:07 Alkaline Phosphatase 58 U/L (35-105) 07/18/24 14:07 C-Reactive Protein 38.8 mg/L (0.0-4.9) H 07/19/24 02:47 NT-Pro-B Natriuret Pep 2879 pg/mL (0-125) H 07/18/24 14:07 Total Protein 6.0 g/dL (6.6-8.7) L 07/18/24 14:07 Albumin 3.4 g/dL (3.5-5.2) L 07/18/24 14:07 Globulin 2.6 g/dL (1.3-4.6) 07/18/24 14:07 Procalcitonin 0.05 ng/mL (0-0.5) 07/18/24 14:07 Urine Color Yellow (Yellow) 07/18/24 14:50 Urine Appearance Clear (CLEAR) 07/18/24 14:50 Urine pH 6.0 (5-7) 07/18/24 14:50 Ur Specific [place] 1.015 (1.005-1.030) 07/18/24 14:50 Urine Protein 1+ (Negative) A 07/18/24 14:50 Urine Glucose (UA) Negative (Normal) 07/18/24 14:50 Urine Ketones Negative (Negative) 07/18/24 14:50 Urine Blood Negative (Negative) 07/18/24 14:50 Urine Nitrate Negative (Negative) 07/18/24 14:50 Urine Bilirubin Negative (Negative) 07/18/24 14:50 Urine Urobilinogen 1.0 mg/dL (Negative) 07/18/24 14:50 Ur Leukocyte Esterase Negative (Negative) 07/18/24 14:50 Urine RBC 0-2 /hpf (0-2) 07/18/24 14:50 Urine WBC 0-5 /hpf (0-5) 07/18/24 14:50 Ur Squamous Epith Cells 0-5 /hpf (0-5) 07/18/24 14:50 Amorphous Sediment Not Reportable 07/18/24 14:50 Urine Bacteria Trace /hpf (NONE) 07/18/24 14:50 Hyaline Casts 0.40 /lpf 07/18/24 14:50 Influenza A (PCR) Positive (Negative) 07/18/24 13:55 Influenza Type B (PCR) Negative (Negative) 07/18/24 13:55 RSV (PCR) Negative (Negative) 07/18/24 13:55 SARS-CoV-2 (PCR) Negative (Negative) 07/18/24 13:55 Vitals Last Vital Signs Temp 98.0 F 07/20/24 11:32 Pulse 70 07/20/24 11:32 Resp 16 07/20/24 11:32 BP 184/71 07/20/24 11:32 Pulse Ox 92 07/20/24 11:32 O2 Del Method Nasal Cannula 07/20/24 11:32 O2 Flow Rate 3 07/20/24 11:32 Discharge Plan Discharge Patient Disposition: Home Condition: Stable Prescriptions: New prednisone 20 mg tablet See Rx Instructions .ROUTE .COMPLEX Qty: 7 0RF Rx Instructions: 40 mg twice daily x 2d 20 mg twice daily x 2d 10 mg twice daily x 2d then stop cefdinir 300 mg capsule 300 mg PO BID Qty: 10 0RF Continued aspirin 81 mg tablet,chewable 81 mg PO DAILY nitroglycerin 0.4 mg tablet, sublingual 0.4 mg sublingual Q5M PRN (Reason: chest pain) Qty: 25 3RF Rx Instructions: do not exceed 3 doses per episode losartan 100 mg tablet 100 mg PO DAILY Qty: 90 3RF amlodipine 10 mg tablet 10 mg PO DAILY Qty: 90 3RF albuterol sulfate 90 mcg/actuation HFA aerosol inhaler 2 puff inhalation Q6H PRN (Reason: Shortness Of Breath Or Wheezing) (DME) oxygen-air delivery systems Device See Rx Instructions .ROUTE Rx Instructions: As directed pantoprazole 40 mg tablet,delayed release (DR/EC) 40 mg PO BID Qty: 180 3RF Breztri Aerosphere 160-9-4.8 mcg/actuation HFA aerosol inhaler 2 inh inhalation BID Qty: 10.7 5RF albuterol sulfate 2.5 mg /3 mL (0.083 %) solution for nebulization 2.5 mg inhalation Q6H PRN (Reason: Wheezing) Qty: 90 3RF clopidogrel 75 mg tablet See Rx Instructions .ROUTE .COMPLEX Qty: 90 3RF Dose Instruction: Take 1 tablet by mouth once daily Rx Instructions: Take 1 tablet by mouth once daily cetirizine [Zyrtec] 10 mg tablet 10 mg PO QAM furosemide 20 mg tablet 20 mg PO QAM vitamin B complex Tablet 1 tab PO DAILY ferrous sulfate 27 mg iron Tablet 27 mg PO BID cholecalciferol (vitamin D3) [Vitamin D3] 125 mcg (5,000 unit) Tablet 125 mcg PO QAM guaifenesin [Mucinex] 600 mg tablet extended release 12hr 600 mg PO Q12H PRN (Reason: Congestion) biotin 5,000 mcg Tablet, Sublingual 5,000 mcg SUBLINGUAL DAILY acetaminophen 325 mg capsule 325 mg PO Q4H PRN (Reason: fever or pain) Qty: 60 0RF metoprolol succinate 25 mg tablet extended release 24 hr 25 mg PO DAILY duloxetine 30 mg capsule,delayed release(DR/EC) 30 mg PO DAILY isosorbide mononitrate 30 mg tablet extended release 24 hr 30 mg PO DAILY Rx Instructions: Take 1 tablet by mouth once daily Discharge Orders: Discharge Order (Routine); Ordered 07/20/24 Ordered By: Shanda Pulido Other Ambulatory Orders: DME: Oxygen (Order) Location: None Selected Ordered By: Shanda Pulido Referrals: FRIENDTRE [Primary Care Provider] - 07/27/24 8:30 am Discharge Diet: Cardiac Discharge Activity: Oxygen as instructed Patient Instructions: Prednisone (By mouth), Azithromycin (By mouth), Oseltamivir (By mouth), Cefdinir (By mouth), Influenza (GEN), Using Oxygen at Home (GEN), Opioid Safety Discharge Attestations Time Spent in Discharge Care*: less than 30 min Status at Discharge: Cognitive status at discharge: cognitively intact, Behavioral status at discharge: cooperative, Quality Metrics Clinical Quality Measures [ No reported AMI, CVA or VTE this stay] Coding Level of Care Code Acute Code for [facility] Fwd Diagnoses Chronic obstructive pulmonary disease, unspecified COPD type J44.9 COPD type: unspecified COPD Influenza J11.1 Chronic diastolic congestive heart failure I50.32 Heart failure chronicity: chronic Heart failure type: diastolic Primary hypertension I10 Hypertension type: primary hypertension Peripheral arterial disease I73.9
== END 2024-07-20 13:18 | disposition home or self-care (01) | DRG 189 ==
LOC: ER 15:01 → MEDSURG 15:25
PROVIDERS: Admitting Provider Internal Medicine; Emergency Provider Emergency Medicine; PCP Nurse Practitioner Family; Visit Provider Internal Medicine
DX: J96.21 Acute and chronic respiratory failure with hypoxia (principal); J44.1 Chronic obstructive pulmonary disease with (acute) exacerbation; I50.32 Chronic diastolic (congestive) heart failure; F17.210 Nicotine dependence, cigarettes, uncomplicated; Z99.81 Dependence on supplemental oxygen; J10.1 Influenza due to other identified influenza virus with other respiratory manifestations; I11.0 Hypertensive heart disease with heart failure; I73.9 Peripheral vascular disease, unspecified; R91.8 Other nonspecific abnormal finding of lung field; J43.9 Emphysema, unspecified; I25.10 Atherosclerotic heart disease of native coronary artery without angina pectoris; K27.9 Peptic ulcer, site unspecified, unspecified as acute or chronic, without hemorrhage or perforation; K21.9 Gastro-esophageal reflux disease without esophagitis; I25.2 Old myocardial infarction; Z79.82 Long term (current) use of aspirin; Z79.02 Long term (current) use of antithrombotics/antiplatelets
CPT/HCPCS: 36415; 36600; 71045; 80048; 80053; 81001; 82803; 83605; 83735; 83880; 84100; 84145; 85025; 86140; 87040; 87637; 93005; 94640; 94760; 96365; 96372; 96375; 99285; G0378; J0456; J0696; J1644; J2919; J7050; J7613; J7626; J9999

== ENCOUNTER 2024-10-21 16:47 | Inpatient (IN) | payer MEDICARE, MEDICAID, SELFPAY ==
[2024-10-21] VITALS (15 sets, daily range): BP systolic 115–152; BP diastolic 43–78; PULSE 81–106; RESP 17–35; TEMP 36.7–37.3; O2SAT 90–95; BMI 23.1
[2024-10-21 17:27] LABS: ABG PCO2 53.7 mmHg (35-45); ABG PH Result 7.38 (7.35-7.45); Base Excess ABG 5.3 mmol/L (-2.0-2.0); Blood Gas Allen Test Pos; Blood Gas Operator Identificat WALCI; Blood Gas Sample Site Radial, right; Blood Gas Sample Type Arterial; Carboxyhemoglobin 3.9 %THgb (0.4-20.1); HCO3 ABG 31.8 mmol/L (22-26); HGB O2 Sat 86.3 % (95-100); Ionized Calcium Level - ABG 1.3 mmol/L (1.1-1.4); Methemoglobin 0.7 % (0.4-1.5); Oxygen Device NC; Oxygen Saturation ABG 90.5; PO2 ABG 61.7 mmHg (80.0-100.0); Potassium Level - ABG 2.7 mmol/L (3.5-5.0); Total Hemoglobin 13.1 g/dL (12-16)
--- NOTE | 2024-10-21 17:28 | XRR_ITS ---
PROCEDURE INFORMATION: Exam: XR Chest Exam date and time: 10/21/2024 5:30 PM Age: 69 years old Clinical indication: Shortness of breath; Additional info: Dyspnea/cough TECHNIQUE: Imaging protocol: Radiologic exam of the chest. Views: 1 view. COMPARISON: CR XR chest 1V portable [id number] 07/19/2024 3:09 PM FINDINGS: Lungs: No consolidation. Pleural spaces: No sizable pleural effusion or pneumothorax. Heart/Mediastinum: No cardiomegaly. Bones/joints: Unremarkable. XR/XR chest 1V portable [id number] IMPRESSION: No acute intrathoracic findings.
--- NOTE | 2024-10-21 17:28 | ECG_ITS ---
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 Measurements Intervals [place] Rate: 97 P: 47 AK: 163 QRS: -22 QRSD: 102 T: 69 QT: 349 QTc: 444 Interpretive Statements SINUS RHYTHM WITH OCCASIONAL VENTRICULAR PREMATURE COMPLEXES WITH OCCASIONAL SUPRAVENTRICULAR PREMATURE COMPLEXES PROBABLE INFERIOR MYOCARDIAL INFARCTION , OF INDETERMINATE AGE [35 ms Q WAVE IN II/aVF] ST DEPRESSION, CONSIDER SUBENDOCARDIAL INJURY [0.1+ mV ST DEPRESSION] Compared to ECG 07/18/2024 13:50:47 Ventricular premature complex(es) now present ST (T wave) deviation now present Myocardial infarct finding still present Electronically Signed On 10-24-2024 19:32:24 CDT by Yassine Frye M.D. [email or web address]
--- NOTE | 2024-10-21 17:37 | W.ED.SOB ---
Documented by User: Ernesto Davis DO 10/22/24 13:42 HPI - SOB/Dyspnea General: Chief Complaint: Shortness of Breath/Dyspnea Stated Complaint: SOB Time Seen by Provider: 10/21/24 17:26 History of Present Illness: Associated symptoms: Deny abdominal pain, chest pain or fever(s) Related Data Home Medications ?Medication ?Instructions ?Recorded ?Confirmed cetirizine 10 mg tablet (Zyrtec) 10 mg PO QAM 05/10/19 07/18/24 furosemide 20 mg tablet 20 mg PO QAM 10/05/20 07/18/24 biotin 5,000 mcg sublingual tablet 5,000 mcg sublingual DAILY 04/11/21 07/18/24 cholecalciferol (vitamin D3) 125 125 mcg PO QAM 04/11/21 07/18/24 mcg (5,000 unit) tablet (Vitamin D3) ferrous sulfate 27 mg iron tablet 27 mg PO BID 04/11/21 07/18/24 guaifenesin 600 mg tablet, 600 mg PO Q12H PRN Congestion 04/11/21 07/18/24 extended release 12 hr (Mucinex) vitamin B complex 1 tab PO DAILY 04/11/21 07/18/24 aspirin 81 mg chewable tablet 81 mg PO DAILY 04/11/22 07/18/24 albuterol sulfate 90 mcg/actuation 2 puff inhalation Q6H PRN 05/13/24 07/18/24 aerosol inhaler Shortness Of Breath Or Wheezing oxygen-air delivery systems 05/13/24 07/18/24 duloxetine 30 mg capsule,delayed 30 mg PO DAILY 07/18/24 07/18/24 release isosorbide mononitrate 30 mg 30 mg PO DAILY 07/18/24 07/18/24 tablet,extended release 24 hr metoprolol succinate 25 mg 25 mg PO DAILY 07/18/24 07/18/24 tablet,extended release 24 hr Previous Rx's ?Medication ?Instructions ?Recorded pantoprazole 40 mg tablet,delayed 40 mg PO BID #180 tabs 01/23/22 release budesonide 160 mcg-glycopyr 9 2 inh inhalation BID #10.7 grams 03/25/22 mcg-formot 4.8 mcg/actuation HFA inhaler (Breztri Aerosphere) amlodipine 10 mg tablet 10 mg PO DAILY #90 tabs 05/23/22 acetaminophen 325 mg capsule 325 mg PO Q4H PRN fever or pain 09/12/22 #60 caps albuterol sulfate 2.5 mg/3 mL 2.5 mg (3 mL) inhalation Q6H PRN 09/17/22 (0.083 %) solution for nebulization Wheezing #90 mL losartan 100 mg tablet 100 mg PO DAILY #90 tabs 11/11/23 nitroglycerin 0.4 mg sublingual 0.4 mg sublingual Q5M PRN chest 11/11/23 tablet pain #25 tabs clopidogrel 75 mg tablet See Rx Instructions .Route 07/16/24 .COMPLEX #90 tabs cefdinir 300 mg capsule 300 mg PO BID #10 caps 07/20/24 prednisone 20 mg tablet See Rx Instructions .Route 07/20/24 .COMPLEX #7 tabs Allergies Allergy/AdvReac Type Severity Reaction Status Date / Time strawberry Allergy ADR-Itching Verified 05/13/24 15:13 Review of Systems Const: Denies: fever(s) or chills Card: Denies: chest pain Resp: Denies: dyspnea GI: Denies: abdominal pain : Denies: dysuria, urinary frequency or urinary urgency Musc: Denies: neck pain or back pain Skin/Breast: Denies: rash PFSH ED PFSH: Medical History Productive cough Nocturnal hypoxemia Onychodystrophy Centrilobular emphysema Multiple lung nodules on CT Shortness of breath Encounter for screening for lung cancer DICKSON (dyspnea on exertion) Bilateral foot pain Anemia Chronic and stable Encounter for surgical aftercare following surgery of genitourinary system Chest pain Right upper quadrant pain Atherosclerosis of coronary artery ST elevation myocardial infarction (STEMI) This patient presents with the features of ST elevation myocardial infarction. 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 She underwent PCI of this lesion. Currently she seems to be stable. Hx of chest pain Smoker Asthma with exacerbation PUD (peptic ulcer disease) Hx of migraines History of COPD Hx of gastroesophageal reflux (GERD) Hx of primary hypertension Hx of hypercholesterolemia Surgical History History of tonsillectomy and adenoidectomy History of ankle surgery History of bladder surgery History of carpal tunnel release of both wrists Family History Sister Cancer Myocardial infarct Heart disease Mother Myocardial infarct Heart disease Grandmother Myocardial infarct Heart disease maternal Other DICKSON (dyspnea on exertion) Hypertension Stroke Denies family history of Colon cancer Ovarian cancer Diabetes Breast cancer Uterine cancer Social History Smoking and tobacco/nicotine status: current every day tobacco/nicotine user cigarettes Packs smoked per day: 1 Years cigarettes smoked: 57 [ Other cigarette details: Started smoking at 11] Substance/Drug Use: never Physical Exam Const: COMMON NORMALS: no acute distress GENERAL APPEARANCE: cooperative and comfortable ORIENTATION/CONSCIOUSNESS: Yes awake, Yes oriented to person, Yes oriented to place and Yes oriented to time HENMT: COMMON NORMALS: normocephalic, atraumatic and hearing grossly normal bilaterally HEAD & SCALP: normocephalic and atraumatic Resp: EFFORT & INSPECTION: Yes audible wheezes AUSCULTATION: rhonchi and wheezes Cardio: COMMON NORMALS: regular rhythm and No murmurs present (Cardio) RATE: tachycardic RHYTHM: regular rhythm GI: COMMON NORMALS: Soft to palpation and No hepatosplenomegaly present AUSCULTATION: Yes normoactive bowel sounds PALPATION: Yes Soft to palpation, No Tenderness to palpation present (GI), No Guarding due to palpation present (GI) and Yes No hepatosplenomegaly present Extremity: COMMON NORMALS: normal to inspection, capillary refill normal, no clubbing, cyanosis or edema, no calf tenderness and no pedal edema Neuro: SENSORIUM/ORIENTATION: Yes oriented to person, Yes oriented to place and Yes oriented to time Skin: COMMON NORMALS: no rashes or lesions noted GENERAL SKIN EXAM: no rashes or lesions noted Course Vital Signs: Vital signs: Vital Signs Temperature 98.1 F 10/22/24 11:37 Pulse Rate 64 10/22/24 13:06 Respiratory Rate 18 10/22/24 13:06 Blood Pressure 133/57 10/22/24 11:37 Pulse Oximetry 95 10/22/24 13:06 Oxygen Delivery Me thod High Flow Nasal C annula 10/22/24 13:06 Oxygen Flow Rate 6 10/22/24 13:06 MDM - SOB/Dyspnea Medical Decision Making Patient presents in mild respiratory distress improved with nebulizer steroids. Cultures been drawn. Care signed out to Dr. Donnelly at change of shift. See final notes for diagnosis and disposition. Signout from Dr. Davis to myself at 6 PM. Patient here with shortness of breath for multiple days. Per patient she has been having cough, that is productive. Upon arrival the patient was tachypneic and tachycardic and hypoxic. She normally wears 3 L of supplemental oxygen via nasal cannula at. Today she is requiring 6. Blood cultures were drawn. Will give her antibiotics for possible pneumonia including ceftriaxone and azithromycin. Will also start to replace her potassium. I spoke with the hospitalist we will admit for further workup and treatment. Medical Records I reviewed the patient's medical records. Lab Data I reviewed the patient's lab results. 10/22/24 04:37 10/22/24 04:37 Labs/Radiology: Radiology Impressions Chest X-Ray 10/21/24 17:28 IMPRESSION: No acute intrathoracic findings. Laboratory Results WBC 6.73 10^3/uL (3.29-11.43) 10/21/24 17:21 RBC 4.15 10^6/uL (3.85-5.65) 10/21/24 17:21 Hgb 12.90 g/dL (11.27-16.99) 10/21/24 17:21 Hct 40.3 % (36-47) 10/21/24 17:21 MCV 97.1 fl (85-98) 10/21/24 17:21 MCH 31.1 pg (27-33) 10/21/24 17:21 MCHC 32.0 g/dL (30-55) 10/21/24 17:21 RDW 13.6 % (12.1-15.1) 10/21/24 17:21 Plt Count 295 10^3/cmm (157-399) 10/21/24 17:21 MPV 10.3 fL (7.4-10.4) 10/21/24 17:21 Neut % (Auto) 75.8 % 10/21/24 17:21 Lymph % (Auto) 5.5 % 10/21/24 17:21 [place] % (Auto) 18.0 % 10/21/24 17:21 Eos % (Auto) 0.0 % 10/21/24 17:21 Baso % (Auto) 0.3 % 10/21/24 17:21 Neut # (Auto) 5.10 10^3/uL (1.8-7.7) 10/21/24 17:21 Lymph # (Auto) 0.4 10^3/uL (0.8-4.8) L 10/21/24 17:21 [place] # (Auto) 1.2 10^3/uL (0.2-0.9) H 10/21/24 17:21 Eos # (Auto) 0.0 10^3/uL (0.0-0.8) 10/21/24 17:21 Baso # (Auto) 0.0 10^3/uL (0.0-0.1) 10/21/24 17:21 Nucleated RBC % (auto) 0 % 10/21/24 17:21 Nucleated RBCs # 0.0 /100WBC 10/21/24 17:21 Specimen Type Arterial 10/21/24 17:16 Sample Site Radial, right 10/21/24 17:16 ABG pH 7.38 (7.35-7.45) 10/21/24 17:16 ABG pCO2 53.7 mmHg (35-45) H 10/21/24 17:16 ABG pO2 61.7 mmHg (80.0-100.0) L 10/21/24 17:16 ABG HCO3 31.8 mmol/L (22-26) H 10/21/24 17:16 ABG O2 Saturation 90.5 10/21/24 17:16 ABG Base Excess 5.3 mmol/L (-2.0-2.0) H 10/21/24 17:16 Nikhil Test Pos 10/21/24 17:16 A-a O2 Gradient 3.0 mmHg (5-10) L 10/21/24 17:16 Hematocrit 40.0 % (37-47) 10/21/24 17:16 Hgb O2 Saturation 86.3 % (95-100) L 10/21/24 17:16 Carboxyhemoglobin 3.9 %THgb (0.4-20.1) 10/21/24 17:16 Methemoglobin 0.7 % (0.4-1.5) 10/21/24 17:16 Total Hemoglobin 13.1 g/dL (12-16) 10/21/24 17:16 Sodium 138.0 mmol/L (131-143) 10/21/24 17:16 Potassium 2.7 mmol/L (3.5-5.0) L 10/21/24 17:16 Glucose 113.0 mg/dL (70-115) 10/21/24 17:16 Ionized Calcium 1.3 mmol/L (1.1-1.4) 10/21/24 17:16 O2 Delivery Device Nc 10/21/24 17:16 O2 Liters/Min 7.0 % 10/21/24 17:16 Supervisor Soakers ID [place]ci 10/21/24 17:16 Sodium 139 mmol/L (136-145) 10/21/24 17:21 Potassium 2.9 mmol/L (3.5-5.1) L 10/21/24 17:21 Chloride 98 mmol/L (98-107) 10/21/24 17:21 Carbon Dioxide 29 mmol/L (22-29) 10/21/24 17:21 Anion Gap 14.9 (5-19) 10/21/24 17:21 BUN 24 mg/dL (8-23) H 10/21/24 17:21 Creatinine 0.9 mg/dL (0.5-0.9) 10/21/24 17:21 GFR Calculation Not Reportable 10/21/24 17:21 Glucose 107 mg/dL (65-115) 10/21/24 17:21 Calculated Osmolality 293 mOsm/kg (285-295) 10/21/24 17:21 Lactic Acid 0.9 mmol/L (0.5-2.2) 10/21/24 17:21 Calcium 9.7 mg/dL (8.5-10.5) 10/21/24 17:21 Total Bilirubin 0.2 mg/dL (0.15-1.2) 10/21/24 17:21 AST 20 U/L (0-32) 10/21/24 17:21 ALT 27 U/L (0-33) 10/21/24 17:21 Alkaline Phosphatase 84 U/L (35-105) 10/21/24 17:21 Creatine Kinase 65 U/L (26-192) 10/21/24 17:21 Total Protein 6.2 g/dL (6.6-8.7) L 10/21/24 17:21 Albumin 3.6 g/dL (3.5-5.2) 10/21/24 17:21 Globulin 2.6 g/dL (1.3-4.6) 10/21/24 17:21 Influenza A (PCR) Negative (Negative) 10/21/24 17:53 Influenza Type B (PCR) Negative (Negative) 10/21/24 17:53 RSV (PCR) Negative (Negative) 10/21/24 17:53 SARS-CoV-2 (PCR) Negative (Negative) 10/21/24 17:53 Discharge Plan Discharge Patient Disposition: Admitted As Inpatient Admit Provider: Jennifer Cristobal Clinical Impression: Sepsis COPD (chronic obstructive pulmonary disease) Qualifiers: COPD type: unspecified COPD Qualified Code(s): J44.9 - Chronic obstructive pulmonary disease, unspecified Condition: Stable Coding Level of Care Code ED Mental Health Aide for Chg Fwd Documented by User: Jose L Donnelly MD 10/22/24 02:04 HPI - SOB/Dyspnea General: Chief Complaint: Shortness of Breath/Dyspnea Stated Complaint: SOB Time Seen by Provider: 10/21/24 17:26 History of Present Illness: HPI Narrative: Patient comes in with 2 to 3 days of shortness of breath, cough, congestion, body aches and fevers. Has a history of COPD. She normally uses 3 L of supplemental oxygen via nasal cannula. Today she is requiring 6. Will check labs, give nebulizer treatment, steroids, check x-ray, and reassess. Related Data Home Medications ?Medication ?Instructions ?Recorded ?Confirmed cetirizine 10 mg tablet (Zyrtec) 10 mg PO QAM 05/10/19 07/18/24 furosemide 20 mg tablet 20 mg PO QAM 10/05/20 07/18/24 biotin 5,000 mcg sublingual tablet 5,000 mcg sublingual DAILY 04/11/21 07/18/24 cholecalciferol (vitamin D3) 125 125 mcg PO QAM 04/11/21 07/18/24 mcg (5,000 unit) tablet (Vitamin D3) ferrous sulfate 27 mg iron tablet 27 mg PO BID 04/11/21 07/18/24 guaifenesin 600 mg tablet, 600 mg PO Q12H PRN Congestion 04/11/21 07/18/24 extended release 12 hr (Mucinex) vitamin B complex 1 tab PO DAILY 04/11/21 07/18/24 aspirin 81 mg chewable tablet 81 mg PO DAILY 04/11/22 07/18/24 albuterol sulfate 90 mcg/actuation 2 puff inhalation Q6H PRN 05/13/24 07/18/24 aerosol inhaler Shortness Of Breath Or Wheezing oxygen-air delivery systems 05/13/24 07/18/24 duloxetine 30 mg capsule,delayed 30 mg PO DAILY 07/18/24 07/18/24 release isosorbide mononitrate 30 mg 30 mg PO DAILY 07/18/24 07/18/24 tablet,extended release 24 hr metoprolol succinate 25 mg 25 mg PO DAILY 07/18/24 07/18/24 tablet,extended release 24 hr Previous Rx's ?Medication ?Instructions ?Recorded pantoprazole 40 mg tablet,delayed 40 mg PO BID #180 tabs 01/23/22 release budesonide 160 mcg-glycopyr 9 2 inh inhalation BID #10.7 grams 03/25/22 mcg-formot 4.8 mcg/actuation HFA inhaler (Breztri Aerosphere) amlodipine 10 mg tablet 10 mg PO DAILY #90 tabs 05/23/22 acetaminophen 325 mg capsule 325 mg PO Q4H PRN fever or pain 09/12/22 #60 caps albuterol sulfate 2.5 mg/3 mL 2.5 mg (3 mL) inhalation Q6H PRN 09/17/22 (0.083 %) solution for nebulization Wheezing #90 mL losartan 100 mg tablet 100 mg PO DAILY #90 tabs 11/11/23 nitroglycerin 0.4 mg sublingual 0.4 mg sublingual Q5M PRN chest 11/11/23 tablet pain #25 tabs clopidogrel 75 mg tablet See Rx Instructions .Route 07/16/24 .COMPLEX #90 tabs cefdinir 300 mg capsule 300 mg PO BID #10 caps 07/20/24 prednisone 20 mg tablet See Rx Instructions .Route 07/20/24 .COMPLEX #7 tabs Allergies Allergy/AdvReac Type Severity Reaction Status Date / Time strawberry Allergy ADR-Itching Verified 05/13/24 15:13 PFS ED PFSH: Medical History Productive cough Nocturnal hypoxemia Onychodystrophy Centrilobular emphysema Multiple lung nodules on CT Shortness of breath Encounter for screening for lung cancer DICKSON (dyspnea on exertion) Bilateral foot pain Anemia Chronic and stable Encounter for surgical aftercare following surgery of genitourinary system Chest pain Right upper quadrant pain Atherosclerosis of coronary artery ST elevation myocardial infarction (STEMI) This patient presents with the features of ST elevation myocardial infarction. 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 She underwent PCI of this lesion. Currently she seems to be stable. Hx of chest pain Smoker Asthma with exacerbation PUD (peptic ulcer disease) Hx of migraines History of COPD Hx of gastroesophageal reflux (GERD) Hx of primary hypertension Hx of hypercholesterolemia Surgical History History of tonsillectomy and adenoidectomy History of ankle surgery History of bladder surgery History of carpal tunnel release of both wrists Family History Sister Cancer Myocardial infarct Heart disease Mother Myocardial infarct Heart disease Grandmother Myocardial infarct Heart disease maternal Other DICKSON (dyspnea on exertion) Hypertension Stroke Denies family history of Colon cancer Ovarian cancer Diabetes Breast cancer Uterine cancer Social History Smoking and tobacco/nicotine status: current every day tobacco/nicotine user cigarettes Packs smoked per day: 1 Years cigarettes smoked: 57 [ Other cigarette details: Started smoking at 11] Substance/Drug Use: never Course Vital Signs: Vital signs: Vital Signs Temperature 98.1 F 10/22/24 11:37 Pulse Rate 64 10/22/24 13:06 Respiratory Rate 18 10/22/24 13:06 Blood Pressure 133/57 10/22/24 11:37 Pulse Oximetry 95 10/22/24 13:06 Oxygen Delivery Me thod High Flow Nasal C annula 10/22/24 13:06 Oxygen Flow Rate 6 10/22/24 13:06 MDM - SOB/Dyspnea Medical Decision Making Signout from Dr. Davis to myself at 6 PM. Patient here with shortness of breath for multiple days. Per patient she has been having cough, that is productive. Upon arrival the patient was tachypneic and tachycardic and hypoxic. She normally wears 3 L of supplemental oxygen via nasal cannula at. Today she is requiring 6. Blood cultures were drawn. Will give her antibiotics for possible pneumonia including ceftriaxone and azithromycin. Will also start to replace her potassium. I spoke with the hospitalist we will admit for further workup and treatment. Lab Data 10/22/24 04:37 10/22/24 04:37 Labs/Radiology: Radiology Impressions Chest X-Ray 10/21/24 17:28 IMPRESSION: No acute intrathoracic findings. Laboratory Results WBC 6.73 10^3/uL (3.29-11.43) 10/21/24 17:21 RBC 4.15 10^6/uL (3.85-5.65) 10/21/24 17:21 Hgb 12.90 g/dL (11.27-16.99) 10/21/24 17:21 Hct 40.3 % (36-47) 10/21/24 17:21 MCV 97.1 fl (85-98) 10/21/24 17:21 MCH 31.1 pg (27-33) 10/21/24 17:21 MCHC 32.0 g/dL (30-55) 10/21/24 17:21 RDW 13.6 % (12.1-15.1) 10/21/24 17:21 Plt Count 295 10^3/cmm (157-399) 10/21/24 17:21 MPV 10.3 fL (7.4-10.4) 10/21/24 17:21 Neut % (Auto) 75.8 % 10/21/24 17:21 Lymph % (Auto) 5.5 % 10/21/24 17:21 [place] % (Auto) 18.0 % 10/21/24 17:21 Eos % (Auto) 0.0 % 10/21/24 17:21 Baso % (Auto) 0.3 % 10/21/24 17:21 Neut # (Auto) 5.10 10^3/uL (1.8-7.7) 10/21/24 17:21 Lymph # (Auto) 0.4 10^3/uL (0.8-4.8) L 10/21/24 17:21 [place] # (Auto) 1.2 10^3/uL (0.2-0.9) H 10/21/24 17:21 Eos # (Auto) 0.0 10^3/uL (0.0-0.8) 10/21/24 17:21 Baso # (Auto) 0.0 10^3/uL (0.0-0.1) 10/21/24 17:21 Nucleated RBC % (auto) 0 % 10/21/24 17:21 Nucleated RBCs # 0.0 /100WBC 10/21/24 17:21 Specimen Type Arterial 10/21/24 17:16 Sample Site Radial, right 10/21/24 17:16 ABG pH 7.38 (7.35-7.45) 10/21/24 17:16 ABG pCO2 53.7 mmHg (35-45) H 10/21/24 17:16 ABG pO2 61.7 mmHg (80.0-100.0) L 10/21/24 17:16 ABG HCO3 31.8 mmol/L (22-26) H 10/21/24 17:16 ABG O2 Saturation 90.5 10/21/24 17:16 ABG Base Excess 5.3 mmol/L (-2.0-2.0) H 10/21/24 17:16 Nikhil Test Pos 10/21/24 17:16 A-a O2 Gradient 3.0 mmHg (5-10) L 10/21/24 17:16 Hematocrit 40.0 % (37-47) 10/21/24 17:16 Hgb O2 Saturation 86.3 % (95-100) L 10/21/24 17:16 Carboxyhemoglobin 3.9 %THgb (0.4-20.1) 10/21/24 17:16 Methemoglobin 0.7 % (0.4-1.5) 10/21/24 17:16 Total Hemoglobin 13.1 g/dL (12-16) 10/21/24 17:16 Sodium 138.0 mmol/L (131-143) 10/21/24 17:16 Potassium 2.7 mmol/L (3.5-5.0) L 10/21/24 17:16 Glucose 113.0 mg/dL (70-115) 10/21/24 17:16 Ionized Calcium 1.3 mmol/L (1.1-1.4) 10/21/24 17:16 O2 Delivery Device Nc 10/21/24 17:16 O2 Liters/Min 7.0 % 10/21/24 17:16 Supervisor Soakers ID [place] 10/21/24 17:16 Sodium 139 mmol/L (136-145) 10/21/24 17:21 Potassium 2.9 mmol/L (3.5-5.1) L 10/21/24 17:21 Chloride 98 mmol/L (98-107) 10/21/24 17:21 Carbon Dioxide 29 mmol/L (22-29) 10/21/24 17:21 Anion Gap 14.9 (5-19) 10/21/24 17:21 BUN 24 mg/dL (8-23) H 10/21/24 17:21 Creatinine 0.9 mg/dL (0.5-0.9) 10/21/24 17:21 GFR Calculation Not Reportable 10/21/24 17:21 Glucose 107 mg/dL (65-115) 10/21/24 17:21 Calculated Osmolality 293 mOsm/kg (285-295) 10/21/24 17:21 Lactic Acid 0.9 mmol/L (0.5-2.2) 10/21/24 17:21 Calcium 9.7 mg/dL (8.5-10.5) 10/21/24 17:21 Total Bilirubin 0.2 mg/dL (0.15-1.2) 10/21/24 17:21 AST 20 U/L (0-32) 10/21/24 17:21 ALT 27 U/L (0-33) 10/21/24 17:21 Alkaline Phosphatase 84 U/L (35-105) 10/21/24 17:21 Creatine Kinase 65 U/L (26-192) 10/21/24 17:21 Total Protein 6.2 g/dL (6.6-8.7) L 10/21/24 17:21 Albumin 3.6 g/dL (3.5-5.2) 10/21/24 17:21 Globulin 2.6 g/dL (1.3-4.6) 10/21/24 17:21 Influenza A (PCR) Negative (Negative) 10/21/24 17:53 Influenza Type B (PCR) Negative (Negative) 10/21/24 17:53 RSV (PCR) Negative (Negative) 10/21/24 17:53 SARS-CoV-2 (PCR) Negative (Negative) 10/21/24 17:53 All radiology interpretation(s) finalized by discharge Discharge Plan Discharge Patient Disposition: Admitted As Inpatient Admit Provider: Jennifer Cristobal Clinical Impression: Sepsis COPD (chronic obstructive pulmonary disease) Qualifiers: COPD type: unspecified COPD Qualified Code(s): J44.9 - Chronic obstructive pulmonary disease, unspecified Condition: Stable Coding Level of Care Code ED Mental Health Aide for Salomon Jones
[2024-10-21 17:43] LABS: Basophils % 0.3 %; Hematocrit 40.3 % (36-47); Lymphocytes # 0.4 10^3/uL (0.8-4.8); Lymphocytes % 5.5 %; Mean Corpuscular Hemoglobin 31.1 pg (27-33); Mean Corpuscular Volume 97.1 fl (85-98); Mean Platelet Volume 10.3 fL (7.4-10.4); Monocytes # 1.2 10^3/uL (0.2-0.9); Neutrophils % 75.8 %; Nucleated Red Blood Cells % 0 %; Platelet Count 295 10^3/cmm (157-399); Red Blood Count 4.15 10^6/uL (3.85-5.65); Red Cell Distribution Width 13.6 % (12.1-15.1); White Blood Count 6.73 10^3/uL (3.29-11.43)
[2024-10-21] MEDS: ipratropium-albuterol 3 mL Neb INHALATION (17:43)
[2024-10-21] MEDS: ondansetron 2 mg/ML SDV 2 mL 4 MG IVP (17:46)
[2024-10-21] MEDS: methylPREDNISolone sod succ 125 mg/2 mL INJ IVP (17:46)
[2024-10-21 17:55] LABS: Alanine Aminotransferase 27 U/L (0-33); Albumin Level 3.6 g/dL (3.5-5.2); Alkaline Phosphatase 84 U/L (35-105); Anion Gap 14.9 (5-19); Aspartate Amino Transferase 20 U/L (0-32); Blood Urea Nitrogen 24 mg/dL (8-23); Calcium 9.7 mg/dL (8.5-10.5); Carbon Dioxide 29 mmol/L (22-29); Chloride 98 mmol/L (98-107); Creatine Phosphokinase 65 U/L (26-192); Creatinine Clr Calc Pharmacy 51.8745; Globulin 2.6 g/dL (1.3-4.6); Glucose 107 mg/dL (65-115); Osmolality Calculated 293 mOsm/kg (285-295); Sodium 139 mmol/L (136-145); Total Bilirubin 0.2 mg/dL (0.15-1.2); Total Protein 6.2 g/dL (6.6-8.7)
[2024-10-21 17:56] LABS: Lactic Sepsis W/Reflex 0.9 mmol/L (0.5-2.2); Potassium 2.9 mmol/L (3.5-5.1)
[2024-10-21 18:47] LABS: Influenza A NEGATIVE (Negative); Influenza B NEGATIVE (Negative); Respiratory Syncytial Virus Ce NEGATIVE (Negative); SARS-CoV-2 PCR NEGATIVE (Negative)
[2024-10-21] MEDS: albuterol 2.5 MG/0.5 ML NEB INHALATION (19:19)
[2024-10-21] MEDS: potassium chloride premix 100 ML 50 MEQ IV (19:35)
--- NOTE | 2024-10-21 21:35 | PM.HP ---
Providers/Chief Complaint Admitting Physician: Jennifer Cristobal MD--- patient seen before 12 midnight Primary Care Provider: TRE Bustos FRIEND Chief Complaint: SOB History of Present Illness Latonia Gar is a 69 year old female who lives at home with history of chronic home oxygen at 3 L. Had been having shortness of breath for a few days. Patient presented to the emergency room with much shortness of breath with bronchospasm. It was noted that patient was requiring 6 L to get the saturation to 97%. Patient was given nebulizing treatments in the emergency room doing okay but not quite where she would like to be. I was called to evaluate patient for admission. I have seen and evaluated patient patient indeed is in acute bronchitis on chronic with bronchospasm requiring nebulizing treatments and initiation of steroid therapy and some antibiotics for associated bronchitis. Solu-Medrol therapy nebulizing treatment was DuoNeb and empiric antibiotics of ceftriaxone and azithromycin did well for her she was beginning to feel better and was sent to the medical floor and doing much better. Patient has no pneumonia and responded to these regimen. Patient deserves because of the comorbid condition to be inpatient requiring a minimum of 2 midnights. Review of Systems Narrative: System review upon 10 organ review with only significant for pulmonary failure due to shortness of breath. Medications/Allergies Home Medications ?Medication ?Instructions ?Recorded ?Confirmed ?Last Taken ?Type cetirizine 10 mg tablet (Zyrtec) 10 mg PO QAM 05/10/19 07/18/24 07/17/24 History furosemide 20 mg tablet 20 mg PO QAM 10/05/20 07/18/24 07/17/24 History biotin 5,000 mcg sublingual tablet 5,000 mcg sublingual DAILY 04/11/21 07/18/24 07/17/24 History cholecalciferol (vitamin D3) 125 125 mcg PO QAM 04/11/21 07/18/24 07/17/24 History mcg (5,000 unit) tablet (Vitamin D3) ferrous sulfate 27 mg iron tablet 27 mg PO BID 04/11/21 07/18/24 07/17/24 History guaifenesin 600 mg tablet, 600 mg PO Q12H PRN Congestion 04/11/21 07/18/24 09/10/22 History extended release 12 hr (Mucinex) vitamin B complex 1 tab PO DAILY 12/12/2307/18/24 07/17/24 History pantoprazole 40 mg tablet,delayed 40 mg PO BID #180 tabs 01/23/22 07/18/24 07/17/24 Rx release budesonide 160 mcg-glycopyr 9 2 inh inhalation BID #10.7 grams 03/25/22 07/18/24 07/17/24 Rx mcg-formot 4.8 mcg/actuation HFA inhaler (Breztri Aerosphere) aspirin 81 mg chewable tablet 81 mg PO DAILY 04/11/22 07/18/24 07/17/24 History amlodipine 10 mg tablet 10 mg PO DAILY #90 tabs 05/23/22 07/18/24 07/17/24 Rx acetaminophen 325 mg capsule 325 mg PO Q4H PRN fever or pain 09/12/22 07/18/24 Unknown Rx #60 caps albuterol sulfate 2.5 mg/3 mL 2.5 mg (3 mL) inhalation Q6H PRN 09/17/22 07/18/24 Unknown Rx (0.083 %) solution for nebulization Wheezing #90 mL losartan 100 mg tablet 100 mg PO DAILY #90 tabs 11/11/23 07/18/24 07/17/24 Rx nitroglycerin 0.4 mg sublingual 0.4 mg sublingual Q5M PRN chest 11/11/23 07/18/24 Unknown Rx tablet pain #25 tabs albuterol sulfate 90 mcg/actuation 2 puff inhalation Q6H PRN 05/13/24 07/18/24 07/17/24 History aerosol inhaler Shortness Of Breath Or Wheezing oxygen-air delivery systems 05/13/24 07/18/24 Unknown History clopidogrel 75 mg tablet See Rx Instructions .Route 07/16/24 07/18/24 07/17/24 Rx .COMPLEX #90 tabs duloxetine 30 mg capsule,delayed 30 mg PO DAILY 07/18/24 07/18/24 07/17/24 History release isosorbide mononitrate 30 mg 30 mg PO DAILY 07/18/24 07/18/24 07/17/24 History tablet,extended release 24 hr metoprolol succinate 25 mg 25 mg PO DAILY 07/18/24 07/18/24 07/17/24 History tablet,extended release 24 hr cefdinir 300 mg capsule 300 mg PO BID #10 caps 07/20/24 Unknown Rx prednisone 20 mg tablet See Rx Instructions .Route 07/20/24 Unknown Rx .COMPLEX #7 tabs Allergies Allergy/AdvReac Type Severity Reaction Status Date / Time strawberry Allergy ADR-Itching Verified 05/13/24 15:13 PFSH Acute PFSH: Medical History (Updated 10/22/24 @ 05:26 by Jennifer Cristobal MD) Productive cough Nocturnal hypoxemia Onychodystrophy Centrilobular emphysema Multiple lung nodules on CT Shortness of breath Encounter for screening for lung cancer DICKSON (dyspnea on exertion) Bilateral foot pain Anemia Chronic and stable Encounter for surgical aftercare following surgery of genitourinary system Chest pain Right upper quadrant pain Atherosclerosis of coronary artery ST elevation myocardial infarction (STEMI) This patient presents with the features of ST elevation myocardial infarction. 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 She underwent PCI of this lesion. Currently she seems to be stable. Hx of chest pain Smoker Asthma with exacerbation PUD (peptic ulcer disease) Hx of migraines History of COPD Hx of gastroesophageal reflux (GERD) Hx of primary hypertension Hx of hypercholesterolemia Surgical History History of tonsillectomy and adenoidectomy History of ankle surgery History of bladder surgery History of carpal tunnel release of both wrists Family History Sister Cancer Myocardial infarct Heart disease Mother Myocardial infarct Heart disease Grandmother Myocardial infarct Heart disease maternal Other Hypertension Stroke Denies family history of Colon cancer Ovarian cancer Diabetes Breast cancer Uterine cancer Social History Smoking and tobacco/nicotine status: current every day tobacco/nicotine user cigarettes Packs smoked per day: 1 Years cigarettes smoked: 57 [ Other cigarette details: Started smoking at 11] Substance/Drug Use: never Vitals/I&O/Wt Last Vital Signs Temp 98.1 F 10/21/24 21:15 Pulse 81 10/21/24 21:15 Resp 17 10/21/24 21:15 BP 115/78 10/21/24 21:15 Pulse Ox 95 10/21/24 21:15 O2 Del Method Room Air 10/21/24 21:15 O2 Flow Rate 7 10/21/24 20:23 Weight last 48 hrs Weight 61.235 kg Weight 61.235 kg Physical Exam Narrative: Generally patient is doing well very pleasant lady HEENT normocephalic/atraumatic patient on 6 L of oxygen nasal cannula pulse oxing at 98% Neck neck is supple Cardiovascular heart rate is regular Lungs are clear does have good air movement however does have upper airway transmission with very rattling cough and cannot bring out the sputum Abdomen is soft nontender nondistended has good bowel sounds unremarkable Extremities are intact no edema has good pulses neurology has no focality lab studies lab studies reviewed and noted for hypokalemia Data 10/21/24 17:21 10/21/24 17:21 Micro: Microbiology 10/21/24 17:25 Blood Culture - Preliminary Blood SPECIMEN COLLECTED 10/21/24 17:21 Blood Culture - Preliminary Blood SPECIMEN COLLECTED A&P Assessment and plan (1) COPD exacerbation: COPD exacerbation - Admit to general medical floor with telemetry - Continue with nebulizing treatments such as DuoNeb every 4 hours scheduled for now - Supplemental oxygen at 6 L now twice that patient uses at baseline - Continues steroid therapy with Solu-Medrol 40 mg twice daily - Initiate antibiotics with ceftriaxone and azithromycin for associated bronchitis. (2) Productive cough: Productive cough. Very thick hard to expectorate Initiated Mucinex 1200 mg twice daily for 5 days Continue all other supportive care with supplemental oxygen steroid therapy nebulizing treatment for care. (3) Bronchial spasm: Bronchial spasm is induced by underlining COPD exacerbation This induces hypoxemia with intense shortness of breath. - Must continue nebulizing treatment, steroid therapy, empiric antibiotics, and supplemental oxygen. (4) Hypokalemia: Patient is with potassium of 2.9 requiring replacement - Will give 40 mEq oral KCl for care. - Follow-up with a repeat lab studies to make sure her electrolytes are optimized Plan GI and DVT prophylaxis in place PDMP PDMP Reviewed: Last Reviewed 10/22/24 05:24 by Jennifer Cristobal MD Attestations Medical Necessity Statement*: Patient with chronic home oxygen at 3 L not requiring more oxygen with good exacerbation of COPD this of inpatient for optimal care. For at least 2 midnights Coding Level of Care Code 47823 Diagnoses COPD exacerbation J44.1 Productive cough R05.8 Bronchial spasm J98.01 Hypokalemia E87.6 Time Spent (min) 60
[2024-10-21] MEDS: cefTRIAXone 1,000 mg SDV 1000 MG IVP (21:41)
[2024-10-21 21:57] LABS: Glucose Point of Care 200 mg/dL (70-110)
[2024-10-21] MEDS: AZITHROMYCIN ADD-Vantage 500 MG in 0.9% NaCl ADD-Vantage 250 ML 250 MG IV (21:59)
[2024-10-21] MEDS: sodium chloride 0.9% 1,000 ML 75 ML IV (22:09)
[2024-10-21] MEDS: heparin 5,000 unit/mL INJ 1 mL 5000 UNIT SUBCUT (22:10)
[2024-10-21] MEDS: acetaminophen 325 mg Tablet 650 MG PO (22:10)
[2024-10-22] VITALS (16 sets, daily range): BP systolic 116–147; BP diastolic 47–80; PULSE 60–90; RESP 15–18; TEMP 36.4–37; O2SAT 91–95
[2024-10-22] MEDS: ipratropium-albuterol 3 mL Neb INHALATION ×6 (01:15→20:24)
[2024-10-22] MEDS: methylPREDNISolone sod succ 40 mg/mL INJ IVP ×2 (02:37→09:27)
[2024-10-22 05:27] LABS: Basophils % 0.3 %; Hematocrit 40.7 % (36-47); Lymphocytes # 0.1 10^3/uL (0.8-4.8); Lymphocytes % 3.4 %; Mean Corpuscular Hemoglobin 30.9 pg (27-33); Mean Corpuscular Volume 99.8 fl (85-98); Mean Platelet Volume 10.3 fL (7.4-10.4); Monocytes # 0.2 10^3/uL (0.2-0.9); Monocytes % 5.5 %; Neutrophils # 3.48 10^3/uL (1.8-7.7); Neutrophils % 90.3 %; Nucleated Red Blood Cells % 0 %; Platelet Count 274 10^3/cmm (157-399); Red Blood Count 4.08 10^6/uL (3.85-5.65); Red Cell Distribution Width 13.6 % (12.1-15.1); White Blood Count 3.85 10^3/uL (3.29-11.43)
[2024-10-22 05:45] LABS: Alanine Aminotransferase 23 U/L (0-33); Albumin Level 3.1 g/dL (3.5-5.2); Alkaline Phosphatase 82 U/L (35-105); Anion Gap 14.7 (5-19); Aspartate Amino Transferase 11 U/L (0-32); Blood Urea Nitrogen 24 mg/dL (8-23); Calcium 9.8 mg/dL (8.5-10.5); Carbon Dioxide 29 mmol/L (22-29); Chloride 102 mmol/L (98-107); Creatinine Clr Calc Pharmacy 58.3588; Globulin 2.8 g/dL (1.3-4.6); Glucose 153 mg/dL (65-115); Magnesium 2.3 mg/dL (1.7-2.3); Osmolality Calculated 301 mOsm/kg (285-295); Phosphorus 3.8 mg/dL (2.5-4.5); Potassium 3.7 mmol/L (3.5-5.1); Sodium 142 mmol/L (136-145); Total Bilirubin 0.2 mg/dL (0.15-1.2); Total Protein 5.9 g/dL (6.6-8.7)
[2024-10-22] MEDS: potassium chloride ER 20 mEq Tablet 40 MEQ PO (06:19)
[2024-10-22] MEDS: pantoprazole DR 40 mg Tablet PO (09:27)
[2024-10-22] MEDS: losartan 50 mg Tablet 100 MG PO (09:27)
[2024-10-22] MEDS: guaiFENesin 600 mg Tablet 1200 MG PO ×2 (09:27→17:28)
[2024-10-22] MEDS: docusate sodium 100 mg Capsule PO ×2 (09:27→17:28)
[2024-10-22] MEDS: metoprolol succinate ER (24 HR) 25 mg Tablet PO (09:27)
[2024-10-22] MEDS: amlodipine 10 mg Tablet PO (09:27)
[2024-10-22] MEDS: cefTRIAXone 2,000 mg SDV 2000 MG IVP ×2 (09:28→21:53)
[2024-10-22] MEDS: heparin 5,000 unit/mL INJ 1 mL 5000 UNIT SUBCUT ×2 (09:28→21:52)
[2024-10-22] MEDS: aspirin 81 mg Chew Tablet PO (09:41)
--- NOTE | 2024-10-22 10:08 | PC.SOCIAL ---
IMM Updated Updated pt on IMM. No questions voiced. Provided pt a copy. Initialed, dated, & timed a copy & placed in chart.
[2024-10-22] MEDS: sodium chloride 0.9% 1,000 ML 75 ML IV (11:33)
--- NOTE | 2024-10-22 12:13 | P.PN_ITS ---
Subjective 2 Subjective: Seen this morning. New acute events overnight. She recently had a breathing treatment she states and therefore can breathe a little bit better. On 6 L nasal cannula at this time. Vitals/I&O/Wt Last Vital Signs Temp 98.1 F 10/22/24 11:37 Pulse 60 10/22/24 11:37 Resp 16 10/22/24 11:37 BP 133/57 10/22/24 11:37 Pulse Ox 95 10/22/24 11:37 O2 Del Method Nasal Cannula 10/22/24 11:37 O2 Flow Rate 6 10/22/24 11:37 10/21/24 10/22/24 10/22/24 22:59 06:59 14:59 Intake Total 100 / 100 1030 / 1130 1000 / 1000 Balance 100 / 100 1030 / 1130 1000 / 1000 Weight last 48 hrs Weight 61.235 kg Weight 61.235 kg Weight 61.235 kg Physical Exam 2 Narrative: Generally patient is doing well very pleasant lady HEENT normocephalic/atraumatic patient on 6 L of oxygen nasal cannula Neck neck is supple Cardiovascular heart rate is regular Lungs are clear does have good air movement, no rhonchi appreciated at this time. I do note that at the time I examined her she had just had a DuoNeb earlier. Abdomen is soft nontender nondistended has good bowel sounds Extremities are intact no edema has good pulses Data 10/22/24 04:37 10/22/24 04:37 Micro: Microbiology 10/21/24 17:25 Blood Culture - Preliminary Blood SPECIMEN COLLECTED 10/21/24 17:21 Blood Culture - Preliminary Blood SPECIMEN COLLECTED A&P Assessment and plan (1) COPD exacerbation: COPD exacerbation - Admit to general medical floor with telemetry - Continue with nebulizing treatments such as DuoNeb every 4 hours scheduled for now - Supplemental oxygen at 6 L now twice that patient uses at baseline - Continues steroid therapy with Solu-Medrol 40 mg twice daily - Initiate antibiotics with ceftriaxone and azithromycin for associated bronchitis. (2) Productive cough: Productive cough. Very thick hard to expectorate Initiated Mucinex 1200 mg twice daily for 5 days Continue all other supportive care with supplemental oxygen steroid therapy nebulizing treatment for care. (3) Bronchial spasm: Bronchial spasm is induced by underlining COPD exacerbation This induces hypoxemia with intense shortness of breath. - Must continue nebulizing treatment, steroid therapy, empiric antibiotics, and supplemental oxygen. (4) Hypokalemia: Patient is with potassium of 2.9 requiring replacement - Will give 40 mEq oral KCl for care. - Follow-up with a repeat lab studies to make sure her electrolytes are optimized Plan GI and DVT prophylaxis in place 10/22/2024 Potassium has improved to 3.7. Creatinine 0.7 at this time. Hemoglobin 12.6. Patient is sitting up in chair at this time says she can breathe okay with the oxygen. She is on 6 L nasal cannula. I question if she has a component of CHF at this point. She appears to be fluid overloaded to me. I will order Lasix 40 IV daily Continue ceftriaxone azithromycin to cover for COPD exacerbation I do not entirely agree that her sole complaint of shortness of breath is secondary to COPD. I will diuresis patient. I will switch Solu-Medrol to 40 twice daily. She definitely has a component of CHF plus COPD. Last echogram from February 2024 shows EF of 68% with moderate hypokinesia of basal inferior wall segment grade 1 x 4 diastolic dysfunction. I will check BNP. Regardless of result we will get started on Lasix IV. PDMP PDMP Reviewed: Not Reviewed Attestations 2 Medical Necessity Statement*: Patient has a dual component of COPD exacerbation which is appearing less likely to me however he definitely appears to be in a CHF exacerbation. I will be diuresing with IV Lasix. He will likely require greater than 2 midnight stay. Diagnoses COPD exacerbation J44.1 Productive cough R05.8 Bronchial spasm J98.01 Hypokalemia E87.6
[2024-10-22 12:52] LABS: NT Pro B Type Natriuretic Pept 6670 pg/mL (0-125)
[2024-10-22] MEDS: clopidogrel 75 mg Tablet PO (12:55)
[2024-10-22] MEDS: FUROsemide 10 mg/mL SDV 4mL 40 MG IVP ×2 (12:55→21:53)
[2024-10-22] MEDS: isosorbide mononitrate ER 30 mg Tablet PO (12:55)
[2024-10-22] MEDS: azithromycin 250 mg Tablet 500 MG PO (21:51)
[2024-10-22] MEDS: sennosides 8.6 mg Tablet 17.2 MG PO (21:51)
[2024-10-23] VITALS (16 sets, daily range): BP systolic 123–144; BP diastolic 55–69; PULSE 63–83; RESP 14–18; TEMP 36.6–36.9; O2SAT 90–95
[2024-10-23] MEDS: ipratropium-albuterol 3 mL Neb INHALATION ×6 (00:43→20:24)
[2024-10-23 04:04] LABS: Basophils % 0.1 %; Hematocrit 35.8 % (36-47); Lymphocytes # 0.4 10^3/uL (0.8-4.8); Lymphocytes % 4.4 %; Mean Corpuscular HGB Conc 30.7 g/dL (30-55); Mean Corpuscular Volume 100.8 fl (85-98); Monocytes # 0.9 10^3/uL (0.2-0.9); Monocytes % 9.9 %; Neutrophils # 7.73 10^3/uL (1.8-7.7); Neutrophils % 85.2 %; Nucleated Red Blood Cells % 0 %; Platelet Count 307 10^3/cmm (157-399); Red Blood Count 3.55 10^6/uL (3.85-5.65); Red Cell Distribution Width 13.3 % (12.1-15.1); White Blood Count 9.08 10^3/uL (3.29-11.43)
[2024-10-23 04:18] LABS: Alanine Aminotransferase 24 U/L (0-33); Albumin Level 3.1 g/dL (3.5-5.2); Alkaline Phosphatase 75 U/L (35-105); Anion Gap 14.3 (5-19); Aspartate Amino Transferase 16 U/L (0-32); Blood Urea Nitrogen 25 mg/dL (8-23); Calcium 9.6 mg/dL (8.5-10.5); Carbon Dioxide 29 mmol/L (22-29); Chloride 100 mmol/L (98-107); Creatinine Clr Calc Pharmacy 58.3588; Globulin 2.4 g/dL (1.3-4.6); Glucose 113 mg/dL (65-115); Magnesium 1.7 mg/dL (1.7-2.3); Osmolality Calculated 295 mOsm/kg (285-295); Potassium 3.3 mmol/L (3.5-5.1); Sodium 140 mmol/L (136-145); Total Bilirubin 0.2 mg/dL (0.15-1.2); Total Protein 5.5 g/dL (6.6-8.7)
[2024-10-23] MEDS: metoprolol succinate ER (24 HR) 25 mg Tablet PO (08:00)
[2024-10-23] MEDS: clopidogrel 75 mg Tablet PO (08:00)
[2024-10-23] MEDS: docusate sodium 100 mg Capsule PO (08:00)
[2024-10-23] MEDS: pantoprazole DR 40 mg Tablet PO (08:01)
[2024-10-23] MEDS: losartan 50 mg Tablet 100 MG PO (08:01)
[2024-10-23] MEDS: aspirin 81 mg Chew Tablet PO (08:01)
[2024-10-23] MEDS: duloxetine 30 mg Capsule PO (08:01)
[2024-10-23] MEDS: guaiFENesin 600 mg Tablet 1200 MG PO ×2 (08:01→17:06)
[2024-10-23] MEDS: isosorbide mononitrate ER 30 mg Tablet PO (08:02)
[2024-10-23] MEDS: amlodipine 10 mg Tablet PO (08:02)
[2024-10-23] MEDS: methylPREDNISolone sod succ 40 mg/mL INJ IVP (08:02)
[2024-10-23] MEDS: cefTRIAXone 2,000 mg SDV 2000 MG IVP ×2 (10:29→21:17)
[2024-10-23] MEDS: FUROsemide 10 mg/mL SDV 4mL 40 MG IVP ×2 (10:29→21:17)
[2024-10-23] MEDS: heparin 5,000 unit/mL INJ 1 mL 5000 UNIT SUBCUT ×2 (10:29→21:16)
--- NOTE | 2024-10-23 12:03 | P.PN_ITS ---
Subjective 2 Subjective: feeling better lung exam improving Vitals/I&O/Wt Last Vital Signs Temp 97.6 F 10/24/24 11:05 Pulse 74 10/24/24 11:05 Resp 17 10/24/24 11:05 BP 137/60 10/24/24 11:05 Pulse Ox 89 L 10/24/24 11:05 O2 Del Method Nasal Cannula 10/24/24 11:05 O2 Flow Rate 5 10/24/24 04:05 10/23/24 10/24/24 10/24/24 22:59 06:59 14:59 Intake Total 240 / 650 480 / 1130 240 / 240 Output Total 1000 / 1000 1000 / 2000 Balance -760 / -350 -520 / -870 240 / 240 Weight last 48 hrs Weight 61.235 kg Weight 61.235 kg Physical Exam 2 Narrative: Generally patient is doing well very pleasant lady HEENT normocephalic/atraumatic patient on 5 L of oxygen nasal cannula Neck neck is supple Cardiovascular heart rate is regular Lungs : rhonchi present , mild crackles present at bases, fair b/l air entry Abdomen is soft nontender nondistended has good bowel sounds Extremities are intact no edema has good pulses Data 10/24/24 03:10 10/24/24 03:10 A&P Assessment and plan (1) COPD exacerbation: COPD exacerbation - Admit to general medical floor with telemetry - Continue with nebulizing treatments such as DuoNeb every 4 hours scheduled for now - Supplemental oxygen at 6 L now twice that patient uses at baseline - Continues steroid therapy with Solu-Medrol 40 mg twice daily - Initiate antibiotics with ceftriaxone and azithromycin for associated bronchitis. (2) Productive cough: Productive cough. Very thick hard to expectorate Initiated Mucinex 1200 mg twice daily for 5 days Continue all other supportive care with supplemental oxygen steroid therapy nebulizing treatment for care. (3) Bronchial spasm: Bronchial spasm is induced by underlining COPD exacerbation This induces hypoxemia with intense shortness of breath. - Must continue nebulizing treatment, steroid therapy, empiric antibiotics, and supplemental oxygen. (4) Hypokalemia: Patient is with potassium of 2.9 requiring replacement - Will give 40 mEq oral KCl for care. - Follow-up with a repeat lab studies to make sure her electrolytes are optimized Plan GI and DVT prophylaxis in place 10/22/2024 Potassium has improved to 3.7. Creatinine 0.7 at this time. Hemoglobin 12.6. Patient is sitting up in chair at this time says she can breathe okay with the oxygen. She is on 6 L nasal cannula. I question if she has a component of CHF at this point. She appears to be fluid overloaded to me. I will order Lasix 40 IV daily Continue ceftriaxone azithromycin to cover for COPD exacerbation I do not entirely agree that her sole complaint of shortness of breath is secondary to COPD. I will diuresis patient. I will switch Solu-Medrol to 40 twice daily. She definitely has a component of CHF plus COPD. Last echogram from February 2024 shows EF of 68% with moderate hypokinesia of basal inferior wall segment grade 1 x 4 diastolic dysfunction. I will check BNP. Regardless of result we will get started on Lasix IV. 10/23/2024 continue lasix and solumedrol descalate solumedrol to 40 daily diuresing nicely re-evaluate in am PDMP PDMP Reviewed: Not Reviewed Attestations 2 Medical Necessity Statement*: COPD and CHF exacerbation Diagnoses COPD exacerbation J44.1 Productive cough R05.8 Bronchial spasm J98.01 Hypokalemia E87.6
[2024-10-23] MEDS: potassium chloride ER 20 mEq Tablet 40 MEQ PO (17:05)
[2024-10-23] MEDS: azithromycin 250 mg Tablet 500 MG PO (21:15)
[2024-10-24] VITALS (19 sets, daily range): BP systolic 122–161; BP diastolic 51–69; PULSE 62–76; RESP 15–18; TEMP 36.4–36.9; O2SAT 89–99
[2024-10-24] MEDS: ipratropium-albuterol 3 mL Neb INHALATION ×6 (00:02→20:17)
[2024-10-24 03:54] LABS: Basophils % 0.1 %; Eosinophils % 0.2 %; Hematocrit 37.4 % (36-47); Lymphocytes # 0.6 10^3/uL (0.8-4.8); Lymphocytes % 6.2 %; Mean Corpuscular HGB Conc 29.7 g/dL (30-55); Mean Corpuscular Hemoglobin 30.7 pg (27-33); Mean Corpuscular Volume 103.6 fl (85-98); Mean Platelet Volume 10.7 fL (7.4-10.4); Monocytes % 10.8 %; Neutrophils % 82.1 %; Nucleated Red Blood Cells % 0 %; Platelet Count 298 10^3/cmm (157-399); Red Blood Count 3.61 10^6/uL (3.85-5.65); Red Cell Distribution Width 13.8 % (12.1-15.1); White Blood Count 8.89 10^3/uL (3.29-11.43)
[2024-10-24 04:16] LABS: Anion Gap 13.1 (5-19); Blood Urea Nitrogen 23 mg/dL (8-23); Calcium 9.4 mg/dL (8.5-10.5); Carbon Dioxide 31 mmol/L (22-29); Chloride 103 mmol/L (98-107); Creatinine Clr Calc Pharmacy 58.3588; Glucose 96 mg/dL (65-115); Magnesium 1.7 mg/dL (1.7-2.3); Osmolality Calculated 300 mOsm/kg (285-295); Potassium 4.1 mmol/L (3.5-5.1); Sodium 143 mmol/L (136-145)
[2024-10-24] MEDS: cefTRIAXone 2,000 mg SDV 2000 MG IVP ×2 (09:39→21:32)
[2024-10-24] MEDS: guaiFENesin 600 mg Tablet 1200 MG PO ×2 (09:40→17:10)
[2024-10-24] MEDS: losartan 50 mg Tablet 100 MG PO (09:40)
[2024-10-24] MEDS: aspirin 81 mg Chew Tablet PO (09:40)
[2024-10-24] MEDS: amlodipine 10 mg Tablet PO (09:40)
[2024-10-24] MEDS: isosorbide mononitrate ER 30 mg Tablet PO (09:40)
[2024-10-24] MEDS: metoprolol succinate ER (24 HR) 25 mg Tablet PO (09:40)
[2024-10-24] MEDS: duloxetine 30 mg Capsule PO (09:40)
[2024-10-24] MEDS: pantoprazole DR 40 mg Tablet PO (09:40)
[2024-10-24] MEDS: methylPREDNISolone sod succ 40 mg/mL INJ IVP ×2 (09:40→21:25)
[2024-10-24] MEDS: clopidogrel 75 mg Tablet PO (09:40)
[2024-10-24] MEDS: FUROsemide 10 mg/mL SDV 4mL 40 MG IVP ×2 (09:41→21:27)
[2024-10-24] MEDS: heparin 5,000 unit/mL INJ 1 mL 5000 UNIT SUBCUT ×2 (09:41→21:24)
--- NOTE | 2024-10-24 11:59 | P.PN_ITS ---
Subjective 2 Subjective: Patient is 1200 cc positive balance. One 4 L nasal cannula. Oxygenation has improved however lungs very rhonchorous with diffuse wheezing. Crackles improved. Chest sounds very tight She is definitely not ready to go home yet. Vitals/I&O/Wt Last Vital Signs Temp 97.6 F 10/24/24 11:05 Pulse 74 10/24/24 11:05 Resp 17 10/24/24 11:05 BP 137/60 10/24/24 11:05 Pulse Ox 89 L 10/24/24 11:05 O2 Del Method Nasal Cannula 10/24/24 11:05 O2 Flow Rate 5 10/24/24 04:05 10/23/24 10/24/24 10/24/24 22:59 06:59 14:59 Intake Total 240 / 650 480 / 1130 240 / 240 Output Total 1000 / 1000 1000 / 2000 Balance -760 / -350 -520 / -870 240 / 240 Weight last 48 hrs Weight 61.235 kg Weight 61.235 kg Physical Exam 2 Narrative: Generally patient is doing well very pleasant lady HEENT normocephalic/atraumatic patient on 4 L of oxygen nasal cannula Neck neck is supple Cardiovascular heart rate is regular Lungs are very rhonchorous with diffuse wheezing. Tight chest. Decreased bilateral air entry. Abdomen is soft nontender nondistended has good bowel sounds Extremities are intact no edema has good pulses Data 10/24/24 03:10 10/24/24 03:10 A&P Assessment and plan (1) COPD exacerbation: COPD exacerbation - Admit to general medical floor with telemetry - Continue with nebulizing treatments such as DuoNeb every 4 hours scheduled for now - Supplemental oxygen at 6 L now twice that patient uses at baseline - Continues steroid therapy with Solu-Medrol 40 mg twice daily - Initiate antibiotics with ceftriaxone and azithromycin for associated bronchitis. (2) Productive cough: Productive cough. Very thick hard to expectorate Initiated Mucinex 1200 mg twice daily for 5 days Continue all other supportive care with supplemental oxygen steroid therapy nebulizing treatment for care. (3) Bronchial spasm: Bronchial spasm is induced by underlining COPD exacerbation This induces hypoxemia with intense shortness of breath. - Must continue nebulizing treatment, steroid therapy, empiric antibiotics, and supplemental oxygen. (4) Hypokalemia: Patient is with potassium of 2.9 requiring replacement - Will give 40 mEq oral KCl for care. - Follow-up with a repeat lab studies to make sure her electrolytes are optimized Plan GI and DVT prophylaxis in place 10/22/2024 Potassium has improved to 3.7. Creatinine 0.7 at this time. Hemoglobin 12.6. Patient is sitting up in chair at this time says she can breathe okay with the oxygen. She is on 6 L nasal cannula. I question if she has a component of CHF at this point. She appears to be fluid overloaded to me. I will order Lasix 40 IV daily Continue ceftriaxone azithromycin to cover for COPD exacerbation I do not entirely agree that her sole complaint of shortness of breath is secondary to COPD. I will diuresis patient. I will switch Solu-Medrol to 40 twice daily. She definitely has a component of CHF plus COPD. Last echogram from February 2024 shows EF of 68% with moderate hypokinesia of basal inferior wall segment grade 1 x 4 diastolic dysfunction. I will check BNP. Regardless of result we will get started on Lasix IV. 10/24/2024 Escalated steroids to 40 IV twice daily continue Lasix at current dose. Continue to replete electrolytes She would likely require greater hospitalization stay secondary to clinical respiratory status. She is on 4 L nasal cannula at rest however I would not be surprised if she ambulance and requires a lot more. Chest sounds very tight today with diffuse rhonchi and wheezing. Crackles have improved. Continue current therapy Add flutter valve, incentive spirometer Continue DuoNeb. PDMP PDMP Reviewed: Not Reviewed Attestations 2 Medical Necessity Statement*: COPD and CHF exacerbation Diagnoses COPD exacerbation J44.1 Productive cough R05.8 Bronchial spasm J98.01 Hypokalemia E87.6
[2024-10-24] MEDS: azithromycin 250 mg Tablet 500 MG PO (21:24)
[2024-10-25] VITALS (8 sets, daily range): BP systolic 124–169; BP diastolic 64–65; PULSE 59–86; RESP 16–18; TEMP 36.6; O2SAT 85–97
[2024-10-25] MEDS: ipratropium-albuterol 3 mL Neb INHALATION ×3 (00:13→08:10)
[2024-10-25 02:55] LABS: Basophils % 0.2 %; Hematocrit 38.4 % (36-47); Lymphocytes # 0.3 10^3/uL (0.8-4.8); Lymphocytes % 4.8 %; Mean Corpuscular HGB Conc 30.5 g/dL (30-55); Mean Corpuscular Volume 101.6 fl (85-98); Mean Platelet Volume 10.1 fL (7.4-10.4); Monocytes # 0.3 10^3/uL (0.2-0.9); Neutrophils # 5.62 10^3/uL (1.8-7.7); Neutrophils % 90.5 %; Nucleated Red Blood Cells % 0 %; Platelet Count 314 10^3/cmm (157-399); Red Blood Count 3.78 10^6/uL (3.85-5.65); Red Cell Distribution Width 13.7 % (12.1-15.1); White Blood Count 6.21 10^3/uL (3.29-11.43)
[2024-10-25 03:23] LABS: Anion Gap 14.6 (5-19); Blood Urea Nitrogen 18 mg/dL (8-23); Calcium 9.8 mg/dL (8.5-10.5); Carbon Dioxide 32 mmol/L (22-29); Chloride 96 mmol/L (98-107); Creatinine Clr Calc Pharmacy 58.3588; Glucose 121 mg/dL (65-115); Magnesium 1.7 mg/dL (1.7-2.3); Osmolality Calculated 289 mOsm/kg (285-295); Potassium 4.6 mmol/L (3.5-5.1); Sodium 138 mmol/L (136-145)
[2024-10-25] MEDS: budesonide 0.5 mg/2 mL Neb INHALATION (08:11)
[2024-10-25] MEDS: amlodipine 10 mg Tablet PO (08:51)
[2024-10-25] MEDS: metoprolol succinate ER (24 HR) 25 mg Tablet PO (08:51)
[2024-10-25] MEDS: duloxetine 30 mg Capsule PO (08:51)
[2024-10-25] MEDS: losartan 50 mg Tablet 100 MG PO (08:51)
[2024-10-25] MEDS: clopidogrel 75 mg Tablet PO (08:51)
[2024-10-25] MEDS: methylPREDNISolone sod succ 40 mg/mL INJ IVP (08:52)
[2024-10-25] MEDS: guaiFENesin 600 mg Tablet 1200 MG PO (08:52)
[2024-10-25] MEDS: aspirin 81 mg Chew Tablet PO (08:52)
[2024-10-25] MEDS: isosorbide mononitrate ER 30 mg Tablet PO (08:52)
[2024-10-25] MEDS: pantoprazole DR 40 mg Tablet PO (08:52)
--- NOTE | 2024-10-25 16:14 | P.DS_ITS ---
Discharge Providers Date of Admission: 10/21/24 20:05 Date of Discharge: October 25, 2024 Attending Provider at Admission: Jennifer Cristobal MD Attending Provider at Discharge: Adrianna Davis MD Primary Care Provider: TRE OSEGUERA Diagnoses at Discharge Discharge Diagnosis (1) COPD exacerbation: Status: Acute (2) Productive cough: Status: Acute (3) Bronchial spasm: Status: Acute (4) Hypokalemia: Status: Acute Reason for Visit Reason for Visit: SOB Hospital Course Hospital Course Latonia Gar is a 69 year old female who lives at home with history of chronic home oxygen at 3 L. Had been having shortness of breath for a few days. Patient presented to the emergency room with much shortness of breath with bronchospasm. It was noted that patient was requiring 6 L while typically she takes 3 L/min intermittently at home. She was diagnosed and admitted to the hospital for acute on chronic COPD exacerbation. She received scheduled treatment with DuoNebs and budesonide as needed while as IV steroids. She was also diagnosed with pulmonary hypertension for which she was placed on IV diure sis with Lasix. Review of echocardiogram from February 2024 had shown a PASP of 34 mmHg. There was some chronic LVH noted at the time with an EF of 68% and grade 1 diastolic dysfunction. Patient improved with the above interventions. Today her chest is clear to auscultation. She is requiring 4 L/min supplemental O2 which is close to her baseline. Home O2 evaluation was ordered prior to discharge. Patient was still on IV methylprednisolone 40 mg IV every 12 hours and Lasix 40 mg IV every 12 hours and was not yet net negative. We recommended that patient stay for another day to 1 hours to taper her IV steroids to oral and IV Lasix to oral and ensure that she is able to maintain her current respiratory status prior to discharge with these interventions. However patient stated that she w as eager to return home and reinstated compliance with all medications at home. She was discharged today at her request and in overall improved condition. She has been counseled to take a prednisone taper as directed at home. Additionally antibiotics changed from ceftriaxone and azithromycin to oral Augmentin at discharge Physical Exam Narrative: General: No acute distress, AO x3 HEENT: PERRLA, pupils bilaterally equal and reactive, pallors not present Chest: Normal vesicular breath sounds, no added sounds, equal good air entry bilaterally CVS: S1-S2 regular, no murmurs, no tachycardia, no gallops, no rubs Abdomen: Soft, nontender, no organomegaly, bowel sounds present Neuro: No focal deficits, no facial deformity, AO x3, power 5/5 in all limbs Discharge Data Studies Completed and Pending Completed Studies During Hospitalization Category Date Time Status XR chest 1V portable [id number] Stat Exams 10/21/24 17:28 Completed Pending at discharge Category Date Time Status Blood Culture Stat Lab 10/21/24 17:25 Results Urinalysis Stat Lab 10/22/24 13:04 Ordered Radiology Impressions Chest X-Ray 10/21/24 17:28 IMPRESSION: No acute intrathoracic findings. Laboratory Results WBC 6.21 10^3/uL (3.29-11.43) 10/25/24 02:40 RBC 3.78 10^6/uL (3.85-5.65) L 10/25/24 02:40 Hgb 11.70 g/dL (11.27-16.99) 10/25/24 02:40 Hct 38.4 % (36-47) 10/25/24 02:40 MCV 101.6 fl (85-98) H 10/25/24 02:40 MCH 31.0 pg (27-33) 10/25/24 02:40 MCHC 30.5 g/dL (30-55) 10/25/24 02:40 RDW 13.7 % (12.1-15.1) 10/25/24 02:40 Plt Count 314 10^3/cmm (157-399) 10/25/24 02:40 MPV 10.1 fL (7.4-10.4) 10/25/24 02:40 Neut % (Auto) 90.5 % 10/25/24 02:40 Lymph % (Auto) 4.8 % 10/25/24 02:40 [place] % (Auto) 4.0 % 10/25/24 02:40 Eos % (Auto) 0.0 % 10/25/24 02:40 Baso % (Auto) 0.2 % 10/25/24 02:40 Neut # (Auto) 5.62 10^3/uL (1.8-7.7) 10/25/24 02:40 Lymph # (Auto) 0.3 10^3/uL (0.8-4.8) L 10/25/24 02:40 [place] # (Auto) 0.3 10^3/uL (0.2-0.9) 10/25/24 02:40 Eos # (Auto) 0.0 10^3/uL (0.0-0.8) 10/25/24 02:40 Baso # (Auto) 0.0 10^3/uL (0.0-0.1) 10/25/24 02:40 Nucleated RBC % (auto) 0 % 10/25/24 02:40 Nucleated RBCs # 0.0 /100WBC 10/25/24 02:40 Specimen Type Arterial 10/21/24 17:16 Sample Site Radial, right 10/21/24 17:16 ABG pH 7.38 (7.35-7.45) 10/21/24 17:16 ABG pCO2 53.7 mmHg (35-45) H 10/21/24 17:16 ABG pO2 61.7 mmHg (80.0-100.0) L 10/21/24 17:16 ABG HCO3 31.8 mmol/L (22-26) H 10/21/24 17:16 ABG O2 Saturation 90.5 10/21/24 17:16 ABG Base Excess 5.3 mmol/L (-2.0-2.0) H 10/21/24 17:16 Nikhil Test Pos 10/21/24 17:16 A-a O2 Gradient 3.0 mmHg (5-10) L 10/21/24 17:16 Hematocrit 40.0 % (37-47) 10/21/24 17:16 Hgb O2 Saturation 86.3 % (95-100) L 10/21/24 17:16 Carboxyhemoglobin 3.9 %THgb (0.4-20.1) 10/21/24 17:16 Methemoglobin 0.7 % (0.4-1.5) 10/21/24 17:16 Total Hemoglobin 13.1 g/dL (12-16) 10/21/24 17:16 Sodium 138.0 mmol/L (131-143) 10/21/24 17:16 Potassium 2.7 mmol/L (3.5-5.0) L 10/21/24 17:16 Glucose 113.0 mg/dL (70-115) 10/21/24 17:16 Ionized Calcium 1.3 mmol/L (1.1-1.4) 10/21/24 17:16 O2 Delivery Device Nc 10/21/24 17:16 O2 Liters/Min 7.0 % 10/21/24 17:16 Android Programmer ID [place]anto 10/21/24 17:16 Sodium 138 mmol/L (136-145) 10/25/24 02:40 Potassium 4.6 mmol/L (3.5-5.1) 10/25/24 02:40 Chloride 96 mmol/L (98-107) L 10/25/24 02:40 Carbon Dioxide 32 mmol/L (22-29) H 10/25/24 02:40 Anion Gap 14.6 (5-19) 10/25/24 02:40 BUN 18 mg/dL (8-23) 10/25/24 02:40 Creatinine 0.7 mg/dL (0.5-0.9) 10/25/24 02:40 GFR Calculation Not Reportable 10/25/24 02:40 Glucose 121 mg/dL (65-115) H 10/25/24 02:40 POC Glucose 200 mg/dL (70-110) H 10/21/24 21:53 Calculated Osmolality 289 mOsm/kg (285-295) 10/25/24 02:40 Lactic Acid 0.9 mmol/L (0.5-2.2) 10/21/24 17:21 Calcium 9.8 mg/dL (8.5-10.5) 10/25/24 02:40 Phosphorus 3.8 mg/dL (2.5-4.5) 10/22/24 04:37 Magnesium 1.7 mg/dL (1.7-2.3) 10/25/24 02:40 Total Bilirubin 0.2 mg/dL (0.15-1.2) 10/23/24 02:43 AST 16 U/L (0-32) 10/23/24 02:43 ALT 24 U/L (0-33) 10/23/24 02:43 Alkaline Phosphatase 75 U/L (35-105) 10/23/24 02:43 Creatine Kinase 65 U/L (26-192) 10/21/24 17:21 NT-Pro-B Natriuret Pep 6670 pg/mL (0-125) H 10/22/24 04:37 Total Protein 5.5 g/dL (6.6-8.7) L 10/23/24 02:43 Albumin 3.1 g/dL (3.5-5.2) L 10/23/24 02:43 Globulin 2.4 g/dL (1.3-4.6) 10/23/24 02:43 Influenza A (PCR) Negative (Negative) 10/21/24 17:53 Influenza Type B (PCR) Negative (Negative) 10/21/24 17:53 RSV (PCR) Negative (Negative) 10/21/24 17:53 SARS-CoV-2 (PCR) Negative (Negative) 10/21/24 17:53 Vitals Last Vital Signs Temp 98 F 10/25/24 07:45 Pulse 76 10/25/24 08:12 Resp 18 10/25/24 08:12 BP 169/65 10/25/24 08:51 Pulse Ox 85 L 10/25/24 08:13 O2 Del Method High Flow Nasal Cannula 10/25/24 08:12 O2 Flow Rate 6 10/25/24 08:13 Discharge Plan Discharge Patient Disposition: Home Condition: Stable Prescriptions: New prednisone 10 mg tablet See Taper PO DIRECTED Qty: 40 0RF Taper: predniSONE 60-10 60 mg Daily for 2 Days and 0 Hour 50 mg Daily for 2 Days and 0 Hour 40 mg Daily for 2 Days and 0 Hour 30 mg Daily for 2 Days and 0 Hour 20 mg Daily for 2 Days and 0 Hour 10 mg Daily for 2 Days and 0 Hour Rx Instructions: see taper instructions amoxicillin-pot clavulanate 875-125 mg tablet 1 tab PO BID 5 Days Qty: 10 0RF Continued aspirin 81 mg tablet,chewable 81 mg PO DAILY nitroglycerin 0.4 mg tablet, sublingual 0.4 mg sublingual Q5M PRN (Reason: chest pain) Qty: 25 3RF Rx Instructions: do not exceed 3 doses per episode losartan 100 mg tablet 100 mg PO DAILY Qty: 90 3RF albuterol sulfate 90 mcg/actuation HFA aerosol inhaler 2 puff inhalation Q6H PRN (Reason: Shortness Of Breath Or Wheezing) (DME) oxygen-air delivery systems Device See Rx Instructions .ROUTE [facility] Instructions: [facility]-4.8 mcg/actuation HFA aerosol inhaler 2 inh inhalation BID Qty: 10.7 5RF albuterol sulfate 2.5 mg /3 mL (0.083 %) solution for nebulization 2.5 mg inhalation Q6H PRN (Reason: Wheezing) Qty: 90 3RF clopidogrel 75 mg tablet See Rx Instructions .ROUTE .COMPLEX Qty: 90 3RF Dose Instruction: Take 1 tablet by mouth once daily Rx Instructions: Take 1 tablet by mouth once daily cetirizine [Zyrtec] 10 mg tablet 10 mg PO QAM vitamin B complex Tablet 1 tab PO DAILY ferrous sulfate 27 mg iron Tablet 27 mg PO BID cholecalciferol (vitamin D3) [Vitamin D3] 125 mcg (5,000 unit) Tablet 125 mcg PO QAM acetaminophen 325 mg capsule 325 mg PO Q4H PRN (Reason: fever or pain) Qty: 60 0RF metoprolol succinate 25 mg tablet extended release 24 hr 25 mg PO DAILY duloxetine 30 mg capsule,delayed release(DR/EC) 30 mg PO DAILY isosorbide mononitrate 30 mg tablet extended release 24 hr 30 mg PO DAILY Rx Instructions: Take 1 tablet by mouth once daily ondansetron HCl 4 mg tablet 4 mg PO Q8H pantoprazole 40 mg tablet,delayed release (DR/EC) 40 mg PO BID Changed amlodipine 5 mg tablet 10 mg PO DAILY 30 Days Qty: 30 0RF furosemide 20 mg tablet 40 mg PO QAM 30 Days Qty: 60 0RF Discharge Orders: Discharge Order (Routine); Ordered 10/25/24 Ordered By: Adrianna Davis Other Ambulatory Orders: DME: Oxygen (Order) Location: None Selected Ordered By: Adrianna Davis [facility] [place] TRE OSEGUERA [Primary Care Provider, Nurse Practitioner] - 10/29/24 8:30 am Referral Note: hospital discharge follow up Discharge Diet: Usual diet Discharge Activity: Resume usual activity Patient Instructions: Prednisone (By mouth), Amoxicillin/Clavulanate Potassium (By mouth), Using Oxygen at Home (GEN), COPD Stoplight, Opioid Safety, Pneumonia Stoplight Activity Restrictions/Additional Instructions: Please check your weight daily. If you gain more than 5 pounds over 3 days, take extra dose of lasix 40mg Discharge Attestations Time Spent in Discharge Care*: greater than 30 min Status at Discharge: Cognitive status at discharge: cognitively intact , Behavioral status at discharge: cooperative , Quality Metrics Clinical Quality Measures [ No reported AMI, CVA or VTE this stay] Coding Level of Care Code Acute Code for Chg Fwd Diagnoses COPD exacerbation J44.1 Productive cough R05.8 Bronchial spasm J98.01 Hypokalemia E87.6
== END 2024-10-25 11:25 | disposition home or self-care (01) | DRG 190 ==
LOC: ER 20:05 → MEDSURG 20:07
PROVIDERS: Family Medicine; Internal Medicine; Admitting Provider Internal Medicine; Emergency Provider Emergency Medicine; PCP Nurse Practitioner Family; Visit Provider Student in an Organized Health Care Education/Training Program
DX: J44.1 Chronic obstructive pulmonary disease with (acute) exacerbation (principal); I50.33 Acute on chronic diastolic (congestive) heart failure; E87.6 Hypokalemia; I27.20 Pulmonary hypertension, unspecified; J43.2 Centrilobular emphysema; D64.9 Anemia, unspecified; I25.10 Atherosclerotic heart disease of native coronary artery without angina pectoris; K21.9 Gastro-esophageal reflux disease without esophagitis; I11.0 Hypertensive heart disease with heart failure; E78.00 Pure hypercholesterolemia, unspecified; F17.210 Nicotine dependence, cigarettes, uncomplicated; R00.0 Tachycardia, unspecified; I25.2 Old myocardial infarction; Z79.82 Long term (current) use of aspirin; Z79.51 Long term (current) use of inhaled steroids; Z99.81 Dependence on supplemental oxygen; Z87.11 Personal history of peptic ulcer disease
CPT/HCPCS: 36415; 36416; 36600; 71045; 80048; 80051; 80053; 82330; 82550; 82805; 82962; 83605; 83735; 83880; 84100; 85025; 87040; 87637; 93005; 94640; 94760; 96365; 96372; 96375; 97116; 97161; 97165; 99285; J0456; J0696; J1644; J1938; J2405; J2919; J3480; J7030; J7050; J7611; J7626; J9999; Q0144

== ENCOUNTER 2024-11-11 20:40 | Observation (INO) | payer MEDICARE, MEDICAID, SELFPAY ==
--- OUTSIDE RECORDS SUMMARY | 2024-10-21 00:15 | XMS_ITS | Encounter Summary ---
Author Organization [facility] Address [address] [place] [address] Care Team Providers Care Taste Tester Name Role Phone Unavailable Primary Care Provider Unavailabl e Encounter Details Date Type Department Care Team (Late st Contact Info) Description 10/21/2024 12:15 AM CDT Hospital Encounter [facility] Emergency Medical Services [address] [phone] Ambulance, [address] [address] Arrived Social History Tobacco Use Types Packs/Day Years Used Date Smoking Tobacco: Never Assessed Comments Unknown Sex and Gender Information Value Date Recorded Sex Assigned at Not on file Legal Sex Female 7:05 AM CDT Gender Identity Not on file Sexual Orientation Not on file documented as of this encounter Plan of Treatment Not on file documented as of this encounter Visit Diagnoses Not on filedocumented in this encounter
[2024-11-11] VITALS (9 sets, daily range): BP systolic 92–135; BP diastolic 30–45; PULSE 67–94; RESP 16–20; TEMP 36.9; O2SAT 80–95; BMI 22.2
--- OUTSIDE RECORDS SUMMARY | 2024-11-11 20:47 | XMS_ITS | Clinical Summary ---
Author Organization [facility] Address [address] [address] Phone Care Team Providers Care Gem Setter Name Role Phone Unavailable Primary Care Provider Unavailabl e Encounters Date Type Department Care Team Description 10/21/2024 12:15 AM CDT Hospital Encounter [facility] Emergency Medical Services [address] [address] Ambulance, [facility] Arrived from Last 3 Months Social History Tobacco Use Types Packs/Day Years Used Date Smoking Tobacco: Never Assessed Comments Unknown Sex and Gender Information Value Date Recorded Sex Assigned at Not on file Legal Sex Female 7:05 AM CDT Gender Identity Not on file Sexual Orientation Not on file Plan of Treatment Health Maintenance Due Date Last Done Comments DTAP/TDAP/TD VACCINES (1 - Tdap) 1972 BREAST CANCER SCREENING 1993 COLORECTAL SCREENING 1998 Colorectal Cancer Screening 1998 FIT-DNA Q 3 years 1998 FIT/FOBT Q 1 year 1998 Flex Sig/CT Colonography Q 5 years 1998 PNEUMOCOCCAL VACCINE 50+ YEARS (1 of 1 - PCV) 06/01/19 04 07/12/2022 ZOSTER VACCINE (1 of 2) 2003 OSTEOPOROSIS SCREENING 2018 INFLUENZA VACCINE (#1) 2024 02/18/2023 RSV VACCINE (60+ or ) (1 - 1-dose 75+ series) 2028 Insurance [facility] DUAL ADVANTAGE O DSNP MEDICAID [place]
--- NOTE | 2024-11-11 20:48 | ECG_ITS ---
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 Measurements Intervals [place] Rate: 77 P: -77 MD: 130 QRS: 8 QRSD: 100 T: 16 QT: 408 QTc: 464 Interpretive Statements JUNCTIONAL RHYTHM WITH OCCASIONAL VENTRICULAR and supraventricular PREMATURE COMPLEXES ST DEVIATION AND MODERATE T-WAVE ABNORMALITY, CONSIDER LATERAL ISCHEMIA [-0.1+ mV T-WAVE IN I/aVL/V5/V6] Compared to ECG 10/21/2024 17:28:10 Junctional rhythm now present T-wave abnormality now present Possible ischemia now present Sinus rhythm no longer present Myocardial infarct finding no longer present ST (T wave) deviation no longer present Electronically Signed On 11-12-2024 15:20:20 CDT by Bari Cruz M.D. [email or web address]
--- NOTE | 2024-11-11 20:51 | XRR_ITS ---
PROCEDURE INFORMATION: Exam: XR Chest Exam date and time: 11/11/2024 8:52 PM Age: 69 years old Clinical indication: Shortness of breath TECHNIQUE: Imaging protocol: Radiologic exam of the chest. Views: 1 view. COMPARISON: CR XR chest 1V portable [id number] 10/21/2024 5:30 PM FINDINGS: Lungs: Patchy bibasilar atelectasis or other infiltrates. Mild emphysematous changes noted. Pleural spaces: No pleural effusion. No pneumothorax. Heart/Mediastinum: Cardiomegaly. Bones/joints: No acute fracture. XR/XR chest 1V portable [id number] IMPRESSION: Patchy bibasilar atelectasis or other infiltrates.
--- NOTE | 2024-11-11 20:51 | W.ED.SOB ---
Documented by User: Sultana Godfrey MD 11/11/24 20:55 HPI - SOB/Dyspnea General: Chief Complaint: Shortness of Breath/Dyspnea Stated Complaint: SOB Time Seen by Provider: 11/11/24 20:49 History of Present Illness: HPI Narrative: 69-year-old female with a history of tobacco dependence, COPD with chronic hypoxemic respiratory failure on 3 L nasal cannula at all times, coronary artery disease, peptic ulcer disease and hypertension who presents the emergency room with worsening shortness of breath. She says she has had quite a bit of cough. No chest pain. No fever. She has increased oxygen requirements. EMS reports she is normally on 4 L nasal cannula and she was satting in the 70s on that. On arrival here initial sat is 80% on 6 L. She received some breathing treatments and her lung sounds a bit better. Work of breathing is only slight leak increased. No altered mental status. No focal motor deficits. No abdominal pain. No vomiting. Related Data Home Medications ?Medication ?Instructions ?Recorded ?Confirmed cetirizine 10 mg tablet (Zyrtec) 10 mg PO QAM 05/10/19 10/22/24 cholecalciferol (vitamin D3) 125 125 mcg PO QAM 04/11/21 10/22/24 mcg (5,000 unit) tablet (Vitamin D3) ferrous sulfate 27 mg iron tablet 27 mg PO BID 04/11/21 10/22/24 vitamin B complex 1 tab PO DAILY 04/11/21 10/22/24 aspirin 81 mg chewable tablet 81 mg PO DAILY 04/11/22 10/22/24 albuterol sulfate 90 mcg/actuation 2 puff inhalation Q6H PRN 05/13/24 10/22/24 aerosol inhaler Shortness Of Breath Or Wheezing oxygen-air delivery systems 05/13/24 10/22/24 duloxetine 30 mg capsule,delayed 30 mg PO DAILY 07/18/24 10/22/24 release metoprolol succinate 25 mg 25 mg PO DAILY 07/18/24 10/22/24 tablet,extended release 24 hr ondansetron HCl 4 mg tablet 4 mg PO Q8H 10/22/24 10/22/24 pantoprazole 40 mg tablet,delayed 40 mg PO BID 10/22/24 10/22/24 release Previous Rx's ?Medication ?Instructions ?Recorded budesonide 160 mcg-glycopyr 9 2 inh inhalation BID #10.7 grams 03/25/22 mcg-formot 4.8 mcg/actuation HFA inhaler (Breztri Aerosphere) acetaminophen 325 mg capsule 325 mg PO Q4H PRN fever or pain 09/12/22 #60 caps albuterol sulfate 2.5 mg/3 mL 2.5 mg (3 mL) inhalation Q6H PRN 09/17/22 (0.083 %) solution for nebulization Wheezing #90 mL losartan 100 mg tablet 100 mg PO DAILY #90 tabs 11/11/23 nitroglycerin 0.4 mg sublingual 0.4 mg sublingual Q5M PRN chest 11/11/23 tablet pain #25 tabs clopidogrel 75 mg tablet See Rx Instructions .Route 07/16/24 .COMPLEX #90 tabs amlodipine 5 mg tablet 10 mg (2 x 5 mg) PO DAILY 30 days 10/25/24 #30 tabs furosemide 20 mg tablet 40 mg (2 x 20 mg) PO QAM 30 days 10/25/24 #60 tabs prednisone 10 mg tablet See Taper PO DIRECTED #40 tabs 10/25/24 isosorbide mononitrate 30 mg See Rx Instructions .Route 11/01/24 tablet,extended release 24 hr .COMPLEX #90 tabs Allergies Allergy/AdvReac Type Severity Reaction Status Date / Time strawberry Allergy ADR-Itching Verified 11/11/24 20:46 Review of Systems Narrative: Constitutional symptoms: Negative except as documented in HPI. Skin symptoms: Negative except as documented in HPI. Eye symptoms: Negative except as documented in HPI. ENMT symptoms: Negative except as documented in HPI. Respiratory symptoms: Negative except as documented in HPI. Cardiovascular symptoms: Negative except as documented in HPI. Gastrointestinal symptoms: Negative except as documented in HPI. Genitourinary symptoms: Negative except as documented in HPI. Musculoskeletal symptoms: Negative except as documented in HPI. Neurologic symptoms: Negative except as documented in HPI. Psychiatric symptoms: Negative except as documented in HPI. Endocrine symptoms: Negative except as documented in HPI. PFSH ED PFSH: Medical History (Updated 11/11/24 @ 23:20 by Jose Miguel Yeboah DO) Productive cough Nocturnal hypoxemia Onychodystrophy Centrilobular emphysema Multiple lung nodules on CT Shortness of breath Encounter for screening for lung cancer IDCKSON (dyspnea on exertion) Bilateral foot pain Anemia Chronic and stable Encounter for surgical aftercare following surgery of genitourinary system Chest pain Right upper quadrant pain Atherosclerosis of coronary artery ST elevation myocardial infarction (STEMI) This patient presents with the features of ST elevation myocardial infarction. 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 She underwent PCI of this lesion. Currently she seems to be stable. Hx of chest pain Smoker Asthma with exacerbation PUD (peptic ulcer disease) Hx of migraines History of COPD Hx of gastroesophageal reflux (GERD) Hx of primary hypertension Hx of hypercholesterolemia Surgical History History of tonsillectomy and adenoidectomy History of ankle surgery History of bladder surgery History of carpal tunnel release of both wrists Family History Sister Cancer Myocardial infarct Heart disease Mother Myocardial infarct Heart disease Grandmother Myocardial infarct Heart disease maternal Other DICKSON (dyspnea on exertion) Hypertension Stroke Denies family history of Colon cancer Ovarian cancer Diabetes Breast cancer Uterine cancer Social History Smoking and tobacco/nicotine status: current every day tobacco/nicotine user cigarettes Packs smoked per day: 1 Years cigarettes smoked: 57 [ Other cigarette details: Started smoking at 11] Substance/Drug Use: never Physical Exam Narrative: EXAM NARRATIVE: General: Alert, no acute distress. Skin: Warm, dry. Head: Normocephalic, atraumatic. Neck: Supple, trachea midline. Eye: Extraocular movements are intact. Ears, nose, mouth and throat: Oral mucosa moist. Cardiovascular: Regular rate and rhythm, Normal peripheral perfusion. Respiratory: coarse, scattered wheeze, mild increased wob. tachypnea, breath sounds are equal, Symmetrical chest wall expansion. Gastrointestinal: Soft, Nontender, Non distended Musculoskeletal: Normal ROM, no deformity. Neurological: Alert and oriented, No focal neurological deficit observed. Psychiatric: Cooperative, appropriate mood & affect. Course Vital Signs: Vital signs: Vital Signs Temperature 98.4 F 11/11/24 20:40 Pulse Rate 78 11/11/24 22:30 Respiratory Rate 18 11/11/24 22:30 Blood Pressure 123/43 11/11/24 22:30 Pulse Oximetry 95 11/11/24 22:30 Oxygen Delivery Me thod Heated High Flow 11/11/24 21:16 Oxygen Flow Rate 8 11/11/24 21:16 MDM - SOB/Dyspnea Medical Decision Making Differential diagnosis for patient with shortness of breath includes but is not limited to and based on the above HPI, review of systems and physical exam: Pneumonia. Bronchitis. Asthma or COPD with acute exacerbation. Acute coronary syndrome / MN. Pulmonary embolism. Anxiety. Congestive heart failure. Viral infections including influenza and Covid-19. Atrial fibrillation. Anxiety. Pleural effusion. Pneumothorax. Orders placed to evaluate differential diagnosis based on the above differential, HPI and physical exam Patient care transitioned to Dr. Yeboah at shift change. Breathing treatments, Solu-Medrol and doxycycline have been ordered. ABG ordered and pending. Lab Data 11/11/24 20:58 11/11/24 20:58 Labs/Radiology: Radiology Impressions Chest X-Ray 11/11/24 20:51 IMPRESSION: Patchy bibasilar atelectasis or other infiltrates. Laboratory Results WBC 8.37 10^3/uL (3.29-11.43) 11/11/24 20:58 RBC 3.52 10^6/uL (3.85-5.65) L 11/11/24 20:58 Hgb 10.30 g/dL (11.27-16.99) L 11/11/24 20:58 Hct 34.5 % (36-47) L 11/11/24 20:58 MCV 98.0 fl (85-98) 11/11/24 20:58 MCH 29.3 pg (27-33) 11/11/24 20:58 MCHC 29.9 g/dL (30-55) L 11/11/24 20:58 RDW 15.8 % (12.1-15.1) H 11/11/24 20:58 Plt Count 378 10^3/cmm (157-399) 11/11/24 20:58 MPV 10.1 fL (7.4-10.4) 11/11/24 20:58 Neut % (Auto) 78.0 % 11/11/24 20:58 Lymph % (Auto) 9.6 % 11/11/24 20:58 [place] % (Auto) 10.5 % 11/11/24 20:58 Eos % (Auto) 0.8 % 11/11/24 20:58 Baso % (Auto) 0.4 % 11/11/24 20:58 Neut # (Auto) 6.53 10^3/uL (1.8-7.7) 11/11/24 20:58 Lymph # (Auto) 0.8 10^3/uL (0.8-4.8) 11/11/24 20:58 [place] # (Auto) 0.9 10^3/uL (0.2-0.9) 11/11/24 20:58 Eos # (Auto) 0.1 10^3/uL (0.0-0.8) 11/11/24 20:58 Baso # (Auto) 0.0 10^3/uL (0.0-0.1) 11/11/24 20: Nucleated RBC % (auto) 0.2 % 11/11/24 20: Nucleated RBCs # 0.0 /100WBC 11/11/24 20:58 Specimen Type Arterial 11/11/24 20:53 Sample Site Radial, left 11/11/24 20:53 ABG pH 7.44 (7.35-7.45) 11/11/24 20:53 ABG pCO2 47.7 mmHg (35-45) H 11/11/24 20:53 ABG pO2 66.0 mmHg (80.0-100.0) L 11/11/24 20:53 ABG HCO3 32.7 mmol/L (22-26) H 11/11/24 20:53 ABG O2 Saturation 93.7 11/11/24 20:53 ABG Base Excess 7.6 mmol/L (-2.0-2.0) H 11/11/24 20:53 Nikhil Test Pos 11/11/24 20:53 A-a O2 Gradient 3.2 mmHg (5-10) L 11/11/24 20:53 Hematocrit 30.9 % (37-47) L 11/11/24 20:53 Hgb O2 Saturation 88.4 % (95-100) L 11/11/24 20:53 Carboxyhemoglobin 4.9 %THgb (0.4-20.1) 11/11/24 20:53 Methemoglobin 0.8 % (0.4-1.5) 11/11/24 20:53 Total Hemoglobin 10.1 g/dL (12-16) L 11/11/24 20:53 Sodium 136.0 mmol/L (131-143) 11/11/24 20:53 Potassium 2.7 mmol/L (3.5-5.0) L 11/11/24 20:53 Glucose 112.0 mg/dL (70-115) 11/11/24 20:53 Ionized Calcium 1.2 mmol/L (1.1-1.4) 11/11/24 20:53 O2 Delivery Device Nc 11/11/24 20:53 O2 Liters/Min 8.0 % 11/11/24 20:53 Financial Assistance Advisor ID [email or web address] 11/11/24 20:53 Sodium 137 mmol/L (136-145) 11/11/24 20:58 Potassium 3.2 mmol/L (3.5-5.1) L 11/11/24 20:58 Chloride 96 mmol/L (98-107) L 11/11/24 20:58 Carbon Dioxide 31 mmol/L (22-29) H 11/11/24 20:58 Anion Gap 13.2 (5-19) 11/11/24 20:58 BUN 15 mg/dL (8-23) 11/11/24 20:58 Creatinine 1.1 mg/dL (0.5-0.9) H 11/11/24 20:58 GFR Calculation Not Reportable 11/11/24 20:58 Glucose 110 mg/dL (65-115) 11/11/24 20:58 Calculated Osmolality 285 mOsm/kg (285-295) 11/11/24 20:58 Lactic Acid 1.0 mmol/L (0.5-2.2) 11/11/24 20:58 Calcium 9.1 mg/dL (8.5-10.5) 11/11/24 20:58 Total Bilirubin 0.2 mg/dL (0.15-1.2) 11/11/24 20:58 AST 10 U/L (0-32) 11/11/24 20:58 ALT 7 U/L (0-33) 11/11/24 20:58 Alkaline Phosphatase 81 U/L (35-105) 11/11/24 20:58 Troponin T Baseline 31 ng/L (0-10) H 11/11/24 20:58 Troponin T 120 Minute 30.17 ng/L (0-10) H 11/11/24 22:46 Delta Troponin T -0.83 ABS# (0-10) L 11/11/24 22:46 NT-Pro-B Natriuret Pep 3865 pg/mL (0-125) H 11/11/24 20:58 Total Protein 5.3 g/dL (6.6-8.7) L 11/11/24 20:58 Albumin 3.2 g/dL (3.5-5.2) L 11/11/24 20:58 Globulin 2.1 g/dL (1.3-4.6) 11/11/24 20:58 Discharge Plan Discharge Patient Disposition: Admitted As Inpatient Clinical Impression: Tobacco dependence with current use, Acute exacerbation of chronic obstructive airways disease, Community acquired pneumonia Condition: Stable Coding Level of Care Code ED Pododermatologist for Chg Fwd Documented by User: Jose Miguel Yeboah DO 11/11/24 23:48 HPI - SOB/Dyspnea General: Chief Complaint: Shortness of Breath/Dyspnea Stated Complaint: SOB Time Seen by Provider: 11/11/24 20:49 Related Data Home Medications ?Medication ?Instructions ?Recorded ?Confirmed cetirizine 10 mg tablet (Zyrtec) 10 mg PO QAM 05/10/19 10/22/24 cholecalciferol (vitamin D3) 125 125 mcg PO QAM 04/11/21 10/22/24 mcg (5,000 unit) tablet (Vitamin D3) ferrous sulfate 27 mg iron tablet 27 mg PO BID 04/11/21 10/22/24 vitamin B complex 1 tab PO DAILY 04/11/21 10/22/24 aspirin 81 mg chewable tablet 81 mg PO DAILY 04/11/22 10/22/24 albuterol sulfate 90 mcg/actuation 2 puff inhalation Q6H PRN 05/13/24 10/22/24 aerosol inhaler Shortness Of Breath Or Wheezing oxygen-air delivery systems 05/13/24 10/22/24 duloxetine 30 mg capsule,delayed 30 mg PO DAILY 07/18/24 10/22/24 release metoprolol succinate 25 mg 25 mg PO DAILY 07/18/24 10/22/24 tablet,extended release 24 hr ondansetron HCl 4 mg tablet 4 mg PO Q8H 10/22/24 10/22/24 pantoprazole 40 mg tablet,delayed 40 mg PO BID 10/22/24 10/22/24 release Previous Rx's ?Medication ?Instructions ?Recorded budesonide 160 mcg-glycopyr 9 2 inh inhalation BID #10.7 grams 03/25/22 mcg-formot 4.8 mcg/actuation HFA inhaler ([employer]tri 7billionideasphere) acetaminophen 325 mg capsule 325 mg PO Q4H PRN fever or pain 09/12/22 #60 caps albuterol sulfate 2.5 mg/3 mL 2.5 mg (3 mL) inhalation Q6H PRN 09/17/22 (0.083 %) solution for nebulization Wheezing #90 mL losartan 100 mg tablet 100 mg PO DAILY #90 tabs 11/11/23 nitroglycerin 0.4 mg sublingual 0.4 mg sublingual Q5M PRN chest 11/11/23 tablet pain #25 tabs clopidogrel 75 mg tablet See Rx Instructions .Route 07/16/24 .COMPLEX #90 tabs amlodipine 5 mg tablet 10 mg (2 x 5 mg) PO DAILY 30 days 10/25/24 #30 tabs furosemide 20 mg tablet 40 mg (2 x 20 mg) PO QAM 30 days 10/25/24 #60 tabs prednisone 10 mg tablet See Taper PO DIRECTED #40 tabs 10/25/24 isosorbide mononitrate 30 mg See Rx Instructions .Route 11/01/24 tablet,extended release 24 hr .COMPLEX #90 tabs Allergies Allergy/AdvReac Type Severity Reaction Status Date / Time strawberry Allergy ADR-Itching Verified 11/11/24 20:46 PFS ED PFSH: Medical History (Updated 11/11/24 @ 23:20 by Jose Miguel Yeboah DO) Productive cough Nocturnal hypoxemia Onychodystrophy Centrilobular emphysema Multiple lung nodules on CT Shortness of breath Encounter for screening for lung cancer DICKSON (dyspnea on exertion) Bilateral foot pain Anemia Chronic and stable Encounter for surgical aftercare following surgery of genitourinary system Chest pain Right upper quadrant pain Atherosclerosis of coronary artery ST elevation myocardial infarction (STEMI) This patient presents with the features of ST elevation myocardial infarction. 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 She underwent PCI of this lesion. Currently she seems to be stable. Hx of chest pain Smoker Asthma with exacerbation PUD (peptic ulcer disease) Hx of migraines History of COPD Hx of gastroesophageal reflux (GERD) Hx of primary hypertension Hx of hypercholesterolemia Surgical History History of tonsillectomy and adenoidectomy History of ankle surgery History of bladder surgery History of carpal tunnel release of both wrists Family History Sister Cancer Myocardial infarct Heart disease Mother Myocardial infarct Heart disease Grandmother Myocardial infarct Heart disease maternal Other DICKSON (dyspnea on exertion) Hypertension Stroke Denies family history of Colon cancer Ovarian cancer Diabetes Breast cancer Uterine cancer Social History Smoking and tobacco/nicotine status: current every day tobacco/nicotine user cigarettes Packs smoked per day: 1 Years cigarettes smoked: 57 [ Other cigarette details: Started smoking at 11] Substance/Drug Use: never Course Vital Signs: Vital signs: Vital Signs Temperature 98.4 F 11/11/24 20:40 Pulse Rate 78 11/11/24 22:30 Respiratory Rate 18 11/11/24 22:30 Blood Pressure 123/43 11/11/24 22:30 Pulse Oximetry 95 11/11/24 22:30 Oxygen Delivery Me thod Heated High Flow 11/11/24 21:16 Oxygen Flow Rate 8 11/11/24 21:16 MDM - SOB/Dyspnea Medical Decision Making Differential diagnosis for patient with shortness of breath includes but is not limited to and based on the above HPI, review of systems and physical exam: Pneumonia. Bronchitis. Asthma or COPD with acute exacerbation. Acute coronary syndrome / MN. Pulmonary embolism. Anxiety. Congestive heart failure. Viral infections including influenza and Covid-19. Atrial fibrillation. Anxiety. Pleural effusion. Pneumothorax. Orders placed to evaluate differential diagnosis based on the above differential, HPI and physical exam Patient care transitioned to Dr. Yeboah at shift change. Breathing treatments, Solu-Medrol and doxycycline have been ordered. ABG ordered and pending. Patient has acute on chronic respiratory failure with concerns of bibasilar infiltrates. Antibiotics and corticosteroids have been administered I talked to the hospitalist about admitting the patient who was agreeable. Lab Data 11/11/24 20:58 11/11/24 20:58 Labs/Radiology: Radiology Impressions Chest X-Ray 11/11/24 20:51 IMPRESSION: Patchy bibasilar atelectasis or other infiltrates. Laboratory Results WBC 8.37 10^3/uL (3.29-11.43) 11/11/24 20:58 RBC 3.52 10^6/uL (3.85-5.65) L 11/11/24 20:58 Hgb 10.30 g/dL (11.27-16.99) L 11/11/24 20:58 Hct 34.5 % (36-47) L 11/11/24 20:58 MCV 98.0 fl (85-98) 11/11/24 20:58 MCH 29.3 pg (27-33) 11/11/24 20:58 MCHC 29.9 g/dL (30-55) L 11/11/24 20:58 RDW 15.8 % (12.1-15.1) H 11/11/24 20:58 Plt Count 378 10^3/cmm (157-399) 11/11/24 20:58 MPV 10.1 fL (7.4-10.4) 11/11/24 20:58 Neut % (Auto) 78.0 % 11/11/24 20:58 Lymph % (Auto) 9.6 % 11/11/24 20:58 [place] % (Auto) 10.5 % 11/11/24 20:58 Eos % (Auto) 0.8 % 11/11/24 20:58 Baso % (Auto) 0.4 % 11/11/24 20:58 Neut # (Auto) 6.53 10^3/uL (1.8-7.7) 11/11/24 20:58 Lymph # (Auto) 0.8 10^3/uL (0.8-4.8) 11/11/24 20:58 [place] # (Auto) 0.9 10^3/uL (0.2-0.9) 11/11/24 20:58 Eos # (Auto) 0.1 10^3/uL (0.0-0.8) 11/11/24 20:58 Baso # (Auto) 0.0 10^3/uL (0.0-0.1) 11/11/24 20:58 Nucleated RBC % (auto) 0.2 % 11/11/24: Nucleated RBCs # 0.0 /100WBC 11/11/24 20:58 Specimen Type Arterial 11/11/24 20:53 Sample Site Radial, left 11/11/24 20:53 ABG pH 7.44 (7.35-7.45) 11/11/24 20:53 ABG pCO2 47.7 mmHg (35-45) H 11/11/24 20:53 ABG pO2 66.0 mmHg (80.0-100.0) L 11/11/24 20:53 ABG HCO3 32.7 mmol/L (22-26) H 11/11/24 20:53 ABG O2 Saturation 93.7 11/11/24 20:53 ABG Base Excess 7.6 mmol/L (-2.0-2.0) H 11/11/24 20:53 Nikhil Test Pos 11/11/24 20:53 A-a O2 Gradient 3.2 mmHg (5-10) L 11/11/24 20:53 Hematocrit 30.9 % (37-47) L 11/11/24 20:53 Hgb O2 Saturation 88.4 % (95-100) L 11/11/24 20:53 Carboxyhemoglobin 4.9 %THgb (0.4-20.1) 11/11/24 20:53 Methemoglobin 0.8 % (0.4-1.5) 11/11/24 20:53 Total Hemoglobin 10.1 g/dL (12-16) L 11/11/24 20:53 Sodium 136.0 mmol/L (131-143) 11/11/24 20:53 Potassium 2.7 mmol/L (3.5-5.0) L 11/11/24 20:53 Glucose 112.0 mg/dL (70-115) 11/11/24 20:53 Ionized Calcium 1.2 mmol/L (1.1-1.4) 11/11/24 20:53 O2 Delivery Device Nc 11/11/24 20:53 O2 Liters/Min 8.0 % 11/11/24 20:53 Financial Assistance Advisor ID [email or web address] 11/11/24 20:53 Sodium 137 mmol/L (136-145) 11/11/24 20:58 Potassium 3.2 mmol/L (3.5-5.1) L 11/11/24 20:58 Chloride 96 mmol/L (98-107) L 11/11/24 20:58 Carbon Dioxide 31 mmol/L (22-29) H 11/11/24 20:58 Anion Gap 13.2 (5-19) 11/11/24 20:58 BUN 15 mg/dL (8-23) 11/11/24 20:58 Creatinine 1.1 mg/dL (0.5-0.9) H 11/11/24 20:58 GFR Calculation Not Reportable 11/11/24 20:58 Glucose 110 mg/dL (65-115) 11/11/24 20:58 Calculated Osmolality 285 mOsm/kg (285-295) 11/11/24 20:58 Lactic Acid 1.0 mmol/L (0.5-2.2) 11/11/24 20:58 Calcium 9.1 mg/dL (8.5-10.5) 11/11/24 20:58 Total Bilirubin 0.2 mg/dL (0.15-1.2) 11/11/24 20:58 AST 10 U/L (0-32) 11/11/24 20:58 ALT 7 U/L (0-33) 11/11/24 20:58 Alkaline Phosphatase 81 U/L (35-105) 11/11/24 20:58 Troponin T Baseline 31 ng/L (0-10) H 11/11/24 20:58 Troponin T 120 Minute 30.17 ng/L (0-10) H 11/11/24 22:46 Delta Troponin T -0.83 ABS# (0-10) L 11/11/24 22:46 NT-Pro-B Natriuret Pep 3865 pg/mL (0-125) H 11/11/24 20:58 Total Protein 5.3 g/dL (6.6-8.7) L 11/11/24 20:58 Albumin 3.2 g/dL (3.5-5.2) L 11/11/24 20:58 Globulin 2.1 g/dL (1.3-4.6) 11/11/24 20:58 XR interpretation done by ED provider, pending radiology final review Discharge Plan Discharge Patient Disposition: Admitted As Inpatient Clinical Impression: Tobacco dependence with current use, Acute exacerbation of chronic obstructive airways disease, Community acquired pneumonia Condition: Stable Coding Level of Care Code ED Pododermatologist for Salomon Jones
[2024-11-11 21:04] LABS: ABG PCO2 47.7 mmHg (35-45); ABG PH Result 7.44 (7.35-7.45); Alveolar-Arterial Oxygen Gradi 3.2 mmHg (5-10); Arterial Blood Gas Hematocrit 30.9 % (37-47); Blood Gas Allen Test Pos; Blood Gas LPM 8.0 %; Blood Gas Sample Site Radial, left; Blood Gas Sample Type Arterial; Carboxyhemoglobin 4.9 %THgb (0.4-20.1); Glucose Level-ABG 112.0 mg/dL (70-115); HCO3 ABG 32.7 mmol/L (22-26); Ionized Calcium Level - ABG 1.2 mmol/L (1.1-1.4); Methemoglobin 0.8 % (0.4-1.5); Oxygen Saturation ABG 93.7; PO2 ABG 66.0 mmHg (80.0-100.0); Potassium Level - ABG 2.7 mmol/L (3.5-5.0); Sodium Level - ABG 136.0 mmol/L (131-143)
[2024-11-11 21:08] LABS: Hematocrit 34.5 % (36-47); Hemoglobin 10.30 g/dL (11.27-16.99); Mean Corpuscular HGB Conc 29.9 g/dL (30-55); Mean Corpuscular Hemoglobin 29.3 pg (27-33); Mean Corpuscular Volume 98.0 fl (85-98); Nucleated Red Blood Cells % 0.2 %; Platelet Count 378 10^3/cmm (157-399); Red Blood Count 3.52 10^6/uL (3.85-5.65); White Blood Count 8.37 10^3/uL (3.29-11.43)
[2024-11-11] MEDS: doxycycline 100 MG in sodium chloride 0.9% (plus) 100 ML IV (21:14)
[2024-11-11] MEDS: methylPREDNISolone sod succ 125 mg/2 mL INJ IVP (21:14)
[2024-11-11 21:26] LABS: Troponin(5th) Baseline 31 ng/L (0-10)
[2024-11-11 21:27] LABS: Lactic Sepsis W/Reflex 1.0 mmol/L (0.5-2.2)
[2024-11-11 21:47] LABS: Alanine Aminotransferase 7 U/L (0-33); Albumin Level 3.2 g/dL (3.5-5.2); Alkaline Phosphatase 81 U/L (35-105); Aspartate Amino Transferase 10 U/L (0-32); Blood Urea Nitrogen 15 mg/dL (8-23); Calcium 9.1 mg/dL (8.5-10.5); Carbon Dioxide 31 mmol/L (22-29); Chloride 96 mmol/L (98-107); Creatinine Clr Calc Pharmacy 35.5336; Globulin 2.1 g/dL (1.3-4.6); Glucose 110 mg/dL (65-115); NT Pro B Type Natriuretic Pept 3865 pg/mL (0-125); Osmolality Calculated 285 mOsm/kg (285-295); Sodium 137 mmol/L (136-145); Total Protein 5.3 g/dL (6.6-8.7)
[2024-11-11 21:49] LABS: Anion Gap 13.2 (5-19); Potassium 3.2 mmol/L (3.5-5.1)
--- NOTE | 2024-11-11 22:52 | ECG_ITS ---
[employer] Test Date: 2024-11-11 Pat Name: Latonia Gar Department: Room: Gender: Female Administrative Support Specialist: : [id number] Requested By: Sultana Ramirez Order Number: [id number] Deisi MD: Bari Cruz M.D. Measurements Intervals [place] Rate: 71 P: 0 [place]: 0 QRS: 21 QRSD: 99 T: 59 QT: 416 QTc: 454 Interpretive Statements multifocal atrial rhythm NONSPECIFIC ST & T-WAVE ABNORMALITY ABNORMAL RHYTHM ECG Compared to ECG 11/11/2024 20:48:01 Junctional rhythm no longer present Ventricular premature complex(es) no longer present Possible ischemia no longer present T-wave abnormality still present Electronically Signed On 11-12-2024 15:32:14 CDT by Bari Cruz M.D. [email or web address]
[2024-11-11 23:09] LABS: Troponin 5 2HR 30.17 ng/L (0-10)
[2024-11-11 23:11] LABS: Troponin 5 2HR Delta -0.83 ABS# (0-10)
[2024-11-12] VITALS (15 sets, daily range): BP systolic 125–145; BP diastolic 45–72; PULSE 56–86; RESP 15–18; TEMP 36.3–36.6; O2SAT 91–97; BMI 22.4
[2024-11-12 00:56] LABS: Procalcitonin 0.10 ng/mL (0-0.5)
--- NOTE | 2024-11-12 02:34 | ECG_ITS ---
[employer] Test Date: 2024-11-12 Pat Name: Latonia Gar Department: Room: 250 Gender: Female Ecommerce Marketing Specialist: : [id number] Requested By: Sultana Ramirez Order Number: [id number] Deisi MD: Bari Cruz M.D. Measurements Intervals [place] Rate: 73 P: 52 [place]: 172 QRS: 18 QRSD: 101 T: 110 QT: 389 QTc: 430 Interpretive Statements SINUS RHYTHM NONSPECIFIC ST & T-WAVE ABNORMALITY Compared to ECG 11/11/2024 22:57:12 Atrial fibrillation no longer present T-wave abnormality still present Electronically Signed On 11-12-2024 15:31:21 CDT by Bari Cruz M.D. [email or web address]
--- NOTE | 2024-11-12 03:00 | PM.HP ---
Providers/Chief Complaint Admitting Physician: Adrianna Davis MD Chief Complaint: SOB History of Present Illness Latonia Gar is a 69 year old female with a past medical history of COPD, chronically oxygen dependent, typically on 3 L/min at home. He was recently admitted to the hospital on October 25, 2024 for a COPD exacerbation and pulmonary hypertension and treated for both of these issues. She completed a steroid taper a few days ago. She presented to the hospital today with chief complaints of shortness of breath which was acutely worsening over the last 24 hours. Patient continues to smoke. She denies any chest pain dyspnea palpitations or syncope. Denies any fever. Cough is at baseline. No expectoration. Initially upon ER arrival patient has significant wheezing, she received methylprednisolone and inhaled treatments following which she states she feels better at this present time. Review of Systems General: Reports: 10 or more systems reviewed and unremarkable except in HPI and below Const: Denies: fever(s), chills or body aches Eyes: Denies: change in vision, blurry vision or photophobia ENMT: Reports: hoarseness; Denies: throat pain, enlarged tonsils, odynophagia or nasal congestion Card: Denies: chest pain, palpitations, irregular heart rhythm, edema, swelling of feet/ankles, lightheadedness, pre-syncope, dyspnea on exertion or orthopnea Resp: Denies: dyspnea, productive cough, non-productive cough, wheezing, stridor, pain on inspiration, change in phlegm color, hemoptysis or chest congestion GI: Denies: abdominal pain, nausea, vomiting, hematemesis, coffee ground emesis, dysphagia, heartburn, diarrhea, constipation, GI cramping, change in stool character, hematochezia or melena : Denies: flank pain, difficulty voiding, dysuria, urinary frequency, urinary urgency, urinary hesitancy or hematuria Musc: Denies: neck pain, back pain, extremity pain, joint swelling, joint warmth or deformity Neuro: Denies: headache(s), numbness in extremities, weakness in extremities, sensory changes, difficulty walking, frequent falls, dizziness, vertigo, behavioral changes, Slurred speech present or seizure-like activity Psych: Denies: anxiety, depression, suicidal ideation or homicidal ideation Endo: Denies: polyuria, polydipsia, tired all the time, cold intolerance or hot flashes Aden/Lymph: Denies: easy bruising or easy bleeding Medications/Allergies Home Medications ?Medication ?Instructions ?Recorded ?Confirmed ?Last Taken ?Type cetirizine 10 mg tablet (Zyrtec) 10 mg PO QAM 05/10/19 11/12/24 11/11/24 09:00 History cholecalciferol (vitamin D3) 125 125 mcg PO QAM 04/11/21 11/12/24 11/11/24 09:00 History mcg (5,000 unit) tablet (Vitamin D3) ferrous sulfate 27 mg iron tablet 27 mg PO BID 04/11/21 11/12/24 11/11/24 09:00 History vitamin B complex 1 tab PO DAILY 04/11/21 11/12/24 11/11/24 09:00 History budesonide 160 mcg-glycopyr 9 2 inh inhalation BID #10.7 grams 03/25/22 11/12/24 11/11/24 09:00 Rx mcg-formot 4.8 mcg/actuation HFA inhaler (Breztri Aerosphere) aspirin 81 mg chewable tablet 81 mg PO DAILY 04/11/22 11/12/24 11/11/24 09:00 History acetaminophen 325 mg capsule 325 mg PO Q4H PRN fever or pain 09/12/22 11/12/24 Unknown Rx #60 caps albuterol sulfate 2.5 mg/3 mL 2.5 mg (3 mL) inhalation Q6H PRN 09/17/22 11/12/24 11/11/24 09:00 Rx (0.083 %) solution for nebulization Wheezing #90 mL losartan 100 mg tablet 100 mg PO DAILY #90 tabs 11/11/23 11/12/24 11/11/24 09:00 Rx nitroglycerin 0.4 mg sublingual 0.4 mg sublingual Q5M PRN chest 11/11/23 11/12/24 Unknown Rx tablet pain #25 tabs albuterol sulfate 90 mcg/actuation 2 puff inhalation Q6H PRN 05/13/24 11/12/24 11/11/24 09:00 History aerosol inhaler Shortness Of Breath Or Wheezing oxygen-air delivery systems 05/13/24 11/12/24 Unknown History clopidogrel 75 mg tablet See Rx Instructions .Route 07/16/24 11/12/24 11/11/24 09:00 Rx .COMPLEX #90 tabs duloxetine 30 mg capsule,delayed 30 mg PO DAILY 07/18/24 11/12/24 11/11/24 09:00 History release metoprolol succinate 25 mg 25 mg PO DAILY 07/18/24 11/12/24 11/11/24 09:00 History tablet,extended release 24 hr ondansetron HCl 4 mg tablet 4 mg PO Q8H 10/22/24 11/12/24 11/11/24 09:00 History pantoprazole 40 mg tablet,delayed 40 mg PO BID 10/22/24 11/12/24 11/11/24 09:00 History release amlodipine 5 mg tablet 10 mg (2 x 5 mg) PO DAILY 30 days 10/25/24 11/12/24 11/11/24 09:00 Rx #30 tabs isosorbide mononitrate 30 mg See Rx Instructions .Route 11/01/24 11/12/24 11/11/24 09:00 Rx tablet,extended release 24 hr .COMPLEX #90 tabs furosemide 40 mg tablet 40 mg PO DAILY 11/12/24 11/12/24 11/11/24 09:00 History Allergies Allergy/AdvReac Type Severity Reaction Status Date / Time strawberry Allergy ADR-Itching Verified 11/11/24 20:46 PFSH Acute PFSH: Medical History Productive cough Nocturnal hypoxemia Onychodystrophy Centrilobular emphysema Multiple lung nodules on CT Shortness of breath Encounter for screening for lung cancer DICKSON (dyspnea on exertion) Bilateral foot pain Anemia Chronic and stable Encounter for surgical aftercare following surgery of genitourinary system Chest pain Right upper quadrant pain Atherosclerosis of coronary artery ST elevation myocardial infarction (STEMI) This patient presents with the features of ST elevation myocardial infarction. 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 She underwent PCI of this lesion. Currently she seems to be stable. Hx of chest pain Smoker Asthma with exacerbation PUD (peptic ulcer disease) Hx of migraines History of COPD Hx of gastroesophageal reflux (GERD) Hx of primary hypertension Hx of hypercholesterolemia Surgical History History of tonsillectomy and adenoidectomy History of ankle surgery History of bladder surgery History of carpal tunnel release of both wrists Family History Sister Cancer Myocardial infarct Heart disease Mother Myocardial infarct Heart disease Grandmother Myocardial infarct Heart disease maternal Other DICKSON (dyspnea on exertion) Hypertension Stroke Denies family history of Colon cancer Ovarian cancer Diabetes Breast cancer Uterine cancer Social History Smoking and tobacco/nicotine status: current every day tobacco/nicotine user cigarettes Packs smoked per day: 1 Years cigarettes smoked: 57 [ Other cigarette details: Started smoking at 11] Substance/Drug Use: never Vitals/I&O/Wt Last Vital Signs Temp 97.7 F 11/12/24 04:28 Pulse 74 11/12/24 04:28 Resp 18 11/12/24 04:28 BP 136/72 11/12/24 04:28 Pulse Ox 94 11/12/24 04:28 O2 Del Method High Flow Nasal Cannula 11/12/24 02:48 O2 Flow Rate 5 11/12/24 02:28 11/11/24 11/11/24 11/12/24 14:59 22:59 06:59 Intake Total 0 / 0 340 / 340 Output Total 600 / 600 Balance 0 / 0 -260 / -260 Weight last 48 hrs Weight 52.163 kg Weight 52.072 kg Weight 51.71 kg Physical Exam Narrative: General: No acute distress, AO x3 HEENT: PERRLA, pupils bilaterally equal and reactive, pallors not present Chest: Scattered wheezing to auscultation bilaterally CVS: S1-S2 regular, no murmurs, no tachycardia, no gallops, no rubs Abdomen: Soft, nontender, no organomegaly, bowel sounds present Neuro: No focal deficits, no facial deformity, AO x3, power 5/5 in all limbs Data 11/11/24 20:58 11/11/24 20:58 Micro: Microbiology 11/11/24 21:15 Blood Culture - Preliminary Blood SPECIMEN COLLECTED 11/11/24 21:22 Blood Culture - Preliminary Blood SPECIMEN COLLECTED Other data: Radiology Impressions Chest X-Ray 11/11/24 20:51 IMPRESSION: Patchy bibasilar atelectasis or other infiltrates. Laboratory Results WBC 8.37 10^3/uL (3.29-11.43) 11/11/24 20:58 RBC 3.52 10^6/uL (3.85-5.65) L 11/11/24 20:58 Hgb 10.30 g/dL (11.27-16.99) L 11/11/24 20:58 Hct 34.5 % (36-47) L 11/11/24 20:58 MCV 98.0 fl (85-98) 11/11/24 20:58 MCH 29.3 pg (27-33) 11/11/24 20:58 MCHC 29.9 g/dL (30-55) L 11/11/24 20:58 RDW 15.8 % (12.1-15.1) H 11/11/24 20:58 Plt Count 378 10^3/cmm (157-399) 11/11/24 20:58 MPV 10.1 fL (7.4-10.4) 11/11/24 20:58 Neut % (Auto) 78.0 % 11/11/24 20:58 Lymph % (Auto) 9.6 % 11/11/24 20:58 [place] % (Auto) 10.5 % 11/11/24 20:58 Eos % (Auto) 0.8 % 11/11/24 20:58 Baso % (Auto) 0.4 % 11/11/24 20:58 Neut # (Auto) 6.53 10^3/uL (1.8-7.7) 11/11/24 20:58 Lymph # (Auto) 0.8 10^3/uL (0.8-4.8) 11/11/24 20:58 [place] # (Auto) 0.9 10^3/uL (0.2-0.9) 11/11/24 20:58 Eos # (Auto) 0.1 10^3/uL (0.0-0.8) 11/11/24 20:58 Baso # (Auto) 0.0 10^3/uL (0.0-0.1) 11/11/24 20:58 Nucleated RBC % (auto) 0.2 % 11/11/24:58 Nucleated RBCs # 0.0 /100WBC 11/11/24 20:58 Specimen Type Arterial 11/11/24 20:53 Sample Site Radial, left 11/11/24 20:53 ABG pH 7.44 (7.35-7.45) 11/11/24 20:53 ABG pCO2 47.7 mmHg (35-45) H 11/11/24 20:53 ABG pO2 66.0 mmHg (80.0-100.0) L 11/11/24 20:53 ABG HCO3 32.7 mmol/L (22-26) H 11/11/24 20:53 ABG O2 Saturation 93.7 11/11/24 20:53 ABG Base Excess 7.6 mmol/L (-2.0-2.0) H 11/11/24 20:53 Nikhil Test Pos 11/11/24 20:53 A-a O2 Gradient 3.2 mmHg (5-10) L 11/11/24 20:53 Hematocrit 30.9 % (37-47) L 11/11/24 20:53 Hgb O2 Saturation 88.4 % (95-100) L 11/11/24 20:53 Carboxyhemoglobin 4.9 %THgb (0.4-20.1) 11/11/24 20:53 Methemoglobin 0.8 % (0.4-1.5) 11/11/24 20:53 Total Hemoglobin 10.1 g/dL (12-16) L 11/11/24 20:53 Sodium 136.0 mmol/L (131-143) 11/11/24 20:53 Potassium 2.7 mmol/L (3.5-5.0) L 11/11/24 20:53 Glucose 112.0 mg/dL (70-115) 11/11/24 20:53 Ionized Calcium 1.2 mmol/L (1.1-1.4) 11/11/24 20:53 O2 Delivery Device Nc 11/11/24 20:53 O2 Liters/Min 8.0 % 11/11/24 20:53 Engineer Assistant ID [email or web address] 11/11/24 20:53 Sodium 137 mmol/L (136-145) 11/11/24 20:58 Potassium 3.2 mmol/L (3.5-5.1) L 11/11/24 20:58 Chloride 96 mmol/L (98-107) L 11/11/24 20:58 Carbon Dioxide 31 mmol/L (22-29) H 11/11/24 20:58 Anion Gap 13.2 (5-19) 11/11/24 20:58 BUN 15 mg/dL (8-23) 11/11/24 20:58 Creatinine 1.1 mg/dL (0.5-0.9) H 11/11/24 20:58 GFR Calculation Not Reportable 11/11/24 20:58 Glucose 110 mg/dL (65-115) 11/11/24 20:58 Calculated Osmolality 285 mOsm/kg (285-295) 11/11/24 20:58 Lactic Acid 1.0 mmol/L (0.5-2.2) 11/11/24 20:58 Calcium 9.1 mg/dL (8.5-10.5) 11/11/24 20:58 Total Bilirubin 0.2 mg/dL (0.15-1.2) 11/11/24 20:58 AST 10 U/L (0-32) 11/11/24 20:58 ALT 7 U/L (0-33) 11/11/24 20:58 Alkaline Phosphatase 81 U/L (35-105) 11/11/24 20:58 Troponin T Baseline 31 ng/L (0-10) H 11/11/24 20:58 Troponin T 120 Minute 30.17 ng/L (0-10) H 11/11/24 22:46 Delta Troponin T -0.83 ABS# (0-10) L 11/11/24 22:46 Troponin T Hi Sens 6Hr 27.87 ng/L (0-10) H 11/12/24 03:12 Troponin T Hi Sens 6Hr Delta -3.13 ng/L (0-12) L 11/12/24 03:12 NT-Pro-B Natriuret Pep 3865 pg/mL (0-125) H 11/11/24 20:58 Total Protein 5.3 g/dL (6.6-8.7) L 11/11/24 20:58 Albumin 3.2 g/dL (3.5-5.2) L 11/11/24 20:58 Globulin 2.1 g/dL (1.3-4.6) 11/11/24 20:58 Procalcitonin 0.10 ng/mL (0-0.5) 11/12/24 00:00 A&P Assessment and plan 1. COPD exacerbation: Admit to MedSurg and observation. Methylprednisolone 40 mg IV every 12 hours duoneb q6h, budesonide q12h scheduled nebulization ABG showing chronic hypercapnic hypoxic respiratory failure which is currently compensated. Patient is typically on 3 L/min supplemental O2, however today requiring 6 L/min. Maintain oxygen supplementation per O2 sat goal of 88 to 92%. Patient states that more recently her oxygen requirements have needed to be exceeded the limits of her current oxygen concentrator which is at 5 L. At 10 L concentrator was ordered on her last visit according to the patient however is yet to be delivered. Case management consulted to follow-up on the same. Negative procalcitonin, hold off on antibiotics. Chest x-ray does not show any infiltrates. D-dimer screen to screen for PE Plan: Dvt ppx: lovenox PDMP PDMP Reviewed: Not Reviewed Attestations Medical Necessity Statement*: less than 2 midnight stay is anticipated Coding Level of Care Code Acute Code for [facility] Karen Diagnoses COPD exacerbation J44.1
[2024-11-12 04:24] LABS: Troponin 5 6HR 27.87 ng/L (0-10)
[2024-11-12 04:25] LABS: Troponin 5 6HR Delta -3.13 ng/L (0-12)
[2024-11-12 07:03] LABS: Respiratory Syncytial Virus Ce NEGATIVE (Negative); SARS-CoV-2 PCR NEGATIVE (Negative)
[2024-11-12] MEDS: metoprolol succinate ER (24 HR) 25 mg Tablet PO (09:50)
[2024-11-12] MEDS: methylPREDNISolone sod succ 40 mg/mL INJ IVP ×2 (09:51→21:15)
[2024-11-12 11:17] LABS: Estmated Average Glucose 91; Hemoglobin A1C 4.8 % (4.0-6.0)
[2024-11-12 11:25] LABS: Procalcitonin 0.10 ng/mL (0-0.5); Thyroid Stimulating Hormone 1.58 uIU/mL (0.27-4.20)
[2024-11-12 11:36] LABS: Iron 18 ug/dL (37-145); Total Iron Binding Capacity 261 mcg/dl; Unsaturated Iron Binding 243 ug/dL (112-347)
[2024-11-12 11:55] LABS: Vitamin B12 > 2000 pg/mL (232-1245)
--- NOTE | 2024-11-12 23:32 | PC.NURSE ---
Lovenox Patient is refusing her Lovenox. This nurse explained the purpose of Lovenox and patient states I'm walking a lot, I don't think I need it. Patient made aware of risks of blood clots, verbalizes understanding.
[2024-11-13] VITALS (9 sets, daily range): BP systolic 122–141; BP diastolic 49–57; PULSE 56–67; RESP 14–18; TEMP 36.4–37; O2SAT 86–96
[2024-11-13 04:15] LABS: Hematocrit 31.8 % (36-47); Hemoglobin 9.30 g/dL (11.27-16.99); Mean Corpuscular HGB Conc 29.2 g/dL (30-55); Mean Corpuscular Hemoglobin 28.4 pg (27-33); Mean Corpuscular Volume 97.0 fl (85-98); Nucleated Red Blood Cells % 0 %; Platelet Count 360 10^3/cmm (157-399); Red Blood Count 3.28 10^6/uL (3.85-5.65); White Blood Count 8.49 10^3/uL (3.29-11.43)
[2024-11-13 04:35] LABS: Alanine Aminotransferase 8 U/L (0-33); Albumin Level 3.2 g/dL (3.5-5.2); Alkaline Phosphatase 70 U/L (35-105); Anion Gap 16.3 (5-19); Aspartate Amino Transferase 9 U/L (0-32); Blood Urea Nitrogen 21 mg/dL (8-23); Calcium 9.7 mg/dL (8.5-10.5); Carbon Dioxide 25 mmol/L (22-29); Chloride 97 mmol/L (98-107); Creatinine Clr Calc Pharmacy 43.5940; Globulin 2.4 g/dL (1.3-4.6); Glucose 151 mg/dL (65-115); Osmolality Calculated 284 mOsm/kg (285-295); Potassium 4.3 mmol/L (3.5-5.1); Sodium 134 mmol/L (136-145); Total Protein 5.6 g/dL (6.6-8.7)
[2024-11-13 04:43] LABS: Cholesterol 131 mg/dL (0-200); HDL Cholesterol 37 mg/dL (60-100); Magnesium 2.0 mg/dL (1.7-2.3); Triglycerides 70 mg/dL (0-150); VLDL Cholestrol Calculation 14 mg/dL (0-30)
[2024-11-13] MEDS: metoprolol succinate ER (24 HR) 25 mg Tablet PO (08:21)
[2024-11-13] MEDS: methylPREDNISolone sod succ 40 mg/mL INJ IVP (08:21)
--- NOTE | 2024-11-13 12:11 | PC.CHAP ---
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 percussion teacher visit [] Patient/Family/Request visit [] Outpatient visit [] Follow-up visit [] Physician referral [] Code/Alert [x] Routine visit [] Staff referral [] Actively dying [] Patient sleeping [] Family support [] [] Out of room [] Palliative care [] [] Receiving care in room [] Pre-surgical visit [] Trauma [] Long length of stay [] ICU visit [] Other: Relational/Emotional Strength [] Patient feels connected with others/family/visitors/staff [] Distress [] Loneliness/isolation [] Abandonment Spirituality of Patient [] Person of Raiza [] Attends Catholic of their Raiza [] Believes in Prayer [] Reads Bible or Orthodoxy materials [] There are Spiritual issues to be addressed Log Chain Feeder Interventions [] Prayer [] Active listening [] Non-anxious presence [] Spiritual/emotional support [] Crisis/trauma care [] Spiritual counseling [] Bereavement support [] Provided bereavement packet [] Provided Bible/devotional materials [] Provided toy/stuffed animal, coloring book to patient or family member [] Provided Communion [] Anointing/[place] [] Salvation [] Completed spiritual assessment [] Other: Impact on Illness or Injury [] Angry [] Fearful [] Anxious [] Often cries [] Exhaustion [] Unable to work [] Unable to attend latter-day [] Unable to walk/stand [] Unable to read [] Unable to drive [] Unable to eat/drink [] Unable to sleep [] Unable to be with family [] Patient intubated [] Other: Summary Time spent with patient
--- NOTE | 2024-11-13 13:28 | PM.DCS ---
Discharge Providers Date of Admission: 11/12/24 02:16 Date of Discharge: November 13, 2024 Attending Provider at Admission: Adrianna Davis MD Attending Provider at Discharge: Rachid Valdez MD Diagnoses at Discharge Discharge Diagnosis 1. COPD exacerbation: Reason for Visit Reason for Visit: SOB Brief History: History as per HPI: Latonia Gar is a 69 year old female with a past medical history of COPD, chronically oxygen dependent, typically on 3 L/min at home. He was recently admitted to the hospital on October 25, 2024 for a COPD exacerbation and pulmonary hypertension and treated for both of these issues. She completed a steroid taper a few days ago. She presented to the hospital today with chief complaints of shortness of breath which was acutely worsening over the last 24 hours. Patient continues to smoke. She denies any chest pain dyspnea palpitations or syncope. Denies any fever. Cough is at baseline. No expectoration. Initially upon ER arrival patient has significant wheezing, she received methylprednisolone and inhaled treatments following which she states she feels better at this present time. Hospital Course Hospital Course Patient was admitted to the hospital further evaluation and management of acute hypoxic respiratory failure in setting of COPD exacerbation. She was started on nebulization treatment along with IV steroids. She responded well to the treatment. Outpatient oxygen was arranged which has been pending since last discharge including concentrator at home. She has been discharged in medically stable condition after repeat oxygen evaluation with advised to follow-up with primary care provider within next 1 week, pulmonology team within next 2 weeks as an outpatient on oral steroid taper. Physical Exam Narrative: General: No acute distress, AO x3 HEENT: PERRLA, pupils bilaterally equal and reactive, pallors not present Chest: Scattered wheezing to auscultation bilaterally CVS: S1-S2 regular, no murmurs, no tachycardia, no gallops, no rubs Abdomen: Soft, nontender, no organomegaly, bowel sounds present Neuro: No focal deficits, no facial deformity, AO x3, power 5/5 in all limbs Discharge Data Studies Completed and Pending Completed Studies During Hospitalization Category Date Time Status XR chest 1V portable [id number] Stat Exams 11/11/24 20:51 Completed Pending at discharge Category Date Time Status Blood Culture Stat Lab 11/11/24 21:15 Results MAG [Magnesium] AM LABS Lab 11/14/24 04:00 Ordered MAG [Magnesium] AM LABS Lab 11/15/24 04:00 Ordered Radiology Impressions Chest X-Ray 11/11/24 20:51 IMPRESSION: Patchy bibasilar atelectasis or other infiltrates. Laboratory Results WBC 8.49 10^3/uL (3.29-11.43) 11/13/24 02:55 RBC 3.28 10^6/uL (3.85-5.65) L 11/13/24 02:55 Hgb 9.30 g/dL (11.27-16.99) L 11/13/24 02:55 Hct 31.8 % (36-47) L 11/13/24 02:55 MCV 97.0 fl (85-98) 11/13/24 02:55 MCH 28.4 pg (27-33) 11/13/24 02:55 MCHC 29.2 g/dL (30-55) L 11/13/24 02:55 RDW 15.4 % (12.1-15.1) H 11/13/24 02:55 Plt Count 360 10^3/cmm (157-399) 11/13/24 02:55 MPV 10.4 fL (7.4-10.4) 11/13/24 02:55 Neut % (Auto) 92.8 % 11/13/24 02:55 Lymph % (Auto) 2.7 % 11/13/24 02:55 [place] % (Auto) 3.8 % 11/13/24 02:55 Eos % (Auto) 0.0 % 11/13/24 02:55 Baso % (Auto) 0.0 % 11/13/24 02:55 Neut # (Auto) 7.88 10^3/uL (1.8-7.7) H 11/13/24 02:55 Lymph # (Auto) 0.2 10^3/uL (0.8-4.8) L 11/13/24 02:55 [place] # (Auto) 0.3 10^3/uL (0.2-0.9) 11/13/24 02:55 Eos # (Auto) 0.0 10^3/uL (0.0-0.8) 11/13/24 02:55 Baso # (Auto) 0.0 10^3/uL (0.0-0.1) 11/13/24 02:55 Nucleated RBC % (auto) 0 % 11/13/24 02:55 Nucleated RBCs # 0.0 /100WBC 11/13/24 02:55 D-Dimer 0.52 ug/mLFEU (0-0.59) 11/12/24 05:53 Specimen Type Arterial 11/11/24 20:53 Sample Site Radial, left 11/11/24 20:53 ABG pH 7.44 (7.35-7.45) 11/11/24 20:53 ABG pCO2 47.7 mmHg (35-45) H 11/11/24 20:53 ABG pO2 66.0 mmHg (80.0-100.0) L 11/11/24 20:53 ABG HCO3 32.7 mmol/L (22-26) H 11/11/24 20:53 ABG O2 Saturation 93.7 11/11/24 20:53 ABG Base Excess 7.6 mmol/L (-2.0-2.0) H 11/11/24 20:53 Nikhil Test Pos 11/11/24 20:53 A-a O2 Gradient 3.2 mmHg (5-10) L 11/11/24 20:53 Hematocrit 30.9 % (37-47) L 11/11/24 20:53 Hgb O2 Saturation 88.4 % (95-100) L 11/11/24 20:53 Carboxyhemoglobin 4.9 %THgb (0.4-20.1) 11/11/24 20:53 Methemoglobin 0.8 % (0.4-1.5) 11/11/24 20:53 Total Hemoglobin 10.1 g/dL (12-16) L 11/11/24 20:53 Sodium 136.0 mmol/L (131-143) 11/11/24 20:53 Potassium 2.7 mmol/L (3.5-5.0) L 11/11/24 20:53 Glucose 112.0 mg/dL (70-115) 11/11/24 20:53 Ionized Calcium 1.2 mmol/L (1.1-1.4) 11/11/24 20:53 O2 Delivery Device Nc 11/11/24 20:53 O2 Liters/Min 8.0 % 11/11/24 20:53 Substance Abuse Therapist ID [email or web address] 11/11/24 20:53 Sodium 134 mmol/L (136-145) L 11/13/24 02:55 Potassium 4.3 mmol/L (3.5-5.1) 11/13/24 02:55 Chloride 97 mmol/L (98-107) L 11/13/24 02:55 Carbon Dioxide 25 mmol/L (22-29) 11/13/24 02:55 Anion Gap 16.3 (5-19) 11/13/24 02:55 BUN 21 mg/dL (8-23) 11/13/24 02:55 Creatinine 0.9 mg/dL (0.5-0.9) 11/13/24 02:55 GFR Calculation Not Reportable 11/13/24 02:55 Glucose 151 mg/dL (65-115) H 11/13/24 02:55 Estimat Average Glucose 91 11/12/24 03:12 Hemoglobin A1c 4.8 % (4.0-6.0) 11/12/24 03:12 Calculated Osmolality 284 mOsm/kg (285-295) L 11/13/24 02:55 Lactic Acid 1.0 mmol/L (0.5-2.2) 11/11/24 20:58 Calcium 9.7 mg/dL (8.5-10.5) 11/13/24 02:55 Magnesium 2.0 mg/dL (1.7-2.3) 11/13/24 02:55 Iron 18 ug/dL (37-145) L 11/12/24 03:12 TIBC 261 mcg/dl 11/12/24 03:12 % Saturation 6.8 % (20-50) L 11/12/24 03:12 Unsat Iron Binding 243 ug/dL (112-347) 11/12/24 03:12 Total Bilirubin 0.2 mg/dL (0.15-1.2) 11/13/24 02:55 AST 9 U/L (0-32) 11/13/24 02:55 ALT 8 U/L (0-33) 11/13/24 02:55 Alkaline Phosphatase 70 U/L (35-105) 11/13/24 02:55 Troponin T Baseline 31 ng/L (0-10) H 11/11/24 20:58 Troponin T 120 Minute 30.17 ng/L (0-10) H 11/11/24 22:46 Delta Troponin T -0.83 ABS# (0-10) L 11/11/24 22:46 Troponin T Hi Sens 6Hr 27.87 ng/L (0-10) H 11/12/24 03:12 Troponin T Hi Sens 6Hr Delta -3.13 ng/L (0-12) L 11/12/24 03:12 NT-Pro-B Natriuret Pep 3865 pg/mL (0-125) H 11/11/24 20:58 Total Protein 5.6 g/dL (6.6-8.7) L 11/13/24 02:55 Albumin 3.2 g/dL (3.5-5.2) L 11/13/24 02:55 Globulin 2.4 g/dL (1.3-4.6) 11/13/24 02:55 Triglycerides 70 mg/dL (0-150) 11/13/24 02:55 Cholesterol 131 mg/dL (0-200) 11/13/24 02:55 LDL Cholesterol, Calc 80 mg/dL (50-129) 11/13/24 02:55 Total VLDL Cholesterol 14 mg/dL (0-30) 11/13/24 02:55 HDL Cholesterol 37 mg/dL (60-100) L 11/13/24 02:55 Cholesterol/HDL Ratio 3.54 mg/dL (0.0-4.40) 11/13/24 02:55 Vitamin B12 > 2000 pg/mL (232-1245) H 11/12/24 03:12 Folate 7.9 ng/mL (4.8-37.3) 11/13/24 02:55 Procalcitonin 0.10 ng/mL (0-0.5) 11/12/24 03:12 TSH 1.58 uIU/mL (0.27-4.20) 11/12/24 03:12 Influenza A (PCR) Negative (Negative) 11/12/24 06:13 Influenza Type B (PCR) Negative (Negative) 11/12/24 06:13 RSV (PCR) Negative (Negative) 11/12/24 06:13 SARS-CoV-2 (PCR) Negative (Negative) 11/12/24 06:13 Vitals Last Vital Signs Temp 97.6 F 11/13/24 11:31 Pulse 62 11/13/24 11:31 Resp 18 11/13/24 11:31 BP 141/49 11/13/24 11:31 Pulse Ox 95 11/13/24 11:31 O2 Del Method Nasal Cannula 11/13/24 11:31 O2 Flow Rate 4 11/13/24 10:43 Discharge Plan Discharge Patient Disposition: Home Condition: Stable Prescriptions: New prednisone 10 mg tablet See Taper PO DIRECTED Qty: 42 0RF Taper: predniSONE 60-10 60 mg Daily for 2 Days and 0 Hour 50 mg Daily for 2 Days and 0 Hour 40 mg Daily for 2 Days and 0 Hour 30 mg Daily for 2 Days and 0 Hour 20 mg Daily for 2 Days and 0 Hour 10 mg Daily for 2 Days and 0 Hour Rx Instructions: see taper instructions Continued aspirin 81 mg tablet,chewable 81 mg PO DAILY nitroglycerin 0.4 mg tablet, sublingual 0.4 mg sublingual Q5M PRN (Reason: chest pain) Qty: 25 3RF Rx Instructions: do not exceed 3 doses per episode losartan 100 mg tablet 100 mg PO DAILY Qty: 90 3RF albuterol sulfate 90 mcg/actuation HFA aerosol inhaler 2 puff inhalation Q6H PRN (Reason: Shortness Of Breath Or Wheezing) (DME) oxygen-air delivery systems Device See Rx Instructions .ROUTE Rx Instructions: As directed Shauna Aerosphere 160-9-4.8 mcg/actuation HFA aerosol inhaler 2 inh inhalation BID Qty: 10.7 5RF albuterol sulfate 2.5 mg /3 mL (0.083 %) solution for nebulization 2.5 mg inhalation Q6H PRN (Reason: Wheezing) Qty: 90 3RF clopidogrel 75 mg tablet See Rx Instructions .ROUTE .COMPLEX Qty: 90 3RF Dose Instruction: Take 1 tablet by mouth once daily Rx Instructions: Take 1 tablet by mouth once daily isosorbide mononitrate 30 mg tablet extended release 24 hr See Rx Instructions .ROUTE .COMPLEX Qty: 90 3RF Dose Instruction: Take 1 tablet by mouth once daily Rx Instructions: Take 1 tablet by mouth once daily cetirizine [Zyrtec] 10 mg tablet 10 mg PO QAM vitamin B complex Tablet 1 tab PO DAILY ferrous sulfate 27 mg iron Tablet 27 mg PO BID cholecalciferol (vitamin D3) [Vitamin D3] 125 mcg (5,000 unit) Tablet 125 mcg PO QAM acetaminophen 325 mg capsule 325 mg PO Q4H PRN (Reason: fever or pain) Qty: 60 0RF metoprolol succinate 25 mg tablet extended release 24 hr 25 mg PO DAILY duloxetine 30 mg capsule,delayed release(DR/EC) 30 mg PO DAILY ondansetron HCl 4 mg tablet 4 mg PO Q8H pantoprazole 40 mg tablet,delayed release (DR/EC) 40 mg PO BID amlodipine 5 mg tablet 10 mg PO DAILY 30 Days Qty: 30 0RF furosemide 40 mg Tablet 40 mg PO DAILY Discharge Order = DC NOW: Discharge Order (Routine); Ordered 11/13/24 Ordered By: Rachid Valdez Referrals: TRE OSEGUERA [Referring, Nurse Practitioner] - 11/18/24 8:45 am Argentina Marinelli MD [Physician, Interventional Pulmonology] - 2 weeks Patient Instructions: Opioid Safety, Patient Portal & Maya Instructions Discharge Attestations Time Spent in Discharge Care*: greater than 30 min Specific Discharge Activities: educating patient, educating and/or supporting family/caregiver, discussing with pcp/other providers, discussing with telehealth case manager/social workers/dc planners, documenting/other paperwork and evaluating patient/reviewing data Status at Discharge: Cognitive status at discharge: cognitively intact, Behavioral status at discharge: cooperative, Functional status at discharge: independent ambulation, Overall status at discharge: patient is back to baseline Quality Metrics Clinical Quality Measures [ No reported AMI, CVA or VTE this stay] Coding Level of Care Code 88525 Total time (in minutes) for Discharge: 65 Diagnoses COPD exacerbation J44.1
== END 2024-11-13 14:00 | disposition home or self-care (01) ==
LOC: ER 23:20 → MEDSURG 11-12 02:16
PROVIDERS: Emergency Medicine; Admitting Provider Student in an Organized Health Care Education/Training Program; Emergency Provider Family Medicine; Visit Provider Student in an Organized Health Care Education/Training Program
DX: J44.1 Chronic obstructive pulmonary disease with (acute) exacerbation (principal); K21.9 Gastro-esophageal reflux disease without esophagitis; Z99.81 Dependence on supplemental oxygen; Z79.82 Long term (current) use of aspirin; I27.20 Pulmonary hypertension, unspecified; F17.210 Nicotine dependence, cigarettes, uncomplicated
CPT/HCPCS: 36415; 71045; 80051; 80053; 80061; 82330; 82607; 82746; 82805; 83036; 83540; 83550; 83605; 83735; 83880; 84145; 84443; 84484; 85025; 85378; 87040; 87637; 93005; 94640; 94760; 96365; 96375; 99285; G0378; J2919; J3490; J7613; J7626; J9999

== ENCOUNTER → 2024-11-18 14:40 | Outpatient (BNVA) | payer MEDICARE, MEDICAID, SELFPAY | PROVIDERS: Visit Provider Internal Medicine | DX: R07.89 Other chest pain (principal); Z09 Encounter for follow-up examination after completed treatment for conditions other than malignant neoplasm; I25.10 Atherosclerotic heart disease of native coronary artery without angina pectoris; Z79.02 Long term (current) use of antithrombotics/antiplatelets; Z79.82 Long term (current) use of aspirin; I73.9 Peripheral vascular disease, unspecified; I10 Essential (primary) hypertension; F17.210 Nicotine dependence, cigarettes, uncomplicated; I25.2 Old myocardial infarction | CPT/HCPCS: 99214 ==

== ENCOUNTER 2025-01-24 14:18 | Inpatient (IN) | payer MEDICARE, MEDICAID, SELFPAY ==
[2025-01-24] VITALS (10 sets, daily range): BP systolic 158–186; BP diastolic 44–66; PULSE 68–96; RESP 14–24; TEMP 36.6–36.9; O2SAT 90–100
--- NOTE | 2025-01-24 14:20 | XRR_ITS ---
PROCEDURE INFORMATION: Exam: XR Chest Exam date and time: 01/24/2025 2:50 PM Age: 69 years old Clinical indication: Pain; Angina pectoris; Additional info: Chest pain TECHNIQUE: Imaging protocol: Radiologic exam of the chest. Views: 1 view. COMPARISON: 1. CR XR chest 1V portable [id number] 11/11/2024 8:52 PM 2. CR XR chest 1V portable [id number] 10/21/2024 5:30 PM FINDINGS: Lungs: Lungs are minimally hyperexpanded. No airspace consolidation suspicious for a pneumonia. Minimal bibasilar atelectatic changes are present which are improved as compared to the prior chest x-ray. No new airspace consolidation. No CHF. Circumscribed round 4 mm nodule at the right lung base is unchanged. Pleural spaces: No pleural effusion. No pneumothorax. Heart/Mediastinum: Heart size is normal. The mediastinal contours are smooth. Vasculature: Mild central vascular fullness. Minimal atherosclerotic plaque at the aortic arch. Carotid artery calcifications are present on the right. Bones/joints: Multilevel degenerative changes are present throughout the spine. XR/XR chest 1V portable [id number] IMPRESSION: No acute cardiopulmonary process.
--- OUTSIDE RECORDS SUMMARY | 2025-01-24 14:21 | XMS_ITS | Encounter Summary ---
Author Organization [employer] Address [address] [place] [address] Care Team Providers Care Field Technical Assistant Name Role Phone Unavailable Primary Care Provider Unavailabl e Encounter Details Date Type Department Care Team (Late st Contact Info) Description 01/18/2025 External Device Data [facility] ABSTRACTION Provider, Abstract NO ADDRESS ON FILE Social History Tobacco Use Types Packs/Day Years [...]
--- OUTSIDE RECORDS SUMMARY | 2025-01-24 14:21 | XMS_ITS | Clinical Summary ---
Author Organization [facility] Address [address] [place] [address] Phone Care Team Providers Care Swabber Name Role Phone Unavailable Primary Care Provider Unavailabl e Encounters Date Type Department Care Team Description 01/18/2025 External Device Data [facility] ABSTRACTION Provider, Abstract 11/17/2024 External Device Data [facility] ABSTRACTION Provider, Abstract 11/17/2024 External Device Data [facility] ABSTRACTION Provider, Abstract 11/17/2024 External Device Data [facility] ABSTRACTION Provider, Abstract 11/17/2024 External Device Data [facility] ABSTRACTION Provider, Abstract 11/16/2024 External Device Data [facility] ABSTRACTION Provider, Abstract from Last 3 Months Social History Tobacco [...] Flex Sig/CT Colonography Q 5 years 1998 ZOSTER VACCINE (1 of 2) 2003 OSTEOPOROSIS SCREENING 2018 INFLUENZA VACCINE (#1) 2024 02/18/2023 COVID-19 Vaccine ( - season) 2025 RSV VACCINE (60+ or ) (1 - 1-dose 75+ series) 2028 PNEUMOCOCCAL VACCINE 50+ YEARS Completed 07/12/2022 Insurance [employer] DUAL ADVANTAGE O [facility] [place]ICAID [place]
--- NOTE | 2025-01-24 14:34 | ECG_ITS ---
[facility]: [facility]25-01-24 Pat Name: Latonia Gar Department: Room: Gender: Female Layout Former: : 1955 Requested By: Sugey Sr Order Number: [id number] Deisi MD: Bari Cruz M.D. Measurements Intervals [place] Rate: 88 P: 59 CA: 176 QRS: 35 QRSD: 96 T: 53 QT: 377 QTc: 458 Interpretive Statements SINUS RHYTHM MODERATE ST DEPRESSION [0.05+ mV ST DEPRESSION] Compared to ECG 11/12/2024 02:34:38 ST (T wave) deviation now present T-wave abnormality no longer present Electronically Signed On 01-24-2025 20:18:08 CDT by Bari Cruz M.D. [email or web address]
[2025-01-24 14:55] LABS: Hematocrit 29.7 % (36-47); Hemoglobin 9.00 g/dL (11.27-16.99); Mean Corpuscular HGB Conc 30.3 g/dL (30-55); Mean Corpuscular Hemoglobin 28.4 pg (27-33); Mean Corpuscular Volume 93.7 fl (85-98); Nucleated Red Blood Cells % 0 %; Platelet Count 363 10^3/cmm (157-399); Red Blood Count 3.17 10^6/uL (3.85-5.65); White Blood Count 7.28 10^3/uL (3.29-11.43)
--- NOTE | 2025-01-24 15:00 | W.ED.CHESTPA ---
HPI - Chest Pain General: Chief Complaint: Chest Pain Stated Complaint: chest pain Time Seen by Provider: 01/24/25 14:56 History of Present Illness: 69-year-old female presents emergency room complaining of chest pain and shortness of breath began around 10 AM this morning. Patient is chronically on oxygen of 4 L/min by nasal cannula. Patient has a known history of coronary disease she did take a sublingual nitro prior to arrival said it alleviated the pain some but did not resolve it. Associated symptoms: Deny abdominal pain, dyspnea or fever(s) Related Data Home Medications ?Medication ?Instructions ?Recorded ?Confirmed cetirizine 10 mg tablet (Zyrtec) 10 mg PO QAM 05/10/19 11/18/24 cholecalciferol (vitamin D3) 125 125 mcg PO QAM 04/11/21 11/18/24 mcg (5,000 unit) tablet (Vitamin D3) ferrous sulfate 27 mg iron tablet 27 mg PO BID 04/11/21 11/18/24 vitamin B complex 1 tab PO DAILY 04/11/21 11/18/24 aspirin 81 mg chewable tablet 81 mg PO DAILY 04/11/22 11/18/24 albuterol sulfate 90 mcg/actuation 2 puff inhalation Q6H PRN 05/13/24 11/18/24 aerosol inhaler Shortness Of Breath Or Wheezing oxygen-air delivery systems 05/13/24 11/12/24 duloxetine 30 mg capsule,delayed 30 mg PO DAILY 07/18/24 11/18/24 release pantoprazole 40 mg tablet,delayed 40 mg PO BID 10/22/24 11/18/24 release furosemide 40 mg tablet 40 mg PO DAILY 11/12/24 11/18/24 ondansetron HCl 4 mg tablet 4 mg PO Q8H PRN 11/18/24 11/18/24 Previous Rx's ?Medication ?Instructions ?Recorded budesonide 160 mcg-glycopyr 9 2 inh inhalation BID #10.7 grams 03/25/22 mcg-formot 4.8 mcg/actuation HFA inhaler (Breztri [employer]) acetaminophen 325 mg capsule 325 mg PO Q4H PRN fever or pain 09/12/22 #60 caps albuterol sulfate 2.5 mg/3 mL 2.5 mg (3 mL) inhalation Q6H PRN 05/16/23 (0.083 %) solution for nebulization Wheezing #90 mL nitroglycerin 0.4 mg sublingual 0.4 mg sublingual Q5M PRN chest 11/11/23 tablet pain #25 tabs clopidogrel 75 mg tablet See Rx Instructions .Route 07/16/24 .COMPLEX #90 tabs amlodipine 5 mg tablet 10 mg (2 x 5 mg) PO DAILY 30 days 10/25/24 #30 tabs isosorbide mononitrate 30 mg See Rx Instructions .Route 11/01/24 tablet,extended release 24 hr .COMPLEX #90 tabs prednisone 10 mg tablet See Taper PO DIRECTED #42 tabs 11/13/24 losartan 100 mg tablet See Rx Instructions .Route 11/26/24 .COMPLEX #90 tabs metoprolol succinate 25 mg 25 mg PO DAILY #90 tabs 12/01/24 tablet,extended release 24 hr Allergies Allergy/AdvReac Type Severity Reaction Status Date / Time strawberry Allergy ADR-Itching Verified 11/18/24 16:15 Review of Systems Const: Denies: fever(s) or chills Card: Reports: chest pain Resp: Denies: dyspnea GI: Denies: abdominal pain : Denies: dysuria, urinary frequency or urinary urgency Musc: Denies: neck pain or back pain Skin/Breast: Denies: rash PFSH ED PFSH: Medical History Productive cough Nocturnal hypoxemia Onychodystrophy Centrilobular emphysema Multiple lung nodules on CT Shortness of breath Encounter for screening for lung cancer DICKSON (dyspnea on exertion) Bilateral foot pain Anemia Chronic and stable Encounter for surgical aftercare following surgery of genitourinary system Chest pain Right upper quadrant pain Atherosclerosis of coronary artery ST elevation myocardial infarction (STEMI) This patient presents with the features of ST elevation myocardial infarction. 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 She underwent PCI of this lesion. Currently she seems to be stable. Hx of chest pain Smoker Asthma with exacerbation PUD (peptic ulcer disease) Hx of migraines History of COPD Hx of gastroesophageal reflux (GERD) Hx of primary hypertension Hx of hypercholesterolemia Surgical History History of tonsillectomy and adenoidectomy History of ankle surgery History of bladder surgery History of carpal tunnel release of both wrists Family History Sister Cancer Myocardial infarct Heart disease Mother Myocardial infarct Heart disease Grandmother Myocardial infarct Heart disease maternal Other DICKSON (dyspnea on exertion) Hypertension Stroke Denies family history of Colon cancer Ovarian cancer Diabetes Breast cancer Uterine cancer Social History Smoking and tobacco/nicotine status: current every day tobacco/nicotine user cigarettes Packs smoked per day: 1 Years cigarettes smoked: 57 [ Other cigarette details: Started smoking at 11] Substance/Drug Use: never Physical Exam Const: GENERAL APPEARANCE: cooperative ORIENTATION/CONSCIOUSNESS: Yes awake, Yes oriented to person, Yes oriented to place and Yes oriented to time HENMT: COMMON NORMALS: normocephalic, atraumatic and hearing grossly normal bilaterally HEAD & SCALP: normocephalic and atraumatic Resp: COMMON NORMALS: normal respiratory effort, No retractions, No use of accessory muscles and clear to auscultation bilaterally AUSCULTATION: clear to auscultation bilaterally Cardio: COMMON NORMALS: regular rate, regular rhythm and No murmurs present (Cardio) RATE: regular rate RHYTHM: regular rhythm GI: COMMON NORMALS: Soft to palpation and No hepatosplenomegaly present AUSCULTATION: Yes normoactive bowel sounds PALPATION: Yes Soft to palpation, No Tenderness to palpation present (GI), No Guarding due to palpation present (GI) and Yes No hepatosplenomegaly present Extremity: COMMON NORMALS: normal to inspection, capillary refill normal, no clubbing, cyanosis or edema, no calf tenderness and no pedal edema Neuro: SENSORIUM/ORIENTATION: Yes oriented to person, Yes oriented to place and Yes oriented to time Skin: COMMON NORMALS: no rashes or lesions noted GENERAL SKIN EXAM: no rashes or lesions noted Course Vital Signs: Vital signs: Vital Signs Temperature 98.4 F 01/24/25 14:24 Pulse Rate 71 01/24/25 15:45 Respiratory Rate 21 H 01/24/25 15:45 Blood Pressure 174/44 01/24/25 15:45 Pulse Oximetry 99 01/24/25 15:45 Oxygen Delivery Me thod Nasal Cannula 01/24/25 14:24 Oxygen Flow Rate 4 01/24/25 14:24 MDM - Chest Pain Medical Decision Making At the time I seen the patient she said the chest pain had completely resolved it began improving and she took the nitro the time she got here and was seen it had resolved completely. She has a known history of coronary artery disease. Medical Records I reviewed the patient's medical records. Lab Data I reviewed the patient's lab results. 01/24/25 14:45 01/24/25 14:45 Radiology Impressions Chest X-Ray 01/24/25 14:20 IMPRESSION: No acute cardiopulmonary process. Laboratory Results WBC 7.28 10^3/uL (3.29-11.43) 01/24/25 14:45 RBC 3.17 10^6/uL (3.85-5.65) L 01/24/25 14:45 Hgb 9.00 g/dL (11.27-16.99) L 01/24/25 14:45 Hct 29.7 % (36-47) L 01/24/25 14:45 MCV 93.7 fl (85-98) 01/24/25 14:45 MCH 28.4 pg (27-33) 01/24/25 14:45 MCHC 30.3 g/dL (30-55) 01/24/25 14:45 RDW 13.5 % (12.1-15.1) 01/24/25 14:45 Plt Count 363 10^3/cmm (157-399) 01/24/25 14:45 MPV 9.9 fL (7.4-10.4) 01/24/25 14:45 Neut % (Auto) 78.9 % 01/24/25 14:45 Lymph % (Auto) 8.9 % 01/24/25 14:45 [place] % (Auto) 9.2 % 01/24/25 14:45 Eos % (Auto) 2.2 % 01/24/25 14:45 Baso % (Auto) 0.4 % 01/24/25 14:45 Neut # (Auto) 5.74 10^3/uL (1.8-7.7) 01/24/25 14:45 Lymph # (Auto) 0.7 10^3/uL (0.8-4.8) L 01/24/25 14:45 [place] # (Auto) 0.7 10^3/uL (0.2-0.9) 01/24/25 14:45 Eos # (Auto) 0.2 10^3/uL (0.0-0.8) 01/24/25 14:45 Baso # (Auto) 0.0 10^3/uL (0.0-0.1) 01/24/25 14:45 Nucleated RBC % (auto) 0 % 01/24/25 14:45 Nucleated RBCs # 0.0 /100WBC 01/24/25 14:45 Sodium 143 mmol/L (136-145) 01/24/25 14:45 Potassium 2.9 mmol/L (3.5-5.1) L 01/24/25 14:45 Chloride 99 mmol/L (98-107) 01/24/25 14:45 Carbon Dioxide 34 mmol/L (22-29) H 01/24/25 14:45 Anion Gap 12.9 (5-19) 01/24/25 14:45 BUN 21 mg/dL (8-23) 01/24/25 14:45 Creatinine 0.9 mg/dL (0.5-0.9) 01/24/25 14:45 GFR Calculation Not Reportable 01/24/25 14:45 Glucose 116 mg/dL (65-115) H 01/24/25 14:45 Calculated Osmolality 300 mOsm/kg (285-295) H 01/24/25 14:45 Calcium 9.6 mg/dL (8.5-10.5) 01/24/25 14:45 Magnesium 2.3 mg/dL (1.7-2.3) 01/24/25 14:45 Total Bilirubin 0.2 mg/dL (0.15-1.2) 01/24/25 14:45 AST 9 U/L (0-32) 01/24/25 14:45 ALT 7 U/L (0-33) 01/24/25 14:45 Alkaline Phosphatase 72 U/L (35-105) 01/24/25 14:45 Troponin T Baseline 19 ng/L (0-10) H 01/24/25 14:45 NT-Pro-B Natriuret Pep 850 pg/mL (0-125) H 01/24/25 14:45 Total Protein 5.7 g/dL (6.6-8.7) L 01/24/25 14:45 Albumin 3.9 g/dL (3.5-5.2) 01/24/25 14:45 Globulin 1.8 g/dL (1.3-4.6) 01/24/25 14:45 All radiology interpretation(s) finalized by discharge EKG Data EKG 1: Interpretation: EKG 01/24/2025 1434 sinus rhythm rate of 88 AL normal [address] depression in V4 5 and 6 and in lead II. [address] depression is new compared to EKG from 11/12/2024 Clincial Decision Support The following clinical decision support tools were used to aid in care of the patient HEART Score -> History: Highly Suspicious, EKG: Non-specific Changes, Age: 65 or more yrs, Risk Factors: >/=3 Risk Factors, Troponin: Baseline Trop 16-45 ng/L. Resulting HEART Score: 8. Discharge Plan Discharge Patient Disposition: Placed in Observation Clinical Impression: Unstable angina pectoris COPD (chronic obstructive pulmonary disease) Qualifiers: COPD type: unspecified COPD Qualified Code(s): J44.9 - Chronic obstructive pulmonary disease, unspecified Hypertension Qualifiers: Hypertension type: primary hypertension Qualified Code(s): I10 - Essential (primary) hypertension Atherosclerosis of coronary artery Qualifiers: Coronary Disease-Associated Artery/Lesion type: [place] artery [place] vs. 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
[2025-01-24 15:14] LABS: Troponin(5th) Baseline 19 ng/L (0-10)
[2025-01-24 15:23] LABS: Alanine Aminotransferase 7 U/L (0-33); Albumin Level 3.9 g/dL (3.5-5.2); Alkaline Phosphatase 72 U/L (35-105); Anion Gap 12.9 (5-19); Aspartate Amino Transferase 9 U/L (0-32); Blood Urea Nitrogen 21 mg/dL (8-23); Calcium 9.6 mg/dL (8.5-10.5); Carbon Dioxide 34 mmol/L (22-29); Chloride 99 mmol/L (98-107); Creatinine Clr Calc Pharmacy 42.6089; Globulin 1.8 g/dL (1.3-4.6); Glucose 116 mg/dL (65-115); NT Pro B Type Natriuretic Pept 850 pg/mL (0-125); Osmolality Calculated 300 mOsm/kg (285-295); Sodium 143 mmol/L (136-145); Total Protein 5.7 g/dL (6.6-8.7)
[2025-01-24 15:24] LABS: Potassium 2.9 mmol/L (3.5-5.1)
[2025-01-24 16:14] LABS: Magnesium 2.3 mg/dL (1.7-2.3)
--- NOTE | 2025-01-24 16:21 | ECG_ITS ---
[employer] Test Date: 2025-01-24 Pat Name: Latonia Gar Department: Room: 104 Gender: Female Pharmacy Benefit Manager: : 1955 Requested By: Sugey Sr Order Number: [id number] Deisi MD: Bari Cruz M.D. Measurements Intervals [place] Rate: 74 P: 0 MD: 0 QRS: 6 QRSD: 102 T: 28 QT: 409 QTc: 455 Interpretive Statements ATRIAL FIBRILLATION INFERIOR MYOCARDIAL INFARCTION , PROBABLY OLD [40+ ms Q WAVE AND/OR ST/T ABNORMALITY IN II/aVF] Compared to ECG 01/24/2025 14:34:37 Myocardial infarct finding now present Sinus rhythm no longer present ST (T wave) deviation no longer present Electronically Signed On 01-24-2025 20:25:24 CDT by Bari Cruz M.D. [email or web address] [id number]
--- NOTE | 2025-01-24 17:18 | PM.HP ---
Providers/Chief Complaint Admitting Physician: Surendra White MD Primary Care Provider: NAVID Staton Chief Complaint: chest pain History of Present Illness Latonia Gar is a 69 year old female presenting with chest pain that started this AM. The pain started in the left axilla area and traveled up the throat. She is also having pain in the BL arms and had paresthesias all over, which has not been a symptom with prior chest pain. PMHx is significant for CVD with prior stent placed around 2017. She had a nuclear stress test in May of 2023 which showed a small area of fixed perfusion in the inferior wall. She follows with doctor Melissa and was seen in clinic in November for follow up. She has COPD on 4L O2 continuously and continues to smoke. Admitted for further evaluation of chest pain. Pain is mostly resolved at time of exam. She also had a headache and took nitro at home, which relieved her headache. Review of Systems Const: Denies: fever(s), chills or fatigue Eyes: Denies: blurry vision ENMT: Denies: throat pain Card: Reports: chest pain Resp: Denies: dyspnea or productive cough GI: Denies: abdominal pain, nausea or vomiting : Denies: flank pain Musc: Denies: neck pain or back pain Skin/Breast: Denies: rash, pruritus or skin tenderness Neuro: Reports: headache(s) Psych: Denies: anxiety or depression Medications/Allergies Home Medications ?Medication ?Instructions ?Recorded ?Confirmed ?Last Taken ?Type cetirizine 10 mg tablet (Zyrtec) 10 mg PO QAM 05/10/19 11/18/24 11/11/24 09:00 History cholecalciferol (vitamin D3) 125 125 mcg PO QAM 04/11/21 11/18/24 11/11/24 09:00 History mcg (5,000 unit) tablet (Vitamin D3) ferrous sulfate 27 mg iron tablet 27 mg PO BID 04/11/21 11/18/24 11/11/24 09:00 History vitamin B complex 1 tab PO DAILY 04/11/21 11/18/24 11/11/24 09:00 History budesonide 160 mcg-glycopyr 9 2 inh inhalation BID #10.7 grams 03/25/22 11/18/24 11/11/24 09:00 Rx mcg-formot 4.8 mcg/actuation HFA inhaler (Breztri [employer]) aspirin 81 mg chewable tablet 81 mg PO DAILY 04/11/22 11/18/24 11/11/24 09:00 History acetaminophen 325 mg capsule 325 mg PO Q4H PRN fever or pain 09/12/22 11/18/24 Unknown Rx #60 caps albuterol sulfate 2.5 mg/3 mL 2.5 mg (3 mL) inhalation Q6H PRN 09/17/22 11/18/24 11/11/24 09:00 Rx (0.083 %) solution for nebulization Wheezing #90 mL nitroglycerin 0.4 mg sublingual 0.4 mg sublingual Q5M PRN chest 11/11/23 11/18/24 Unknown Rx tablet pain #25 tabs albuterol sulfate 90 mcg/actuation 2 puff inhalation Q6H PRN 05/13/24 11/18/24 11/11/24 09:00 History aerosol inhaler Shortness Of Breath Or Wheezing oxygen-air delivery systems 05/13/24 11/12/24 Unknown History clopidogrel 75 mg tablet See Rx Instructions .Route 07/16/24 11/18/24 11/11/24 09:00 Rx .COMPLEX #90 tabs duloxetine 30 mg capsule,delayed 30 mg PO DAILY 07/18/24 11/18/24 11/11/24 09:00 History release pantoprazole 40 mg tablet,delayed 40 mg PO BID 10/22/24 11/18/24 11/11/24 09:00 History release amlodipine 5 mg tablet 10 mg (2 x 5 mg) PO DAILY 30 days 10/25/24 11/18/24 11/11/24 09:00 Rx #30 tabs isosorbide mononitrate 30 mg See Rx Instructions .Route 11/01/24 11/18/24 11/11/24 09:00 Rx tablet,extended release 24 hr .COMPLEX #90 tabs furosemide 40 mg tablet 40 mg PO DAILY 11/12/24 11/18/24 11/11/24 09:00 History prednisone 10 mg tablet See Taper PO DIRECTED #42 tabs 11/13/24 11/18/24 Unknown Rx ondansetron HCl 4 mg tablet 4 mg PO Q8H PRN 11/18/24 11/18/24 Unknown History losartan 100 mg tablet See Rx Instructions .Route 11/26/24 Unknown Rx .COMPLEX #90 tabs metoprolol succinate 25 mg 25 mg PO DAILY #90 tabs 12/01/24 Unknown Rx tablet,extended release 24 hr Allergies Allergy/AdvReac Type Severity Reaction Status Date / Time strawberry Allergy ADR-Itching Verified 11/18/24 16:15 PFSH Acute PFSH: Medical History (Updated 01/24/25 @ 16:23 by Ernesto Davis DO) Productive cough Nocturnal hypoxemia Onychodystrophy Centrilobular emphysema Multiple lung nodules on CT Shortness of breath Encounter for screening for lung cancer DICKSON (dyspnea on exertion) Bilateral foot pain Anemia Chronic and stable Encounter for surgical aftercare following surgery of genitourinary system Chest pain Right upper quadrant pain Atherosclerosis of coronary artery ST elevation myocardial infarction (STEMI) This patient presents with the features of ST elevation myocardial infarction. 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 She underwent PCI of this lesion. Currently she seems to be stable. Hx of chest pain Smoker Asthma with exacerbation PUD (peptic ulcer disease) Hx of migraines History of COPD Hx of gastroesophageal reflux (GERD) Hx of primary hypertension Hx of hypercholesterolemia Surgical History History of tonsillectomy and adenoidectomy History of ankle surgery History of bladder surgery History of carpal tunnel release of both wrists Family History Sister Cancer Myocardial infarct Heart disease Mother Myocardial infarct Heart disease Grandmother Myocardial infarct Heart disease maternal Other DICKSON (dyspnea on exertion) Hypertension Stroke Denies family history of Colon cancer Ovarian cancer Diabetes Breast cancer Uterine cancer Social History Smoking and tobacco/nicotine status: current every day tobacco/nicotine user cigarettes Packs smoked per day: 1 Years cigarettes smoked: 57 [ Other cigarette details: Started smoking at 11] Substance/Drug Use: never Vitals/I&O/Wt Last Vital Signs Temp 98.4 F 01/24/25 14:24 Pulse 77 01/24/25 17:07 Resp 18 01/24/25 16:30 BP 186/53 01/24/25 17:07 Pulse Ox 97 01/24/25 17:07 O2 Del Method Nasal Cannula 01/24/25 14:24 O2 Flow Rate 4 01/24/25 14:24 Weight last 48 hrs Weight 49.442 kg Physical Exam Const: COMMON NORMALS: no acute distress, average body habitus and patient oriented x3 HENMT: COMMON NORMALS: normocephalic and atraumatic Eye: COMMON NORMALS: Equal, round and reactive pupils present and EOMs intact bilaterally Neck/C-Spine: COMMON NORMALS: full ROM, no lymphadenopathy, supple and no JVD Lymph: LYMPHATIC: no lymphadenopathy noted Chest: COMMONS NORMALS: normal inspection of the chest and normal palpation of entire chest wall (without pain) Resp: COMMON NORMALS: normal respiratory effort, No retractions and clear to auscultation bilaterally Cardio: COMMON NORMALS: no JVD, regular rate, regular rhythm, S1 normal heart sound present, S2 normal heart sound present, No gallops present (Cardio), No murmurs present (Cardio) and No rub (Cardio) GI: COMMON NORMALS: Soft to palpation, non-tender and no masses Extremity: COMMON NORMALS: normal to inspection and full ROM Neuro: COMMON NORMALS: patient oriented x3, CN's II-XII intact bilaterally and moves all extremities Psych: COMMON NORMALS: mental status grossly normal, Normal thought process present, cooperative and normal affect Data 01/24/25 14:45 01/24/25 14:45 A&P Assessment and plan 1. Smoker: 2. COPD (chronic obstructive pulmonary disease): Plan: 69 year old female presenting with chest pain. Chest pain H/O CVD with stent placed around 2018 - follows with Dr. Torres as outpatient - cardiology consulted - mildly elevated troponin on first draw, repeat pending, she is normally somewhat elevated - no creatinine elevation or KATJA - CXR is clear COPD Tobaccoism - continues to smoke - on 4L per NC at baseline - not in exacerbation HTN - cont. home regimen when able Hypokalemia - replaced in ER - recheck in AM Diet: NPO after midnight PPx: heparin Disposition - cont. home regimen when able - full code PDMP PDMP Reviewed: Not Reviewed Attestations Medical Necessity Statement*: admitted to observation for chest pain. Time Spent in Patient Care: 16 - 35 minutes (>than 50% of time spent in counselling and/or direct pt care on unit). Coding Level of Care Code Acute Code for Chg Fwd Diagnoses Smoker F17.200 COPD (chronic obstructive pulmonary disease) J44.9
[2025-01-24 18:10] LABS: Troponin 5 2HR 24.00 ng/L (0-10); Troponin 5 2HR Delta 5.00 ABS# (0-10)
--- NOTE | 2025-01-24 19:19 | PC.NURSE ---
Admit Note Patient admitted to [facility] from ER via wheelchair. Covering service notified Dr. White on pt's arrival and needed transfer orders. Patient presents with chest pain and shortness of breath. Orders reviewed & will continue to monitor. Patient and/or service representative oriented to environment, equipment, and informed of the following as found in the admission booklet: patient rights & responsibilities, visitor policy, hand and respiratory hygiene practice. Other education includes: pt educated on possible cardiac stress test in the morning, so pt educated on no caffeine for 24 hrs, cardiology consulted Dr Torres for chest pain. Patient and/or service representative verbalizes understanding.
[2025-01-24] MEDS: heparin 5,000 unit/mL INJ 1 mL 5000 UNIT SUBCUT (19:30)
--- NOTE | 2025-01-24 20:21 | ECG_ITS ---
[employer] Test Date: 2025-01-24 Pat Name: Latonia Gar Department: Room: 104 Gender: Female Rpg Developer: : 1955 Requested By: Sugey Sr Order Number: [id number] Deisi MD: Jaren Almazan M.D. Measurements Intervals [place] Rate: 75 P: 56 FL: 182 QRS: 21 QRSD: 97 T: 45 QT: 412 QTc: 460 Interpretive Statements SINUS RHYTHM POSSIBLE ANTERIOR MYOCARDIAL INFARCTION , OF INDETERMINATE AGE [30 ms Q WAVE IN V3/V4, OR R < 0.2 mV IN V4] Compared to ECG 01/24/2025 17:10:59 SUPRAVENTRICULAR ECTOPIC BEATS NO LONGER PRESENT POOR R WAVE PROGRESSION IS NEW, POSSIBLY DUE TO CHANGE IN LEAD PLACEMENT Electronically Signed On 01-26-2025 21:32:54 CDT by Jaren Almazan M.D. [email or web address] [id number]
--- NOTE | 2025-01-24 21:38 | PC.NURSE ---
Heparin Subq given by Cory SHAVER was not saved. Administration was witnessed by Mouna SHAVER and Tatyana YEBOAH.
[2025-01-24 21:40] LABS: Troponin 5 6HR 29.77 ng/L (0-10); Troponin 5 6HR Delta 10.77 ng/L (0-12)
[2025-01-25] VITALS (14 sets, daily range): BP systolic 155–166; BP diastolic 4–65; PULSE 65–96; RESP 16–22; TEMP 36.4–37.1; O2SAT 95–98
--- NOTE | 2025-01-25 | ECG_ITS ---
[facility] Test Date: 2025-01-25 Pat Name: Latonia Gar Department: Room: 104 Gender: Female Medical Technologist Hematology: : 1955 Requested By: Surendra White Order Number: [id number] Lipscomb MD: Jaren Almazan M.D. Interpretive Statements Procedure: A total of 0.4 mg of Lexiscan was infused over 20 seconds. The stress phase was continued for a total of 5 minutes. Sestamibi was injected 20 seconds after the Lexiscan infusion. Data: The resting blood pressure was 184/51 with a heart rate of 77. After Lexiscan injection the blood pressure initially dropped to 146/47 but then increased back to 171/44 in recovery. Heart rate after Lexiscan injection increased to a maximum of 111 bpm. The resting EKG showed normal sinus rhythm with possible old anterolateral myocardial infarction. There were no ST-T wave changes or arrhythmias during the stress test or in recovery. Conclusion: 1. Normal EKG response to Lexiscan infusion 2. No Lexiscan induced chest pain or cardiac arrhythmia. 3. Normal blood pressure and heart rate response. 4. Nuclear myocardial perfusion scan pending; see separate report. Electronically Signed On 01-25-2025 20:35:10 CDT by Jaren Almazan M.D. [email or web address]
[2025-01-25] MEDS: heparin 5,000 unit/mL INJ 1 mL 5000 UNIT SUBCUT ×3 (02:06→17:26)
[2025-01-25 02:46] LABS: ABG PH Result 7.38 (7.35-7.45); Alveolar-Arterial Oxygen Gradi 1.5 mmHg (5-10); Arterial Blood Gas Hematocrit 27.9 % (37-47); Blood Gas LPM 5.0 %; Blood Gas Sample Site Brachial, right; Blood Gas Sample Type Arterial; Carboxyhemoglobin 3.6 %THgb (0.4-20.1); Glucose Level-ABG 104.0 mg/dL (70-115); HCO3 ABG 35.7 mmol/L (22-26); Ionized Calcium Level - ABG 1.3 mmol/L (1.1-1.4); Methemoglobin 0.9 % (0.4-1.5); Oxygen Saturation ABG 92.9; PO2 ABG 63.9 mmHg (80.0-100.0); Potassium Level - ABG 3.3 mmol/L (3.5-5.0); Sodium Level - ABG 144.0 mmol/L (131-143)
[2025-01-25] MEDS: methylPREDNISolone sod succ 40 mg/mL INJ IVP ×3 (03:36→20:32)
--- NOTE | 2025-01-25 04:01 | PC.NURSE ---
Patient got up oob to bathroom, this nurse went in to check on patient. When patient came out of the bathroom her WOB was increased and at one point while walking back to the bed she stopped to grab bed and was struggling to catch her breath. Patient tripoding on bedside table and when pateint was hooked back up to monitor SP02 was at 69%. O2 titrate fron 4 to 6 L and patient slowly recovered. Patient also having audible wheezing. Dr. Cristobal notified patient has no breathing treatments and concerned for COPD exac. Received orders for stat ABG, RT assess and treat, bipap orders and start solu-medrol 40 mg Q8h. Please see lab for ABG results. At this time patient is refusing bipap as it make her anxious.
[2025-01-25 04:21] LABS: Alanine Aminotransferase 8 U/L (0-33); Albumin Level 3.5 g/dL (3.5-5.2); Alkaline Phosphatase 56 U/L (35-105); Anion Gap 11.4 (5-19); Aspartate Amino Transferase 11 U/L (0-32); Blood Urea Nitrogen 16 mg/dL (8-23); Calcium 9.5 mg/dL (8.5-10.5); Carbon Dioxide 33 mmol/L (22-29); Chloride 104 mmol/L (98-107); Creatinine Clr Calc Pharmacy 49.5975; Globulin 2.1 g/dL (1.3-4.6); Glucose 99 mg/dL (65-115); Magnesium 2.1 mg/dL (1.7-2.3); Osmolality Calculated 301 mOsm/kg (285-295); Potassium 3.4 mmol/L (3.5-5.1); Sodium 145 mmol/L (136-145); Total Protein 5.6 g/dL (6.6-8.7)
--- NOTE | 2025-01-25 06:27 | PC.NURSE ---
Patient off unit for stress test. Let transport know to monitor O2 and that during activity the patient might need extra O2.
[2025-01-25 07:18] LABS: ABG PCO2 60.4 mmHg (35-45)
--- NOTE | 2025-01-25 08:27 | P.CONIM_ITS ---
<Statement entered by Tay Torres M.D - 02/03/25 09:31> Patient was cared for in conjunction with an advanced practice practitioner.? I reviewed the chart and all pertinent data including imaging, telemetry, and laboratory results.? I discussed the patient in detail with the advanced practice practitioner.? Please see?their note for consult, testing results and agreed upon plan of care for the patient. Patient's presentation is consistent with unstable angina. Stress test is also abnormal. Plan for coronary angiogram with possible PCI. Risk and benefit of procedure have been discussed. Thank you for involving us with care of this patient. Please call with questions. Providers/Reason For Consult 2 Consulting Physician/Specialty*: Dr Torres, interventional cardiology Reason for Consult*: chest pain Requesting Physician: Dr White Attending Physician: Surendra White MD Primary Care Provider: NAVID Staton History of Present Illness History of Present Illness Latonia Gar is a 69 year old female with past medical history of CAD (PCI of the RCA due to STEMI in 2020), hypertension, smoking, requires supplemental oxygen usually uses 4 L nasal cannula, peptic ulcer disease, history of cholecystectomy. She presented to the emergency room yesterday with complaint of chest pain, improved but not relieved by nitroglycerin. Troponin series 19-> 24-> 29. Hemoglobin decreased to 9.0, has intermittent chronic anemia in review of her chart. Yesterday when she arrived she was significantly hypokalemic at 2.9. This has been replaced and is 3.4 this morning. Normal renal function. BNP 850 [address]. EKG showed some ST depression in inferior and lateral leads. The second EKG yesterday showed atrial fibrillation-this is a new finding for her. The third EKG obtained last night showed conversion to sinus rhythm. Echocardiogram obtained in 2023 shows LVEF 68%, mild to moderate concentric LVH, trace to mild MR. At her visit in November with Dr. 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 She has still been smoking. She takes Plavix, Lasix 40 mg daily, isosorbide mononitrate 30 mg daily, losartan 100 mg daily, metoprolol succinate 25 mg daily, amlodipine 10 mg daily at home. Review of Systems 2 Const: Denies: fever(s), chills, change in weight, fatigue or diaphoresis Eyes: Denies: change in vision ENMT: Denies: epistaxis Card: Reports: chest pain; Denies: palpitations, irregular heart rhythm, edema, syncope, pre-syncope, dyspnea on exertion, orthopnea or leg pain with exertion Resp: Denies: dyspnea, productive cough or wheezing GI: Denies: nausea, vomiting, hematemesis, hematochezia or melena : Denies: hematuria Musc: Denies: extremity swelling Aden/Lymph: Denies: easy bruising or easy bleeding Medications/Allergies Home Medications ?Medication ?Instructions ?Recorded ?Confirmed ?Last Taken ?Type cetirizine 10 mg tablet (Zyrtec) 10 mg PO QAM 05/10/19 01/24/25 1 Day Ago History ~01/23/25 cholecalciferol (vitamin D3) 125 125 mcg PO QAM 01/24/25 1 Day Ago History mcg (5,000 unit) tablet (Vitamin ~ D3) ferrous sulfate 27 mg iron tablet 27 mg PO BID 1 01/24/25 1 Day Ago History ~01/23/25 vitamin B complex 1 tab PO DAILY 04/11/2101/0411/11/24 09:00 History budesonide 160 mcg-glycopyr 9 2 inh inhalation BID #10 .7 grams 03/25/22 01/24/25 1 Day Ago Rx mcg-formot 4.8 mcg/actuation HFA ~ inhaler (Breztri Aerosphere) aspirin 81 mg chewable tablet 81 mg PO DAILY 04/11/22 01/24/25 1 Day Ago History ~01/23/25 acetaminophen 325 mg capsule 325 mg PO Q4H PRN fever o r pain 09/12/22 01/24/25 Unknown Rx #60 caps albuterol sulfate 2.5 mg/3 mL 2.5 mg (3 mL) inhalation Q6H PRN 09/17/22 01/24/25 1 Day Ago Rx (0.083 %) solution for nebulization Wheezing #90 mL ~01/23/25 nitroglycerin 0.4 mg sublingual 0.4 mg sublingual Q5M PRN chest 11/11/23 01/25/25 Unknown Rx tablet pain #25 tabs albuterol sulfate 90 mcg/actuation 2 puff inhalation Q 6H PRN 05/13/24 01/24/25 1 Day Ago History aerosol inhaler Shortness Of Breath Or Wheez ing ~01/23/25 oxygen-air delivery systems 05/13/24 01/25/25 Unknown History clopidogrel 75 mg tablet See Rx Instructions .Route 0 07/16/24 01/24/25 1 Day Ago Rx .COMPLEX #90 tabs ~01/23/25 duloxetine 30 mg capsule,delayed 30 mg PO DAILY 01/24/25 11/11/24 09:00 History release pantoprazole 40 mg tablet,delayed 40 mg PO BID 5 01/25/25 01/23/25 History release amlodipine 5 mg tablet 10 mg (2 x 5 mg) PO DAILY 30 days 10/25/24 01/24/25 1 Day Ago Rx #30 tabs ~01/23/25 isosorbide mononitrate 30 mg See Rx Instructions .Rout e 11/01/24 01/25/25 01/23/25 Rx tablet,extended release 24 hr .COMPLEX #90 tabs furosemide 40 mg tablet 40 mg PO DAILY 11/12/2401/04 1 Day Ago History ~01/23/25 losartan 100 mg tablet See Rx Instructions .Route 0 11/26/24 01/25/25 01/23/25 Rx .COMPLEX #90 tabs metoprolol succinate 25 mg 25 mg PO DAILY #90 tabs 01/25/25 01/23/25 Rx tablet,extended release 24 hr Allergies Allergy/AdvReac Type Severity Reaction Status Date / Time strawberry Allergy ADR-Itching Verified 11/18/24 16:15 Current Medications Generic Name Dose Route Start Last Admin Trade Name Freq PRN Reason Stop Dose Admin Albuterol/Ipratropium 3 ml 01/25/25 02:00 01/25/25 08:22 Ipratropium-Albuterol 3 Ml Neb INHALATION Not Given Q6H.RESP GOYO Albuterol/Ipratropium 3 ml 01/25/25 08:00 01/25/25 07:58 Ipratropium-Albuterol 3 Ml Neb INHALATION 3 ml QID.RESPIRATORY GOYO Administration Budesonide 0.5 mg 01/25/25 08:00 01/25/25 07:58 Budesonide 0.5 Mg/2 Ml Neb INHALATION 0.5 mg BID.RESPIRATORY GOYO Administration Heparin Sodium (Porcine) 5,000 unit 01/24/25 18:00 01/25/25 02:06 Heparin 5,000 Unit/Ml Inj 1 Ml SUBCUT 5,000 unit Q8H GOYO Administration Methylprednisolone Sodium Succinate 40 mg 01/25/25 03:15 01/25/25 03:36 Methylprednisolone Sod Succ 40 Mg/Ml Inj IVP 40 mg Q8H GOYO Administration PFSH Acute 2 PFSH: Medical History Productive cough Nocturnal hypoxemia Onychodystrophy Centrilobular emphysema Multiple lung nodules on CT Shortness of breath Encounter for screening for lung cancer DICKSON (dyspnea on exertion) Bilateral foot pain Anemia Chronic and stable Encounter for surgical aftercare following surgery of genitourinary system Chest pain Right upper quadrant pain Atherosclerosis of coronary artery ST elevation myocardial infarction (STEMI) This patient presents with the features of ST elevation myocardial infarction. 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 She underwent PCI of this lesion. Currently she seems to be stable. Hx of chest pain Smoker Asthma with exacerbation PUD (peptic ulcer disease) Hx of migraines History of COPD Hx of gastroesophageal reflux (GERD) Hx of primary hypertension Hx of hypercholesterolemia Surgical History History of tonsillectomy and adenoidectomy History of ankle surgery History of bladder surgery History of carpal tunnel release of both wrists Family History Sister Cancer Myocardial infarct Heart disease Mother Myocardial infarct Heart disease Grandmother Myocardial infarct Heart disease maternal Other DICKSON (dyspnea on exertion) Hypertension Stroke Denies family history of Colon cancer Ovarian cancer Diabetes Breast cancer Uterine cancer Social History Smoking and tobacco/nicotine status: current every day tobacco/nicotine user cigarettes Packs smoked per day: 1 Years cigarettes smoked: 57 [ Other cigarette details: Started smoking at 11] Substance/Drug Use: never Vitals/I&O/Wt Last Vital Signs Temp 97.6 F 01/25/25 06:29 Pulse 74 01/25/25 08:01 Resp 20 H 01/25/25 08:01 BP 160/49 01/25/25 07:13 Pulse Ox 96 01/25/25 08:01 O2 Del Method Nasal Cannula 01/25/25 08:01 O2 Flow Rate 3 01/25/25 08:01 01/24/25 01/25/25 01/25/25 22:59 06:59 14:59 Intake Total 355 / 355 Balance 355 / 355 Weight last 48 hrs Weight 118 lb Weight 109 lb Physical Exam 2 Const: COMMON NORMALS: no acute distress and patient oriented x3 GENERAL APPEARANCE: cooperative and comfortable ORIENTATION/CONSCIOUSNESS: Yes awake, Yes oriented to person, Yes oriented to place and Yes oriented to time Chest: COMMONS NORMALS: normal inspection of the chest and normal palpation of entire chest wall CHEST: Yes Symmetrical chest wall rise Resp: COMMON NORMALS: normal respiratory effort, No retractions and No use of accessory muscles EFFORT & INSPECTION: Yes symmetric chest movement A USCULTATION: wheezes throughout Cardio: COMMON NORMALS: regular rate, regular rhythm, S1 normal heart sound present, S2 normal heart sound present, No gallops present (Cardio), No clicks present (Cardio), No murmurs present (Cardio) and No rub (Cardio) RATE: r egular rate RHYTHM: regular rhythm HEART SOUNDS: S1 normal heart sound present and S2 normal heart sound present PERIPHERAL PULSES: radial pulses present Extremity: COMMON NORMALS: no pedal edema Neuro: COMMON NORMALS: patient oriented x3 and moves all extremities S ENSORIUM/ORIENTATION: Yes oriented to person, Yes oriented to place and Yes oriented to time Data 01/24/25 14:45 01/25/25 03:21 A&P Assessment and plan 1. Unstable angina pectoris: 2. Tobacco dependence with current use: 3. Atherosclerosis of coronary artery: 4. Hypertension: 5. Hx of primary hypertension: 6. COPD (chronic obstructive pulmonary disease): Plan: Lexiscan stress test was obtained today, revealing medium sized area of prior infarct with significant guy-infarct ischemia in the RCA and left circumflex territories. Will plan for coronary angiogram tomorrow 6 AM. This has been discussed with the patient in detail, and she is in agreement to proceed. She notes she did have chest pain during the stress test but is pain- free now. N.p.o. after midnight tonight. Continue amlodipine, aspirin, Plavix. PDMP PDMP Reviewed: Not Reviewed Coding Level of Care Code Acute Code for Chg Fwd Diagnoses Unstable angina pectoris I20.0 Tobacco dependence with current use F17.200 Atherosclerosis of coronary artery I25.10 Hypertension I10 Hx of primary hypertension Z86.79 COPD (chronic obstructive pulmonary disease) J44.9
[2025-01-25 09:02] LABS: Ferritin 14 ng/mL (15-150); Iron 12 ug/dL (37-145); Total Iron Binding Capacity 293 mcg/dl; Unsaturated Iron Binding 281 ug/dL (112-347)
--- NOTE | 2025-01-25 10:36 | P.PN_ITS ---
Subjective 2 Subjective: No chest pain this AM. Vitals/I&O/Wt Last Vital Signs Temp 97.8 F 01/25/25 10:03 Pulse 90 01/25/25 10:03 Resp 21 H 01/25/25 10:03 BP 166/49 01/25/25 10:03 Pulse Ox 95 01/25/25 10:03 O2 Del Method Nasal Cannula 01/25/25 08:01 O2 Flow Rate 3 01/25/25 08:01 01/24/25 01/25/25 01/25/25 22:59 06:59 14:59 Intake Total 355 / 355 355 / 355 Balance 355 / 355 355 / 355 Weight last 48 hrs Weight 53.524 kg Weight 49.442 kg Physical Exam 2 Narrative: Physical Exam Const: no acute distress, average body habi tus and patient or iented x3 HENMT: normocephalic and atraumatic Eye: Equal, round and r eactive pupils pre sent and EOMs inta ct bilaterally Neck/C-Spine: full ROM, no lymph adenopathy, supple and no JVD Lymph: no lymphadenopathy noted Chest: normal inspection of the chest and n ormal palpation of chest wall witho ut pain Resp: normal respiratory effort, No retrac tions and clear to auscultation bila terally Cardio: no JVD, regular ra te, regular rhythm , S1 normal heart sound present, S2 normal heart sound present, No riojas ps present, No mur murs present and N o rub GI: Soft to palpation, non-tender and no masses Extremity: normal to inspecti on and full ROM Neuro: oriented x3, CN's II-XII intact bila terally and moves all extremities Psych: mental status stephanie sly normal, Normal thought process p resent, cooperativ e and normal affec t Data 01/24/25 14:45 01/25/25 03:21 Other data: 69 year old female presenting with chest pain. Chest pain H/O CVD with stent placed around 2018 - follows with Dr. Torres as outpatient - cardiology consulted: stress test this AM with medium sized area of prior infarct, significant guy-infarct ischemia in the RCA and left circumflex territories. - cardiology planning for coronary angiogram in the AM - mildly elevated troponin on first draw, repeat increased slightly, she is normally somewhat elevated - no creatinine elevation or KATJA - CXR is clear Severe ANIL - iron level 12, ferritin is 14 - she is on oral iron and states she gets infusions about once a month. - likely needs to increase iron infusion rate to weekly for now, goal ferritin > 100. - start IV iron daily while here. COPD Tobaccoism - continues to smoke - on 4L per NC at baseline - not in exacerbation HTN - cont. home regimen when able Hypokalemia - replaced in ER - recheck in AM Diet: NPO after midnight PPx: heparin Disposition - cont. home regimen - coronary angiogram in the AM. A&P PDMP PDMP Reviewed: Not Reviewed Attestations 2 Medical Necessity Statement*: Inpatient for chest pain, ANIL, angiogram in AM. Time Spent in Patient Care: 16 - 35 minutes (>than 50% of time sp ent in counselling and/or direct pt care on unit) . Coding Level of Care Code Acute Code for Salomon Jones
--- NOTE | 2025-01-25 10:54 | PC.CHAP ---
Pastoral Care Encounter/Spiritual Assessment Type of Contact [] Declined die attaching machine tender visit [] Patient/Family/Request visit [] Outpatient visit [] Follow-up visit [] Physician referral [] Code/Alert [] Routine visit [] Staff referral [] Actively dying [] Patient sleeping [] Family support [] [] Out of room [] Palliative care [] [x] Receiving care in room [] Pre-surgical visit [] Trauma [] Long length of stay [] ICU visit [] Other: Relational/Emotional Strength [] Patient feels connected with others/family/visitors/staff [] Distress [] Loneliness/isolation [] Abandonment Spirituality of Patient [] Person of Raiza [] Attends Jewish of their Raiza [] Believes in Prayer [] Reads Bible or Episcopalian materials [] There are Spiritual issues to be addressed Hospital Ward Clerk Interventions [] Prayer [] Active listening [] Non-anxious presence [] Spiritual/emotional support [] Crisis/trauma care [] Spiritual counseling [] Bereavement support [] Provided bereavement packet [] Provided Bible/devotional materials [] Provided toy/stuffed animal, coloring book to patient or family member [] Provided Communion [] Anointing/[place] [] Salvation [] Completed spiritual assessment [] Other: Impact on Illness or Injury [] Angry [] Fearful [] Anxious [] Often cries [] Exhaustion [] Unable to work [] Unable to attend adventist [] Unable to walk/stand [] Unable to read [] Unable to drive [] Unable to eat/drink [] Unable to sleep [] Unable to be with family [] Patient intubated [] Other: Summary Time spent with patient
[2025-01-25] MEDS: ferric gluconate 125 MG in sodium chloride 0.9% (100 ml) 100 ML 110 MG IV (11:39)
--- NOTE | 2025-01-25 17:55 | NMCV_ITS ---
NM val perf SPECT r/s* [id number] Latonia Gar Age: 69 Gender: F : 1955 Exam Date: 01/25/2025 06:14 Ordering Phys: Surendra White MD Technologist: PAN Montanez Exam Location: [facility] Indications: CP STRESS TEST Please see separate stress test report in [facility] for full findings IMAGE PROTOCOL Rest/Stress 1 Lexiscan Day Radiopharmaceutical Dose (mCi) Administration Site Administered by Rest: Tc-99m 10.8 IV PAN Montanez Sestamibi Stress:Tc-99m 32.7 IV PAN Rojsa Sestamibi Rest: 25-Jan-2025 60 Discovery 630 Stress: 25-Jan-2025 30 Discovery 630 0.4mg Lexiscan. Supine position only as patient was unable to lay prone. SPECT RESULTS Technical Quality: Good Raw Data Analysis: Normal Image Corrections: No attenuation or motion correction applied Summed Stress Score: 4 Summed Rest Score: 7 Summed Difference Score: 0 PERFUSION FINDINGS There is a medium to large sized area of mostly reversible perfusion defect seen in the inferior and inferolateral ryan. This is consistent with medium sized area of prior infarct with significant guy-infarct ischemia in RCA and left circumflex artery territories. FUNCTIONAL RESULTS (calculated via Gated SPECT) Stress Image LV EF (%): 60 Stress EDV (mL):137 TID: 1.15 Stress ESV (mL):55 FUNCTIONAL FINDINGS: There is normal left ventricular systolic function. IMPRESSIONS 1. Abnormal myocardial perfusion imaging with medium sized area of prior infarct with significant guy-infarct ischemia in RCA and left circumflex artery territories. 2. LV systolic function is normal Tay Torres MD (Electronically Signed) Final Date: 25 January 2025 09:38 S
[2025-01-26] VITALS (37 sets, daily range): BP systolic 131–181; BP diastolic 36–121; PULSE 62–108; RESP 13–34; TEMP 35.8–36.8; O2SAT 84–100
[2025-01-26 03:40] LABS: Hematocrit 28.4 % (36-47); Hemoglobin 8.40 g/dL (11.27-16.99); Mean Corpuscular HGB Conc 29.6 g/dL (30-55); Mean Corpuscular Hemoglobin 27.7 pg (27-33); Mean Corpuscular Volume 93.7 fl (85-98); Nucleated Red Blood Cells % 0 %; Platelet Count 306 10^3/cmm (157-399); Red Blood Count 3.03 10^6/uL (3.85-5.65); White Blood Count 5.50 10^3/uL (3.29-11.43)
[2025-01-26 03:58] LABS: Anion Gap 12.2 (5-19); Blood Urea Nitrogen 12 mg/dL (8-23); Calcium 10.2 mg/dL (8.5-10.5); Carbon Dioxide 32 mmol/L (22-29); Chloride 103 mmol/L (98-107); Creatinine Clr Calc Pharmacy 49.5975; Glucose 151 mg/dL (65-115); Osmolality Calculated 299 mOsm/kg (285-295); Potassium 4.2 mmol/L (3.5-5.1); Sodium 143 mmol/L (136-145)
--- NOTE | 2025-01-26 05:00 | XACV_ITS ---
Exam Room: [facility] Ht: 152 cm Wt: 54 kg BSA: 1.51 m2 Gender: Female : 1955 Any Known Allergies: Other Exam Priority: Routine Procedure(s): Procedure Description: Diagnostic procedure Procedure Description: PCI procedure Procedure Description: Drug Eluting Coronary Stent Procedure Description: PTCA Procedure Description: Miscellaneous Procedure Description: ACT Procedure Description: Coronary Angiography Diagnostic Cath Status: Urgent Diagnostic Findings * INDICATION: NSTEMI/ Abnormal stress test. * Circumflex has no significant disease. * Left Main has no disease. * Proximal Left Anterior Descending: minimal 30% stenosis, CELINA: 3 flow. * Mid Right Coronary Artery: critical 95% stenosis, CELINA: 3 flow. * Coronary angiography shows right dominance. PCI Status: Urgent PCI Indication: NSTE - ACS Interventional Findings * Procedure detail: We engaged the RCA with JR4 guide catheter. IV heparin was administered to maintain anticoagulation. Run-through guidewire was used to cross the stenosis. We predilated the stenosis with 3.0 x 15 mm semicompliant balloon. This was followed by placement of 3.5 x 22 mm resolute Celina drug-eluting stent. We postdilated the stent with 3.5 x 12 mm NC balloon at high pressure. At this time final angiogram was performed that showed excellent stent expansion, no residual stenosis and CELINA-3 flow. Prior RCA stent was patent. Patient left the [employer] in a stable condition.. * Mid Right Coronary Artery: 95% stenosis treated with a AB TREK 3.00X15 RX BALLOON, OPAL Landin CHACHA 3.5X22 LUÍS, and OPAL BOSWELL EUPHORA RX [id number] BALLOON. 0% residual stenosis, CELINA: 3 flow. Conclusions 1. Critical mid RCA stenosis s/p PCI with 1 stent. 2. Mid Right Coronary Artery was treated with a Balloon, Drug Eluting Stent, and Balloon. Recommendations * Dual antiplatelet therapy with aspirin and plavix. * High intensity statin therapy. * Outpatient cardiology follow up in 2 weeks. Interventional RX Recommendation: PCI w/o planned CABG Diagnostic RX Recommendation: PCI w/o planned CABG Anticoagulation: Heparin Pressures Phase:Rest AO : 124 / 56 ( 84 ) @ 8:30:00 AM 162 / 60 ( 99 ) @ 8:35:00 AM 153 / 71 ( 109 ) @ 8:54:00 AM Clinical Evaluation EBL: 5mL-10mL Procedural Details Procedure Consent Obtained. Pre-Procedure Time Out. Identified patient by full name and date of as verbalized by the patient/guarantor. Does the consent match the physician's order: Yes. Accurate & Complete Informed Consent: Yes. Inpatient/Outpatient History & Physical on Chart: Yes. If H&P is completed, is and addenduem needed: No. Visualize and Verify Site with Patient/Guarantor: N/A. Relevant Radiology Images available: Yes. The risks, benefits, and alternatives of sedation and/or procedure were discussed by physician. The patient agrees to continue. Procedure started. [facility] Clinical Fraility Score: 4: Vulnerable. [employer] Indications: Worsening Angina/Unstable angina/Abnormal stress test. Chest Pain Symptom Assessment: Typical Angina Symptoms. Cardiovascular Instability: No. Correct patient, site and procedure confirmed by cath team. PERRLA. Strong, equal hand passport support associate bilaterally. Lungs clear x 5 lobes. IV Site on Arrival: 20 gauge in the left anticubital. IV Fluids: 0.9% NaCl at KVO. 0 mL infused prior to slab puller. Pre Procedural Pulses: bilateral radial was 3+. Oxygen started at 4liters/min via nasal canula. right groin was prepped with chloroprep then draped in the usual sterile fashion. right radial was prepped with chloroprep then draped in the usual sterile fashion. Physician notified. Pre Procedural Pulses: bilateral dorsalis pedis was 3+. Pre Procedural Pulses: bilateral posterior tibial was 3+. Baseline sample Acquired. HR: 108 BPM. Patient's family unavailable. The patiient requests that Dr. Torres call her daughter, Yoly Almeida, at [phone] at the completion of the procedure. Equipment: 6F - Radial. Cardiac Cath Pack. [employer] Manifold Kit Model BT 2000. Heparinized Saline (2 units/mL), 1000 mL bag. Physician arrived. Physician scrubbed in. Immediate Pre-Procedure Time Out. Correct Patient: Yes; Correct Procedure: Yes; Correct Site: Yes; Correct Patient Position: Yes; Correct Supplies: Yes; Dried Flammable Prep: Yes; Blood Products Available: N/A;. Lidocaine 1% infiltrated to the right radial. Arterial access obtained. A 5 tanzanian TIG catheter in over the exchange J wire. Multiple views taken of left coronary artery. Catheter redirected to the RCA. Multiple views taken of right coronary artery. Catheter removed over the exchange J wire. 6 tanzanian JR 4 guide catheter was inserted over the exchange J wire. Runthrough guidewire was advanced through the guide catheter to lesion in the mid RCA. Inflation number : 1 A AB TREK 3.00X15 RX BALLOON was prepped and advanced across the Mid RCA , then inflated to 8 RONI for 0:07 seconds. Inflation number: 2 The AB TREK 3.00X15 RX BALLOON was reinflated across the Mid RCA, to 10 RONI for 0:14 seconds. Inflation number: 3 The AB TREK 3.00X15 RX BALLOON was reinflated across the Mid RCA, to 12 RONI for 0:10 seconds. Balloon out. Results checked. Resolute Celina LUÍS 3.5mm x 22mm in, unable to cross, removed intact. Guideliner in OTW. Inflation Number : 4 A OPAL Landin CHACHA 3.5X22 LUÍS -Lot Number# [id number] Exp. was prepped and advanced across the Mid RCA. The stent was deployed at 12 RONI for 0:15 seconds. Stent balloon out over wire. Results checked. Baseline sample Acquired. HR: 92 BPM. Inflation number : 5 A OPAL BOSWELL EUPHORA RX [id number] BALLOON was prepped and advanced across the Mid RCA , then inflated to 18 RONI for 0:13 seconds. Inflation number: 6 The MDT ANDREIA EUPHORA RX 3.75P56ID BALLOON was reinflated across the Mid RCA, to 20 RONI for 0:10 seconds. Balloon out. Guideliner out OTW. Results checked. Wire out. ACT drawn. Results 245 seconds. Therapeutic limits - pre-heparin administration 90-150 seconds and monitoring heparin during a vascular procedure >250 seconds. Guide catheter out. Dr. Torres scrubbed out. A TR Band was successful obtaining hemostatsis at the Right Radial artery insertion site. Post Procedure: Pulses reassessed and unchanged. PERRLA. Strong, equal hand passport support associate bilaterally. No VTE prophylaxis required. Medication's Wasted: Lidocaine 1% = 18 mL. Medication's Wasted: Nitro = 49.8 mg. Medication's Wasted: Other = Versed 1 mg. Medication's Wasted: Other = Fentanyl 50 mcg. Total IV fluids: 45 mL. PCI Indication: CAD (without ischemic symptoms). Post-op diagnosis: Patent prior stent, severe mid RCA stenosis s/p LUÍS x 1. Complications: none. Estimated blood loss: 5mL-10mL. Responsiveness - Normal response to verbal stimuli; alert and oriented, PERRLA. Airway - Unaffected, no intervention required; spontaneous ventilation. Circulation: W/N/L, pulses unchanged. Nausea/Vomiting: No. Vital chart was stopped. Procedure completed. Patient transferred by bed to 1st floor. Access Site Site: Right Radial artery Sheath Size: 6 Fr Hemostasis Method: TR Band Hemostasis Success: Successful Procedure Medications Start: 7:07 AM Stop: 7:07 AM Medication: Fentanyl Amount: 25 mcg Route: I.V. Start: 7:24 AM Stop: 7:24 AM Medication: Versed Amount: 1 mg Route: I.V. Start: 7:24 AM Stop: 7:24 AM Medication: Fentanyl Amount: 25 mcg Route: I.V. Start: 7:28 AM Stop: 7:28 AM Medication: Nitrogylcerin Amount: 200 mcg Route: I.A. Start: 7:30 AM Stop: 7:30 AM Medication: Heparin Amount: 5000 units Route: I.V. Start: 7:54 AM Stop: 7:54 AM Medication: Heparin Amount: 5000 units Route: I.V. Start: 8:00 AM Stop: 8:00 AM Medication: Plavix Amount: 300 mg Route: P.O. I, the attending physician, have reviewed and verified all procedure medications. Yes, all medications given per verbal order History/Risk Factors Hypertension: Yes Dyslipidemia: No Peripheral Arterial Disease (PAD): No Myocardial Infarction ([place]): Yes Obesity: No Renal Disease: No Tobacco Use: Current/Recent(w/in 1 year) Prior Interventions PCI: Yes CABG: No Valve Surgery: No Report Signatures Finalized by Tay Torres MD on 01/26/2025 08:21 AM
[2025-01-26] MEDS: methylPREDNISolone sod succ 40 mg/mL INJ IVP ×3 (05:06→17:35)
--- NOTE | 2025-01-26 07:23 | W.PM.OPSUD ---
Surgery/Procedure H&P Update DATE OF PROCEDURE: January 26, 2025 DATE H&P PERFORMED: 01/25/25 H&P UPDATE INFORMATION: I have reviewed H&P completed within last 30 days, I have examined patient prior to procedure and No changes to prior documentation PREOP DIAGNOSIS: NSTEMI/ Abnormal stress test PRIMARY INDICATION FOR PROCEDURE: NSTEMI/ Abnormal stress test PLANNED PROCEDURE: Left heart cath with possible percutaneous coronary intervention PATIENT REASSESSED PRIOR TO SEDATION, WITH NO CHANGE NOTED: Yes PHYSICAL EXAM: alert, oriented x 3, clear to auscultation bilaterally and regular rate & rhythm AIRWAY EVAL/ANESTHESIA PLAN: normal airway, ASA III, Local Anesthesia, Risks, benefits & alternatives of sedation and/or procedure discussed and Patient agrees to continue as planned ADDITIONAL INFORMATION: Moderate sedation
--- NOTE | 2025-01-26 07:43 | PC.NURSE ---
Patient off the floor to biological lab technician
--- NOTE | 2025-01-26 08:26 | PC.NURSE ---
Patient received from woods laborer s/p [facility] with right radial access and TR band in place. No s/s of bleeding or hematoma formation observed. Instructed patient on site care with restrictions. Patient verbalized and demonstrated understanding. Patient denies pain or needs. No distress observed.
--- NOTE | 2025-01-26 09:42 | PC.CHAP ---
Pastoral Care Encounter/Spiritual Assessment Type of Contact [] Declined sulfonator operator visit [] Patient/Family/Request visit [] Outpatient visit [] Follow-up visit [] Physician referral [] Code/Alert [] Routine visit [] Staff referral [] Actively dying [] Patient sleeping [] Family support [] [x] Out of room [] Palliative care [] [] Receiving care in room [] Pre-surgical visit [] Trauma [] Long length of stay [] ICU visit [] Other: Relational/Emotional Strength [] Patient feels connected with others/family/visitors/staff [] Distress [] Loneliness/isolation [] Abandonment Spirituality of Patient [] Person of Raiza [] Attends Lutheran of their Raiza [] Believes in Prayer [] Reads Bible or Anglican materials [] There are Spiritual issues to be addressed Business Unit Director Interventions [] Prayer [] Active listening [] Non-anxious presence [] Spiritual/emotional support [] Crisis/trauma care [] Spiritual counseling [] Bereavement support [] Provided bereavement packet [] Provided Bible/devotional materials [] Provided toy/stuffed animal, coloring book to patient or family member [] Provided Communion [] Anointing/[place] [] Salvation [] Completed spiritual assessment [] Other: Impact on Illness or Injury [] Angry [] Fearful [] Anxious [] Often cries [] Exhaustion [] Unable to work [] Unable to attend sikh [] Unable to walk/stand [] Unable to read [] Unable to drive [] Unable to eat/drink [] Unable to sleep [] Unable to be with family [] Patient intubated [] Other: Summary Time spent with patient
[2025-01-26] MEDS: ferric gluconate 125 MG in sodium chloride 0.9% (100 ml) 100 ML 110 MG IV (10:33)
--- NOTE | 2025-01-26 11:03 | P.PN_ITS ---
Subjective 2 Subjective: s/p cath today with stent placement. Vitals/I&O/Wt Last Vital Signs Temp 97.8 F 01/26/25 04:00 Pulse 94 01/26/25 10:30 Resp 21 H 01/26/25 10:30 BP 144/45 01/26/25 10:30 Pulse Ox 92 01/26/25 10:30 O2 Del Method Nasal Cannula 01/26/25 04:00 O2 Flow Rate 3 01/26/25 01:25 01/25/25 01/26/25 01/26/25 22:59 06:59 14:59 Intake Total 355 / 820 Balance 355 / 820 Weight last 48 hrs Weight 53.796 kg Weight 53.524 kg Weight 49.442 kg Physical Exam 2 Narrative: Physical Exam Const: no acute distress, average body habitus and patient oriented x3 HENMT: normocephalic and atraumatic Eye: Equal, round and reactive pupils and EOMs intact bilaterally Neck/C-Spine: full ROM, no lymphadenopathy, supple and no JVD Lymph: no lymphadenopathy noted Chest: normal inspection of the chest and normal palpation of chest wall without pain Resp: normal respiratory effort, No retractions and clear to auscultation bilaterally Cardio: no JVD, regular rate, regular rhythm, S1 normal heart sound present, S2 normal heart sound present, No gallops present, No murmurs present and No rub GI: Soft to palpation, non-tender and no masses Extremity: normal to inspection and full ROM Neuro: oriented x3, CN's II-XII intact bilaterally and moves all extremities Psych: mental status grossly normal, Normal thought process present, cooperative and normal affect Data 01/26/25 03:18 01/26/25 03:18 A&P Assessment and plan 1. Unstable angina pectoris: 2. Community acquired pneumonia: 3. Acute exacerbation of chronic obstructive airways disease: Plan: 69 year old female presenting with chest pain. Chest pain H/O CVD with stent placed around 2018 - follows with Dr. Torres as outpatient - cardiology consulted: stress test this AM with medium sized area of prior infarct, significant guy-infarct ischemia in the RCA and left circumflex territories. - mildly elevated troponin on first draw, repeat increased slightly, she is normally somewhat elevated - no creatinine elevation or KATJA - CXR is clear - cardiology following, now s/p cath with stent placed mid RCA for critical stenosis - cont. DAPT Severe ANIL - iron level 12, ferritin is 14 - she is on oral iron and states she gets infusions about once a month. - likely needs to increase iron infusion rate to weekly for now, goal ferritin > 100. - start IV iron daily while here. - can follow up here or in [place] as prior, will need PCP to monitor labs to adjust transfusions as needed - she has apparently missed the last 2 months of infusions in [place]. COPD Tobaccoism - continues to smoke - on 4L per NC at baseline - not in exacerbation - cont. outpatient follow up in pulmonary clinic. HTN - cont. amlodipine 10 mg daily losartan 100 mg daily metoprolol succinate 25 mg daily imdur 30 mg daily Hypokalemia - replaced in ER - recheck in AM Diet: HH PPx: heparin subq Disposition - cont. home regimen - Likely able to D/C in the AM if no new issues. PDMP PDMP Reviewed: Not Reviewed Attestations 2 Medical Necessity Statement*: Inpatient s/p cath with stent. Time Spent in Patient Care: 16 - 35 minutes (>than 50% of time sp ent in counselling and/or direct pt care on unit) . Coding Level of Care Code Acute Code for [facility] Diagnoses Unstable angina pectoris I20.0 Community acquired pneumonia J18.9 Acute exacerbation of chronic obstructive airways disease J44.1
--- NOTE | 2025-01-26 11:04 | P.PN_ITS ---
<Statement entered by Tay Torres M.D - 02/03/25 09:36> Patient was cared for in conjunction with an advanced practice practitioner.? I reviewed the chart and all pertinent data including imaging, telemetry, and laboratory results.? I discussed the patient in detail with the advanced practice practitioner.? Please see?their note for progress note, testing results and agreed upon plan of care for the patient. Subjective 2 Subjective: s/p LUÍS x1 to RCA, no chest pain since procedure this morning. TR band in place. Vitals/I&O/Wt Last Vital Signs Temp 97.8 F 01/26/25 04:00 Pulse 94 01/26/25 10:30 Resp 21 H 01/26/25 10:30 BP 144/45 01/26/25 10:30 Pulse Ox 92 01/26/25 10:30 O2 Del Method Nasal Cannula 01/26/25 04:00 O2 Flow Rate 3 01/26/25 01:25 01/25/25 01/26/25 01/26/25 22:59 06:59 14:59 Intake Total 355 / 820 Balance 355 / 820 Weight last 48 hrs Weight 118 lb 9.6 oz Weight 118 lb Weight 109 lb Physical Exam 2 Const: COMMON NORMALS: no acute distress and patient oriented x3 GENERAL APPEARANCE: cooperative ORIENTATION/CONSCIOUSNESS: Yes awake, Yes oriented to person, Yes oriented to place and Yes oriented to time Chest: COMMONS NORMALS: normal inspection of the chest and normal palpation of entire chest wall CHEST: Yes Symmetrical chest wall rise Resp: COMMON NORMALS: normal respiratory effort, No retractions, No use of accessory muscles and clear to auscultation bilaterally AUSCULTATION: clear to auscultation bilaterally Cardio: COMMON NORMALS: regular rate, regular rhythm, S1 normal heart sound present, S2 normal heart sound present, No gallops present (Cardio), No clicks present (Cardio), No murmurs present (Cardio) and No rub (Cardio) RATE: r egular rate RHYTHM: regular rhythm HEART SOUNDS: S1 normal heart sound present and S2 normal heart sound present PERIPHERAL PULSES: radial pulses present positive right 2+ and femoral pulses present positive right 2+ Neuro: COMMON NORMALS: patient oriented x3 and moves all extremities S ENSORIUM/ORIENTATION: Yes oriented to person, Yes oriented to place and Yes oriented to time Skin: WOUNDS: Yes surgical site (no hematoma palpable) Details: no odor Data 01/26/25 03:18 01/26/25 03:18 A&P Assessment and plan 1. Atherosclerosis of coronary artery: 2. Hypertension: 3. Unstable angina pectoris: 4. Tobacco dependence with current use: Plan: Continue aspirin, Plavix, statin. BP elevated, may need addtional antihypertensive, continue amlodipine 10 mg daily. PDMP PDMP Reviewed: Not Reviewed Attestations 2 Medical Necessity Statement*: post pci Coding Level of Care Code Acute Code for [facility] Diagnoses Atherosclerosis of coronary artery I25.10 Hypertension I10 Unstable angina pectoris I20.0 Tobacco dependence with current use F17.200
--- NOTE | 2025-01-26 13:25 | PC.NURSE ---
Initiated TR band removal at 0930 removing 1-2ml of air every 20-30min until band removed at this time. Site is c,d,i without s/s of bleeding or hematoma formation observed. Covered site with 2x2 and coban. Instructed patient on site care with restrictions. Patient verbalized complete understanding. No distress observed.
[2025-01-26] MEDS: heparin 5,000 unit/mL INJ 1 mL 5000 UNIT SUBCUT (17:35)
[2025-01-27] MEDS: heparin 5,000 unit/mL INJ 1 mL 5000 UNIT SUBCUT (02:08)
[2025-01-27] MEDS: methylPREDNISolone sod succ 40 mg/mL INJ IVP ×2 (02:08→08:04)
[2025-01-27 03:10] VITALS: BP 169/55; PULSE 69; RESP 19; TEMP 36.3; O2SAT 100
[2025-01-27 04:32] LABS: Hematocrit 28.9 % (36-47); Hemoglobin 8.40 g/dL (11.27-16.99); Mean Corpuscular HGB Conc 29.1 g/dL (30-55); Mean Corpuscular Hemoglobin 27.4 pg (27-33); Mean Corpuscular Volume 94.1 fl (85-98); Nucleated Red Blood Cells % 0 %; Platelet Count 354 10^3/cmm (157-399); Red Blood Count 3.07 10^6/uL (3.85-5.65); White Blood Count 8.77 10^3/uL (3.29-11.43)
[2025-01-27 04:58] LABS: Anion Gap 11.0 (5-19); Blood Urea Nitrogen 12 mg/dL (8-23); Calcium 9.9 mg/dL (8.5-10.5); Carbon Dioxide 31 mmol/L (22-29); Chloride 102 mmol/L (98-107); Creatinine Clr Calc Pharmacy 49.7083; Glucose 111 mg/dL (65-115); Osmolality Calculated 290 mOsm/kg (285-295); Potassium 4.0 mmol/L (3.5-5.1); Sodium 140 mmol/L (136-145)
[2025-01-27] MEDS: LOSARTAN 100 MG TABLET PO (07:59)
[2025-01-27] MEDS: metoprolol succinate ER (24 HR) 25 mg Tablet PO (07:59)
[2025-01-27 08:00] VITALS: BP 175/52; PULSE 79; RESP 20; TEMP 36.1; O2SAT 95
[2025-01-27 08:45] VITALS: PULSE 75; RESP 16; O2SAT 94
--- NOTE | 2025-01-27 08:53 | P.PN_ITS ---
<Statement entered by Tay Torres M.D - 02/03/25 09:37> Patient was cared for in conjunction with an advanced practice practitioner.? I reviewed the chart and all pertinent data including imaging, telemetry, and laboratory results.? I discussed the patient in detail with the advanced practice practitioner.? Please see?their note for progress note, testing results and agreed upon plan of care for the patient. Subjective 2 Subjective: No chest pain overnight. She is at her baseline oxygen requirement, uses oxygen at home. Blood pressure elevated, will switch metoprolol to carvedilol for better control. She can discharge home today. Vitals/I&O/Wt Last Vital Signs Temp 96.9 F L 01/27/25 08:00 Pulse 75 01/27/25 08:45 Resp 16 01/27/25 08:45 BP 175/52 01/27/25 08:00 Pulse Ox 94 01/27/25 08:45 O2 Del Method Nasal Cannula 01/27/25 08:45 O2 Flow Rate 2 01/27/25 08:45 01/26/25 01/27/25 01/27/25 22:59 06:59 14:59 Intake Total 1166.667 / 1925.834 Balance 1166.667 / 1925.834 Weight last 48 hrs Weight 120 lb 1.6 oz Weight 118 lb 9.6 oz Physical Exam 2 Const: COMMON NORMALS: no acute distress and patient oriented x3 GENERAL APPEARANCE: cooperative ORIENTATION/CONSCIOUSNESS: Yes awake, Yes oriented to person, Yes oriented to place and Yes oriented to time Chest: COMMONS NORMALS: normal inspection of the chest and normal palpation of entire chest wall CHEST: Yes Symmetrical chest wall rise Resp: COMMON NORMALS: normal respiratory effort, No retractions, No use of accessory muscles and clear to auscultation bilaterally AUSCULTATION: clear to auscultation bilaterally Cardio: COMMON NORMALS: regular rate, regular rhythm, S1 normal heart sound present, S2 normal heart sound present, No gallops present (Cardio), No clicks present (Cardio), No murmurs present (Cardio) and No rub (Cardio) RATE: r egular rate RHYTHM: regular rhythm HEART SOUNDS: S1 normal heart sound present and S2 normal heart sound present PERIPHERAL PULSES: radial pulses present positive right 2+ and femoral pulses present positive right 2+ Neuro: COMMON NORMALS: patient oriented x3 and moves all extremities S ENSORIUM/ORIENTATION: Yes oriented to person, Yes oriented to place and Yes oriented to time Skin: WOUNDS: Yes surgical site (no hematoma palpable) Details: no odor Data 01/27/25 03:34 01/27/25 03:34 A&P Assessment and plan 1. Unstable angina pectoris: 2. Tobacco dependence with current use: 3. Atherosclerosis of coronary artery: 4. Hypertension: Plan: Doing well, can discharge today, switch to carvedilol at home, can start with tonights dose. Continue asprin and Plavix. Appreciate statin added by hospitalist service. Follow up in cardiology clinic in 2 weeks. PDMP PDMP Reviewed: Not Reviewed Attestations 2 Medical Necessity Statement*: dc home Coding Level of Care Code Acute Code for [facility] Diagnoses Unstable angina pectoris I20.0 Tobacco dependence with current use F17.200 Atherosclerosis of coronary artery I25.10 Hypertension I10
--- NOTE | 2025-01-27 09:25 | PM.DCS ---
Discharge Providers Date of Admission: 01/25/25 10:45 Date of Discharge: January 27, 2025 Attending Provider at Admission: Surendra White MD Attending Provider at Discharge: Surendra White MD Consults: Cardiology Primary Care Provider: NAVID Staton Diagnoses at Discharge Discharge Diagnosis 1. Unstable angina pectoris: 2. Tobacco dependence with current use: 3. 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 Primary hypertension: Reason for Visit Reason for Visit: chest pain Hospital Course Hospital Course 69 year old female presenting with chest pain. Chest pain H/O CVD with stent placed around 2018 - follows with Dr. Torres as outpatient - cardiology consulted: stress test with medium sized area of prior infarct, significant guy-infarct ischemia in the RCA and left circumflex territories. - mildly elevated troponin on first draw, repeat increased slightly, she is normally somewhat elevated - no creatinine elevation or KATJA - CXR is clear - cardiology following, now s/p cath with stent placed mid RCA for critical stenosis - cont. DAPT, statin Severe ANIL - iron level 12, ferritin is 14 - she is on oral iron and states she gets infusions about once a month. - likely needs to increase iron infusion rate to weekly for now, goal ferritin > 100. - start IV iron daily while here. - can follow up here or in [place] as prior, will need PCP to monitor labs to adjust transfusions as needed - she has apparently missed the last 2 months of infusions in [place]. COPD Tobaccoism - continues to smoke - on 4L per NC at baseline - not in exacerbation - cont. outpatient follow up in pulmonary clinic, can call clinic for appointment. - burst dose steroids on D/C - chronic congestive cough - smoking cessation advised. HTN - cont. amlodipine 10 mg daily losartan 100 mg daily - switch metoprolol to carvedilol 3.125 mg BID. imdur 30 mg daily Hypokalemia - repleted Diet: HH PPx: heparin subq Disposition - Discharge planning for today - follow up with cardiology as indicated - she may be able to follow up here for iron infusions, which may be more convenient for her. Iron levels very low 2/2 missed appointments. - follow up in pulmonary clinic, will need to call their office and make appointment. Physical Exam Narrative: Physical Exam Const: no acute distress, average body habitus and patient oriented x3 HENMT: normocephalic and atraumatic Eye: Equal, round and reactive pupils and EOMs intact bilaterally Neck/C-Spine: full ROM, no lymphadenopathy, supple and no JVD Lymph: no lymphadenopathy noted Chest: normal inspection of the chest and normal palpation of chest wall without pain Resp: normal respiratory effort, No retractions and clear to auscultation bilaterally Cardio: no JVD, regular rate, regular rhythm, S1 normal heart sound present, S2 normal heart sound present, No gallops present, No murmurs present and No rub GI: Soft to palpation, non-tender and no masses Extremity: normal to inspection and full ROM Neuro: oriented x3, CN's II-XII intact bilaterally and moves all extremities Psych: mental status grossly normal, Normal thought process present, cooperative and normal affect Discharge Data Studies Completed and Pending Completed Studies During Hospitalization Category Date Time Status 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 Laboratory Results WBC 8.77 10^3/uL (3.29-11.43) 01/27/25 03:34 RBC 3.07 10^6/uL (3.85-5.65) L 01/27/25 03:34 Hgb 8.40 g/dL (11.27-16.99) L 01/27/25 03:34 Hct 28.9 % (36-47) L 01/27/25 03:34 MCV 94.1 fl (85-98) 01/27/25 03:34 MCH 27.4 pg (27-33) 01/27/25 03:34 MCHC 29.1 g/dL (30-55) L 01/27/25 03:34 RDW 14.6 % (12.1-15.1) 01/27/25 03:34 Plt Count 354 10^3/cmm (157-399) 01/27/25 03:34 MPV 10.6 fL (7.4-10.4) H 01/27/25 03:34 Neut % (Auto) 87.8 % 01/27/25 03:34 Lymph % (Auto) 5.1 % 01/27/25 03:34 [place] % (Auto) 5.6 % 01/27/25 03:34 Eos % (Auto) 0.0 % 01/27/25 03:34 Baso % (Auto) 0.1 % 01/27/25 03:34 Neut # (Auto) 7.70 10^3/uL (1.8-7.7) 01/27/25 03:34 Lymph # (Auto) 0.5 10^3/uL (0.8-4.8) L 01/27/25 03:34 [place] # (Auto) 0.5 10^3/uL (0.2-0.9) 01/27/25 03:34 Eos # (Auto) 0.0 10^3/uL (0.0-0.8) 01/27/25 03:34 Baso # (Auto) 0.0 10^3/uL (0.0-0.1) 01/27/25 03:34 Nucleated RBC % (auto) 0 % 01/27/25 03:34 Nucleated RBCs # 0.0 /100WBC 01/27/25 03:34 Specimen Type Arterial 01/25/25 02:35 Sample Site Brachial, right 01/25/25 02:35 ABG pH 7.38 (7.35-7.45) 01/25/25 02:35 ABG pCO2 60.4 mmHg (35-45) H* 01/25/25 02:35 ABG pO2 63.9 mmHg (80.0-100.0) L 01/25/25 02:35 ABG HCO3 35.7 mmol/L (22-26) H 01/25/25 02:35 ABG O2 Saturation 92.9 01/25/25 02:35 ABG Base Excess 9.1 mmol/L (-2.0-2.0) H 01/25/25 02:35 Nikhil Test N/a 01/25/25 02:35 A-a O2 Gradient 1.5 mmHg (5-10) L 01/25/25 02:35 Hematocrit 27.9 % (37-47) L 01/25/25 02:35 Hgb O2 Saturation 88.8 % (95-100) L 01/25/25 02:35 Carboxyhemoglobin 3.6 %THgb (0.4-20.1) 01/25/25 02:35 Methemoglobin 0.9 % (0.4-1.5) 01/25/25 02:35 Total Hemoglobin 9.1 g/dL (12-16) L 01/25/25 02:35 Sodium 144.0 mmol/L (131-143) H 01/25/25 02:35 Potassium 3.3 mmol/L (3.5-5.0) L 01/25/25 02:35 Glucose 104.0 mg/dL (70-115) 01/25/25 02:35 Ionized Calcium 1.3 mmol/L (1.1-1.4) 01/25/25 02:35 O2 Delivery Device Nc 01/25/25 02:35 O2 Liters/Min 5.0 % 01/25/25 02:35 Road Inspector ID [email or web address] 01/25/25 02:35 Sodium 140 mmol/L (136-145) 01/27/25 03:34 Potassium 4.0 mmol/L (3.5-5.1) 01/27/25 03:34 Chloride 102 mmol/L (98-107) 01/27/25 03:34 Carbon Dioxide 31 mmol/L (22-29) H 01/27/25 03:34 Anion Gap 11.0 (5-19) 01/27/25 03:34 BUN 12 mg/dL (8-23) 01/27/25 03:34 Creatinine 0.6 mg/dL (0.5-0.9) 01/27/25 03:34 GFR Calculation Not Reportable 01/27/25 03:34 Glucose 111 mg/dL (65-115) 01/27/25 03:34 Calculated Osmolality 290 mOsm/kg (285-295) 01/27/25 03:34 Calcium 9.9 mg/dL (8.5-10.5) 01/27/25 03:34 Phosphorus 3.7 mg/dL (2.5-4.5) 01/25/25 03:21 Magnesium 2.1 mg/dL (1.7-2.3) 01/25/25 03:21 Iron 12 ug/dL (37-145) L 01/25/25 03:21 TIBC 293 mcg/dl 01/25/25 03:21 % Saturation 4.0 % (20-50) L 01/25/25 03:21 Unsat Iron Binding 281 ug/dL (112-347) 01/25/25 03:21 Ferritin 14 ng/mL (15-150) L 01/25/25 03:21 Total Bilirubin 0.2 mg/dL (0.15-1.2) 01/25/25 03:21 AST 11 U/L (0-32) 01/25/25 03:21 ALT 8 U/L (0-33) 01/25/25 03:21 Alkaline Phosphatase 56 U/L (35-105) 01/25/25 03:21 Troponin T Baseline 19 ng/L (0-10) H 01/24/25 14:45 Troponin T 120 Minute 24.00 ng/L (0-10) H 01/24/25 17:00 Delta Troponin T 5.00 ABS# (0-10) 01/24/25 17:00 Troponin T Hi Sens 6Hr 29.77 ng/L (0-10) H 01/24/25 20:50 Troponin T Hi Sens 6Hr Delta 10.77 ng/L (0-12) 01/24/25 20:50 NT-Pro-B Natriuret Pep 850 pg/mL (0-125) H 01/24/25 14:45 Total Protein 5.6 g/dL (6.6-8.7) L 01/25/25 03:21 Albumin 3.5 g/dL (3.5-5.2) 01/25/25 03:21 Globulin 2.1 g/dL (1.3-4.6) 01/25/25 03:21 Vitals Last Vital Signs Temp 96.9 F L 01/27/25 08:00 Pulse 75 01/27/25 08:45 Resp 16 01/27/25 08:45 BP 175/52 01/27/25 08:00 Pulse Ox 94 01/27/25 08:45 O2 Del Method Nasal Cannula 01/27/25 08:45 O2 Flow Rate 2 01/27/25 08:45 Discharge Plan Discharge Patient Disposition: Home Condition: Stable Prescriptions: New prednisone 50 mg tablet 50 mg PO DAILY 5 Days Qty: 5 0RF atorvastatin [Lipitor] 40 mg tablet 40 mg PO QPM Qty: 30 2RF carvedilol 3.125 mg Tablet 3.125 mg PO BID Qty: 60 2RF Continued aspirin 81 mg tablet,chewable 81 mg PO DAILY nitroglycerin 0.4 mg tablet, sublingual 0.4 mg sublingual Q5M PRN (Reason: chest pain) Qty: 25 3RF Rx Instructions: do not exceed 3 doses per episode albuterol sulfate 90 mcg/actuation HFA aerosol inhaler 2 puff inhalation Q6H PRN (Reason: Shortness Of Breath Or Wheezing) (DME) oxygen-air delivery systems Device See Rx Instructions .ROUTE Rx Instructions: As directed Tommytrdinah Aerosphere 160-9-4.8 mcg/actuation HFA aerosol inhaler 2 inh inhalation BID Qty: 10.7 5RF albuterol sulfate 2.5 mg /3 mL (0.083 %) solution for nebulization 2.5 mg inhalation Q6H PRN (Reason: Wheezing) Qty: 90 3RF clopidogrel 75 mg tablet See Rx Instructions .ROUTE .COMPLEX Qty: 90 3RF Dose Instruction: Take 1 tablet by mouth once daily Rx Instructions: Take 1 tablet by mouth once daily isosorbide mononitrate 30 mg tablet extended release 24 hr See Rx Instructions .ROUTE .COMPLEX Qty: 90 3RF Dose Instruction: Take 1 tablet by mouth once daily Rx Instructions: Take 1 tablet by mouth once daily losartan 100 mg tablet See Rx Instructions .ROUTE .COMPLEX Qty: 90 3RF Dose Instruction: Take 1 tablet by mouth once daily Rx Instructions: Take 1 tablet by mouth once daily cetirizine [Zyrtec] 10 mg tablet 10 mg PO QAM vitamin B complex Tablet 1 tab PO DAILY ferrous sulfate 27 mg iron Tablet 27 mg PO BID cholecalciferol (vitamin D3) [Vitamin D3] 125 mcg (5,000 unit) Tablet 125 mcg PO QAM acetaminophen 325 mg capsule 325 mg PO Q4H PRN (Reason: fever or pain) Qty: 60 0RF duloxetine 30 mg capsule,delayed release(DR/EC) 30 mg PO DAILY pantoprazole 40 mg tablet,delayed release (DR/EC) 40 mg PO BID amlodipine 5 mg tablet 10 mg PO DAILY 30 Days Qty: 30 0RF furosemide 40 mg Tablet 40 mg PO DAILY Discontinued metoprolol succinate 25 mg tablet extended release 24 hr 25 mg PO DAILY Qty: 90 3RF Discharge Order = DC NOW: Discharge Order (Routine); Ordered 01/27/25 Ordered By: Surendra White Referrals: Jaren Almazan MD [Physician, Cardiology] - 02/17/25 1:30 pm Kennedy Toney FNP [Primary Care Provider, Nurse Practitioner] - 02/03/25 8:45 am Discharge Diet: Usual diet Discharge Activity: Resume usual activity Patient Instructions: Prednisone (By mouth) (Prednisone Intensol, Prednicot, Deltasone, Ronna), Atorvastatin (By mouth) (Lipitor, Atorvaliq), Coronary Angioplasty (DC), Community Acquired Pneumonia (DC), Chest Pain Stoplight, Opioid Safety, Post Angiogram Home Care Instructions, Patient Portal & Maya Instructions Discharge Attestations Time Spent in Discharge Care*: greater than 30 min Specific Discharge Activities: educating patient, educating and/or supporting family/caregiver, discussing with pcp/other providers, discussing with caser shoe parts/social workers/dc planners, documenting/other paperwork and evaluating patient/reviewing data Time Spent in Smoking Cessation: 3 to 10 minutes Status at Discharge: Cognitive status at discharge: cognitively intact, Behavioral status at discharge: cooperative, Quality Metrics Clinical Quality Measures [ No reported AMI, CVA or VTE this stay] Coding Level of Care Code Acute Code for Chg Fwd Diagnoses Unstable angina pectoris I20.0 Tobacco dependence with current use F17.200 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 transplanted heart: upper [place] heart Associated angina: with unspecified form of angina Primary hypertension I10 Hypertension type: primary hypertension
--- NOTE | 2025-01-27 11:21 | PC.NURSE ---
Patient discharged to home. Instruction provided regarding follow up needs, site care with restrictions and new medications with changes. Patient verbalized complete understanding. Dressing to right wrist remains c,d,i without s/s of bleeding or hematoma formation observed. Patient denies pain or needs. No distress observed. Patient taken by wheelchair to private vehicle.
== END 2025-01-27 11:25 | disposition home or self-care (01) | DRG 321 ==
LOC: ER 16:23 → CSU 16:48
PROVIDERS: Internal Medicine; Physician Assistant; Admitting Provider Internal Medicine; Emergency Provider Family Medicine; PCP Nurse Practitioner Family; Visit Provider Internal Medicine
PROC: 027034Z Dilation of Coronary Artery, One Artery with Drug-eluting Intraluminal Device, Percutaneous Approach (ICD-10-PCS; principal; 2025-01-26 07:00)
PROC: 027034Z Dilation of Coronary Artery, One Artery with Drug-eluting Intraluminal Device, Percutaneous Approach (ICD-10-PCS; 2025-01-26 07:00)
DX: I25.110 Atherosclerotic heart disease of native coronary artery with unstable angina pectoris (principal); J44.1 Chronic obstructive pulmonary disease with (acute) exacerbation; J18.9 Pneumonia, unspecified organism; J44.0 Chronic obstructive pulmonary disease with (acute) lower respiratory infection; R79.89 Other specified abnormal findings of blood chemistry; I10 Essential (primary) hypertension; E87.6 Hypokalemia; K21.9 Gastro-esophageal reflux disease without esophagitis; E78.00 Pure hypercholesterolemia, unspecified; F17.210 Nicotine dependence, cigarettes, uncomplicated; D50.9 Iron deficiency anemia, unspecified; Z95.5 Presence of coronary angioplasty implant and graft; Z99.81 Dependence on supplemental oxygen; Z82.49 Family history of ischemic heart disease and other diseases of the circulatory system; Z82.3 Family history of stroke; Z87.11 Personal history of peptic ulcer disease; Z79.899 Other long term (current) drug therapy; Z79.82 Long term (current) use of aspirin; Z79.02 Long term (current) use of antithrombotics/antiplatelets; Z91.018 Allergy to other foods
CPT/HCPCS: 36415; 36600; 71045; 78452; 80048; 80051; 80053; 82330; 82728; 82805; 83540; 83550; 83735; 83880; 84100; 84484; 85025; 85347; 93005; 93017; 93454; 94640; 94660; 96372; 96375; 99152; 99153; 99285; A9500; C1725; C1769; C1874; C1887; C1894; C9600; G0378; J1644; J2250; J2785; J2916; J2919; J3010; J3490; J7030; J7626; J9999; Q0163; Q9967

== ENCOUNTER → 2025-02-17 13:47 | Outpatient (BNVA) | payer MEDICARE, MEDICAID, SELFPAY | PROVIDERS: PCP Nurse Practitioner Family; Visit Provider Internal Medicine Cardiovascular Disease | DX: I25.10 Atherosclerotic heart disease of native coronary artery without angina pectoris (principal); I10 Essential (primary) hypertension; Z98.890 Other specified postprocedural states; I25.2 Old myocardial infarction; F17.210 Nicotine dependence, cigarettes, uncomplicated | CPT/HCPCS: 99214 ==

== ENCOUNTER 2025-03-02 12:00 | Oncology outpatient (recurring) (ONCR) | payer MEDICARE, MEDICAID, SELFPAY ==
[2025-02-09 16:11] LABS: Hematocrit 26.2 % (36-47); Hemoglobin 7.50 g/dL (11.27-16.99); Mean Corpuscular HGB Conc 28.6 g/dL (30-55); Mean Corpuscular Hemoglobin 26.9 pg (27-33); Mean Corpuscular Volume 93.9 fl (85-98); Nucleated Red Blood Cells % 0 %; Platelet Count 312 10^3/cmm (157-399); Red Blood Count 2.79 10^6/uL (3.85-5.65); White Blood Count 6.65 10^3/uL (3.29-11.43)
[2025-02-09 16:43] LABS: Alanine Aminotransferase < 5 U/L (0-33); Albumin Level 3.7 g/dL (3.5-5.2); Alkaline Phosphatase 57 U/L (35-105); Anion Gap 10.1 (5-19); Aspartate Amino Transferase 9 U/L (0-32); Blood Urea Nitrogen 10 mg/dL (8-23); Calcium 8.9 mg/dL (8.5-10.5); Carbon Dioxide 34 mmol/L (22-29); Chloride 102 mmol/L (98-107); Creatinine Clr Calc Pharmacy 39.0870; Globulin 2.3 g/dL (1.3-4.6); Glucose 93 mg/dL (65-115); Osmolality Calculated 295 mOsm/kg (285-295); Potassium 3.1 mmol/L (3.5-5.1); Sodium 143 mmol/L (136-145); Total Protein 6.0 g/dL (6.6-8.7)
[2025-02-09 17:07] LABS: Ferritin 70 ng/mL (15-150); Total Iron Binding Capacity 296 mcg/dl; Unsaturated Iron Binding 267 ug/dL (112-347)
[2025-02-09 17:13] LABS: Iron 29 ug/dL (37-145)
[2025-02-09 20:18] LABS: Vitamin B12 > 2000 pg/mL (232-1245)
[2025-03-02 12:06] LABS: Hematocrit 35.3 % (36-47); Hemoglobin 10.00 g/dL (11.27-16.99); Mean Corpuscular HGB Conc 28.3 g/dL (30-55); Mean Corpuscular Hemoglobin 27.3 pg (27-33); Mean Corpuscular Volume 96.4 fl (85-98); Nucleated Red Blood Cells % 0 %; Platelet Count 282 10^3/cmm (157-399); Red Blood Count 3.66 10^6/uL (3.85-5.65); White Blood Count 4.73 10^3/uL (3.29-11.43)
[2025-03-02 12:24] LABS: Alanine Aminotransferase 10 U/L (0-33); Albumin Level 3.9 g/dL (3.5-5.2); Alkaline Phosphatase 55 U/L (35-105); Anion Gap 11.3 (5-19); Aspartate Amino Transferase 11 U/L (0-32); Blood Urea Nitrogen 10 mg/dL (8-23); Calcium 9.7 mg/dL (8.5-10.5); Carbon Dioxide 31 mmol/L (22-29); Chloride 102 mmol/L (98-107); Creatinine Clr Calc Pharmacy 48.6738; Globulin 2.4 g/dL (1.3-4.6); Glucose 138 mg/dL (65-115); Osmolality Calculated 293 mOsm/kg (285-295); Potassium 3.3 mmol/L (3.5-5.1); Sodium 141 mmol/L (136-145); Total Protein 6.3 g/dL (6.6-8.7)
[2025-03-02 13:43] VITALS: BP 197/66; PULSE 72; RESP 17; TEMP 36.7; O2SAT 99
--- NOTE | 2025-03-02 13:52 | PC.NURSE ---
Patient's blood pressure is elevated at 206/68 and 197/66 upon entering the infusion suite. Patient states she forgot to take her blood pressure medication this morning. Patient is not symptomatic. This nurse notified patient's ordering provider, Sonja Mancilla NP of patient's blood pressure. Sonja ordered to give patient Amlodipine 5mg and then give the patient her iron infusion. Patient notified of Sonja's orders and confirmed understanding.
[2025-03-02] MEDS: ferric carboxy (PYXIS) 750 MG in sodium chloride 0.9% (100 ml) 100 ML 345 MG IV (14:11)
[2025-03-02 14:48] VITALS: BP 155/62; PULSE 81; RESP 17; TEMP 36.8; O2SAT 97
== END 2025-03-04 23:59 | disposition home or self-care (01) ==
PROVIDERS: Internal Medicine; Nurse Practitioner; PCP Nurse Practitioner Family; Visit Provider Internal Medicine Medical Oncology
DX: Z53.9 Procedure and treatment not carried out, unspecified reason; D50.9 Iron deficiency anemia, unspecified; F17.210 Nicotine dependence, cigarettes, uncomplicated; J44.9 Chronic obstructive pulmonary disease, unspecified
CPT/HCPCS: 36415; 80053; 82607; 82728; 82746; 83010; 83540; 83550; 83615; 85025; 85045; 86880; 96365; 99204; 99213; 99214; J1439; J7050; J9999

== ENCOUNTER 2025-03-09 12:25 | Oncology outpatient (recurring) (ONCR) | payer MEDICARE, MEDICAID, SELFPAY ==
[2025-03-09 12:37] VITALS: BP 123/49; PULSE 71; RESP 18; TEMP 37.1; O2SAT 90
[2025-03-09] MEDS: ferric carboxy (PYXIS) 750 MG in sodium chloride 0.9% (100 ml) 100 ML 345 MG IV (12:45)
[2025-03-09 13:14] VITALS: BP 150/56; PULSE 69
== END 2025-04-03 23:59 | disposition home or self-care (01) ==
LOC: ONCMED 12:26
PROVIDERS: PCP Nurse Practitioner Family; Visit Provider Internal Medicine Medical Oncology
DX: D50.9 Iron deficiency anemia, unspecified (principal); Z79.899 Other long term (current) drug therapy
CPT/HCPCS: 96365; J1439

== ENCOUNTER 2025-04-25 15:11 | Emergency (ER) | payer MEDICARE, MEDICAID, SELFPAY ==
[2025-04-25 15:12] VITALS: BP 162/56; PULSE 80; RESP 20; TEMP 36.8; O2SAT 92
--- OUTSIDE RECORDS SUMMARY | 2025-04-25 15:17 | XMS_ITS | Clinical Summary ---
Author Organization [facility] Address [address] [address] Phone Care Team Providers Care Social Media Sr Strategy Manager Name Role Phone Unavailable Primary Care Provider Unavailabl e Encounters Date Type Department Care Team Description 02/23/2025 External Device Data [facility] ABSTRACTION Provider, Abstract 02/22/2025 External Device Data [facility] ABSTRACTION Provider, Abstract 01/25/2025 External Device Data [facility] ABSTRACTION Provider, Abstract [...] INFLUENZA VACCINE (#1) 2024 02/18/2023 COVID-19 Vaccine (2 - season) 2025 RSV VACCINE (60+ or ) (1 - 1-dose 75+ series) 2028 PNEUMOCOCCAL VACCINE 50+ YEARS Completed 07/12/2022 Insurance ANTH DUAL ADVANTAGE O DSNP MEDICAID [place]
--- NOTE | 2025-04-25 15:19 | ECG_ITS ---
[facility] 2025-[facility]25 Pat Name: Latonia Gar Department: Room: Gender: Female Log Driver: : [id number] Requested By: Adarsh Celestin Order Number: [id number] Reading MD: ARIES CYR Measurements Intervals [place] Rate: 72 P: 64 PA: 167 QRS: 22 QRSD: 95 T: 77 QT: 406 QTc: 446 Interpretive Statements SINUS RHYTHM ST DEVIATION AND MODERATE T-WAVE ABNORMALITY, CONSIDER ANTERIOR ISCHEMIA [-0.1+ mV T-WAVE IN V3/V4] Compared to ECG 01/24/2025 21:06:14 T-wave abnormality now present Possible ischemia now present Myocardial infarct finding no longer present Electronically Signed On 04-26-2025 11:56:27 LINING CUTTER by ARIES CYR [id number]
--- NOTE | 2025-04-25 15:19 | XR_ITS ---
WS: [id number] Portable AP upright chest, 04/25/2025 Clinical Data: sob, prod cough Comparison: Portable chest, 01/24/2025 Findings: There is patchy opacity overlying the right lung base which probably represents atelectasis and/or minimal pneumonia. There are small pleural effusions. No nodules or masses are seen. The heart is enlarged. The diaphragms are flattened. The pulmonary vascularity is not increased. No pneumonia or pneumothorax is seen. Monitor leads are on the chest wall. XR/XR chest 1V portable [id number] Impression: 1. Minimal patchy opacity overlying right lung which could represent atelectasi s and or pneumonia. 2. Cardiomegaly and small pleural effusions. 3. Hyperinflation.
--- NOTE | 2025-04-25 15:27 | W.ED.SOB ---
Documented by User: [email or web address] Downey 04/25/25 17:23 HPI - SOB/Dyspnea General: Chief Complaint: Shortness of Breath/Dyspnea Stated Complaint: SOB Time Seen by Provider: 04/25/25 15:13 Source: patient, EMS and old records reviewed Mode of arrival: EMS Limitations: no limitations History of Present Illness: HPI Narrative: Patient is a 69-year-old female with past medical history of COPD, STEMI, chronic oxygen use on 2 to 3 L, anemia, and is an everyday smoker who presents emergency department by ambulance due to acute on chronic shortness of breath, worsening today. States that she was at work when she had the sudden worsening of shortness of breath however over the past couple of weeks has noticed that she has required more O2 than normal, chronically on 2-3 but has been on 4 L yet still has felt short of breath. Couple weeks ago she did state that she had a viral illness that she thinks is still lingering, however was seen by provider at previous clinic prior to arrival and told that she might have pneumonia. EMS found her to be in the 80s on arrival on her 2 L of oxygen, increased to 4 L has been greater than 90% SpO2 prehospital. They did give DuoNeb prehospital that patient states did help, also she received 125 Solu-Medrol. Patient tells me that she has been doing breathing treatments at home as well. She is noting a productive cough, has not noted any fevers. No significant weakness, fatigue, or malaise. No nausea vomiting or diarrhea. She states that she is not having any new chest pain, chronically has chest pain that she states is due to her 2 stents. Patient has seen oncology recently for injections of Injectafer due to her history of anemia. MD elicited complaint: shortness of breath and cough Pertinent past history: COPD Onset (ago): week(s) Context: recent illness Timing: progressively worsening Known history of: COPD Associated symptoms: Deny abdominal pain, chest pain, fever(s), lightheadedness, nausea, palpitations or vomiting Related Data Home Medications ?Medication ?Instructions ?Recorded ?Confirmed cetirizine 10 mg tablet (Zyrtec) 10 mg PO QAM 05/10/19 04/25/25 cholecalciferol (vitamin D3) 125 125 mcg PO QAM 04/11/21 04/25/25 mcg (5,000 unit) tablet (Vitamin D3) vitamin B complex 1 tab PO DAILY 04/11/21 04/25/25 aspirin 81 mg chewable tablet 81 mg PO DAILY 04/11/22 04/25/25 albuterol sulfate 90 mcg/actuation 2 puff inhalation Q6H PRN 05/13/24 04/25/25 aerosol inhaler Shortness Of Breath Or Wheezing oxygen-air delivery systems 05/13/24 04/25/25 duloxetine 30 mg capsule,delayed 30 mg PO DAILY 07/18/24 04/25/25 release pantoprazole 40 mg tablet,delayed 40 mg PO BID 10/22/24 04/25/25 release furosemide 40 mg tablet 40 mg PO DAILY 11/12/24 04/25/25 budesonide 160 mcg-glycopyr 9 2 inh inhalation BID 04/25/25 04/25/25 mcg-formot 4.8 mcg/actuation HFA inhaler (Breztri Aerosphere) clopidogrel 75 mg tablet 75 mg PO DAILY 04/25/25 04/25/25 isosorbide mononitrate 30 mg 30 mg PO DAILY 04/25/25 04/25/25 tablet,extended release 24 hr losartan 100 mg tablet 100 mg PO DAILY 04/25/25 04/25/25 Previous Rx's ?Medication ?Instructions ?Recorded acetaminophen 325 mg capsule 325 mg PO Q4H PRN fever or pain 09/12/22 #60 caps nitroglycerin 0.4 mg sublingual 0.4 mg sublingual Q5M PRN chest 11/11/23 tablet pain #25 tabs amlodipine 5 mg tablet 10 mg (2 x 5 mg) PO DAILY 30 days 10/25/24 #30 tabs atorvastatin 40 mg tablet (Lipitor) 40 mg PO QPM #30 tabs 01/27/25 carvedilol 3.125 mg tablet 3.125 mg PO BID #60 tabs 01/27/25 doxycycline hyclate 100 mg tablet 100 mg PO BID 10 days #20 tabs 04/25/25 prednisone 10 mg tablets in a dose 10 mg PO DIRECTED #21 ea 04/25/25 pack Allergies Allergy/AdvReac Type Severity Reaction Status Date / Time strawberry Allergy ADR-Itching Verified 03/02/25 12:19 Review of Systems General: Reports: 10 or more systems reviewed and unremarkable except in HPI and below Const: Denies: fever(s), chills or fatigue Eyes: Denies: change in vision ENMT: Denies: throat pain, ear or mastoid pain or nasal discharge Card: Denies: chest pain, palpitations, swelling of feet/ankles or lightheadedness Resp: Reports: dyspnea, productive cough and wheezing GI: Denies: abdominal pain, nausea, vomiting, diarrhea or constipation : Denies: flank pain, difficulty voiding, dysuria or urinary frequency Musc: Denies: neck pain, back pain or joint pain Skin/Breast: Denies: rash Neuro: Denies: headache(s), numbness in extremities or weakness in extremities PFSH ED PFSH: Medical History Productive cough Nocturnal hypoxemia Onychodystrophy Centrilobular emphysema Multiple lung nodules on CT Shortness of breath Encounter for screening for lung cancer DICKSON (dyspnea on exertion) Bilateral foot pain Anemia Chronic and stable Encounter for surgical aftercare following surgery of genitourinary system Chest pain Right upper quadrant pain Atherosclerosis of coronary artery ST elevation myocardial infarction (STEMI) This patient presents with the features of ST elevation myocardial infarction. 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 She underwent PCI of this lesion. Currently she seems to be stable. Hx of chest pain Smoker Asthma with exacerbation PUD (peptic ulcer disease) Hx of migraines History of COPD Hx of gastroesophageal reflux (GERD) Hx of primary hypertension Hx of hypercholesterolemia Surgical History History of tonsillectomy and adenoidectomy History of ankle surgery History of bladder surgery History of carpal tunnel release of both wrists Family History Sister Cancer Myocardial infarct Heart disease Mother Myocardial infarct Heart disease Grandmother Myocardial infarct Heart disease maternal Other DICKSON (dyspnea on exertion) Hypertension Stroke Denies family history of Colon cancer Ovarian cancer Diabetes Breast cancer Uterine cancer Social History Smoking and tobacco/nicotine status: current every day tobacco/nicotine user cigarettes Packs smoked per day: 1 Years cigarettes smoked: 57 [ Other cigarette details: Started smoking at 11] Substance/Drug Use: never Physical Exam Const: COMMON NORMALS: patient oriented x3 and no limitations GENERAL APPEARANCE: cooperative and well developed NUTRITIONAL APPEARANCE: thin ORIENTATION/CONSCIOUSNESS: Yes awake, Yes oriented to person, Yes oriented to place and Yes oriented to time OTHER: Mild respiratory distress HENMT: COMMON NORMALS: normocephalic, atraumatic and hearing grossly normal bilaterally HEAD & SCALP: normocephalic and atraumatic Eye: COMMON NORMALS: Equal, round and reactive pupils present, EOMs intact bilaterally and conjunctivae normal CONJUNCTIVA: Yes conjunctivae normal PUPIL: Yes Equal, round and reactive pupils present Neck/C-Spine: COMMON NORMALS: full ROM, supple and no JVD Resp: OTHER: Diminished breath sounds throughout all lung hooper with mild expiratory wheeze noted. There is evidence of mild respiratory distress, mild tachypnea. No significant use of accessory muscles. Pursed lip breathing. Cardio: COMMON NORMALS: no JVD, regular rate, regular rhythm, No clicks present (Cardio), No murmurs present (Cardio) and No rub (Cardio) RATE: regular rate RHYTHM: regular rhythm Extremity: COMMON NORMALS: normal to inspection, full ROM, capillary refill normal and no pedal edema Neuro: COMMON NORMALS: patient oriented x3, moves all extremities, no focal motor deficits and no sensory deficits noted SENSORIUM/ORIENTATION: Yes oriented to person, Yes oriented to place and Yes oriented to time Skin: COMMON NORMALS: no rashes or lesions noted GENERAL SKIN EXAM: no rashes or lesions noted Course Vital Signs: Vital signs: Vital Signs Temperature 98.2 F 04/25/25 15:12 Pulse Rate 87 04/25/25 17:06 Respiratory Rate 18 04/25/25 15:46 Blood Pressure 159/61 04/25/25 17:06 Pulse Oximetry 93 04/25/25 17:06 Oxygen Delivery Me thod Nasal Cannula 04/25/25 16:23 Oxygen Flow Rate 3 04/25/25 16:23 MDM - SOB/Dyspnea Medical Decision Making This is a 69-year-old female with a known history of COPD who presented via EMS for worsening shortness of breath. Symptoms have been ongoing for several weeks with acute worsening today, associated with increased oxygen requirements at home (baseline 2 to 3 L, using up to 4 L), productive cough, and recent viral upper respiratory illness. Prehospital treatment included DuoNeb and IV methylprednisolone with partial improvement. In the ED, she received an additional DuoNeb with further clinical improvement and was titrated back to her baseline oxygen requirement of 2 to 3 L. Diagnostic evaluation included laboratory studies notable for no leukocytosis, chronic anemia at baseline, negative procalcitonin, negative delta troponin, normal lactic acid, unremarkable metabolic panel aside from mild hypokalemia (K3.0) which was repleted orally, and an unremarkable ABG. Viral respiratory panel was negative. D-dimer was negative, making pulmonary embolism unlikely in this clinical context. Chest x-ray demonstrated a possible right lower lobe pneumonia. Differential diagnoses considered included COPD exacerbation, pneumonia, pulmonary embolism, acute coronary syndrome, heart failure exacerbation, and sepsis; these were felt less likely based on reassuring labs, imaging, ABG, hemodynamic stability, and clinical improvement. She was treated empirically with IV azithromycin and ceftriaxone in the ED for suspected infectious trigger and COPD exacerbation. Hospital admission and observation were offered; however, the patient reported significant symptomatic improvement, was stable on baseline oxygen, and expressed a clear preference for discharge. After shared decision making, she was deemed appropriate for outpatient management with doxycycline and a prednisone taper. She has access to home oxygen refills and understands strict return precautions for worsening dyspnea, increased oxygen needs, chest pain, fever, or any new or concerning symptoms. Lab Data 04/25/25 15:20 04/25/25 15:20 Labs/Radiology: Radiology Impressions Chest X-Ray 04/25/25 15:19 Impression: 1. Minimal patchy opacity overlying right lung which could represent atelectasis and or pneumonia. 2. Cardiomegaly and small pleural effusions. 3. Hyperinflation. Laboratory Results WBC 6.85 10^3/uL (3.29-11.43) 04/25/25 15:20 RBC 3.50 10^6/uL (3.85-5.65) L 04/25/25 15:20 Hgb 10.70 g/dL (11.27-16.99) L 04/25/25 15:20 Hct 34.6 % (36-47) L 04/25/25 15:20 MCV 98.9 fl (85-98) H 04/25/25 15:20 MCH 30.6 pg (27-33) 04/25/25 15:20 MCHC 30.9 g/dL (30-55) 04/25/25 15:20 RDW 13.1 % (12.1-15.1) 04/25/25 15:20 Plt Count 240 10^3/cmm (157-399) 04/25/25 15:20 MPV 10.4 fL (7.4-10.4) 04/25/25 15:20 Neut % (Auto) 69.0 % 04/25/25 15:20 Lymph % (Auto) 18.2 % 04/25/25 15:20 [place] % (Auto) 10.2 % 04/25/25 15:20 Eos % (Auto) 1.9 % 04/25/25 15:20 Baso % (Auto) 0.3 % 04/25/25 15:20 Neut # (Auto) 4.72 10^3/uL (1.8-7.7) 04/25/25 15:20 Lymph # (Auto) 1.3 10^3/uL (0.8-4.8) 04/25/25 15:20 [place] # (Auto) 0.7 10^3/uL (0.2-0.9) 04/25/25 15:20 Eos # (Auto) 0.1 10^3/uL (0.0-0.8) 04/25/25 15:20 Baso # (Auto) 0.0 10^3/uL (0.0-0.1) 04/25/25 15:20 Nucleated RBC % (auto) 0 % 04/25/25 15:20 Nucleated RBCs # 0.0 /100WBC 04/25/25 15:20 D-Dimer 0.35 ug/mLFEU (0-0.59) 04/25/25 15:20 Specimen Type Arterial 04/25/25 15:50 Sample Site Radial, left 04/25/25 15:50 ABG pH 7.46 (7.35-7.45) H 04/25/25 15:50 ABG pCO2 52.6 mmHg (35-45) H 04/25/25 15:50 ABG pO2 73.5 mmHg (80.0-100.0) L 04/25/25 15:50 ABG PO2/FiO2 Ratio 204 04/25/25 15:50 ABG HCO3 37.5 mmol/L (22-26) H 04/25/25 15:50 ABG O2 Saturation 97.3 04/25/25 15:50 ABG Base Excess 11.9 mmol/L (-2.0-2.0) H 04/25/25 15:50 Nikhil Test Pos 04/25/25 15:50 A-a O2 Gradient 15.5 mmHg (5-10) H 04/25/25 15:50 Hematocrit 34.5 % (37-47) L 04/25/25 15:50 Hgb O2 Saturation 87.9 % (95-100) L 04/25/25 15:50 Carboxyhemoglobin 9.4 %THgb (0.4-20.1) 04/25/25 15:50 Methemoglobin 0.2 % (0.4-1.5) L 04/25/25 15:50 Total Hemoglobin 11.3 g/dL (12-16) L 04/25/25 15:50 Sodium 144.0 mmol/L (131-143) H 04/25/25 15:50 Potassium 3.1 mmol/L (3.5-5.0) L 04/25/25 15:50 Glucose 102.0 mg/dL (70-115) 04/25/25 15:50 Ionized Calcium 1.2 mmol/L (1.1-1.4) 04/25/25 15:50 O2 Delivery Device Nc 04/25/25 15:50 O2 Liters/Min 4.0 % 04/25/25 15:50 FiO2 36.0 % 04/25/25 15:50 Mine Car Dispatcher ID glc 04/25/25 15:50 Sodium 143 mmol/L (136-145) 04/25/25 15:20 Potassium 3.0 mmol/L (3.5-5.1) L 04/25/25 15:20 Chloride 98 mmol/L (98-107) 04/25/25 15:20 Carbon Dioxide 35 mmol/L (22-29) H 04/25/25 15:20 Anion Gap 13.0 (5-19) 04/25/25 15:20 BUN 16 mg/dL (8-23) 04/25/25 15:20 Creatinine 1.2 mg/dL (0.5-0.9) H 04/25/25 15:20 GFR Calculation Not Reportable 04/25/25 15:20 Glucose 106 mg/dL (65-115) 04/25/25 15:20 Calculated Osmolality 298 mOsm/kg (285-295) H 04/25/25 15:20 Lactic Acid 1.1 mmol/L (0.5-2.2) 04/25/25 15:20 Calcium 9.5 mg/dL (8.5-10.5) 04/25/25 15:20 Total Bilirubin 0.2 mg/dL (0.15-1.2) 04/25/25 15:20 AST 12 U/L (0-32) 04/25/25 15:20 ALT 10 U/L (0-33) 04/25/25 15:20 Alkaline Phosphatase 63 U/L (35-105) 04/25/25 15:20 Troponin T Baseline 18 ng/L (0-10) H 04/25/25 15:20 Troponin T 60 Minute 17.64 ng/L (0-10) H 04/25/25 16:16 Delta Troponin T -0.36 ABS# (0-10) L 04/25/25 16:16 NT-Pro-B Natriuret Pep 1739 pg/mL (0-125) H 04/25/25 15:20 Total Protein 5.4 g/dL (6.6-8.7) L 04/25/25 15:20 Albumin 3.9 g/dL (3.5-5.2) 04/25/25 15:20 Globulin 1.5 g/dL (1.3-4.6) 04/25/25 15:20 Procalcitonin 0.04 ng/mL (0-0.5) 04/25/25 15:20 Influenza A (PCR) Negative (Negative) 04/25/25 13:26 Influenza Type B (PCR) Negative (Negative) 04/25/25 13:26 RSV (PCR) Negative (Negative) 04/25/25 13:26 SARS-CoV-2 (PCR) Negative (Negative) 04/25/25 13:26 All radiology interpretation(s) finalized by discharge Discharge Plan Discharge Patient Disposition: Home Clinical Impression: COPD exacerbation Community acquired pneumonia Qualifiers: Laterality: right Lung location: lower lobe of lung Qualified Code(s): J18.9 - Pneumonia, unspecified organism Condition: Stable Prescriptions: New prednisone 10 mg tablets,dose pack 10 mg PO DIRECTED Qty: 21 0RF Rx Instructions: see taper instructions 6 tablets on day 1, 5 tablets on day 2, 4 tablets on day 3, 3 tablets on day 4, 2 tablets on day 5, and 1 tablet a day 6. P.o. doxycycline hyclate 100 mg tablet 100 mg PO BID 10 Days Qty: 20 0RF No Action aspirin 81 mg tablet,chewable 81 mg PO DAILY nitroglycerin 0.4 mg tablet, sublingual 0.4 mg sublingual Q5M PRN (Reason: chest pain) Qty: 25 3RF Rx Instructions: do not exceed 3 doses per episode albuterol sulfate 90 mcg/actuation HFA aerosol inhaler 2 puff inhalation Q6H PRN (Reason: Shortness Of Breath Or Wheezing) (DME) oxygen-air delivery systems Device See Rx Instructions .Route Rx Instructions: As directed cetirizine [Zyrtec] 10 mg tablet 10 mg PO QAM vitamin B complex Tablet 1 tab PO DAILY cholecalciferol (vitamin D3) [Vitamin D3] 125 mcg (5,000 unit) Tablet 125 mcg PO QAM acetaminophen 325 mg capsule 325 mg PO Q4H PRN (Reason: fever or pain) Qty: 60 0RF duloxetine 30 mg capsule,delayed release(DR/EC) 30 mg PO DAILY pantoprazole 40 mg tablet,delayed release (DR/EC) 40 mg PO BID amlodipine 5 mg tablet 10 mg PO DAILY 30 Days Qty: 30 0RF furosemide 40 mg Tablet 40 mg PO DAILY atorvastatin [Lipitor] 40 mg tablet 40 mg PO QPM Qty: 30 2RF carvedilol 3.125 mg Tablet 3.125 mg PO BID Qty: 60 2RF Breztri Aerosphere 160-9-4.8 mcg/actuation HFA aerosol inhaler 2 inh INHALATION BID isosorbide mononitrate 30 mg tablet extended release 24 hr 30 mg PO DAILY clopidogrel 75 mg tablet 75 mg PO DAILY losartan 100 mg tablet 100 mg PO DAILY Discharge Orders: Discharge ED (Routine); Ordered 04/25/25 Ordered By: Adarsh Harvey Referrals: Kennedy Toney FNP [Primary Care Provider, Nurse Practitioner] Patient Instructions: Patient Portal & Maya Instructions Activity Restrictions/Additional Instructions: COPD Exacerbation Discharge Instructions Your Diagnosis You were treated in the emergency department for a flare-up (exacerbation) of your chronic obstructive pulmonary disease (COPD) with possible pneumonia in your right lower lung. Your breathing improved with nebulizer treatments and steroid medication, and your oxygen needs returned to your usual level. Your Medications Please take the following medications as prescribed: - Prednisone taper: Take as directed to reduce inflammation in your lungs. A 5-day course of oral corticosteroids helps improve lung function and speeds recovery from COPD flare-ups. - Doxycycline: Take as prescribed to treat possible lung infection. Antibiotics reduce the risk of treatment failure and help prevent early relapse when you have increased sputum (mucus) and purulence. - DuoNeb (albuterol and ipratropium) nebulizer treatments: Continue using at home as directed. These medications help open your airways and make breathing easier. - Oxygen: Continue using 3 liters per minute as you were doing before this flare-up. Continue all your other regular COPD medications unless instructed otherwise. Warning Signs - Return to the Emergency Department If You Experience: - Worsening shortness of breath that does not improve with your nebulizer treatments - Increased difficulty breathing at rest - Chest pain - Fever - Confusion or difficulty staying awake - Swelling in your legs that is new or getting worse - Need for more oxygen than your usual 3 liters These symptoms may indicate a severe exacerbation requiring immediate medical attention. Follow-Up Care - Schedule an appointment with your primary care doctor or lung specialist within 1-2 weeks - Bring all your medications to that appointment - Discuss whether you might benefit from pulmonary rehabilitation, which can improve your breathing, exercise ability, and quality of life General Care Instructions - Get plenty of rest during your recovery - it may take 4-6 weeks to feel back to normal - Drink plenty of fluids unless your doctor has told you to limit fluids - Avoid smoke, strong fumes, and air pollution - Wash your hands frequently to prevent infections - Make sure you are up to date with your flu vaccine and discuss pneumonia vaccination with your doctor Questions? If you have questions about your medications or care, contact your doctor's office during regular business hours. Print Language: [place] Coding Level of Care Code ED Flap Maker for Salomon Jones Documented by User: Ernesto Davis, 04/25/25 19:11 HPI - SOB/Dyspnea General: Chief Complaint: Shortness of Breath/Dyspnea Stated Complaint: SOB Time Seen by Provider: 04/25/25 15:13 Related Data Home Medications ?Medication ?Instructions ?Recorded ?Confirmed cetirizine 10 mg tablet (Zyrtec) 10 mg PO QAM 05/10/19 04/25/25 cholecalciferol (vitamin D3) 125 125 mcg PO QAM 04/11/21 04/25/25 mcg (5,000 unit) tablet (Vitamin D3) vitamin B complex 1 tab PO DAILY 04/11/21 04/25/25 aspirin 81 mg chewable tablet 81 mg PO DAILY 04/11/22 04/25/25 albuterol sulfate 90 mcg/actuation 2 puff inhalation Q6H PRN 05/13/24 04/25/25 aerosol inhaler Shortness Of Breath Or Wheezing oxygen-air delivery systems 05/13/24 04/25/25 duloxetine 30 mg capsule,delayed 30 mg PO DAILY 07/18/24 04/25/25 release pantoprazole 40 mg tablet,delayed 40 mg PO BID 10/22/24 04/25/25 release furosemide 40 mg tablet 40 mg PO DAILY 11/12/24 04/25/25 budesonide 160 mcg-glycopyr 9 2 inh inhalation BID 04/25/25 04/25/25 mcg-formot 4.8 mcg/actuation HFA inhaler (Breztri Aerosphere) clopidogrel 75 mg tablet 75 mg PO DAILY 04/25/25 04/25/25 isosorbide mononitrate 30 mg 30 mg PO DAILY 04/25/25 04/25/25 tablet,extended release 24 hr losartan 100 mg tablet 100 mg PO DAILY 04/25/25 04/25/25 Previous Rx's ?Medication ?Instructions ?Recorded acetaminophen 325 mg capsule 325 mg PO Q4H PRN fever or pain 09/12/22 #60 caps nitroglycerin 0.4 mg sublingual 0.4 mg sublingual Q5M PRN chest 11/11/23 tablet pain #25 tabs amlodipine 5 mg tablet 10 mg (2 x 5 mg) PO DAILY 30 days 10/25/24 #30 tabs atorvastatin 40 mg tablet (Lipitor) 40 mg PO QPM #30 tabs 01/27/25 carvedilol 3.125 mg tablet 3.125 mg PO BID #60 tabs 01/27/25 doxycycline hyclate 100 mg tablet 100 mg PO BID 10 days #20 tabs 04/25/25 prednisone 10 mg tablets in a dose 10 mg PO DIRECTED #21 ea 04/25/25 pack Allergies Allergy/AdvReac Type Severity Reaction Status Date / Time strawberry Allergy ADR-Itching Verified 03/02/25 12:19 PFSH ED PFSH: Medical History Productive cough Nocturnal hypoxemia Onychodystrophy Centrilobular emphysema Multiple lung nodules on CT Shortness of breath Encounter for screening for lung cancer DICKSON (dyspnea on exertion) Bilateral foot pain Anemia Chronic and stable Encounter for surgical aftercare following surgery of genitourinary system Chest pain Right upper quadrant pain Atherosclerosis of coronary artery ST elevation myocardial infarction (STEMI) This patient presents with the features of ST elevation myocardial infarction. 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 She underwent PCI of this lesion. Currently she seems to be stable. Hx of chest pain Smoker Asthma with exacerbation PUD (peptic ulcer disease) Hx of migraines History of COPD Hx of gastroesophageal reflux (GERD) Hx of primary hypertension Hx of hypercholesterolemia Surgical History History of tonsillectomy and adenoidectomy History of ankle surgery History of bladder surgery History of carpal tunnel release of both wrists Family History Sister Cancer Myocardial infarct Heart disease Mother Myocardial infarct Heart disease Grandmother Myocardial infarct Heart disease maternal Other DICKSON (dyspnea on exertion) Hypertension Stroke Denies family history of Colon cancer Ovarian cancer Diabetes Breast cancer Uterine cancer Social History Smoking and tobacco/nicotine status: current every day tobacco/nicotine user cigarettes Packs smoked per day: 1 Years cigarettes smoked: 57 [ Other cigarette details: Started smoking at 11] Substance/Drug Use: never Course Vital Signs: Vital signs: Vital Signs Temperature 98.2 F 04/25/25 15:12 Pulse Rate 87 04/25/25 17:06 Respiratory Rate 18 04/25/25 15:46 Blood Pressure 159/61 04/25/25 17:06 Pulse Oximetry 93 04/25/25 17:06 Oxygen Delivery Me thod Nasal Cannula 04/25/25 16:23 Oxygen Flow Rate 3 04/25/25 16:23 MDM - SOB/Dyspnea Medical Decision Making This is a 69-year-old female with a known history of COPD who presented via EMS for worsening shortness of breath. Symptoms have been ongoing for several weeks with acute worsening today, associated with increased oxygen requirements at home (baseline 2 to 3 L, using up to 4 L), productive cough, and recent viral upper respiratory illness. Prehospital treatment included DuoNeb and IV methylprednisolone with partial improvement. In the ED, she received an additional DuoNeb with further clinical improvement and was titrated back to her baseline oxygen requirement of 2 to 3 L. Diagnostic evaluation included laboratory studies notable for no leukocytosis, chronic anemia at baseline, negative procalcitonin, negative delta troponin, normal lactic acid, unremarkable metabolic panel aside from mild hypokalemia (K3.0) which was repleted orally, and an unremarkable ABG. Viral respiratory panel was negative. D-dimer was negative, making pulmonary embolism unlikely in this clinical context. Chest x-ray demonstrated a possible right lower lobe pneumonia. Differential diagnoses considered included COPD exacerbation, pneumonia, pulmonary embolism, acute coronary syndrome, heart failure exacerbation, and sepsis; these were felt less likely based on reassuring labs, imaging, ABG, hemodynamic stability, and clinical improvement. She was treated empirically with IV azithromycin and ceftriaxone in the ED for suspected infectious trigger and COPD exacerbation. Hospital admission and observation were offered; however, the patient reported significant symptomatic improvement, was stable on baseline oxygen, and expressed a clear preference for discharge. After shared decision making, she was deemed appropriate for outpatient management with doxycycline and a prednisone taper. She has access to home oxygen refills and understands strict return precautions for worsening dyspnea, increased oxygen needs, chest pain, fever, or any new or concerning symptoms. Chart reviewed and patient discussed with midlevel. Agree with assessment and plan. Lab Data 04/25/25 15:20 04/25/25 15:20 Labs/Radiology: Radiology Impressions Chest X-Ray 04/25/25 15:19 Impression: 1. Minimal patchy opacity overlying right lung which could represent atelectasis and or pneumonia. 2. Cardiomegaly and small pleural effusions. 3. Hyperinflation. Laboratory Results WBC 6.85 10^3/uL (3.29-11.43) 04/25/25 15:20 RBC 3.50 10^6/uL (3.85-5.65) L 04/25/25 15:20 Hgb 10.70 g/dL (11.27-16.99) L 04/25/25 15:20 Hct 34.6 % (36-47) L 04/25/25 15:20 MCV 98.9 fl (85-98) H 04/25/25 15:20 MCH 30.6 pg (27-33) 04/25/25 15:20 MCHC 30.9 g/dL (30-55) 04/25/25 15:20 RDW 13.1 % (12.1-15.1) 04/25/25 15:20 Plt Count 240 10^3/cmm (157-399) 04/25/25 15:20 MPV 10.4 fL (7.4-10.4) 04/25/25 15:20 Neut % (Auto) 69.0 % 04/25/25 15:20 Lymph % (Auto) 18.2 % 04/25/25 15:20 [place] % (Auto) 10.2 % 04/25/25 15:20 Eos % (Auto) 1.9 % 04/25/25 15:20 Baso % (Auto) 0.3 % 04/25/25 15:20 Neut # (Auto) 4.72 10^3/uL (1.8-7.7) 04/25/25 15:20 Lymph # (Auto) 1.3 10^3/uL (0.8-4.8) 04/25/25 15:20 [place] # (Auto) 0.7 10^3/uL (0.2-0.9) 04/25/25 15:20 Eos # (Auto) 0.1 10^3/uL (0.0-0.8) 04/25/25 15:20 Baso # (Auto) 0.0 10^3/uL (0.0-0.1) 04/25/25 15:20 Nucleated RBC % (auto) 0 % 04/25/25 15:20 Nucleated RBCs # 0.0 /100WBC 04/25/25 15:20 D-Dimer 0.35 ug/mLFEU (0-0.59) 04/25/25 15:20 Specimen Type Arterial 04/25/25 15:50 Sample Site Radial, left 04/25/25 15:50 ABG pH 7.46 (7.35-7.45) H 04/25/25 15:50 ABG pCO2 52.6 mmHg (35-45) H 04/25/25 15:50 ABG pO2 73.5 mmHg (80.0-100.0) L 04/25/25 15:50 ABG PO2/FiO2 Ratio 204 04/25/25 15:50 ABG HCO3 37.5 mmol/L (22-26) H 04/25/25 15:50 ABG O2 Saturation 97.3 04/25/25 15:50 ABG Base Excess 11.9 mmol/L (-2.0-2.0) H 04/25/25 15:50 Nikhil Test Pos 04/25/25 15:50 A-a O2 Gradient 15.5 mmHg (5-10) H 04/25/25 15:50 Hematocrit 34.5 % (37-47) L 04/25/25 15:50 Hgb O2 Saturation 87.9 % (95-100) L 04/25/25 15:50 Carboxyhemoglobin 9.4 %THgb (0.4-20.1) 04/25/25 15:50 Methemoglobin 0.2 % (0.4-1.5) L 04/25/25 15:50 Total Hemoglobin 11.3 g/dL (12-16) L 04/25/25 15:50 Sodium 144.0 mmol/L (131-143) H 04/25/25 15:50 Potassium 3.1 mmol/L (3.5-5.0) L 04/25/25 15:50 Glucose 102.0 mg/dL (70-115) 04/25/25 15:50 Ionized Calcium 1.2 mmol/L (1.1-1.4) 04/25/25 15:50 O2 Delivery Device Nc 04/25/25 15:50 O2 Liters/Min 4.0 % 04/25/25 15:50 FiO2 36.0 % 04/25/25 15:50 Mine Car Dispatcher ID glc 04/25/25 15:50 Sodium 143 mmol/L (136-145) 04/25/25 15:20 Potassium 3.0 mmol/L (3.5-5.1) L 04/25/25 15:20 Chloride 98 mmol/L (98-107) 04/25/25 15:20 Carbon Dioxide 35 mmol/L (22-29) H 04/25/25 15:20 Anion Gap 13.0 (5-19) 04/25/25 15:20 BUN 16 mg/dL (8-23) 04/25/25 15:20 Creatinine 1.2 mg/dL (0.5-0.9) H 04/25/25 15:20 GFR Calculation Not Reportable 04/25/25 15:20 Glucose 106 mg/dL (65-115) 04/25/25 15:20 Calculated Osmolality 298 mOsm/kg (285-295) H 04/25/25 15:20 Lactic Acid 1.1 mmol/L (0.5-2.2) 04/25/25 15:20 Calcium 9.5 mg/dL (8.5-10.5) 04/25/25 15:20 Total Bilirubin 0.2 mg/dL (0.15-1.2) 04/25/25 15:20 AST 12 U/L (0-32) 04/25/25 15:20 ALT 10 U/L (0-33) 04/25/25 15:20 Alkaline Phosphatase 63 U/L (35-105) 04/25/25 15:20 Troponin T Baseline 18 ng/L (0-10) H 04/25/25 15:20 Troponin T 60 Minute 17.64 ng/L (0-10) H 04/25/25 16:16 Delta Troponin T -0.36 ABS# (0-10) L 04/25/25 16:16 NT-Pro-B Natriuret Pep 1739 pg/mL (0-125) H 04/25/25 15:20 Total Protein 5.4 g/dL (6.6-8.7) L 04/25/25 15:20 Albumin 3.9 g/dL (3.5-5.2) 04/25/25 15:20 Globulin 1.5 g/dL (1.3-4.6) 04/25/25 15:20 Procalcitonin 0.04 ng/mL (0-0.5) 04/25/25 15:20 Influenza A (PCR) Negative (Negative) 04/25/25 13:26 Influenza Type B (PCR) Negative (Negative) 04/25/25 13:26 RSV (PCR) Negative (Negative) 04/25/25 13:26 SARS-CoV-2 (PCR) Negative (Negative) 04/25/25 13:26 Discharge Plan Discharge Patient Disposition: Home Clinical Impression: COPD exacerbation Community acquired pneumonia Qualifiers: Laterality: right Lung location: lower lobe of lung Qualified Code(s): J18.9 - Pneumonia, unspecified organism Condition: Stable Prescriptions: New prednisone 10 mg tablets,dose pack 10 mg PO DIRECTED Qty: 21 0RF Rx Instructions: see taper instructions 6 tablets on day 1, 5 tablets on day 2, 4 tablets on day 3, 3 tablets on day 4, 2 tablets on day 5, and 1 tablet a day 6. P.o. doxycycline hyclate 100 mg tablet 100 mg PO BID 10 Days Qty: 20 0RF No Action aspirin 81 mg tablet,chewable 81 mg PO DAILY nitroglycerin 0.4 mg tablet, sublingual 0.4 mg sublingual Q5M PRN (Reason: chest pain) Qty: 25 3RF Rx Instructions: do not exceed 3 doses per episode albuterol sulfate 90 mcg/actuation HFA aerosol inhaler 2 puff inhalation Q6H PRN (Reason: Shortness Of Breath Or Wheezing) (DME) oxygen-air delivery systems Device See Rx Instructions .Route Rx Instructions: As directed cetirizine [Zyrtec] 10 mg tablet 10 mg PO QAM vitamin B complex Tablet 1 tab PO DAILY cholecalciferol (vitamin D3) [Vitamin D3] 125 mcg (5,000 unit) Tablet 125 mcg PO QAM acetaminophen 325 mg capsule 325 mg PO Q4H PRN (Reason: fever or pain) Qty: 60 0RF duloxetine 30 mg capsule,delayed release(DR/EC) 30 mg PO DAILY pantoprazole 40 mg tablet,delayed release (DR/EC) 40 mg PO BID amlodipine 5 mg tablet 10 mg PO DAILY 30 Days Qty: 30 0RF furosemide 40 mg Tablet 40 mg PO DAILY atorvastatin [Lipitor] 40 mg tablet 40 mg PO QPM Qty: 30 2RF carvedilol 3.125 mg Tablet 3.125 mg PO BID Qty: 60 2RF Tommytri Aerosphere 160-9-4.8 mcg/actuation HFA aerosol inhaler 2 inh INHALATION BID isosorbide mononitrate 30 mg tablet extended release 24 hr 30 mg PO DAILY clopidogrel 75 mg tablet 75 mg PO DAILY losartan 100 mg tablet 100 mg PO DAILY Discharge Orders: Discharge ED (Routine); Ordered 04/25/25 Ordered By: Adarsh Harvey Referrals: Kennedy Toney FNP [Primary Care Provider, Nurse Practitioner] Patient Instructions: Patient Portal & Maya Instructions Activity Restrictions/Additional Instructions: COPD Exacerbation Discharge Instructions Your Diagnosis You were treated in the emergency department for a flare-up (exacerbation) of your chronic obstructive pulmonary disease (COPD) with possible pneumonia in your right lower lung. Your breathing improved with nebulizer treatments and steroid medication, and your oxygen needs returned to your usual level. Your Medications Please take the following medications as prescribed: - Prednisone taper: Take as directed to reduce inflammation in your lungs. A 5-day course of oral corticosteroids helps improve lung function and speeds recovery from COPD flare-ups. - Doxycycline: Take as prescribed to treat possible lung infection. Antibiotics reduce the risk of treatment failure and help prevent early relapse when you have increased sputum (mucus) and purulence. - DuoNeb (albuterol and ipratropium) nebulizer treatments: Continue using at home as directed. These medications help open your airways and make breathing easier. - Oxygen: Continue using 3 liters per minute as you were doing before this flare-up. Continue all your other regular COPD medications unless instructed otherwise. Warning Signs - Return to the Emergency Department If You Experience: - Worsening shortness of breath that does not improve with your nebulizer treatments - Increased difficulty breathing at rest - Chest pain - Fever - Confusion or difficulty staying awake - Swelling in your legs that is new or getting worse - Need for more oxygen than your usual 3 liters These symptoms may indicate a severe exacerbation requiring immediate medical attention. Follow-Up Care - Schedule an appointment with your primary care doctor or lung specialist within 1-2 weeks - Bring all your medications to that appointment - Discuss whether you might benefit from pulmonary rehabilitation, which can improve your breathing, exercise ability, and quality of life General Care Instructions - Get plenty of rest during your recovery - it may take 4-6 weeks to feel back to normal - Drink plenty of fluids unless your doctor has told you to limit fluids - Avoid smoke, strong fumes, and air pollution - Wash your hands frequently to prevent infections - Make sure you are up to date with your flu vaccine and discuss pneumonia vaccination with your doctor Questions? If you have questions about your medications or care, contact your doctor's office during regular business hours. Print Language: [place] Coding Level of Care Code ED Flap Maker for Salomon Jones
[2025-04-25 15:34] LABS: Hematocrit 34.6 % (36-47); Hemoglobin 10.70 g/dL (11.27-16.99); Mean Corpuscular HGB Conc 30.9 g/dL (30-55); Mean Corpuscular Hemoglobin 30.6 pg (27-33); Mean Corpuscular Volume 98.9 fl (85-98); Nucleated Red Blood Cells % 0 %; Platelet Count 240 10^3/cmm (157-399); Red Blood Count 3.50 10^6/uL (3.85-5.65); White Blood Count 6.85 10^3/uL (3.29-11.43)
[2025-04-25 15:46] VITALS: PULSE 75; RESP 18; O2SAT 96
[2025-04-25 15:53] LABS: Lactic Sepsis W/Reflex 1.1 mmol/L (0.5-2.2)
[2025-04-25 15:54] LABS: Troponin(5th) Baseline 18 ng/L (0-10)
[2025-04-25 16:02] LABS: ABG PCO2 52.6 mmHg (35-45); ABG PH Result 7.46 (7.35-7.45); Alveolar-Arterial Oxygen Gradi 15.5 mmHg (5-10); Arterial Blood Gas Hematocrit 34.5 % (37-47); Blood Gas Allen Test Pos; Blood Gas LPM 4.0 %; Blood Gas Operator Identificat glc; Blood Gas Sample Site Radial, left; Blood Gas Sample Type Arterial; Carboxyhemoglobin 9.4 %THgb (0.4-20.1); Glucose Level-ABG 102.0 mg/dL (70-115); HCO3 ABG 37.5 mmol/L (22-26); Ionized Calcium Level - ABG 1.2 mmol/L (1.1-1.4); Methemoglobin 0.2 % (0.4-1.5); Oxygen Saturation ABG 97.3; PO2 ABG 73.5 mmHg (80.0-100.0); PO2 FiO2 Ratio Arterial Blood 204; Potassium Level - ABG 3.1 mmol/L (3.5-5.0); Sodium Level - ABG 144.0 mmol/L (131-143)
[2025-04-25 16:04] LABS: NT Pro B Type Natriuretic Pept 1739 pg/mL (0-125); Procalcitonin 0.04 ng/mL (0-0.5)
[2025-04-25 16:10] LABS: Respiratory Syncytial Virus Ce NEGATIVE (Negative); SARS-CoV-2 PCR NEGATIVE (Negative)
[2025-04-25 16:15] LABS: Alanine Aminotransferase 10 U/L (0-33); Albumin Level 3.9 g/dL (3.5-5.2); Alkaline Phosphatase 63 U/L (35-105); Anion Gap 13.0 (5-19); Aspartate Amino Transferase 12 U/L (0-32); Blood Urea Nitrogen 16 mg/dL (8-23); Calcium 9.5 mg/dL (8.5-10.5); Carbon Dioxide 35 mmol/L (22-29); Chloride 98 mmol/L (98-107); Globulin 1.5 g/dL (1.3-4.6); Glucose 106 mg/dL (65-115); Osmolality Calculated 298 mOsm/kg (285-295); Potassium 3.0 mmol/L (3.5-5.1); Sodium 143 mmol/L (136-145); Total Protein 5.4 g/dL (6.6-8.7)
[2025-04-25] MEDS: cefTRIAXone 1,000 mg SDV 1000 MG IVP (16:19)
[2025-04-25 16:23] VITALS: BP 175/62; PULSE 88; O2SAT 90
--- NOTE | 2025-04-25 16:31 | ECG_ITS ---
[facility] Test Date: 2025-04-25 Pat Name: Latonia Gar Department: Room: Gender: Female Director University: : 1955 Requested By: Adarsh Celestin Order Number: [id number] Reading MD: ARIES CYR Measurements Intervals [place] Rate: 83 P: 214 OR: 105 QRS: 20 QRSD: 95 T: 34 QT: 395 QTc: 465 Interpretive Statements SINUS RHYTHM WITH SHORT OR INTERVAL WITH FREQUENT SUPRAVENTRICULAR PREMATURE COMPLEXES NONSPECIFIC ST & T-WAVE ABNORMALITY ABNORMAL RHYTHM ECG Compared to ECG 04/25/2025 15:23:07 Short OR interval now present Possible ischemia no longer present T-wave abnormality still present Electronically Signed On 04-27-2025 20:40:10 [employer] 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
[2025-04-25 17:06] VITALS: BP 159/61; PULSE 87; O2SAT 93
== END 2025-04-25 17:26 | disposition home or self-care (01) ==
PROVIDERS: Emergency Provider Physician Assistant; PCP Nurse Practitioner Family
DX: J44.1 Chronic obstructive pulmonary disease with (acute) exacerbation (principal); J18.9 Pneumonia, unspecified organism; Z79.82 Long term (current) use of aspirin; Z79.02 Long term (current) use of antithrombotics/antiplatelets; Z11.52 Encounter for screening for COVID-19; F17.210 Nicotine dependence, cigarettes, uncomplicated; I25.10 Atherosclerotic heart disease of native coronary artery without angina pectoris; I10 Essential (primary) hypertension
CPT/HCPCS: 36415; 36600; 71045; 80051; 80053; 82330; 82805; 83605; 83880; 84145; 84484; 85025; 85378; 87637; 93005; 94640; 96374; 96375; 99285; J0456; J0696; J7050; J9999

== ENCOUNTER 2025-05-04 10:19 | Oncology outpatient (recurring) (ONCR) | payer MEDICARE, MEDICAID, SELFPAY ==
[2025-05-04 10:37] LABS: Hematocrit 32.6 % (36-47); Hemoglobin 10.10 g/dL (11.27-16.99); Mean Corpuscular HGB Conc 31.0 g/dL (30-55); Mean Corpuscular Hemoglobin 30.1 pg (27-33); Mean Corpuscular Volume 97.0 fl (85-98); Nucleated Red Blood Cells % 0 %; Platelet Count 308 10^3/cmm (157-399); Red Blood Count 3.36 10^6/uL (3.85-5.65); White Blood Count 5.52 10^3/uL (3.29-11.43)
[2025-05-04 10:57] LABS: Alanine Aminotransferase 11 U/L (0-33); Albumin Level 3.9 g/dL (3.5-5.2); Alkaline Phosphatase 60 U/L (35-105); Anion Gap 11.2 (5-19); Aspartate Amino Transferase 11 U/L (0-32); Blood Urea Nitrogen 13 mg/dL (8-23); Calcium 9.4 mg/dL (8.5-10.5); Carbon Dioxide 35 mmol/L (22-29); Chloride 100 mmol/L (98-107); Ferritin 35 ng/mL (15-150); Globulin 1.9 g/dL (1.3-4.6); Glucose 73 mg/dL (65-115); Iron 59 ug/dL (37-145); Osmolality Calculated 295 mOsm/kg (285-295); Potassium 3.2 mmol/L (3.5-5.1); Sodium 143 mmol/L (136-145); Total Iron Binding Capacity 268 mcg/dl; Total Protein 5.8 g/dL (6.6-8.7); Unsaturated Iron Binding 209 ug/dL (112-347)
== END 2025-05-04 23:59 | disposition home or self-care (01) ==
PROVIDERS: Nurse Practitioner; PCP Nurse Practitioner Family; Visit Provider Internal Medicine
DX: Z53.9 Procedure and treatment not carried out, unspecified reason (principal); D50.9 Iron deficiency anemia, unspecified; F17.210 Nicotine dependence, cigarettes, uncomplicated; J44.9 Chronic obstructive pulmonary disease, unspecified; Z99.81 Dependence on supplemental oxygen; Z71.6 Tobacco abuse counseling; Z95.5 Presence of coronary angioplasty implant and graft
CPT/HCPCS: 80053; 82728; 83540; 83550; 85025; 99213